=== PATIENT | male | born 1955 | race Caucasian/White ===

== ENCOUNTER → 2016-08-02 | Outpatient (CLI) | payer MEDICARE, SELFPAY ==
--- NOTE | 2016-08-02 14:52 | CT ---
EXAMINATION TYPE: CT ChestAbdPelvis w con DATE OF EXAM: 08/02/2016 1:53 PM INDICATION: Lt hip CA, unknown primary COMPARISON: NONE CT DLP: 598.1 mGycm CONTRAST: Performed with Oral Contrast and with IV Contrast, patient injected with 100 ml mL of Omnipaque 300. TECHNIQUE: Axial images at 5 mm thick sections. Reconstructed images in the coronal plane. Delayed images through the kidneys. FINDINGS: CT CHEST: Portion of the thyroid visualized is normal. No suspicious lung nodules or focal infiltrates are present. Some mild streak atelectasis may be present in the dependent lung bases bilaterally. No enlarged mediastinal or hilar adenopathy is evident. The ascending aorta diameter at the level of the main pulmonary artery is 3.8 cm. The main pulmonary artery diameter at the bifurcation is 2.5 cm. There is likely some coronary artery calcification pre sent. CT ABDOMEN: Liver: Normal Spleen: Normal Pancreas: Normal Adrenal glands: The adrenal glands are normal. Gallbladder: Normal Kidneys: No masses are evident. No hydronephrosis is present. There is a 2.1 cm cyst measuring 6 Ho unsfield units on the posterior left mid kidney. Delayed images were obtained through the kidneys, w hich remain unremarkable. Aorta: Vascular calcification is within the aorta. Inferior vena cava: Normal. CT PELVIS: Loops of bowel within the abdomen and pelvis are normal. There are loops of bowel which are incom pletely distended or lack oral contrast limiting their evaluation. Scattered diverticuli within the s igmoid colon. Appendix: Normal as visualized. Urinary bladder: Normal. Genitourinary structures: Prostate is prominent. Osseous structures: There is a lytic area within the right hip. Facet degenerative changes are within the lumbar spine. Tiny sclerotic area within the L2 vertebral body. Thoracic facet degenerative regan ges are present. Degenerative disc changes are within the thoracic spine. IMPRESSIONS: 1. Lytic area right hip. 2. No suspicious focus for a primary within the chest abdomen pelvis radiographically apparent.
== END | disposition home or self-care (01) ==
LOC: RADCTMAIN 11:47
PROVIDERS: ATTEND Internal Medicine Hematology & Oncology
DX: C80.1 Malignant (primary) neoplasm, unspecified (principal)
CPT/HCPCS: 71260; 74177; Q9967

== ENCOUNTER → 2016-08-03 | Outpatient (CLI) | payer MEDICARE, SELFPAY ==
--- NOTE | 2016-08-03 14:14 | NM ---
EXAMINATION TYPE: NM bone scan whole body DATE OF EXAM: 08/03/2016 1:56 PM COMPARISON: Correlation CT 08/02/2016 HISTORY: 60-year-old male with metastatic cancer, unknown primary. History of ankylosing spondylitis. Patient with right hip pain. TECHNIQUE: Delayed whole-body scanning was performed following the injection of 27.4 mCi Tc 99m MDP. Images acquired 5 hours post injection. FINDINGS: Photopenic area surrounded by a focal area of intense tracer activity along the medial and inferior m argin of the trochanteric and subtrochanteric right proximal femur. There is also small area of inten se tracer activity involving the left ischial tuberosity on the posterior images. No additional suspi cious radiotracer activity is seen. Some degenerative activity is noted at both shoulders and sternoc lavicular joints. IMPRESSION: Suspicious lesions within the trochanteric and subtrochanteric proximal right femur and a tiny focus within the left ischial tuberosity both suspicious for metastatic disease. Patient should be made non weightbearing for risk of pathologic fracture at the right hip. A Forrest message has been communicated to Vasquez Smith MD via the [email or web address] Critical Result system on 08/03/2016 2:11 PM, Message ID [id number].
== END | disposition home or self-care (01) ==
LOC: RADNMMAIN 07:42
PROVIDERS: ATTEND Internal Medicine Hematology & Oncology
DX: C79.9 Secondary malignant neoplasm of unspecified site (principal); C80.1 Malignant (primary) neoplasm, unspecified
CPT/HCPCS: 78306; A9503

== ENCOUNTER → 2016-09-08 | Outpatient (CLI) | payer MEDICARE, SELFPAY ==
--- NOTE | 2016-09-09 13:15 | PE ---
EXAMINATION TYPE: PET CT fusion skull to thigh DATE OF EXAM: 09/08/2016 2:20 PM COMPARISON: CT chest 08/02/2016 Prior PET/CT: None HISTORY: Multiple myeloma TECHNIQUE: Following the intravenous administration of 12.8 mCi of F-18 FDG, whole body images are p erformed from the skull base to the midthigh. Images are reviewed on the computer in the coronal, ax ial, and sagittal planes. Reconstructed rotating images are created on independent workstation and r eviewed on the computer. A localization and attenuation correction CT is performed in conjunction w ith the PET scan. DLP: 404.51 mGycm SCAN: Initial Scan Blood glucose: 94 mg/dL Average Mediastinum SUV: 1.7 Average Liver SUV: 2.1 FINDINGS: NECK: Images include the brain. Radiotracer distribution within the brain appears unremarkable. Ther e is a focal area of increased radiotracer accumulation within the left skull base adjacent to the le ft sphenoid sinus. This has an SUV value of 4.5. Image 44. There is a focal area of increased radiotr acer within the upper cervical spine and SUV value 4.2. Image 59. There is a focal radiotracer accumu lation within the mid cervical vertebral body with an SUV value of 4.2. Image 67. At the same level t here is a slight increased uptake within the left facets which could be related to inflammatory bright e or myelomatous change. Image 68 similar uptake is within the right facets at the next level down. T here is diffuse uptake within the left scapula. Small focal area of uptake is within the right scapul a. THORAX: There is intense uptake within the posterior medial left femoral head with an SUV value 20. S mall focal area of increased radiotracer is within the right glenoid. A second adjacent area is prese nt more anterior within the coracoid. These have SUV values of 6.3 and 7.0 respectively is measured o n image 86. There is a focus of radiotracer within the left upper thoracic transverse process measuri ng SUV 7.1. Image 86. There is increased radiotracer accumulation within the medial left clavicle wit h an SUV value of 6.5. Image 88. Radiotracer accumulation within the transverse processes and proxim al ribs posteriorly. Uptake is within the sternal clavicular junction region bilaterally. These have SUV values range up to 5.8, 4.5. Two foci of abnormal uptake are within the proximal diaphysis right humerus. Images 97 and 101. These measure 5.6, 4.6 SUV respectively. Additional rib uptake is identi fied at these levels. There is uptake within the mid thoracic vertebral level with an SUV of 4.2. Stephie ge 106. Inferior right scapular uptake is noted at this level with an SUV of 3.6.. There is a focus o f radiotracer within the mid sternum with an SUV of 7.5. Image 117. Left lateral rib uptake is presen t at this level with an SUV of 3.9. Additionally, there is a focus of radiotracer within the mid diap hysis right humerus with an SUV of 3.1. There is an area of intense uptake within the anterior latera l right rib image 128 with SUV of 11.7. Additional milder areas of uptake are within the ribs through this region region. There is a focus of radiotracer accumulation within a lower thoracic vertebral l evel right of midline with an SUV value of 8.9. Right costovertebral junction uptake is present with an SUV value of 2.6. Similar positioned uptake is within the anterior lateral left costochondral junc tion with SUV of 5.6. Image 144 uptake is near the xiphoid process level with SUV of 2.1 ABDOMEN: There is a focus of radiotracer within the lower thoracic level within the upper abdomen in the left pedicle and posterior left vertebral body. This is an SUV value of 10. Image 151. Right late ral rib uptake is present adjacent to the liver image 159, SUV 5.0 scattered punctate areas of uptake are within upper lumbar spine vertebral bodies on the right with an SUV value in the range of 3.0. Right pedicle uptake appears to be within region of L4. PELVIS: Intense uptake with an SUV value of 8.0 is present within the posterior L5 midline table body . Uptake is within the right aspect of S1. There is some uptake within the right posterior medial dl ac wing with an SUV value 5.1. Image 198. Uptake is within the left sacral image 206 SUV is 7.7 inten se uptake in the right lateral mid sacrum with an SUV of 10.6, image 2013. Iliac wing uptake is prese nt posterior medial aspect image 216 SUV of 8.7. There is a focus of radiotracer accumulation within the soft tissues of the pelvis anterior to the right hip. This has an SUV value of 11.5. Photopenic d efect patient's right hip prosthesis is evident. There is a focus of radiotracer accumulation within the medial right symphysis pubis with an SUV value of 6.5. There is a focus of radiotracer within th e left ischio ramus with an SUV value of 18.7. Image 245. Milder uptake with an SUV value of 5.8 also within the metastatic region is within the posterior inferior right ischial ramus. There is a focus of radiotracer accumulation within the left femoral neck with an SUV value of 7.3. Image 247 abnormal uptake is anterior to the left hip within the musculature soft tissue tissues measuring SUV value 14 and 29. Image 268. Some medullary uptake is within the diaphysis of the proximal left femur, image 2 71 SUV value of 12. OSSEOUS STRUCTURES: Fast majority of the abnormal areas of uptake are through osseous structures disc ussed in their sections above. Additionally, there is uptake within the medullary cavity of the right proximal diaphyseal femur. Image 325 SUV value 1.5. LOCALIZATION CT: Degenerative facet changes are noted throughout the spine. Few scattered diverticula r changes are within the sigmoid colon. Periumbilical fat containing mesenteric hernia is present. Va scular calcifications within the aorta. Ascending thoracic aorta at the level of the main pulmonary a rtery measures 3.6 cm. The main pulmonary artery bifurcation measures 2.8 cm. Scattered small lymph n odes are the pretracheal space. COMPARISON: Extensive is process is more apparent on the PET scan. IMPRESSION: 1. Extensive osseous metastasis throughout the body discussed above. 2. Some soft tissue uptake appears to be anterior to the femur within the upper thigh.
== END ==
LOC: RADPETMAIN 11:49
PROVIDERS: ATTEND Internal Medicine Hematology & Oncology
DX: C79.51 Secondary malignant neoplasm of bone (principal); C90.00 Multiple myeloma not having achieved remission
CPT/HCPCS: 78815; A9552

== ENCOUNTER 2017-03-21 06:31 | Day surgery (SDC) | payer MEDICARE ==
[2017-03-15 11:40] VITALS: BMI 24.3
[~2017-03-21 06:31] MED LIST: LACTATED RINGERS 1,000 ML IV SCH; LIDOCAINE 1% 20 ML VIAL (10MG/ML) FOR IV START INTRADERMA PRN
[2017-03-21 07:18] VITALS: RESP 16; TEMP 98.1
[2017-03-21] MEDS ORDERED: fentaNYL (PF) 50 MCG/ML 2 ML AMP ONE (07:42)
[2017-03-21] MEDS ORDERED: PROPOFOL 10 MG/ML 20 ML VIAL IV ONE (07:42)
[2017-03-21] MEDS ORDERED: LIDOCAINE 1% INJ 10MG/ML (20 ML MDV) ONE (07:42)
[2017-03-21 07:54] LABS: INR 2.3 (<1.2); Prothrombin Time 22.1 sec (9.0-12.0)
--- NOTE | 2017-03-21 08:31 | PCN ---
PROCEDURE NOTE DATE OF SERVICE: 03/21/2017 PROCEDURE: Bone marrow aspirate and biopsy. PREOP DIAGNOSIS: Multiple myeloma. POSTOP DIAGNOSIS: Multiple myeloma. ANESTHESIA: Local with IV semi-sedation. DETAILS: After using sterile technique, the skin overlying the right iliac crest was prepared with alcohol after adequate sterile draping and local anesthesia, a size 11, 4 inch Gigamonshidi needle was utilized to access the periosteum. We did a total of 15 mL of aspirate as well as 6 mm bone core biopsies were obtained. The patient tolerated the procedure very well. There was no immediate postprocedure complications. BLOOD LOSS: Less than 1 mL. Results pending. MMODL / IJN: [id number] /
[2017-03-21 08:36] VITALS: BP 100/68; PULSE 67
[2017-03-21 09:18] LABS: Basophils % (A) 1 %; CH 32.2; CHCM 33.2; Eosinophils # (A) 0.2 k/uL (0-0.7); Eosinophils % (A) 2 %; HCT 38.1 % (39.0-53.0); HDW 2.66; HGB 12.9 gm/dL (13.0-17.5); Luc # (Auto) 0.13; Luc % (Auto) 2; Lymphocytes # (A) 1.3 k/uL (1.0-4.8); Lymphocytes % (A) 19 %; MCH 32.8 pg (25.0-35.0); MCHC 33.8 g/dL (31.0-37.0); MCV 97.1 fL (80.0-100.0); Mean Platelet Volume 7.9; Monocytes # (A) 0.9 k/uL (0-1.0); Monocytes % (A) 14 %; Neutrophils # (A) 4.3 k/uL (1.3-7.7); Neutrophils % (A) 62 %; RBC 3.92 m/uL (4.30-5.90); RDW 15.1 % (11.5-15.5); WBC 6.9 k/uL (3.8-10.6); WBC (Perox) 7.11
== END 2017-03-21 09:01 | disposition home or self-care (01) ==
LOC: OR 06:31
PROVIDERS: ATTEND Internal Medicine Hematology & Oncology
DX: C90.00 Multiple myeloma not having achieved remission (principal); M45.9 Ankylosing spondylitis of unspecified sites in spine; I48.91 Unspecified atrial fibrillation; I10 Essential (primary) hypertension; Z85.51 Personal history of malignant neoplasm of bladder; Z79.2 Long term (current) use of antibiotics; Z79.01 Long term (current) use of anticoagulants; Z79.899 Other long term (current) drug therapy
CPT/HCPCS: 85025; 85610; 38221; J2001; J3010; J2704; G0364

== ENCOUNTER 2017-05-17 09:10 | Inpatient (IN) | payer MEDICARE ==
[2017-05-17] MEDS ORDERED: ONDANSETRON 4 MG/2 ML VIAL IVP STA (09:24)
[2017-05-17] MEDS ORDERED: SODIUM CHLORIDE 0.9% 1,000 ML IV STA ×2 (09:24)
--- NOTE | 2017-05-17 09:26 | ED ---
General Adult HPI - General Chief complaint: Nausea/Vomiting/Diarrhea Stated complaint: SICK Time Seen by Provider: 05/17/17 09:18 Source: patient, family, RN notes reviewed Mode of arrival: wheelchair Limitations: no limitations - History of Present Illness Initial comments: Patient is 61-year-old male who presents emergency room today with a chief complaint of increased nausea vomiting over the last week. Patient does admit that he's had decreased appetite due to the nausea and vomiting. States he does feel quite a week. Patient presents with chest pain off-and-on at times. no pain in his chest today. Patient denies any other complaints. Patient does admit to be getting chemo regimen last Saturday has been able to take this medication keep it down. Patient denies any recent fever, chills, shortness of breath, back pain, abdominal pain, numbness or tingling, dysuria or hematuria, constipation or diarrhea, headaches or visual changes, or any other complaints. - Related Data Home Medications Medication Instructions Recorded Confirmed Lisinopril [Zestril] 2.5 mg PO DAILY 04/25/16 05/17/17 Carvedilol 12.5 mg PO BID 03/18/17 05/17/17 Lenalidomide [Revlimid] 25 mg PO DAILY 03/18/17 05/17/17 Warfarin [Coumadin] 2.5 mg PO W/SUPPER 03/18/17 05/17/17 Cyanocobalamin (Vitamin B-12) 1,000 mcg PO DAILY 05/17/17 05/17/17 [Vitamin B-12] Dexamethasone [Hexadrol] 20 mg PO MO 05/17/17 05/17/17 oxyCODONE ER [OxyCONTIN 10MG E.R] 10 mg PO Q12HR PRN 05/17/17 05/17/17 Allergies Allergy/AdvReac Type Severity Reaction Status Date / Time No Known Allergies Allergy Verified 05/17/17 09:24 Review of Systems ROS Statement: Those systems with pertinent positive or pertinent negative responses have been documented in the HPI. ROS Other: All systems not noted in ROS Statement are negative. Past Medical History Past Medical History: Cancer, Hypertension Additional Past Medical History / Comment(s): Bladder cancer with sx, umbilical hernia, back pain-ankylosing spondylitis, pt just recently started HTN medication. hx ventricular fibrillation or tachy - pt unsure - on amiodarone apr 2016 History of Any Multi-Drug Resistant Organisms: None Reported Past Surgical History: Bladder Surgery, Orthopedic Surgery, Tonsillectomy Additional Past Surgical History / Comment(s): Cystoscopy for bladder cancer removal./ replaced right femur bone jul 2016 Past Anesthesia/Blood Transfusion Reactions: No Reported Reaction Past Psychological History: No Psychological Hx Reported Smoking Status: Never smoker Past Alcohol Use History: None Reported Past Drug Use History: Marijuana - Past Family History Father History Unknown: Yes Mother Family Medical History: Renal Disease Additional Family Medical History / Comment(s): Mother of a blood infection thought related to dialysis at the age of 83 yrs. General Exam - General Exam Comments Initial Comments: General: The patient is awake and alert, in no distress, and does not appear acutely ill. Eye: Pupils are equal, round and reactive to light, extra-ocular movements are intact. No nystagmus. There is normal conjunctiva bilaterally. No signs of icterus. Ears, nose, mouth and throat: There are moist mucous membranes and no oral lesions. Neck: The neck is supple, there is no tenderness or JVD. Cardiovascular: There is a regular rate and rhythm. No murmur, rub or gallop is appreciated. Respiratory: Lungs are clear to auscultation, respirations are non-labored, breath sounds are equal. No wheezes, stridor, rales, or rhonchi. Gastrointestinal: Soft, non-distended, non-tender abdomen without masses or organomegaly noted. There is no rebound or guarding present. No CVA tenderness. Bowel sounds are unremarkable. Musculoskeletal: Normal ROM, no tenderness. Strength 5/5. Sensation intact. Pulses equal bilaterally 2+. Neurological: A&O x 3. CN II-XII intact, There are no obvious motor or sensory deficits. Coordination appears grossly intact. Speech is normal. Skin: Skin is warm and dry and no rashes or lesions are noted. Psychiatric: Cooperative, appropriate mood & affect, normal judgment. Limitations: no limitations Course Vital Signs 05/17/17 05/17/17 05/17/17 09:12 09:50 09:56 Temperature 97.0 F L Pulse Rate 87 154 H Pulse Rate [ 135 H [employer] Sales Representative ] Respiratory 18 16 Rate Blood Pressure 142/59 105/64 O2 Sat by Pulse 100 99 Oximetry 05/17/17 05/17/17 10:49 11:00 Temperature Pulse Rate 130 H 148 H Pulse Rate [ [employer] Sales Representative ] Respiratory 18 Rate Blood Pressure 112/76 O2 Sat by Pulse 98 99 Oximetry EKG Findings - EKG Comments: EKG Findings:: EKG performed at 0943: Shows atrial flutter 147 beats breath. QRS is 88. QT/QTC 320/500. EKG compared to previous EKG on 04/26/2016. Medical Decision Making - Medical Decision Making Patient reexamined at this time shows no signs of distress. Resting comfortably. Patient's heart rate elevated here in the emergency room was started on Cardizem. Continue to bolus. Patient's labs been reviewed shows a 13,000 white count. Does show mildly elevated BUN/creatinine. Patient will be admitted for further hydration with consult to cardiology. - Lab Data Result diagrams: 05/17/17 09:20 05/17/17 09:20 Lab Results 05/17/17 05/17/17 05/17/17 Range/Units 09:20 09:20 09:20 WBC 13.2 H (3.8-10.6) k/uL RBC 3.82 L (4.30-5.90) m/uL Hgb 11.8 L (13.0-17.5) gm/dL Hct 36.5 L (39.0-53.0) % MCV 95.6 (80.0-100.0) fL MCH 30.9 (25.0-35.0) pg MCHC 32.3 (31.0-37.0) g/dL RDW 15.6 H (11.5-15.5) % Plt Count 113 L (150-450) k/uL Neutrophils % (Manual) 34 % Band Neutrophils % 7 % Lymphocytes % (Manual) 42 % Monocytes % (Manual) 6 % Eosinophils % (Manual) 1 % Metamyelocytes % 4 % Myelocytes % 9 % Neutrophils # (Manual) 5.40 (1.3-7.7) k/uL Lymphocytes # (Manual) 5.54 H (1.0-4.8) k/uL Monocytes # (Manual) 0.79 (0-1.0) k/uL Eosinophils # (Manual) 0.13 (0-0.7) k/uL Metamyelocytes # (Man) 0.53 H (0) k/uL Myelocytes # (Manual) 1.19 H (0) k/uL Nucleated RBCs 0 (0-0) /100 WBC Manual Slide Review Performed PT (9.0-12.0) sec INR (<1.2) APTT (22.0-30.0) sec Sodium 137 (137-145) mmol/L Potassium 3.8 (3.5-5.1) mmol/L Chloride 97 L (98-107) mmol/L Carbon Dioxide 22 (22-30) mmol/L Anion Gap 18 mmol/L BUN 31 H (9-20) mg/dL Creatinine 1.70 H (0.66-1.25) mg/dL Est GFR (MDRD) Af Amer 50 (>60 ml/min/1.73 sqM) Est GFR (MDRD) Non-Af 41 (>60 ml/min/1.73 sqM) Glucose 139 H (74-99) mg/dL Calcium 9.3 (8.4-10.2) mg/dL Total Bilirubin 0.9 (0.2-1.3) mg/dL AST 25 (17-59) U/L ALT 30 (21-72) U/L Alkaline Phosphatase 72 (38-126) U/L Total Creatine Kinase <20 L (55-170) U/L CK-MB (CK-2) 0.3 (0.0-2.4) ng/mL CK-MB (CK-2) Rel Index Troponin I <0.012 (0.000-0.034) ng/mL Total Protein 6.6 (6.3-8.2) g/dL Albumin 4.0 (3.5-5.0) g/dL 05/17/17 Range/Units 09:20 WBC (3.8-10.6) k/uL RBC (4.30-5.90) m/uL Hgb (13.0-17.5) gm/dL Hct (39.0-53.0) % MCV (80.0-100.0) fL MCH (25.0-35.0) pg MCHC (31.0-37.0) g/dL RDW (11.5-15.5) % Plt Count (150-450) k/uL Neutrophils % (Manual) % Band Neutrophils % % Lymphocytes % (Manual) % Monocytes % (Manual) % Eosinophils % (Manual) % Metamyelocytes % % Myelocytes % % Neutrophils # (Manual) (1.3-7.7) k/uL Lymphocytes # (Manual) (1.0-4.8) k/uL Monocytes # (Manual) (0-1.0) k/uL Eosinophils # (Manual) (0-0.7) k/uL Metamyelocytes # (Man) (0) k/uL Myelocytes # (Manual) (0) k/uL Nucleated RBCs (0-0) /100 WBC Manual Slide Review PT 23.6 H (9.0-12.0) sec INR 2.5 H (<1.2) APTT 32.5 H (22.0-30.0) sec Sodium (137-145) mmol/L Potassium (3.5-5.1) mmol/L Chloride (98-107) mmol/L Carbon Dioxide (22-30) mmol/L Anion Gap mmol/L BUN (9-20) mg/dL Creatinine (0.66-1.25) mg/dL Est GFR (MDRD) Af Amer (>60 ml/min/1.73 sqM) Est GFR (MDRD) Non-Af (>60 ml/min/1.73 sqM) Glucose (74-99) mg/dL Calcium (8.4-10.2) mg/dL Total Bilirubin (0.2-1.3) mg/dL AST (17-59) U/L ALT (21-72) U/L Alkaline Phosphatase (38-126) U/L Total Creatine Kinase (55-170) U/L CK-MB (CK-2) (0.0-2.4) ng/mL CK-MB (CK-2) Rel Index Troponin I (0.000-0.034) ng/mL Total Protein (6.3-8.2) g/dL Albumin (3.5-5.0) g/dL Disposition Clinical Impression: Atrial flutter, Nausea & vomiting Disposition: ADMITTED IP TO THIS [facility] Condition: Stable Referrals: Shashank Ramirez MD [Primary Care Provider] - 1-2 days Time of Disposition: 11:45
[2017-05-17 09:58] LABS: Calcium 9.3 mg/dL (8.4-10.2); INR 2.5 (<1.2); Potassium 3.8 mmol/L (3.5-5.1); Prothrombin Time 23.6 sec (9.0-12.0); Total Bilirubin 0.9 mg/dL (0.2-1.3); Total Protein 6.6 g/dL (6.3-8.2)
[2017-05-17 10:05] LABS: Creatine Kinase <20 U/L (55-170)
[2017-05-17 10:10] LABS: Aty Lym Flag Marked; CH 31.9; CHCM 33.5; HCT 36.5 % (39.0-53.0); HDW 2.73; HGB 11.8 gm/dL (13.0-17.5); Immature Gran Flag Marked; MCH 30.9 pg (25.0-35.0); MCHC 32.3 g/dL (31.0-37.0); MCV 95.6 fL (80.0-100.0); Mean Platelet Volume 8.2; RBC 3.82 m/uL (4.30-5.90); RDW 15.6 % (11.5-15.5); WBC 13.2 k/uL (3.8-10.6)
[2017-05-17 10:16] LABS: Partial Thromboplastin Time 32.5 sec (22.0-30.0)
[2017-05-17 10:18] LABS: Creatine Kinase MB 0.3 ng/mL (0.0-2.4); Troponin I <0.012 ng/mL (0.000-0.034)
[2017-05-17 10:41] LABS: Add Differential Manual Differential
--- NOTE | 2017-05-17 10:46 | XR ---
EXAMINATION TYPE: XR chest 2V DATE OF EXAM: 05/17/2017 COMPARISON: 04/25/2016 INDICATION: Weakness x1 week TECHNIQUE: Frontal and lateral views of the chest are obtained. FINDINGS: The heart size is normal. The pulmonary vasculature is normal. The lungs are clear. IMPRESSION: 1. No acute pulmonary process.
[2017-05-17] MEDS ORDERED: DILTIAZEM 125 MG in SODIUM CHLORIDE 0.9% 100 ML IV ONE (10:47)
--- NOTE | 2017-05-17 10:47 | XR ---
EXAMINATION TYPE: XR KUB DATE OF EXAM: 05/17/2017 COMPARISON: NONE INDICATION: Pain weakness TECHNIQUE: Single view abdomen upright view FINDINGS: Bowel gas pattern is nonspecific. Suspicious air-fluid levels are not evident. No free air is evident . Psoas margins are normal. No organomegaly is present. There is a right hip prosthesis present. IMPRESSION: 1. Nonspecific abdomen.
[2017-05-17 11:13] LABS: Band Neutrophils % 7 %; Metamyelocytes % 4 %; Myelocytes % 9 %; Nucleated Red Blood Cells 0 /100 WBC (0-0); Total Cells Counted 200
[2017-05-17 11:14] LABS: Manual Review Performed
[2017-05-17] MEDS ORDERED: ONDANSETRON 4 MG/2 ML VIAL IVP PRN (12:45)
[2017-05-17] MEDS ORDERED: NALOXONE 0.4 MG/ML 1 ML VIAL IV PRN (12:45)
[2017-05-17] MEDS: HYDROmorphone 1 MG/ML 1 ML SYRINGE IVP PRN ×2 (14:05→16:28)
[2017-05-17] MEDS: METOCLOPRAMIDE 5 MG/ML 2 ML VIAL IVP SCH ×2 (16:11→23:32)
[2017-05-17 16:22] LABS: Amorphous Sediment,Urine Rare /hpf; Appearance,Urine Clear (Clear); Bacteria,Urine Rare /hpf; Bilirubin,Urine Negative (Negative); Glucose,Urine (UA) Negative (Negative); Ketones,Urine Negative (Negative); Leukocyte Esterase,Urine Negative (Negative); Mucus,Urine Occasional /hpf; Nitrite,Urine Negative (Negative); PH, Urine 5.5 (5.0-8.0); Particle Count 4010; Protein,Urine 1+ (Negative); RBC,Urine 1 /hpf (0-5); Specific Gravity,Urine 1.007 (1.001-1.035); UA Billing (MACRO vs. MICRO) MICRO; Urobilinogen,Urine <2.0 mg/dL (<2.0); WBC,Urine 1 /hpf (0-5)
[2017-05-17] MEDS: CARVEDILOL 12.5 MG TAB PO SCH (17:03)
[2017-05-17] MEDS ORDERED: OXYCODONE HCL 10 MG PO SCH (18:00)
[2017-05-17] MEDS ORDERED: WARFARIN 2.5 MG TAB PO SCH (18:00)
--- NOTE | 2017-05-17 19:06 | HP ---
HISTORY AND PHYSICAL CHIEF COMPLAINTS: Nausea, vomiting and as well as atrial fibrillation. HISTORY OF PRESENT ILLNESS: This 61-year-old gentleman with a past medical history of hypertension, history of multiple myeloma, history of bladder cancer, history of ventricular tachycardia, history of cardiomyopathy, being followed by Dr. Shashank Ramirez in the outpatient setting is obtaining chemotherapy from Dr. Smith. The patient had nausea, vomiting for the last several weeks which is getting worse according to him. The patient unable to keep anything down for the last several days. Patient came to [facility] and found to be in atrial fibrillation with fast ventricular rate. Patient started on Cardizem, INR was therapeutic, and the patient is admitted for evaluation and treatment. There is no history of fever, rigors. No history of headache, loss of consciousness or seizure at this time. PAST MEDICAL HISTORY: Hypertension, history of multiple myeloma on chemotherapy, history of bladder cancer, ventricular tachycardia, cardiomyopathy and spondylolysis. MEDICATIONS: Medications prior to admission: 1. Oxycodone 10 mg p.o. b.i.d. 2. Coumadin 2.5 mg at supper. 3. Zestril 2.5 mg daily. 4. Revlimid 25 mg p.o. daily. 6. Vitamin D 2000 mcg p.o. 7. Coreg 12.5 mg p.o. b.i.d. ALLERGIES: None. FAMILY HISTORY: History of renal disease. SOCIAL HISTORY: History of alcohol, THC. No history of smoking. REVIEW OF SYSTEMS: ENT: No diminished hearing or vision. CARDIOVASCULAR: No angina, palpitations, otherwise as mentioned. RESPIRATION: No cough. GI: As mentioned earlier. : No dysuria. NERVOUS SYSTEM: No numbness or weakness. ALLERGY/IMMUNOLOGY: No asthma or hayfever. MUSCULOSKELETAL: As mentioned. ENDOCRINE: As mentioned earlier. CONSTITUTIONAL: As mentioned earlier. HEMATOLOGY/ONCOLOGY: As mentioned earlier. CONSTITUTIONAL: As mentioned earlier. DERMATOLOGY: Negative. RHEUMATOLOGY: Negative. PSYCHIATRY: As mentioned earlier. PHYSICAL EXAM: Patient is alert, oriented x3. Pulse 106, blood pressure 130/71, respiration 16, temperature 97 degrees, pulse ox 100% on 2 L. HEENT: Conjunctivae normal. Oral mucosa is dry. NECK: No jugular venous distention. No carotid bruit. No lymph node enlargement. CARDIOVASCULAR: S1, S2. No S3, no S4. Irregular. Ejection systolic murmur present. RESPIRATORY: Breath sounds diminished at the bases. No rhonchi. No crackles. ABDOMEN: Soft, nontender. No mass palpable. No hepatosplenomegaly. LEGS: No edema. No swelling. NERVOUS SYSTEM: Higher function as mentioned, moves all 4 limbs. No focal motor or sensory deficits. LYMPHATICS: No lymphadenopathy in the neck, axillae, groin. SKIN: No ulcer, rash or bleeding. LABS: WBC 13.2, hemoglobin 11.8, INR is 2.5, and creatinine 1.70. ASSESSMENT: 1. Atrial flutter fibrillation with fast ventricular rate. 2. Nausea, vomiting with possible acute on chronic gastritis. 3. Multiple myeloma. 4. Increased WBC. 5. Anemia. 6. Thrombocytopenia. 7. Coumadin monitoring. 8. Increased creatinine with acute on chronic kidney disease and kidney failure with stage III chronic kidney disease, baseline probably. 9. History of bladder cancer. 10.History of ventricular tachycardia and cardiomyopathy. 11.History of ankylosing spondylosis. 12.History hypertension. RECOMMENDATION AND DISCUSSION: This 61-year-old gentleman who presented with multiple complex medical issues, we will monitor the patient closely, continue the current medications and symptomatic treatment. I recommend to continue the Cardizem at 5 mg/hour and cardiology consultation. Otherwise continue the rest of the home medications. Monitor blood pressure closely. IV fluids. Monitor PT/INR closely. Repeat labs. I would also recommend Cardiology evaluation. Troponin negative. UA requested. See orders for details. Prognosis guarded. Discussed with the patient and family who understands. Further recommendations to follow. MMODL / IJN: [id number] / MITA
[2017-05-17] MEDS: PANTOPRAZOLE 40 MG/10 ML VIAL IVP SCH (19:54)
[2017-05-18] MEDS: CARVEDILOL 12.5 MG TAB PO SCH (06:02)
[2017-05-18 06:30] LABS: INR 3.3 (<1.2); Prothrombin Time 31.8 sec (9.0-12.0)
[2017-05-18 06:36] LABS: Calcium 7.8 mg/dL (8.4-10.2); Total Bilirubin 0.4 mg/dL (0.2-1.3); Total Protein 5.7 g/dL (6.3-8.2)
[2017-05-18 06:44] LABS: CH 31.8; HCT 30.3 % (39.0-53.0); Immature Gran Flag Slight; MCH 31.3 pg (25.0-35.0); MCHC 32.4 g/dL (31.0-37.0); MCV 96.7 fL (80.0-100.0); Mean Platelet Volume 7.5; RBC 3.13 m/uL (4.30-5.90); RDW 14.5 % (11.5-15.5); WBC 6.7 k/uL (3.8-10.6)
[2017-05-18 06:45] LABS: HGB 9.8 gm/dL (13.0-17.5)
[2017-05-18 07:02] LABS: Add Differential Manual Differential
[2017-05-18 07:10] LABS: Band Neutrophils % 11 %; Metamyelocytes % 7 %; Myelocytes % 3 %; Nucleated Red Blood Cells 0 /100 WBC (0-0); Total Cells Counted 100
[2017-05-18 07:12] LABS: Manual Review Performed; Reactive Lymphocytes Present
[2017-05-18] MEDS: METOCLOPRAMIDE 5 MG/ML 2 ML VIAL IVP SCH ×3 (08:12→23:25)
[2017-05-18] MEDS: PANTOPRAZOLE 40 MG/10 ML VIAL IVP SCH ×2 (08:12→20:20)
[2017-05-18] MEDS: CYANOCOBALAMIN 500 MCG TAB PO SCH (08:12)
--- NOTE | 2017-05-18 08:26 | P.CRDCN ---
History of Present Illness Consult date: 05/18/17 Requesting physician: Khurram Mondragon Consult reason: atrial flutter Chief complaint: Nausea, vomiting, and weakness. History of present illness: This is a pleasant 61-year-old gentleman who follows regularly with Dr. Salmon in the office. He has a known history of paroxysmal atrial fibrillation/flutter, nonischemic cardiomyopathy with prior documented ejection fraction of 30%, history of bladder cancer, hypertension, nonsmoker, multiple myeloma for which patient had received chemo, he is sick currently receiving Revlimid. He presented to the hospital with symptoms of persistent nausea and vomiting with associated progression of weakness. EKG on presentation here showed atrial fibrillation with a rapid ventricular response. Asked x-ray did not reveal any acute cardiopulmonary process. KUB was performed which did not reveal any significant findings. Pressure on arrival here 142/50, heart rate at that time was in the 150s, 100% on room air, temperature 90.7. This morning patient continues to be in atrial flutter, heart rate in the 70s to 80s. Blood pressure 110/60. He is currently on a Cardizem drip at 5 mg per hour. White blood cell count on admission 13.2, hemoglobin 11.8, platelets 113. INR on admission 2.5, sodium 137, potassium 3.8, BUN 31, creatinine 1.7. Troponin 0.012. Labs from this morning BUN 29, creatinine 2.2. hemoglobin 9.8 and platelet count 60. INR this morning 3.3. At the time of my examination this morning, patient feels better than he did on admission he states he was so weak he could barely lift his head when he initially presented. This morning he was actually able to be some breakfast. Past Medical History Past Medical History: Cancer, Hypertension Additional Past Medical History / Comment(s): Multiple myeloma, R subtrochanteric large lesion with R feumr removal and chemo, many years ago he had bladder cancer with surgery, Vtach, cardiomyopathy, ankylosing spondylosis- cervical, back and hips. History of Any Multi-Drug Resistant Organisms: None Reported Past Surgical History: Bladder Surgery, Orthopedic Surgery, Tonsillectomy Additional Past Surgical History / Comment(s): Cystoscopy for bladder cancer removal, replaced right femur bone jul 2016 at [facility], 03/21/17 BMA with bx, 04/2016 cardiac cath-normal. Past Anesthesia/Blood Transfusion Reactions: No Reported Reaction Smoking Status: Never smoker - Past Family History Father History Unknown: Yes Additional Family Medical History / Comment(s): Pt states he has had little contact with his father. Mother Family Medical History: Renal Disease Additional Family Medical History / Comment(s): Mother of a blood infection thought related to dialysis at the age of 83 yrs. Medications and Allergies Home Medications Medication Instructions Recorded Confirmed Type Lisinopril [Zestril] 2.5 mg PO DAILY 04/25/16 05/17/17 History Carvedilol 12.5 mg PO BID 03/18/17 05/17/17 History Lenalidomide [Revlimid] 25 mg PO DAILY 03/18/17 05/17/17 History Warfarin [Coumadin] 2.5 mg PO W/SUPPER 03/18/17 05/17/17 History Cyanocobalamin (Vitamin B-12) 1,000 mcg PO DAILY 05/17/17 05/17/17 History [Vitamin B-12] Dexamethasone [Hexadrol] 20 mg PO MO 05/17/17 05/17/17 History oxyCODONE HCL 10 mg PO Q6HR 05/17/17 05/17/17 History Allergies Allergy/AdvReac Type Severity Reaction Status Date / Time No Known Allergies Allergy Verified 05/17/17 09:24 Physical Exam Vitals: Vital Signs Temp Pulse Pulse Pulse Resp BP BP 05/18/17 04:00 96.1 F L 86 16 109/64 05/17/17 23:49 98.7 F 87 16 102/65 05/17/17 20:00 97.7 F 92 16 105/66 05/17/17 15:53 98.2 F 115 H 115 H 18 112/70 05/17/17 14:15 97 F L 106 H 16 113/71 05/17/17 13:18 98.2 F 125 H 18 109/60 05/17/17 11:00 148 H 18 112/76 05/17/17 10:49 130 H 05/17/17 09:56 135 H 05/17/17 09:50 154 H 16 105/64 05/17/17 09:12 97.0 F L 87 18 142/59 Pulse Ox 05/18/17 04:00 100 05/17/17 23:49 99 05/17/17 20:00 99 05/17/17 15:53 99 05/17/17 14:15 100 05/17/17 13:18 99 05/17/17 11:00 99 05/17/17 10:49 98 05/17/17 09:56 05/17/17 09:50 99 05/17/17 09:12 100 Intake and Output 05/17/17 05/18/17 05/18/17 22:59 06:59 14:59 Intake Total 840 200 240 Output Total 775 525 Balance 65 -325 240 Intake: IV 840 200 0.9% NS @ 20 mL/hr 160 Diltiazem 125 mg In 40 40 Sodium Chloride 0.9% 100 ml @ 5 MG/HR 5 mls/hr IV .Q24H ONE Rx#:[id number] Sodium Chloride 0.9% 1, 800 000 ml @ 100 mls/hr IV . Q10H STA Rx#:[id number] Oral 240 Output: Urine 775 525 Other: Voiding Method Urinal Urinal # Voids 1 1 Weight 67.1 kg PHYSICAL EXAMINATION: HEENT: Head is atraumatic, normocephalic. Pupils equal, round. Neck is supple. There is no elevated jugular venous pressure. HEART EXAMINATION: Heart S1, S2 normal. No murmur or gallop heard. CHEST EXAMINATION: Lungs are clear to auscultation and precussion. No chest wall tenderness is noted on palpation or with deep breathing. ABDOMEN: Soft, nontender. Bowel sounds are heard. No organomegaly noted. EXTREMITIES: 2+ peripheral pulses with no evidence of peripheral edema and no calf tenderness noted. NEUROLOGIC patient is awake, alert and oriented -3. . Results 05/18/17 05:58 05/18/17 05:58 Cardiac Enzymes 05/17/17 05/17/17 05/18/17 Range/Units 09:20 09:20 05:58 AST 25 21 (17-59) U/L CK-MB (CK-2) 0.3 (0.0-2.4) ng/mL Troponin I <0.012 (0.000-0.034) ng/mL Coagulation 05/17/17 05/18/17 Range/Units 09:20 05:58 PT 23.6 H 31.8 H (9.0-12.0) sec APTT 32.5 H (22.0-30.0) sec CBC 05/17/17 05/18/17 Range/Units 09:20 05:58 WBC 13.2 H 6.7 (3.8-10.6) k/uL RBC 3.82 L 3.13 L (4.30-5.90) m/uL Hgb 11.8 L 9.8 L D (13.0-17.5) gm/dL Hct 36.5 L 30.3 L (39.0-53.0) % Plt Count 113 L 60 L (150-450) k/uL Comprehensive Metabolic Panel 05/17/17 05/18/17 Range/Units 09:20 05:58 Sodium 137 138 (137-145) mmol/L Potassium 3.8 4.0 (3.5-5.1) mmol/L Chloride 97 L 106 (98-107) mmol/L Carbon Dioxide 22 23 (22-30) mmol/L BUN 31 H 29 H (9-20) mg/dL Creatinine 1.70 H 2.29 H (0.66-1.25) mg/dL Glucose 139 H 93 (74-99) mg/dL Calcium 9.3 7.8 L (8.4-10.2) mg/dL AST 25 21 (17-59) U/L ALT 30 25 (21-72) U/L Alkaline Phosphatase 72 57 (38-126) U/L Total Protein 6.6 5.7 L (6.3-8.2) g/dL Albumin 4.0 3.2 L (3.5-5.0) g/dL Current Medications Generic Name Dose Route Start Last Admin Trade Name Freq PRN Reason Stop Dose Admin Carvedilol 12.5 mg 05/17/17 17:30 05/18/17 06:02 Coreg PO 12.5 mg BID-W/MEALS PAULIE Administration Cyanocobalamin 1,000 mcg 05/18/17 09:00 Vitamin B-12 PO DAILY PAULIE Dexamethasone 20 mg 05/20/17 09:00 Hexadrol PO MO [facility] Hydromorphone HCl 1 mg 05/17/17 12:45 05/17/17 16:28 Dilaudid IVP 1 mg Q3HR PRN Administration Severe Pain Diltiazem HCl 125 mg/ Sodium 125 mls @ 5 mls/hr 05/17/17 10:47 05/17/17 11:02 Chloride IV 05/18/17 10:46 5 mg/hr .Q24H ONE 5 mls/hr 5 MG/HR Administration Metoclopramide HCl 5 mg 05/17/17 16:00 05/17/17 23:32 Reglan IVP 5 mg Q8H PAULIE Administration Naloxone HCl 0.2 mg 05/17/17 12:45 Narcan IV Q2M PRN Opioid Reversal Non-Formulary Medication 25 mg 05/18/17 09:00 Lenalidomide [Revlimid] PO DAILY PAULIE Ondansetron HCl 4 mg 05/17/17 12:45 Zofran IVP Q8HR PRN Nausea And Vomiting Oxycodone HCl 10 mg 05/17/17 18:00 05/18/17 06:02 Oxyir PO 10 mg Q6HR PAULIE Administration Pantoprazole Sodium 40 mg 05/17/17 21:00 05/17/17 19:54 Protonix IVP 40 mg BID PAULIE Administration Warfarin Sodium 2.5 mg 05/17/17 18:00 05/17/17 17:03 Coumadin PO 2.5 mg DAILY@1800 PAULIE Administration Intake and Output 05/17/17 05/18/17 05/18/17 22:59 06:59 14:59 Intake Total 840 200 240 Output Total 775 525 Balance 65 -325 240 Intake: IV 840 200 0.9% NS @ 20 mL/hr 160 Diltiazem 125 mg In 40 40 Sodium Chloride 0.9% 100 ml @ 5 MG/HR 5 mls/hr IV .Q24H ONE Rx#:[id number] Sodium Chloride 0.9% 1, 800 000 ml @ 100 mls/hr IV . Q10H STA Rx#:[id number] Oral 240 Output: Urine 775 525 Other: Voiding Method Urinal Urinal # Voids 1 1 Weight 67.1 kg 05/18/17 05:58 05/18/17 05:58 EKG Interpretations (text) Initial EKG showed atrial fibrillation with rapid ventricular response, subsequent EKG performed this morning showed atrial flutter controlled ventricular response. Assessment and Plan Plan: Assessment and plan #1 atrial fibrillation/flutter with rapid ventricular response, in a patient with known history of atrial fibrillation/flutter. Patient is on Coumadin for anticoagulation, INR this morning 3.3 #2 nonischemic cardiomyopathy with prior documented ejection fraction of 30%, patient did undergo cardiac catheterization in April of last year which revealed mild spasm in the nondominant right coronary artery otherwise coronary arteries were free of any significant occlusive disease. #3 multiple myeloma and history of prior bladder cancer, currently on Revlimid #4 history of hypertension #5 anemia and thrombocytopenia, hemoglobin 9.8 this morning, platelet count 60 #6 history of prior ventricular tachycardia #7 acute we'll insufficiency, could be secondary to frequent vomiting recently. baseline creatinine appears to be 0.9. Plan We will discontinue the patient's IV Cardizem drip. Hold Coumadin today. Obtain echocardiogram with Doppler study as well as free T4 and TSH level. Increase IV fluids to 100 mL per hour. Patient's blood pressure this morning 84 /60. Further recommendations to follow. DNP note has been reviewed, I agree with a documented findings and plan of care. Patient was seen and examined.
[2017-05-18] MEDS: SODIUM CHLORIDE 0.9% 1,000 ML IV SCH ×2 (08:30→20:21)
[2017-05-18] MEDS ORDERED: NON-FORMULARY DRUG (Lenalidomide [Revlimid] 25 MG) PO SCH (09:00)
--- NOTE | 2017-05-18 09:15 | P.CONS ---
History of Present Illness - Reason for Consult Consult date: 05/18/17 Intractable n/v, weakness, Myeloma - History of Present Illness The patient is a 61-year-old gentleman, well-known to our service. He is followed by Dr. Smith in the outpatient setting. The patient had presented with increasing pain in the right hip area, and was found to have a destructive lesion, and 07/24. At that time workup also revealed evidence of metastatic bony lesions in other locations. The patient underwent open reduction and internal fixation at [facility] with Dr. Khoury, revealing IgA multiple myeloma. After recovery from surgery he was treated with induction consisting of the RVD regimen. He had an excellent response to the same, and was referred for autologous stem cell transplantation. However after his consult, he refused transplant. He was therefore placed on maintenance treatment with Revlimid 10 mg daily for 2 weeks, with 2 weeks off, with continuing Decadron. The patient states that he has had some issues with nausea with Revlimid, that have been ongoing. He feels that maybe over the last 1-2 months this has been more prominent overall. Over the last week, this had become much more significant to where he could not keep anything down. He became progressively weaker to where he could not get out of bed. His had called the answering service yesterday, and they were advised to go into the emergency room. In the ER, he was noted to have a rapid ventricular rate, from his underlying atrial fibrillation. He appeared to be clinically dehydrated. He was therefore admitted for further management. The patient denies any history of fever or diarrhea. He states that in the last week he did have a couple episodes where he did feel quite hot and had significant sweats. Review of Systems Constitutional: Reports fatigue, Reports poor appetite, Reports sweats, Reports weakness Eyes: denies blurred vision, denies pain Ears: deny: decreased hearing, ear discharge, earache, tinnitus Ears, nose, mouth and throat: Denies headache, Denies sore throat Cardiovascular: Reports dyspnea on exertion, Reports palpitations Respiratory: Denies cough Gastrointestinal: Reports loss of appetite, Reports nausea, Reports vomiting Genitourinary: Reports as per HPI Musculoskeletal: Reports muscle weakness Integumentary: Denies pruritus, Denies rash Neurological: Reports weakness Psychiatric: Denies anxiety, Denies depression Endocrine: Denies fatigue, Denies weight change Hematologic/Lymphatic: Reports as per HPI Past Medical History Past Medical History: Cancer, Hypertension Additional Past Medical History / Comment(s): Multiple myeloma, R subtrochanteric large lesion with R feumr removal and chemo, many years ago he had bladder cancer with surgery, Vtach, cardiomyopathy, ankylosing spondylosis- cervical, back and hips. History of Any Multi-Drug Resistant Organisms: None Reported Past Surgical History: Bladder Surgery, Orthopedic Surgery, Tonsillectomy Additional Past Surgical History / Comment(s): Cystoscopy for bladder cancer removal, replaced right femur bone jul 2016 at [facility], 03/21/17 BMA with bx, 04/2016 cardiac cath-normal. Past Anesthesia/Blood Transfusion Reactions: No Reported Reaction Smoking Status: Never smoker - Past Family History Father History Unknown: Yes Additional Family Medical History / Comment(s): Pt states he has had little contact with his father. Mother Family Medical History: Renal Disease Additional Family Medical History / Comment(s): Mother of a blood infection thought related to dialysis at the age of 83 yrs. Medications and Allergies Home Medications Medication Instructions Recorded Confirmed Type Lisinopril [Zestril] 2.5 mg PO DAILY 04/25/16 05/17/17 History Carvedilol 12.5 mg PO BID 03/18/17 05/17/17 History Lenalidomide [Revlimid] 25 mg PO DAILY 03/18/17 05/17/17 History Warfarin [Coumadin] 2.5 mg PO W/SUPPER 03/18/17 05/17/17 History Cyanocobalamin (Vitamin B-12) 1,000 mcg PO DAILY 05/17/17 05/17/17 History [Vitamin B-12] Dexamethasone [Hexadrol] 20 mg PO MO 05/17/17 05/17/17 History oxyCODONE HCL 10 mg PO Q6HR 05/17/17 05/17/17 History Allergies Allergy/AdvReac Type Severity Reaction Status Date / Time No Known Allergies Allergy Verified 05/17/17 09:24 Physical Exam Vitals: Vital Signs Temp Pulse Pulse Pulse Resp BP BP 05/18/17 04:00 96.1 F L 86 16 109/64 05/17/17 23:49 98.7 F 87 16 102/65 05/17/17 20:00 97.7 F 92 16 105/66 05/17/17 15:53 98.2 F 115 H 115 H 18 112/70 05/17/17 14:15 97 F L 106 H 16 113/71 05/17/17 13:18 98.2 F 125 H 18 109/60 05/17/17 11:00 148 H 18 112/76 05/17/17 10:49 130 H 05/17/17 09:56 135 H 05/17/17 09:50 154 H 16 105/64 05/17/17 09:12 97.0 F L 87 18 142/59 Pulse Ox 05/18/17 04:00 100 05/17/17 23:49 99 05/17/17 20:00 99 05/17/17 15:53 99 05/17/17 14:15 100 05/17/17 13:18 99 05/17/17 11:00 99 05/17/17 10:49 98 05/17/17 09:56 05/17/17 09:50 99 05/17/17 09:12 100 Intake and Output 05/17/17 05/18/17 05/18/17 22:59 06:59 14:59 Intake Total 840 200 240 Output Total 775 525 Balance 65 -325 240 Intake: IV 840 200 0.9% NS @ 20 mL/hr 160 Diltiazem 125 mg In 40 40 Sodium Chloride 0.9% 100 ml @ 5 MG/HR 5 mls/hr IV .Q24H ONE Rx#:[id number] Sodium Chloride 0.9% 1, 800 000 ml @ 100 mls/hr IV . Q10H STA Rx#:[id number] Oral 240 Output: Urine 775 525 Other: Voiding Method Urinal Urinal # Voids 1 1 Weight 67.1 kg - Constitutional General appearance: no acute distress - EENT Eyes: EOMI, PERRLA ENT: hearing grossly normal, normal oropharynx - Neck Neck: no lymphadenopathy - Respiratory Respiratory: bilateral: CTA - Cardiovascular Rhythm: irregularly irregular Heart sounds: normal: S1, S2 - Gastrointestinal General gastrointestinal: normal bowel sounds, soft - Integumentary Integumentary: normal - Neurologic Neurologic: CNII-XII intact - Musculoskeletal Musculoskeletal: generalized weakness, strength equal bilaterally - Psychiatric Psychiatric: A&O x's 3, appropriate affect Results CBC & Chem 7: 05/18/17 05:58 05/18/17 05:58 Labs: Abnormal Lab Results - Last 24 Hours (Table) 05/17/17 05/17/17 05/17/17 Range/Units 09:20 09:20 09:20 WBC 13.2 H (3.8-10.6) k/uL RBC 3.82 L (4.30-5.90) m/uL Hgb 11.8 L (13.0-17.5) gm/dL Hct 36.5 L (39.0-53.0) % RDW 15.6 H (11.5-15.5) % Plt Count 113 L (150-450) k/uL Lymphocytes # (Manual) 5.54 H (1.0-4.8) k/uL Metamyelocytes # (Man) 0.53 H (0) k/uL Myelocytes # (Manual) 1.19 H (0) k/uL Pathologist Review See comment A PT (9.0-12.0) sec INR (<1.2) APTT (22.0-30.0) sec Chloride 97 L (98-107) mmol/L BUN 31 H (9-20) mg/dL Creatinine 1.70 H (0.66-1.25) mg/dL Glucose 139 H (74-99) mg/dL Calcium (8.4-10.2) mg/dL Total Creatine Kinase <20 L (55-170) U/L Total Protein (6.3-8.2) g/dL Albumin (3.5-5.0) g/dL Urine Protein (Negative) Amorphous Sediment (None) /hpf Urine Bacteria (None) /hpf Urine Mucus (None) /hpf 05/17/17 05/17/17 05/18/17 Range/Units 09:20 16:10 05:58 WBC (3.8-10.6) k/uL RBC (4.30-5.90) m/uL Hgb (13.0-17.5) gm/dL Hct (39.0-53.0) % RDW (11.5-15.5) % Plt Count (150-450) k/uL Lymphocytes # (Manual) (1.0-4.8) k/uL Metamyelocytes # (Man) (0) k/uL Myelocytes # (Manual) (0) k/uL Pathologist Review PT 23.6 H (9.0-12.0) sec INR 2.5 H (<1.2) APTT 32.5 H (22.0-30.0) sec Chloride (98-107) mmol/L BUN 29 H (9-20) mg/dL Creatinine 2.29 H (0.66-1.25) mg/dL Glucose (74-99) mg/dL Calcium 7.8 L (8.4-10.2) mg/dL Total Creatine Kinase (55-170) U/L Total Protein 5.7 L (6.3-8.2) g/dL Albumin 3.2 L (3.5-5.0) g/dL Urine Protein 1+ H (Negative) Amorphous Sediment Rare H (None) /hpf Urine Bacteria Rare H (None) /hpf Urine Mucus Occasional H (None) /hpf 05/18/17 05/18/17 Range/Units 05:58 05:58 WBC (3.8-10.6) k/uL RBC 3.13 L (4.30-5.90) m/uL Hgb 9.8 L D (13.0-17.5) gm/dL Hct 30.3 L (39.0-53.0) % RDW (11.5-15.5) % Plt Count 60 L (150-450) k/uL Lymphocytes # (Manual) (1.0-4.8) k/uL Metamyelocytes # (Man) 0.47 H (0) k/uL Myelocytes # (Manual) 0.20 H (0) k/uL Pathologist Review PT 31.8 H (9.0-12.0) sec INR 3.3 H (<1.2) APTT (22.0-30.0) sec Chloride (98-107) mmol/L BUN (9-20) mg/dL Creatinine (0.66-1.25) mg/dL Glucose (74-99) mg/dL Calcium (8.4-10.2) mg/dL Total Creatine Kinase (55-170) U/L Total Protein (6.3-8.2) g/dL Albumin (3.5-5.0) g/dL Urine Protein (Negative) Amorphous Sediment (None) /hpf Urine Bacteria (None) /hpf Urine Mucus (None) /hpf Chest x-ray: report reviewed Abdominal x-ray: report reviewed Assessment and Plan (1) Nausea & vomiting Narrative/Plan: This is the main complaint, that led to the patient coming to the hospital. On evaluation, it does appear that he has had issues with nausea potentially related to the Revlimid, since initiation of his treatment. However this has been more prominent over the last couple months, especially over the last week. At this time the primary differential is medication effect. I will hold the Revlimid. Continue supportive care for nausea. We will also need to rule out an infection as a potential cause. UA and chest x-ray are negative. I will order influenza testing. Current Visit: Yes Status: Acute Code(s): R11.2 - NAUSEA WITH VOMITING, UNSPECIFIED SNOMED Code(s): 14898533 (2) Dehydration Narrative/Plan: Due to above. This was likely contributing to the rapid ventricular rate also. The patient is improved with hydration. Current Visit: Yes Status: Acute Code(s): E86.0 - DEHYDRATION SNOMED Code( s): 06411786 (3) Myeloma Narrative/Plan: History is as noted above. Most recent labs from the office, done on appear to show some progression. His follow-up appointment has been moved up. Therefore it would be important to define if Revlimid is causing intolerance, in terms of planning future therapy. Current Visit: Yes Status: Acute Code(s): C90.00 - MULTIPLE MYELOMA NOT HAVING ACHIEVED REMISSION SNOMED Code(s): 923991915 Plan: Case was discussed with the admitting service
[2017-05-18] MEDS ORDERED: DILTIAZEM ORAL 30 MG TAB PO SCH (10:15)
[2017-05-18] MEDS: METOPROLOL TARTRATE 12.5 MG TAB PO SCH ×2 (11:43→20:20)
--- NOTE | 2017-05-18 12:25 | CONS ---
CONSULTATION REQUESTING PHYSICIANS: Dr. Mondragon and Dr. Shashank Ramirez. REASON FOR CONSULTATION: Nausea, vomiting, possible EGD. HISTORY OF PRESENT ILLNESS: The patient is a 61-year-old pleasant white male who was admitted to the hospital with persistent nausea, vomiting for the last 1 week's duration. The patient states that he was diagnosed with multiple myeloma in August of this year and has since been on chemotherapy from Dr. Smith. For the last several weeks, he has been having intense nausea with emesis, but for the last 1 week, his symptoms have progressively got worse. He has at least 2 or 3 episodes of emesis. He denies any associated abdominal pain. He reports no recent NSAID use. No prior history of peptic ulcer disease. He thinks his side effects have been going on since he was started on Revlimid as a part of oral chemotherapy therapy regimen for multiple myeloma. He states that about 3 weeks ago, the dose of the medication was decreased to 10 mg daily, despite which he remained symptomatic. He does have occasional heartburn. He takes Tums on a regular basis. No recent NSAID use. PAST MEDICAL HISTORY: Significant for multiple myeloma diagnosed in July of this year, presently on chemotherapy; hypertension, history of cardiac arrhythmia/cardiomyopathy on A. fib., history of bladder cancer. MEDICATIONS AT HOME: Include: 1. Zestril. 2. Coumadin. 3. Oxycodone. 4. Revlimid. 5. . 6. Vitamin B12 and. 7. Carvedilol. ALLERGIES: None. SOCIAL HISTORY: No smoking. No alcohol use. FAMILY HISTORY: Unremarkable. Mother had chronic renal failure. PAST SURGICAL HISTORY: Bladder surgery, tonsillectomy. REVIEW OF SYSTEMS: CARDIOPULMONARY: No chest pain, shortness of breath. GENITOURINARY: No dysuria, hematuria. MUSCULOSKELETAL: Unremarkable. SKIN: Unremarkable. ENDOCRINE: Unremarkable. PSYCHIATRIC: Unremarkable. NEUROLOGY: Unremarkable. ENT: Vision unremarkable. CONSTITUTIONAL: Weight loss of 10 pounds. No fevers, chills or night sweats. PHYSICAL EXAMINATION: He appears comfortable, in no apparent distress. VITAL SIGNS: Stable. Blood pressure is 105/66, pulse of 92, temperature 97.9. HEENT: Unremarkable. Conjunctivae are pink. Sclerae anicteric. Oral cavity: No lesions. NECK: No JVD or lymph node enlargement. CHEST: Clear to auscultation. HEART: Regular rate and rhythm. ABDOMEN: Soft. Bowel sounds are positive. No organomegaly. EXTREMITIES: No pedal edema. SKIN: No rashes. NEURO: Alert and oriented x3. No focal deficits. LABS: From this morning: WBC 13.2, hemoglobin 11.8, platelets 113. AST, ALT normal. T- bili, alk phos are normal. BUN is 31, creatinine 1.17. PTT is 23.6, INR is 2.5. This morning, PTT is 31.8, INR is 3.3. Platelets are down to 60,000. IMPRESSION: 1. This is a patient who was diagnosed with multiple myeloma in July of this year who is presently on chemotherapy and follows Dr. Smith closely, has been having nausea, vomiting for the last several weeks' duration, which has been progressively getting worse in the last 1 week. The patient believes that his symptoms are related to oral chemotherapy with Revlimid, the dose of which was decreased to 10 mg daily about 2 weeks ago, despite which he remained symptomatic. However, since being in the hospital with oral antiemetics as well as IV proton pump inhibitors, his symptoms are significantly improved. He in fact just ate his breakfast, feeling well. He reports no abdominal pain. No further episodes of nausea, vomiting. 2. History of a cardiac arrhythmias on oral anticoagulation with Coumadin. 3. Thrombocytopenia/anemia probably related to oral chemotherapy. RECOMMENDATION: Continue with symptomatic and supportive care with antiemetic as well as proton pump inhibitor. Since the patient is feeling much better and has no further episodes of nausea, vomiting, will hold off on upper endoscopy procedure and continue with symptomatic treatment. He is presently receiving Reglan as well as Zofran as needed as well as Protonix 40 mg q.12 hours. At this time, I will follow him closely during his hospital stay. Thank you for this consultation. MMODL / IJN: [id number] /
--- NOTE | 2017-05-18 21:10 | PN ---
PROGRESS NOTE DATE OF SERVICE: 05/18/2017 This 61-year-old gentleman admitted with nausea, vomiting as well as atrial fibrillation is being closely monitored at this time. The patient also had multiple myeloma on chemotherapy and Dr. Thomas is following the patient closely. Cardiology following the patient as well as Gastroenterology. Dr. Boston seen the patient and recommended outpatient followup. No chest pain. No palpitations. PAST MEDICAL HISTORY: Reviewed. REVIEW OF SYSTEMS: Cardiovascular: No angina. GI as mentioned earlier. no dysuria. HEMATOLOGY/ONCOLOGY: As mentioned earlier. CURRENT MEDICATIONS: Reviewed and include vitamin B12 1000 mg, Hexadrol 20 mg daily, Dilaudid 1 mg p.r.n. Reglan, Lopressor, Narcan, Zofran, Oxy IR, Protonix and Coumadin. PHYSICAL EXAMINATION: Patient is alert, oriented times three, pulse is 67, blood pressure 84/61, respiratory rate 16, temperature 98.4, pulse ox 98% room air. HEENT conjunctivae normal. Neck: No jugular venous distention. Cardiovascular: S1, S2. Respiratory: Breath sounds diminished in the bases. Scattered rhonchi. No crackles. Abdomen is soft, nontender. No mass palpable. Legs are no edema, no swelling. Central nervous system: No focal deficits. LABS: WBC 6.7, hemoglobin 9.8, INR 3.3. Creatinine is 2.29. ASSESSMENT: 1. Atrial fibrillation with fast ventricular rate, present on admission. 2. Nausea and vomiting possible acute on chronic gastritis. 3. Acute on chronic kidney failure with acute tubular necrosis with prerenal factors with baseline stage 3 chronic kidney disease, possibly. 4. Multiple myeloma on chemotherapy. 5. Increased WBC. 6. Anemia. 7. Thrombocytopenia. 8. Coumadin monitoring. 9. Mild Coumadin coagulopathy. 10.History of bladder cancer. 11.History of ventricular tachycardia and cardiomyopathy. 13.History of hypertension. RECOMMENDATIONS AND DISCUSSION: Recommend to continue current medications, symptomatic treatment. Continue with Protonix and Reglan. Closely follow with Dr. Boston. Dr. Boston notes appreciated. Otherwise continue to monitor. The patient is continuing making significant improvement. The patient might be able to go home later, but subsequently otherwise the patient having other difficulties. I would recommend EGD by Gastroenterology. Otherwise continue to monitor. Continue rest of medications and avoid nephrotoxic toxic agents and further recommendations to follow. MMODL / IJN: [id number] / MTDD
[2017-05-19] MEDS: SODIUM CHLORIDE 0.9% 1,000 ML IV SCH ×3 (05:46→15:56)
[2017-05-19] MEDS: METOPROLOL TARTRATE 12.5 MG TAB PO SCH (05:48)
[2017-05-19 06:17] LABS: Aty Lym Flag Marked; CH 30.2; CHCM 28.1; HCT 32.4 % (39.0-53.0); HDW 3.16; HGB 9.7 gm/dL (13.0-17.5); Hypochromasia Marked; MCH 32.5 pg (25.0-35.0); Macrocytosis Marked; Mean Platelet Volume 8.9; RBC 2.99 m/uL (4.30-5.90); RDW 14.5 % (11.5-15.5); WBC 6.5 k/uL (3.8-10.6); WBC (Perox) 6.67
[2017-05-19 06:18] LABS: MCV 108.2 fL (80.0-100.0)
[2017-05-19 06:28] LABS: INR 2.4 (<1.2); Prothrombin Time 22.7 sec (9.0-12.0)
[2017-05-19 06:29] LABS: Calcium 7.8 mg/dL (8.4-10.2)
[2017-05-19 06:42] LABS: Add Differential Manual Differential
[2017-05-19 06:48] LABS: Manual Review Performed; Nucleated Red Blood Cells 0 /100 WBC (0-0); Total Cells Counted 200
--- NOTE | 2017-05-19 08:35 | ECHOF ---
Referral Reason:chf MEASUREMENTS -------- HEIGHT: 172.7 cm WEIGHT: 66.7 kg BP: 109/64 RVIDd: 3.4 cm (< 3.3) IVSd: 1.2 cm (0.6 - 1.1) LVIDd: 4.7 cm (3.9 - 5.3) LVPWd: 1.2 cm (0.6 - 1.1) IVSs: 1.2 cm LVIDs: 3.8 cm LVPWs: 1.2 cm LAESV Index (A-L): 47.50 ml/m Ao Diam: 3.1 cm (2.0 - 3.7) AV Cusp: 2.2 cm (1.5 - 2.6) LA Diam: 4.6 cm (2.7 - 3.8) RAP: 5.00 mmHg RVSP: 18.03 mmHg FINDINGS -------- Atrial fibrillation. This was a technically adequate study. The left ventricular size is normal. There is mild concentric left ventricular hypertrophy. Overa ll left ventricular systolic function is moderately impaired with, an EF between 35 - 40 %. The right ventricle is normal in size and function. LA is severely dilated >40 ml/m2 RA appears enlarged. Aortic valve is trileaflet and is mildly thickened. There is no evidence of aortic regurgitation. There is no evidence of aortic stenosis. The mitral valve leaflets are mildly thickened. There is trace mitral regurgitation. Trace tricuspid regurgitation present. Right ventricular systolic pressure is normal at < 35 mmHg. There is no evidence of pulmonary hypertension. The pulmonic valve was not well visualized. The aortic root size is normal. Normal inferior vena cava with normal inspiratory collapse consistent with estimated right atrial pre ssure of 5 mmHg. The pericardium is normal. There is no pericardial effusion. CONCLUSIONS -------- 1. Atrial fibrillation. 2. This was a technically adequate study. 3. The left ventricular size is normal. 4. There is mild concentric left ventricular hypertrophy. 5. LA is severely dilated >40 ml/m2 6. RA appears enlarged. 7. Aortic valve is trileaflet and is mildly thickened. 8. The mitral valve leaflets are mildly thickened. 9. There is trace mitral regurgitation. 10. Trace tricuspid regurgitation present. 11. Right ventricular systolic pressure is normal at < 35 mmHg. 12. There is no evidence of pulmonary hypertension. 13. The pulmonic valve was not well visualized. 14. The aortic root size is normal. 15. There is no pericardial effusion. POWER PROJECT MANAGER: Altaf Iyer RDCS
[2017-05-19 08:41] LABS: Band Neutrophils % 5 %; Metamyelocytes % 1 %; Myelocytes % 3 %; Promyelocytes % 1 %
[2017-05-19 08:42] LABS: Rouleaux Present
[2017-05-19] MEDS: METOCLOPRAMIDE 5 MG/ML 2 ML VIAL IVP SCH ×3 (08:48→22:50)
[2017-05-19] MEDS: CYANOCOBALAMIN 500 MCG TAB PO SCH (08:48)
[2017-05-19] MEDS: PANTOPRAZOLE 40 MG/10 ML VIAL IVP SCH ×2 (08:48→20:36)
[2017-05-19] MEDS ORDERED: METOPROLOL TARTRATE 12.5 MG TAB PO ONE (10:00)
[2017-05-19] MEDS: DILTIAZEM 125 MG in SODIUM CHLORIDE 0.9% 100 ML IV SCH ×2 (10:09→22:50)
--- NOTE | 2017-05-19 11:17 | PN ---
PROGRESS NOTE DATE OF DICTATION: May 19, 2017. REQUESTING PHYSICIAN: Dr. Shashank Ramirez. HISTORY: The patient is a 61-year-old white male admitted to hospital with nausea, vomiting for the last 1-2 weeks duration. He was diagnosed with a multiple myeloma in early part of this year and follows with Dr. Smith. His symptoms have been progressively getting worse with nausea, vomiting, and his oral chemo medication dose was decreased about 3 weeks ago. Since being in hospital, he is feeling better. He took some Ensure this morning and then had an episode of emesis. He denies any abdominal pain. Presently, he is doing well. He got 5 mg of Reglan and symptoms have significantly improved. No recent NSAID use or prior history of peptic ulcer disease. He remains on Coumadin as an oral anticoagulation for atrial fibrillation. PHYSICAL EXAMINATION: He appears comfortable. No apparent distress. VITAL SIGNS: Stable. Blood pressure 102/64, pulse 84, temperature 98.5. HEENT examination unremarkable. Conjunctivae pink. Sclerae anicteric. Oral cavity no lesions. Neck no jugular venous distention or lymph node enlargement. Chest was clear to auscultation. HEART: Regular rate and rhythm. ABDOMEN: Soft. It was nontender, not distended. Bowel sounds are positive. No organomegaly. Extremities: No pedal edema. Skin no rashes. NEUROLOGIC: Alert and oriented x3. No focal deficits. LABORATORY DATA: Labs from today showed a WBC of 6.5, hemoglobin 9.7, platelets 76,000. INR 2.4. BUN 24, creatinine 2.7. IMPRESSION: Chronic intermittent nausea, vomiting for the last few months duration which has been progressively getting worse in the last 1 week, most likely related to Revlimid that he is taking for multiple myeloma. He was evaluated by Dr. Thomas yesterday and the medication has been on hold since yesterday morning, presently receiving proton pump inhibitors as well as antiemetics as a part of symptomatic therapy. He had one episode of emesis this morning, but overall he is feeling much better. RECOMMENDATION: 1. Continue with Reglan as well as Protonix. 2. Small frequent meals. 3. Since oral chemo medication has been on hold, hopefully symptoms will get better, but if not, we will consider an upper endoscopy in the near future. 4. At this time, we will follow him closely during his hospital stay. Thank you for this consultation. ANA / YUEN: [id number] /
--- NOTE | 2017-05-19 12:44 | PN ---
PROGRESS NOTE This gentleman has atrial fibrillation appears to be a persistent atrial fib. The rhythm today is atrial fibrillation but the rate is faster than yesterday. I have increased the beta chavo and see how he does. His echo revealed ejection fraction of 35-40%. He is clinically feeling better, but spirits are down. S1-S2 heard normally. Regular rate and rhythm noted. Short systolic murmur noted. Lungs revealed decent air entry. Abdominal and lower extremity exam unchanged. Plan is to optimize rate control by increasing Lopressor and we will also put him on a Cardizem drip for now since the rate has been in the 150s lately. MMODL / IJN: [id number] /
[2017-05-19] MEDS: SODIUM BICARBONATE TAB 650 MG TAB PO SCH ×2 (12:59→17:50)
--- NOTE | 2017-05-19 16:59 | PN ---
PROGRESS NOTE I am covering Dr. Ramirez. DATE OF SERVICE: 05/19/2017 This 61-year-old gentleman with a past medical history of multiple medical was admitted with acute nausea and vomiting and atrial fibrillation. The patient was improving yesterday, but today the patient had recurrence of atrial fibrillation. The patient is back on Cardizem. Patient is also complaining of nausea and abdominal discomfort and patient apparently vomited after Ensure. The creatinine is also went up to 2.7 today. Multiple consultants are following the patient including Cardiology. PAST MEDICAL HISTORY: Reviewed. REVIEW OF SYSTEMS: CARDIOVASCULAR: As mentioned earlier. RESPIRATORY: As mentioned. GI: No nausea. : No dysuria. NERVOUS SYSTEM: No numbness weakness. CURRENT MEDICATIONS: Reviewed and include the current medications: 1. Vitamin B12 1000 mcg p.o. daily. 2. Hexadrol 20 mg p.o. daily. 3. Diltiazem 120 mg b.i.d. 4. Dilaudid. 5. Lopressor 50 mg p.o. b.i.d. 6. Narcan. 7. Zofran. 8. Oxy IR 10 mg q.2h p.r.n. 9. Protonix 40 mg IV b.i.d. 10.Sodium bicarb. 11.Coumadin. EXAMINATION: Alert and oriented x2. Pulse 93, blood pressure 116/76, respirations 16, temperature 97 degrees, pulse ox 99% on room air. HEENT: Conjunctivae normal. Oral mucosa moist. Neck is no jugular venous distention. No carotid bruit. No lymph node enlargement. CARDIOVASCULAR: S1, S2. No S3, no S4. RESPIRATORY: Breath sounds diminished in the bases. Scattered rhonchi. No crackles. ABDOMEN: Soft, nontender. No mass palpable. Mild diffuse distention present. LEGS: No edema, no swelling. NERVOUS SYSTEM: Higher functions as mentioned earlier. Moves all four limbs. No focal motor deficits. LYMPHATIC: No lymphadenopathy in the neck, axillae or groin. SKIN: No ulcer, rash or bleeding. LABS: WBC 6.2, hemoglobin 9.7, INR is 2.4, and creatinine is 2.70. ASSESSMENT: 1. Atrial fibrillation with fast ventricular rate, present on admission. 2. Nausea and vomiting, possible acute gastritis. 3. Acute on chronic kidney failure with acute tubular necrosis and prerenal factors with possibly baseline stage 3 chronic kidney disease possibly. 4. Multiple myeloma on chemotherapy. 5. Increased WBC. 6. Anemia. 7. Thrombocytopenia. 8. Coumadin monitoring. 9. Mild Coumadin coagulopathy. 10.History of bladder cancer. 11.History of ventricular tachycardia and cardiomyopathy. 12.History hypertension. RECOMMENDATIONS AND DISCUSSION: I recommend to continue current medications, continue with monitoring and symptomatic treatment. Otherwise at this time I recommend monitor creatinine closely. The patient is started on IV fluids 100 mL/h. I will add sodium bicarb to the current regimen. Otherwise, nephrology consultation. Cardizem per Cardiology. Gastroenterology consultation has been sought. The patient is not symptomatic improving and has persistent nausea and other symptoms, EGD may be worthwhile. Once again, the prognosis guarded. Discussed with the patient who understands. Further recommendations to follow. MMODL / IJN: [id number] /
[2017-05-19] MEDS: HYDROmorphone 1 MG/ML 1 ML SYRINGE IVP PRN (17:03)
[2017-05-19] MEDS ORDERED: LACTULOSE 20 GM/30 ML CUP PO PRN (17:11)
[2017-05-19] MEDS: METOPROLOL TARTRATE 50 MG TAB PO SCH (20:36)
[2017-05-20] MEDS: SODIUM CHLORIDE 0.9% 1,000 ML IV SCH ×3 (04:55→20:59)
[2017-05-20 06:14] LABS: INR 2.1 (<1.2); Prothrombin Time 20.1 sec (9.0-12.0)
[2017-05-20 06:16] LABS: Aty Lym Flag Marked; CH 31.3; HCT 26.3 % (39.0-53.0); HDW 3.15; Hypochromasia Slight; MCH 31.2 pg (25.0-35.0); MCHC 31.6 g/dL (31.0-37.0); MCV 98.6 fL (80.0-100.0); Mean Platelet Volume 7.5; RBC 2.66 m/uL (4.30-5.90); RDW 14.6 % (11.5-15.5); WBC 6.6 k/uL (3.8-10.6); WBC (Perox) 6.96
[2017-05-20 06:17] LABS: HGB 8.3 gm/dL (13.0-17.5)
[2017-05-20 06:38] LABS: Add Differential Manual Differential
[2017-05-20 06:43] LABS: Band Neutrophils % 2 %; Manual Review Performed; Metamyelocytes % 1 %; Myelocytes % 2 %; Nucleated Red Blood Cells 0 /100 WBC (0-0); Promyelocytes % 1 %; Total Cells Counted 200
[2017-05-20 06:47] LABS: Calcium 7.4 mg/dL (8.4-10.2); Potassium 4.1 mmol/L (3.5-5.1)
--- NOTE | 2017-05-20 08:32 | P.PN ---
Subjective Progress Note Date: 05/20/17 Principal diagnosis: nausea Nausea improved. tolerating small amounts of advanced diet. Objective - Vital Signs Vital signs: Vital Signs Temp 97.1 F L 05/20/17 03:09 Pulse 98 05/20/17 03:09 Resp 16 05/20/17 03:09 BP 107/71 05/20/17 03:09 Pulse Ox 98 05/20/17 03:09 Intake & Output 05/19/17 05/20/17 05/20/17 18:59 06:59 18:59 Intake Total 1315 1815.125 Output Total 400 650 Balance 915 1165.125 Weight 70 kg Intake: IV 800 1720 Diltiazem 125 mg In 120 Sodium Chloride 0.9% 100 ml @ 7.5 MG/HR 7.5 mls/hr IV .[id number] PAULIE Rx#: [id number] Sodium Chloride 0.9% 1, 800 1600 000 ml @ 100 mls/hr IV . Q10H PAULIE Rx#:[id number] Intake, IV Titration 35 95.125 Amount Diltiazem 125 mg In 35 95.125 Sodium Chloride 0.9% 100 ml @ 7.5 MG/HR 7.5 mls/hr IV .[id number] PAULIE Rx#: [id number] Oral 480 Output: Urine 650 Emesis 400 Other: Voiding Method Urinal # Voids 1 - Exam General appearance: The patient is alert, oriented, in no acute distress. HET: Head is normocephalic and atraumatic. Pupils are equal and reactive. Oropharynx is clear without lesions. Neck: Supple without lymphadenopathy. Trachea midline. Heart: S1 S2. Lungs: No crackles or wheezes are heard. Abdomen: Soft, nontender, nondistended with bowel sounds. No peritoneal signs. No palpable organomegaly or masses. Extremities: Normal skin color and turgor. No cyanosis, rash, ulceration, clubbing, or edema. Radial and pedal pulses are 2/4 bilaterally. Neurological: No focal deficits. Strength and sensation are grossly intact. - Labs CBC & Chem 7: 05/20/17 05:56 05/20/17 05:56 Labs: Abnormal Lab Results - Last 24 Hours (Table) 05/19/17 05/20/17 05/20/17 Range/Units 05:58 05:56 05:56 RBC 2.66 L (4.30-5.90) m/uL Hgb 8.3 L (13.0-17.5) gm/dL Hct 26.3 L (39.0-53.0) % Plt Count 56 L (150-450) k/uL Metamyelocytes # (Man) 0.07 H 0.07 H (0) k/uL Myelocytes # (Manual) 0.20 H 0.13 H (0) k/uL Promyelocytes # (Man) 0.07 H 0.07 H (0) k/uL PT 20.1 H (9.0-12.0) sec INR 2.1 H (<1.2) Chloride (98-107) mmol/L Carbon Dioxide (22-30) mmol/L BUN (9-20) mg/dL Creatinine (0.66-1.25) mg/dL Calcium (8.4-10.2) mg/dL 05/20/17 Range/Units 05:56 RBC (4.30-5.90) m/uL Hgb (13.0-17.5) gm/dL Hct (39.0-53.0) % Plt Count (150-450) k/uL Metamyelocytes # (Man) (0) k/uL Myelocytes # (Manual) (0) k/uL Promyelocytes # (Man) (0) k/uL PT (9.0-12.0) sec INR (<1.2) Chloride 108 H (98-107) mmol/L Carbon Dioxide 20 L (22-30) mmol/L BUN 23 H (9-20) mg/dL Creatinine 2.70 H (0.66-1.25) mg/dL Calcium 7.4 L (8.4-10.2) mg/dL Microbiology - Last 24 Hours (Table) 05/17/17 09:20 Blood Culture - Preliminary Blood No Growth after 48 hours Assessment and Plan Assessment: Impression: 1. Nausea most likely drug-related improved. 2. A. fib with RVR improved. 3. Multiple myeloma. Plan: 1. Supportive measures. Small frequent meals. Continue with Protonix and Reglan. Upper endoscopy not planned at this time unless clinical condition changes and warrants. We'll follow as needed. Assessment and care discussed with Dr. Boston
[2017-05-20] MEDS: METOCLOPRAMIDE 5 MG/ML 2 ML VIAL IVP SCH ×2 (08:47→15:24)
[2017-05-20] MEDS: SODIUM BICARBONATE TAB 650 MG TAB PO SCH ×2 (08:48→17:38)
[2017-05-20] MEDS ORDERED: DEXAMETHASONE 4 MG TAB PO SCH (09:00)
[2017-05-20] MEDS ORDERED: DILTIAZEM 125 MG in SODIUM CHLORIDE 0.9% 100 ML IV SCH (09:15)
[2017-05-20] MEDS: METOPROLOL TARTRATE 50 MG TAB PO SCH ×4 (10:05→21:49)
[2017-05-20] MEDS: DILTIAZEM ORAL 30 MG TAB PO SCH ×2 (10:05→21:00)
[2017-05-20] MEDS: PANTOPRAZOLE 40 MG/10 ML VIAL IVP SCH (10:06)
[2017-05-20] MEDS: CYANOCOBALAMIN 500 MCG TAB PO SCH (10:07)
--- NOTE | 2017-05-20 11:36 | P.PN ---
Subjective Progress Note Date: 05/20/17 Principal diagnosis: Atrial flutter This is a pleasant 61-year-old gentleman who follows regularly with Dr. Salmon in the office. He has a known history of paroxysmal atrial fibrillation/flutter, nonischemic cardiomyopathy with prior documented ejection fraction of 30%, history of bladder cancer, hypertension, nonsmoker, multiple myeloma for which patient had received chemo, he is sick currently receiving Revlimid. He presented to the hospital with symptoms of persistent nausea and vomiting with associated progression of weakness. EKG on presentation here showed atrial fibrillation/flutter with a rapid ventricular response. 05/20/2017 Patient seen and examined this morning, continues to be in atrial fibrillation, heart rate last night up into the 120s this morning primarily in the 90s. He continues to be on a Cardizem drip at 15 mg per hour. Blood pressure 109/66, heart rate in the 90s. 99% on room air. Hemoglobin today 8.3, platelet count 56. INR 2.1. Creatinine 2.7. Objective - Vital Signs Vital signs: Vital Signs Temp 97.1 F L 05/20/17 03:09 Pulse 98 05/20/17 03:09 Resp 16 05/20/17 03:09 BP 107/71 05/20/17 03:09 Pulse Ox 98 05/20/17 03:09 Intake & Output 05/19/17 05/20/17 05/20/17 18:59 06:59 18:59 Intake Total 1315 1815.125 Output Total 400 650 Balance 915 1165.125 Weight 70 kg Intake: IV 800 1720 Diltiazem 125 mg In 120 Sodium Chloride 0.9% 100 ml @ 7.5 MG/HR 7.5 mls/hr IV .[id number] PAULIE Rx#: [id number] Sodium Chloride 0.9% 1, 800 1600 000 ml @ 100 mls/hr IV . Q10H PAULIE Rx#:[id number] Intake, IV Titration 35 95.125 Amount Diltiazem 125 mg In 35 95.125 Sodium Chloride 0.9% 100 ml @ 7.5 MG/HR 7.5 mls/hr IV .[id number] PAULIE Rx#: [id number] Oral 480 Output: Urine 650 Emesis 400 Other: Voiding Method Urinal # Voids 1 0 - Exam PHYSICAL EXAMINATION: HEENT: Head is atraumatic, normocephalic. Pupils equal, round. Neck is supple. There is no elevated jugular venous pressure. HEART EXAMINATION: Heart S1, S2 irregularly irregular . No murmur or gallop heard. CHEST EXAMINATION: Lungs are clear to auscultation and precussion. No chest wall tenderness is noted on palpation or with deep breathing. ABDOMEN: Soft, nontender. Bowel sounds are heard. No organomegaly noted. EXTREMITIES: 2+ peripheral pulses with no evidence of peripheral edema and no calf tenderness noted. NEUROLOGIC patient is awake, alert and oriented -3. . - Labs CBC & Chem 7: 05/20/17 05:56 05/20/17 05:56 Labs: Abnormal Lab Results - Last 24 Hours (Table) 05/20/17 05/20/17 05/20/17 Range/Units 05:56 05:56 05:56 RBC 2.66 L (4.30-5.90) m/uL Hgb 8.3 L (13.0-17.5) gm/dL Hct 26.3 L (39.0-53.0) % Plt Count 56 L (150-450) k/uL Metamyelocytes # (Man) 0.07 H (0) k/uL Myelocytes # (Manual) 0.13 H (0) k/uL Promyelocytes # (Man) 0.07 H (0) k/uL PT 20.1 H (9.0-12.0) sec INR 2.1 H (<1.2) Chloride 108 H (98-107) mmol/L Carbon Dioxide 20 L (22-30) mmol/L BUN 23 H (9-20) mg/dL Creatinine 2.70 H (0.66-1.25) mg/dL Calcium 7.4 L (8.4-10.2) mg/dL Microbiology - Last 24 Hours (Table) 05/17/17 09:20 Blood Culture - Preliminary Blood No Growth after 48 hours Assessment and Plan Plan: Assessment and plan #1 atrial fibrillation/flutter with rapid ventricular response, in a patient with known history of atrial fibrillation/flutter. Patient is on Coumadin for anticoagulation, INR this morning 2.1 #2 nonischemic cardiomyopathy with prior documented ejection fraction of 30%, patient did undergo cardiac catheterization in April of last year which revealed mild spasm in the nondominant right coronary artery otherwise coronary arteries were free of any significant occlusive disease. Repeat echocardiogram with Doppler study performed this admission revealed an ejection fraction of 35- 40%. #3 multiple myeloma and history of prior bladder cancer, currently on Revlimid #4 history of hypertension #5 anemia and thrombocytopenia, hemoglobin 8.3 this morning, platelet count 56 #6 history of prior ventricular tachycardia #7 acute renal insufficiency, could be secondary to frequent vomiting recently. baseline creatinine appears to be 0.9. Plan From cardiology's perspective, we will increase her metoprolol tartrate 50 mg one tablet by mouth 3 times a day. Add Cardizem 30 mg one tablet by mouth daily to his medication regime and discontinue the Cardizem drip a half hour after the initial dose was given. DNP note has been reviewed, I agree with a documented findings and plan of care. Patient was seen and examined.
[2017-05-20 14:44] VITALS: BMI 23.4
[2017-05-20] MEDS: PANTOPRAZOLE 40 MG TABLET PO SCH (17:37)
--- NOTE | 2017-05-20 18:19 | PN ---
PROGRESS NOTE DATE OF SERVICE: 05/20/2017 I am covering for Dr. Ramirez. This 61-year-old gentleman was admitted with nausea, vomiting was improving today. The creatinine still elevated at 2.7. The patient is on IV fluids. No chest pain. No palpitations. No fever. PHYSICAL EXAM: Alert and oriented times three. Pulse 82. Blood pressure 109/77. Respirations 18/. Temperature 97.2, pulse ox 98% on room air. HEENT: Conjunctivae normal. Oral mucosa moist. Neck is no jugular venous distention. No carotid bruit. No lymph node enlargement. CARDIOVASCULAR: S1, S2 muffled. RESPIRATORY: Breath sounds diminished in the bases. No rhonchi. No crackles. ABDOMEN: Soft, nontender. Legs are no edema. No swelling. Central nervous system: No focal deficits. LABS: Hemoglobin 8.3. Creatinine is 2.70. ASSESSMENT: 1. Right atrial ablation with fast ventricular rate present on admission. 2. Nausea, vomiting, possible acute gastritis. 3. Acute renal failure secondary to acute tubular necrosis, prerenal factors with possibly dehydration with baseline stage 3 chronic kidney disease, possibly. 4. Multiple myeloma on chemotherapy. 5. Increased WBC. 6. Anemia. 7. Thrombocytopenia. 8. Coumadin monitoring. 9. Mild Coumadin coagulopathy. 10.History of bladder cancer. 11.History of ventricular tachycardia and cardiomyopathy. 12.History of hypertension. RECOMMENDATION AND DISCUSSION: Recommend to continue current medications, management and symptomatic treatment, repeat labs and IV fluids. Guarded prognosis. Otherwise the GI symptoms appears to be improving at this time. Dr. Ramirez will follow. Further recommendations to follow. International Project Engineer already consulted and they are deferring any active procedures at this time. MMODL / IJN: [id number] /
[2017-05-21] MEDS: METOCLOPRAMIDE 5 MG/ML 2 ML VIAL IVP SCH ×3 (00:07→16:31)
[2017-05-21 06:30] LABS: INR 2.3 (<1.2); Prothrombin Time 21.9 sec (9.0-12.0)
[2017-05-21 06:34] LABS: CH 30.9; CHCM 32.1; HCT 25.1 % (39.0-53.0); HDW 2.84; HGB 8.2 gm/dL (13.0-17.5); MCH 31.8 pg (25.0-35.0); MCHC 32.8 g/dL (31.0-37.0); MCV 96.9 fL (80.0-100.0); Mean Platelet Volume 7.9; RBC 2.59 m/uL (4.30-5.90); RDW 15.6 % (11.5-15.5); WBC 8.7 k/uL (3.8-10.6); WBC (Perox) 9.32
[2017-05-21 06:41] LABS: Potassium 4.7 mmol/L (3.5-5.1)
[2017-05-21 06:43] LABS: Calcium 7.2 mg/dL (8.4-10.2)
[2017-05-21 07:02] LABS: Add Differential Manual Differential
[2017-05-21] MEDS: PANTOPRAZOLE 40 MG TABLET PO SCH ×2 (07:08→16:31)
--- NOTE | 2017-05-21 07:08 | CONS ---
CONSULTATION REASON FOR CONSULT: Renal failure. HISTORY OF PRESENT ILLNESS: The patient is a 61-year-old male who was admitted to the hospital on 05/17/2017 with complaints of nausea, vomiting, and not feeling well. The patient denies any prior history of kidney diseases. He is currently receiving chemotherapy for multiple myeloma. Serum creatinine was noted to be 1.7 mg/dL on initial admission. It has gone up to 2.7 mg/dL. Review of previous labs show serum creatinine 0.9 on 02/04/2017. The patient denies use of any nonsteroidal anti-inflammatory agents. His blood pressure has been on the lower side. It had been as low as 84 mmHg on 05/18/2017. Currently, patient states that he is voiding well. He is currently going in a urinal. The patient has not received any IV contrast. He did have an echocardiogram which showed ejection fraction of 35% to 40% with severely dilated left atrium. The patient is also noted to be in A. fib and is currently maintained on Cardizem drip, which is being switched over to oral Cardizem. PAST MEDICAL HISTORY: Significant for multiple myeloma, hypertension, history of bladder cancer, cardiac dysrhythmia previously. PAST SURGICAL HISTORY: Cystoscopy, bladder surgery, tonsillectomy, right femoral surgery. SOCIAL HISTORY: Negative for smoking. Patient has a history of marijuana use. No history of alcohol abuse. MEDICATIONS: Medications at home prior to admission included Zestril, Coreg, Revlimid, Coumadin, dexamethasone, oxycodone. ALLERGIES: None. REVIEW OF SYSTEMS: As per HPI, other systems negative. PHYSICAL EXAMINATION: On examination, patient is currently comfortable, awake. He is not in any acute distress. Blood pressure this morning was 104/71, heart rate of 98 per minute. Patient is afebrile. EXAMINATION OF THE HEART: S1, S2. EXAMINATION OF THE LUNGS: Bilateral breath sounds are heard. Decreased breath sounds at the bases. No crackles or wheezing is heard. Abdomen is soft, nontender. Examination lower extremity shows no significant edema. CEMENT TRUCK DRIVER exam is grossly intact. LAB: Labs show sodium 138, potassium 4.1, chloride 108, CO2 is 20, BUN 23, serum creatinine 2.7. Hemoglobin 8.3 g/dL. UA shows 1+ protein; otherwise fairly benign. ASSESSMENT: 1. Acute kidney injury associated with hypotension and hypoperfusion. Previous serum creatinine was 0.9 on 02/04/2017. There are no nephrotoxic agents on board at this time. The patient is maintained on IV fluids at 100 mL an hour, which we will continue. His heart rate is under control, which should help with the acute kidney injury as well. 2. Atrial fibrillation with rapid ventricular response, maintained on Cardizem drip, currently with controlled ventricular response. 3. Rule out chronic kidney disease. Patient is noted to have 1+ protein on his UA. 4. Cardiomyopathy with ejection fraction 35% to 40%, being followed by Cardiology. 5. Anemia, multifactorial. PLAN: Continue IV fluids. Repeat labs in a.m. Continue to avoid nephrotoxic agents. We will workup the proteinuria down the road. The patient will need outpatient followup. MMMATHEUSL / YUEN: [id number] /
[2017-05-21 07:14] LABS: Band Neutrophils % 2 %; Manual Review Performed; Myelocytes % 2 %; Nucleated Red Blood Cells 0 /100 WBC (0-0); Total Cells Counted 200
[2017-05-21] MEDS: SODIUM BICARBONATE TAB 650 MG TAB PO SCH ×2 (08:08→18:22)
[2017-05-21] MEDS: METOPROLOL TARTRATE 50 MG TAB PO SCH ×3 (08:08→20:52)
[2017-05-21] MEDS: DILTIAZEM ORAL 30 MG TAB PO SCH (08:08)
[2017-05-21] MEDS: CYANOCOBALAMIN 500 MCG TAB PO SCH (08:08)
[2017-05-21] MEDS ORDERED: SODIUM CHLORIDE 0.9% 1,000 ML IV ONE ×3 (11:51)
--- NOTE | 2017-05-21 11:51 | P.PN ---
Subjective Patient resting in bed states much improvement from admission. Patient noted to be in atrial flutter with RVR up to 140. Patient wanting discharge. Cardiology is encouraged cardioversion risk assessment with patient. Patient agreed to cardioversion scheduled for noon today Objective - Vital Signs Vital signs: Vital Signs Temp 97.2 F L 05/21/17 08:00 Pulse 142 H 05/21/17 08:00 Resp 16 05/21/17 08:00 BP 113/83 05/21/17 08:00 Pulse Ox 98 05/21/17 08:00 Intake & Output 05/20/17 05/21/17 05/21/17 18:59 06:59 18:59 Intake Total 240 Output Total 300 Balance -60 Weight 70 kg 70.9 kg Intake: Oral 240 Output: Urine 300 Other: Voiding Method Toilet Toilet # Voids 0 2 - Constitutional General appearance: Present: average body habitus - EENT Eyes: Present: PERRLA Ears: bilateral: normal - Neck Neck: Present: normal ROM - Respiratory Respiratory: bilateral: CTA - Cardiovascular Rhythm: irregularly irregular - Gastrointestinal General gastrointestinal: Present: soft - Integumentary Integumentary: Present: normal - Neurologic Neurologic: Present: CNII-XII intact - Musculoskeletal Musculoskeletal: Present: gait normal - Psychiatric Psychiatric: Present: A&O x's 3, appropriate affect, intact judgment & insight - Labs CBC & Chem 7: 05/21/17 05:56 05/21/17 05:56 Labs: Abnormal Lab Results - Last 24 Hours (Table) 05/21/17 05/21/17 05/21/17 Range/Units 05:56 05:56 05:56 RBC 2.59 L (4.30-5.90) m/uL Hgb 8.2 L (13.0-17.5) gm/dL Hct 25.1 L (39.0-53.0) % RDW 15.6 H (11.5-15.5) % Plt Count 63 L (150-450) k/uL Monocytes # (Manual) 1.22 H (0-1.0) k/uL Myelocytes # (Manual) 0.17 H (0) k/uL PT 21.9 H (9.0-12.0) sec INR 2.3 H (<1.2) Chloride 109 H (98-107) mmol/L Carbon Dioxide 21 L (22-30) mmol/L BUN 26 H (9-20) mg/dL Creatinine 2.72 H (0.66-1.25) mg/dL Glucose 115 H (74-99) mg/dL Calcium 7.2 L (8.4-10.2) mg/dL Microbiology - Last 24 Hours (Table) 05/17/17 09:20 Blood Culture - Preliminary Blood No Growth after 72 hours - Imaging and Cardiology Chest x-ray: report reviewed Abdominal x-ray: report reviewed Assessment and Plan Assessment: Assessment Atrial fibrillation with RVR noted a flutter Nausea vomiting Acute renal failure secondary to tubular necrosis prerenal factors with hypotension and hypoperfusion stage III kidney disease Multiple myeloma on Revlimid Elevated WBC Anemia was secondary to chemotherapy and thrombocytopenia History of bladder cancer History of ventricular tachycardia and cardiomyopathy ejection fraction 35-40% systolic dysfunction Hypertension Plan Cardioversion today and in per cardiology Continue consultation with nephrology and oncology Hopeful discharge soon
[2017-05-21] MEDS ORDERED: PROPOFOL 10 MG/ML 20 ML VIAL IV ONE (12:14)
[2017-05-21] MEDS ORDERED: LIDOCAINE 1% INJ 10MG/ML (20 ML MDV) ONE (12:14)
[2017-05-21] MEDS ORDERED: fentaNYL (PF) 50 MCG/ML 2 ML AMP ONE (12:14)
[2017-05-21] MEDS ORDERED: DEXTROSE 5% IN WATER 100 ML with AMIODARONE 150 MG IV ONE (12:26)
--- NOTE | 2017-05-21 12:29 | PN ---
PROGRESS NOTE Timothy Madden is a 61-year-old gentleman with multiple myeloma seen here with atrial flutter, rapid rate, also has a ejection fraction in the range of 35% to 40%. At rest, his heart rate is in the 90s, but with activity it goes up to 130 and 140. I am recommending electrical cardioversion. He has been anticoagulated. His INR is 2.3. I will perform electrical cardioversion today. Risks, benefits, options, rationale were explained to the patient. He understands all details and wishes to proceed. His platelet count is about 63,000 today. Hemoglobin is low, but stable. Patient understands the rationale for electrical cardioversion and wishes to proceed. Physical exam revealed a blood pressure of 130/70, pulse rate is about 90 to 100, irregular. Short systolic murmur noted. Lungs revealed diminished air entry. Abdomen and lower extremity exam is unchanged otherwise. Plan is to continue anticoagulation, rate control medications and proceed with electrical cardioversion today. MMODL / IJN: [id number] /
--- NOTE | 2017-05-21 13:14 | CE ---
CARDIAC ELECTROPHYSIOLOGY REPORT DATE OF SERVICE: 05/21/2017 PROCEDURE: Electrical cardioversion. PERFORMED BY: Dr. Gabi Foster. CLINICAL INFORMATION: Mr. Timothy Madden is a 61-year-old gentleman with a history of nonischemic cardiomyopathy type picture, ejection fraction in the range of 35-40% with persistent atrial fibrillation, unresponsive to pharmacological efforts. After he was n.p.o. for more than 4 hours. He was brought in for the procedure this morning. Under the influence of ultra short-acting intravenous anesthetic with the attendance of anesthesiologist, initial shock of 200 joules was delivered with anterior and posterior patches. Patient converted from atrial flutter to atrial fibrillation. An additional shock of 200 joules was then delivered and patient converted to sinus rhythm. He remained neurologically intact and hemodynamically stable. This was a successful electrical cardioversion. Results were discussed with the patient. No family is available. He may be discharged later this evening if he remains stable. MMODL / IJN: [id number] /
[2017-05-21] MEDS: AMIODARONE 450 MG in DEXTROSE 5% IN WATER 250 ML IV SCH ×6 (13:56→22:55)
[2017-05-21] MEDS: SODIUM CHLORIDE 0.9% 1,000 ML IV SCH ×4 (13:57→18:23)
--- NOTE | 2017-05-21 19:59 | PN ---
PROGRESS NOTE The patient is seen for followup for acute kidney injury. He had cardioversion today and he states he feels good. He is currently in sinus rhythm. Patient has had good urine output. Blood pressure is 112/75, heart rate 75 per minute. He is afebrile. Examination of the heart: S1, S2. Examination lungs: Bilateral breath sounds are heard. Abdomen is soft, nontender. Examination lower extremities shows no evidence of edema. [employer] SERV[employer]END[employer] exam is grossly intact. Labs shows sodium 139, potassium 4.7, chloride 109, BUN 26, serum creatinine 2.72, hemoglobin 8.2 g/dL. ASSESSMENT: 1. Acute kidney injury, possibly prerenal associated with hemodynamic instability as well. Renal function fairly stable with serum creatinine staying at 2.7 mg/dL. Previous creatinine in January was 0.9 mg/dL. Ultrasound of the kidneys has been ordered. Currently patient is not on any nephrotoxic medications and he remains on IV fluids. The patient can be discharged from nephrology standpoint and follow up in the office in about 1 week's time. 2. Atrial fibrillation with rapid ventricular response, status post cardioversion, now in sinus rhythm. 3. Rule out chronic kidney disease. UA has 1+ proteinuria. Previous creatinine 0.9 mg/dL from January of 2017. 4. Multiple myeloma, maintained on Revlimid. 5. Anemia, multifactorial with a history of multiple myeloma and maintained on chemotherapy. No active bleeding noted at this time. 6. History of bladder cancer. 7. Cardiomyopathy, ejection fraction 35-40%. PLAN: That is the patient is stable for discharge. Follow up as outpatient. Maintain adequate fluid intake. Avoid NSAIDs and check ultrasound of the kidneys today prior to discharge. MMODL / IJN: [id number] /
[2017-05-21] MEDS: AMIODARONE 200 MG TAB PO SCH (20:52)
--- NOTE | 2017-05-21 21:23 | US ---
EXAMINATION TYPE: US kidneys/renal and bladder DATE OF EXAM: 05/21/2017 COMPARISON: CT chest abdomen and pelvis August 02, 2016 CLINICAL HISTORY: renal failure. EXAM MEASUREMENTS: Right Kidney: 12.6 x 4.9 x 5.7 cm Left Kidney: 12.0 x 7.1 x 6.1 cm Right Kidney: cyst measuring 0.8 x 0.7cm, measures large Left Kidney: cyst measuring 2.4 x 2.5 x 2.1cm Bladder: not fully distended appears wnl Incidental finding of hyperechoic splenic lesion with some shadowing measuring1.2 x 0.9 x 0.8cm There is no evidence for hydronephrosis at this point in time. No nephrolithiasis is seen. No suspi cious solid or cystic masses are identified. The urinary bladder is anechoic and slightly lobulated due to incomplete distention. Bilateral ureteral jets are not seen. An 8 mm simple-appearing cyst right kidney marked by technologist is not clearly seen on recent CT. A larger 2.5 cm simple appearing cyst upper to midpole level posteriorly left kidney is redemonstrated on today's ultrasound. A 1.2 cm shadowing calcification in the spleen is incidentally noted on ultra sound not clearly seen on CT. IMPRESSION: No hydronephrosis is evident bilaterally.
[2017-05-21 21:31] VITALS: RESP 18
[2017-05-22] MEDS ORDERED: METOCLOPRAMIDE 5 MG/ML 2 ML VIAL ONE (01:30)
[2017-05-22] MEDS: METOCLOPRAMIDE 5 MG/ML 2 ML VIAL IVP SCH ×3 (03:42→17:20)
[2017-05-22 06:06] LABS: CH 31.5; CHCM 31.9; HCT 25.7 % (39.0-53.0); HDW 3.03; HGB 8.2 gm/dL (13.0-17.5); Hypochromasia Slight; MCH 31.6 pg (25.0-35.0); MCHC 31.8 g/dL (31.0-37.0); MCV 99.2 fL (80.0-100.0); Macrocytosis Slight; Mean Platelet Volume 7.2; RBC 2.59 m/uL (4.30-5.90); WBC 14.1 k/uL (3.8-10.6); WBC (Perox) 14.59
[2017-05-22 06:24] LABS: Calcium 7.1 mg/dL (8.4-10.2)
[2017-05-22 06:50] LABS: INR 1.9 (<1.2); Prothrombin Time 17.9 sec (9.0-12.0)
[2017-05-22] MEDS: PANTOPRAZOLE 40 MG TABLET PO SCH ×2 (06:51→17:21)
[2017-05-22] MEDS: SODIUM BICARBONATE TAB 650 MG TAB PO SCH ×2 (08:46→17:21)
[2017-05-22] MEDS: METOPROLOL TARTRATE 50 MG TAB PO SCH ×2 (08:47→17:21)
[2017-05-22] MEDS: CYANOCOBALAMIN 500 MCG TAB PO SCH (08:47)
[2017-05-22] MEDS: HYDROmorphone 1 MG/ML 1 ML SYRINGE IVP PRN (08:47)
[2017-05-22 08:53] VITALS: TEMP 96.8
[2017-05-22 09:46] LABS: Add Differential Manual Differential
[2017-05-22 09:59] LABS: Band Neutrophils % 5 %; Metamyelocytes % 2 %; Myelocytes % 2 %; Nucleated Red Blood Cells 0 /100 WBC (0-0); Total Cells Counted 200
--- NOTE | 2017-05-22 11:20 | P.PN ---
Subjective Patient sitting in chair by bedside complaining of nausea and not feeling well. Arrhythmia blockers have been discontinued. Monitoring post cardioversion remains in sinus rhythm at this time. Patient has been cleared by nephrology for discharge will follow-up in 1 week Objective - Vital Signs Vital signs: Vital Signs Temp 96.8 F L 05/22/17 08:00 Pulse 65 05/22/17 08:00 Resp 18 05/22/17 04:00 BP 129/73 05/22/17 08:00 Pulse Ox 98 05/22/17 08:00 Intake & Output 05/21/17 05/22/17 05/22/17 18:59 06:59 18:59 Intake Total 797 237 Output Total 600 100 Balance 197 -100 237 Weight 73 kg Intake: IV 60 Invasive Line 2 10 Oral 737 237 Output: Urine 600 Emesis 100 Other: Voiding Method Toilet Toilet # Voids 2 - Constitutional General appearance: Present: average body habitus - EENT Eyes: Present: PERRLA Ears: bilateral: normal - Neck Neck: Present: normal ROM - Respiratory Respiratory: bilateral: CTA - Cardiovascular Rhythm: regular - Gastrointestinal General gastrointestinal: Present: soft - Integumentary Integumentary: Present: normal - Neurologic Neurologic: Present: CNII-XII intact - Musculoskeletal Musculoskeletal: Present: generalized weakness - Psychiatric Psychiatric: Present: A&O x's 3, appropriate affect, intact judgment & insight - Labs CBC & Chem 7: 05/22/17 05:35 05/22/17 05:35 Labs: Abnormal Lab Results - Last 24 Hours (Table) 05/22/17 05/22/17 05/22/17 Range/Units 05:35 05:35 05:35 WBC 14.1 H (3.8-10.6) k/uL RBC 2.59 L (4.30-5.90) m/uL Hgb 8.2 L (13.0-17.5) gm/dL Hct 25.7 L (39.0-53.0) % Plt Count 78 L (150-450) k/uL Lymphocytes # (Manual) 7.90 H (1.0-4.8) k/uL Monocytes # (Manual) 2.12 H (0-1.0) k/uL Metamyelocytes # (Man) 0.28 H (0) k/uL Myelocytes # (Manual) 0.28 H (0) k/uL PT 17.9 H (9.0-12.0) sec INR 1.9 H (<1.2) Chloride 111 H (98-107) mmol/L Carbon Dioxide 20 L (22-30) mmol/L BUN 31 H (9-20) mg/dL Creatinine 2.80 H (0.66-1.25) mg/dL Calcium 7.1 L (8.4-10.2) mg/dL Microbiology - Last 24 Hours (Table) 05/17/17 09:20 Blood Culture - Preliminary Blood No Growth after 96 hours - Imaging and Cardiology US - abdomen: report reviewed Assessment and Plan Plan: Assessment Atrial fibrillation with RVR/atrial flutter Nausea vomiting Acute renal failure secondary to acute tubular necrosis with factors of hypotension and hypoperfusion possible dehydration and stage III chronic kidney disease multiple myeloma on chemotherapy Revlimid Increased WBC Anemia secondary to chemotherapy with thrombocytopenia History of bladder cancer History of ventricular tachycardia and cardiomyopathy ejection fraction 30-40% systolic dysfunction History of hypertension Plan Continue to monitor post cardio conversion Cardiology will discharge with home med recommendation To follow-up with nephrology 1 week after discharge Follow-up with Dr. Thomas Follow-up with family physician Dr. Shashank Ramirez
--- NOTE | 2017-05-22 11:23 | P.DS ---
Providers Date of admission: 05/17/17 12:05 Expected date of discharge: 05/22/17 Attending physician: Shashank Ramirez Consults: 05/17/17 12:45 Consult Physician Stat Consulting Provider: [facility] Consult Reason/Comments: Atrial flutter Do you want consulting provider notified?: Yes 05/17/17 16:52 Consult Physician Routine Consulting Provider: Rob Thomas Consult Reason/Comments: malignancy Do you want consulting provider notified?: Yes 05/19/17 12:57 Consult Physician Routine Consulting Provider: Kahlil Orozco Consult Reason/Comments: kidney failure Do you want consulting provider notified?: Yes Primary care physician: Shashank Ramirez Pertinent Studies: 61-year-old male presented to the emergency room with complaints of nausea and vomiting was found to be dehydrated post chemotherapy Revlimid. Patient had consultation with oncologist manager internship and cardiology. Patient is stabilized patient had cardioversion and remains in sinus rhythm at this time. Patient complaining of nausea from antiarrhythmics. Assessment Atrial fibrillation with RVR/flutter nausea vomiting secondary to chemotherapy medication Revlimid Acute renal failure secondary to tubular necrosis prerenal factors of hypo- tension hypo-profusion Multiple myeloma and chemotherapy Revlimid Increased ABC Anemia secondary to chemotherapy as well as thrombocyte anemia history of bladder cancer History of ventricular tachycardia with cardiomyopathy systolic dysfunction ejection fraction 35-40% Hypertension Plan Follow-up with family physician oncology and cardiology as well as nephrology in 1 week Patient Condition at Discharge: Stable Plan - Discharge Summary Discharge Rx Participant: No New Discharge Prescriptions: New Amiodarone [Cordarone] 400 mg PO BID #60 tab Metoprolol Tartrate [Lopressor] 50 mg PO TID #90 tab Continue Warfarin [Coumadin] 2.5 mg PO W/SUPPER Carvedilol 12.5 mg PO BID #60 tablet Lisinopril [Zestril] 2.5 mg PO DAILY #30 tab No Action Lenalidomide [Revlimid] 25 mg PO DAILY Dexamethasone [Hexadrol] 20 mg PO MO Cyanocobalamin (Vitamin B-12) [Vitamin B-12] 1,000 mcg PO DAILY oxyCODONE HCL 10 mg PO Q6HR Discharge Medication List Lenalidomide [Revlimid] 25 mg PO DAILY 03/18/17 [History] Warfarin [Coumadin] 2.5 mg PO W/SUPPER 03/18/17 [History] Cyanocobalamin (Vitamin B-12) [Vitamin B-12] 1,000 mcg PO DAILY 05/17/17 [ History] Dexamethasone [Hexadrol] 20 mg PO MO 05/17/17 [History] oxyCODONE HCL 10 mg PO Q6HR 05/17/17 [History] Amiodarone [Cordarone] 400 mg PO BID #60 tab 05/21/17 [Rx] Carvedilol 12.5 mg PO BID #60 tablet 05/21/17 [Rx] Lisinopril [Zestril] 2.5 mg PO DAILY #30 tab 05/21/17 [Rx] Metoprolol Tartrate [Lopressor] 50 mg PO TID #90 tab 05/21/17 [Rx] Follow up Appointment(s)/Referral(s): Shashank Ramirez MD [Primary Care Provider] - 1-2 days (Unable to get an answer at office, please try when home to obtain an office visit within 2-3 days.) Nell Guzman MD [STAFF PHYSICIAN] - 1 Week (Office will call with an appointment date and time.) Alexsandra Foster MD [STAFF PHYSICIAN] - 05/27/17 4:15 pm () Vasquez Smith MD [STAFF PHYSICIAN] - 05/27/17 10:00 am (this is for lab draw- pt will be seen for f/u with the Doctor 5-7 days later)
[2017-05-22] MEDS: AMIODARONE 200 MG TAB PO SCH (11:26)
[2017-05-22] MEDS: AMIODARONE 450 MG in DEXTROSE 5% IN WATER 250 ML IV SCH ×2 (11:27)
[2017-05-22] MEDS: SODIUM CHLORIDE 0.9% 1,000 ML IV SCH ×2 (11:28→12:07)
--- NOTE | 2017-05-22 15:27 | CONS ---
CONSULTATION Mr. Madden underwent electrical cardioversion yesterday. This morning he is in sinus rhythm, but I gave him amiodarone IV and oral, but he is not able to tolerate it. Complains of nausea and vomiting. Does not wish to take any antiarrhythmic agents. I will therefore discharge him if he feels better towards the end of the day on Coumadin without any amiodarone and he will see Dr. Boston in 2 weeks. Vital signs are stable S1, S2 heard normally. Lungs are clear. Abdomen and lower exam unchanged. The patient's nausea is somewhat better today. We will see how he does towards the end of the day and if he feels better, he can be discharged. Discussed my thoughts in detail with the patient. MMODL / IJN: [id number] /
[2017-05-22 17:25] VITALS: BP 118/68; PULSE 64
--- NOTE | 2017-05-22 19:15 | PN ---
PROGRESS NOTE Patient is seen for followup for acute kidney injury. He stated that he had reaction to amiodarone and therefore he was not discharged yesterday. The patient states he is feeling much better. No significant nausea, vomiting or chest pains. He is in sinus rhythm. Heart rate 60 per minute. He is afebrile. Blood pressure 119/73. Examination of the heart S1, S2. Examination lungs bilateral breath sounds are heard. Abdomen is soft, nontender. Examination lower extremities shows no evidence of edema. MANAGER [employer]GRAMMING exam is grossly intact. LAB: Show sodium 142, potassium 5.0, chloride 111, CO2 is 20, BUN 31, serum creatinine 2.8, hemoglobin 8.2 g/dL. Ultrasound of the kidney shows no evidence of hydronephrosis. Simple appearing cyst on the right kidney is seen. The cyst is about 8 mm in size and then there is another 2.5 cm cyst in the left kidney. No hydronephrosis. ASSESSMENT: 1. Acute kidney injury, possibly related to hypoperfusion, hemodynamic instability, serum creatinine staying at about 2.7-2.8. No evidence of obstructive uropathy. Urinalysis was fairly benign except for a small amount of proteinuria. The patient is advised that he will need followup as outpatient. He can be discharged from nephrology standpoint. He is also advised to maintain good fluid intake. He is maintained on IV fluids. 2. Metabolic acidosis, currently on oral sodium bicarb. 3. Atrial fibrillation with RVR with controlled ventricular response now. Off of amiodarone because of nausea and vomiting. PLAN: Follow up as outpatient for acute kidney injury and possible chronic kidney disease. MMODL / IJN: [id number] /
== END 2017-05-22 17:34 | disposition home or self-care (01) | DRG 308 ==
LOC: EC 09:10 → 6SEL 12:05
PROVIDERS: ADMIT Family Medicine; ATTEND Family Medicine
PROC: 5A2204Z Restoration of Cardiac Rhythm, Single (ICD-10-PCS; principal; 2017-05-21 10:10)
DX: I48.0 Paroxysmal atrial fibrillation (principal); N17.0 Acute kidney failure with tubular necrosis; C90.00 Multiple myeloma not having achieved remission; E87.2 Acidosis; I42.9 Cardiomyopathy, unspecified; D69.59 Other secondary thrombocytopenia; I95.9 Hypotension, unspecified; N18.3 Chronic kidney disease, stage 3 (moderate); D64.81 Anemia due to antineoplastic chemotherapy; M45.9 Ankylosing spondylitis of unspecified sites in spine; E86.0 Dehydration; M45.2 Ankylosing spondylitis of cervical region; I12.9 Hypertensive chronic kidney disease with stage 1 through stage 4 chronic kidney disease, or unspecified chronic kidney disease; T45.515A Adverse effect of anticoagulants, initial encounter; T45.1X5A Adverse effect of antineoplastic and immunosuppressive drugs, initial encounter; R79.1 Abnormal coagulation profile; K42.9 Umbilical hernia without obstruction or gangrene; I48.92 Unspecified atrial flutter; Z79.891 Long term (current) use of opiate analgesic; Z79.01 Long term (current) use of anticoagulants; Z79.899 Other long term (current) drug therapy; Z85.51 Personal history of malignant neoplasm of bladder; Z86.79 Personal history of other diseases of the circulatory system
CPT/HCPCS: 36415; 71020; 74000; 76770; 80048; 80053; 81001; 82550; 82553; 83735; 84443; 84484; 85025; 85610; 85730; 87040; 87502; 92960; 93005; 93306; 96361; 96365; 96366; 96375; 99285

== ENCOUNTER 2017-06-03 15:22 | Inpatient (IN) | payer MEDICARE ==
--- NOTE | 2017-06-03 17:39 | ED ---
General Adult HPI - General Chief complaint: Shortness of Breath Stated complaint: ARNOLDO Time Seen by Provider: 06/03/17 17:25 Source: patient, RN notes reviewed Mode of arrival: wheelchair Limitations: no limitations - History of Present Illness Initial comments: 61-year-old male presents to the emergency department with a chief complaint of generalized weakness. Patient has been in and out of hospital twice so far this month. When time he was admitted due to his heart the second time he was admitted due to diverticulitis. Patient states that his abdominal pain has since resolved there is been no nausea or vomiting. Yesterday he just started having increased weakness and they've noticed some swelling to both his ankles. He does have a history of atrial fibrillation but they state they've never had a history of heart failure that they're aware of. He states that he does feel short of breath he has no energy to get up and move around and if he does try to move too much to be comes very short of breath and very weak. They stated they were concerned due to the fact that he seems to be getting more and more weak throughout the last 2 days so without that they should be reevaluated. Patient denies any pain at this time. He denies any chest pain. Patient denies any recent fever, chills, chest pain, ess of back pain, abdominal pain, nausea vomiting, numbness or tingling, dysuria or hematuria, constipation or diarrhea, headaches or visual changes, or any other current symptoms. - Related Data Home Medications Medication Instructions Recorded Confirmed Warfarin [Coumadin] 2.5 mg PO W/SUPPER 03/18/17 06/03/17 Cyanocobalamin (Vitamin B-12) 1,000 mcg PO DAILY 05/17/17 06/03/17 [Vitamin B-12] Metoprolol Tartrate [Lopressor] 50 mg PO HS 05/26/17 06/03/17 Previous Rx's Medication Instructions Recorded Lisinopril [Zestril] 2.5 mg PO DAILY #30 tab 05/21/17 Metoclopramide [Reglan] 5 mg PO ACHS #90 tab 05/30/17 Pantoprazole [Protonix] 40 mg PO DAILY #30 tablet. 05/30/17 Allergies Allergy/AdvReac Type Severity Reaction Status Date / Time No Known Allergies Allergy Verified 06/03/17 18:02 Review of Systems ROS Statement: Those systems with pertinent positive or pertinent negative responses have been documented in the HPI. ROS Other: All systems not noted in ROS Statement are negative. Past Medical History Past Medical History: Cancer, Hypertension Additional Past Medical History / Comment(s): Multiple myeloma, R subtrochanteric large lesion with R feumr removal and chemo, many years ago he had bladder cancer with surgery, Vtach, cardiomyopathy, ankylosing spondylosis- cervical, back and hips. History of Any Multi-Drug Resistant Organisms: None Reported Past Surgical History: Bladder Surgery, Orthopedic Surgery, Tonsillectomy Additional Past Surgical History / Comment(s): Cystoscopy for bladder cancer removal, replaced right femur bone jul 2016 at [facility], 03/21/17 BMA with bx, 04/2016 cardiac cath-normal. Past Anesthesia/Blood Transfusion Reactions: No Reported Reaction Past Psychological History: No Psychological Hx Reported Smoking Status: Current some day smoker Past Alcohol Use History: None Reported Past Drug Use History: Marijuana - Past Family History Father History Unknown: Yes Additional Family Medical History / Comment(s): Pt states he has had little contact with his father. Mother Family Medical History: Renal Disease Additional Family Medical History / Comment(s): Mother of a blood infection thought related to dialysis at the age of 83 yrs. General Exam Limitations: no limitations General appearance: alert, in no apparent distress Head exam: Present: atraumatic, normocephalic, normal inspection Eye exam: Present: normal appearance, PERRL, EOMI. Absent: scleral icterus, conjunctival injection, periorbital swelling ENT exam: Present: normal exam, mucous membranes moist Neck exam: Present: normal inspection. Absent: tenderness, meningismus, lymphadenopathy Respiratory exam: Present: normal lung sounds bilaterally. Absent: respiratory distress, wheezes, rales, rhonchi, stridor Cardiovascular Exam: Present: tachycardia, irregular rhythm. Absent: systolic murmur, diastolic murmur, rubs, gallop, clicks Extremities exam: Present: normal inspection, full ROM, normal capillary refill , pedal edema (bilateral). Absent: tenderness, joint swelling, calf tenderness Neurological exam: Present: alert, oriented X3 Psychiatric exam: Present: normal affect, normal mood Course Vital Signs 06/03/17 06/03/17 06/03/17 15:24 18:26 19:29 Temperature 98.1 F Pulse Rate 66 140 H 146 H Respiratory 20 18 18 Rate Blood Pressure 116/85 134/78 128/95 O2 Sat by Pulse 100 100 100 Oximetry - Reevaluation(s) Reevaluation #1: 06/03/17 19:16 At this time patient meets sepsis criteria. Zosyn was ordered. - Consultations Consultation #1: Elevated lactic acid could most likely due to dehydration we will hydrate the patient at this time. Patient does have an elevated white blood cell count however due to multiple myeloma this is most likely elevated as well. EKG Findings - EKG Comments: EKG Findings:: Atrial flutter with variable AV block, ventricular rate 149, respirations 84 QT 288 Medical Decision Making - Medical Decision Making 61-year-old male presents to the emergency Department chief complaint of weakness. Patient appears to have leukocytosis is likely due to his multiple myeloma. Patient also does appear to have dehydration with acute renal failure as well. At this time we will admit the patient. Zosyn was ordered due to the elevated white blood cell count. This time most likely patient's lactic is elevated due to dehydration. This time the heart rate is also A. fib RVR mostly likely not due to sepsis. We will appropriately hydrated patient. We will admit the patient to the hospital. We did discuss this with family and the on agreement with this plan. - Lab Data Result diagrams: 06/03/17 18:10 06/03/17 18:10 Lab Results 06/03/17 06/03/17 06/03/17 Range/Units 17:40 18:10 18:10 WBC 76.3 H* (3.8-10.6) k/uL RBC 2.55 L (4.30-5.90) m/uL Hgb 7.9 L (13.0-17.5) gm/dL Hct 23.9 L (39.0-53.0) % MCV 93.7 (80.0-100.0) fL MCH 30.9 (25.0-35.0) pg MCHC 33.0 (31.0-37.0) g/dL RDW 16.1 H (11.5-15.5) % Plt Count 46 L* (150-450) k/uL Neutrophils % (Manual) 1 % Band Neutrophils % 4 % Lymphocytes % (Manual) 94 % Monocytes % (Manual) 1 % Metamyelocytes % 1 % Neutrophils # (Manual) 3.80 (1.3-7.7) k/uL Lymphocytes # (Manual) 71.72 H (1.0-4.8) k/uL Monocytes # (Manual) 0.76 (0-1.0) k/uL Metamyelocytes # (Man) 0.76 H (0) k/uL Nucleated RBCs 1 H (0-0) /100 WBC Manual Slide Review Performed Anisocytosis Slight PT (9.0-12.0) sec INR (<1.2) APTT (22.0-30.0) sec Sodium (137-145) mmol/L Potassium (3.5-5.1) mmol/L Chloride (98-107) mmol/L Carbon Dioxide (22-30) mmol/L Anion Gap mmol/L BUN (9-20) mg/dL Creatinine (0.66-1.25) mg/dL Est GFR (MDRD) Af Amer (>60 ml/min/1.73 sqM) Est GFR (MDRD) Non-Af (>60 ml/min/1.73 sqM) Glucose (74-99) mg/dL Plasma Lactic Acid Real (0.7-2.0) mmol/L Calcium (8.4-10.2) mg/dL Magnesium (1.6-2.3) mg/dL Total Bilirubin (0.2-1.3) mg/dL AST (17-59) U/L ALT (21-72) U/L Alkaline Phosphatase (38-126) U/L Total Creatine Kinase 29 L (55-170) U/L CK-MB (CK-2) 0.6 (0.0-2.4) ng/mL CK-MB (CK-2) Rel Index 2.1 Troponin I <0.012 (0.000-0.034) ng/mL NT-Pro-B Natriuret Pep pg/mL Total Protein (6.3-8.2) g/dL Albumin (3.5-5.0) g/dL Urine Color Yellow Urine Appearance Turbid (Clear) Urine pH 6.0 (5.0-8.0) Ur Specific [place] 1.011 (1.001-1.035) Urine Protein 2+ H (Negative) Urine Glucose (UA) Negative (Negative) Urine Ketones Trace H (Negative) Urine Blood Small H (Negative) Urine Nitrite Negative (Negative) Urine Bilirubin Negative (Negative) Urine Urobilinogen <2.0 (<2.0) mg/dL Ur Leukocyte Esterase Negative (Negative) Urine WBC 1 (0-5) /hpf Amorphous Sediment Rare H (None) /hpf Urine Bacteria Rare H (None) /hpf Urine Mucus Rare H (None) /hpf Blood Type Blood Type Recheck Antibody Screen Spec Expiration Date 06/03/17 06/03/17 06/03/17 Range/Units 18:10 18:10 18:10 WBC (3.8-10.6) k/uL RBC (4.30-5.90) m/uL Hgb (13.0-17.5) gm/dL Hct (39.0-53.0) % MCV (80.0-100.0) fL MCH (25.0-35.0) pg MCHC (31.0-37.0) g/dL RDW (11.5-15.5) % Plt Count (150-450) k/uL Neutrophils % (Manual) % Band Neutrophils % % Lymphocytes % (Manual) % Monocytes % (Manual) % Metamyelocytes % % Neutrophils # (Manual) (1.3-7.7) k/uL Lymphocytes # (Manual) (1.0-4.8) k/uL Monocytes # (Manual) (0-1.0) k/uL Metamyelocytes # (Man) (0) k/uL Nucleated RBCs (0-0) /100 WBC Manual Slide Review Anisocytosis PT 12.8 H (9.0-12.0) sec INR 1.3 H (<1.2) APTT 23.2 (22.0-30.0) sec Sodium 139 (137-145) mmol/L Potassium 5.0 (3.5-5.1) mmol/L Chloride 105 (98-107) mmol/L Carbon Dioxide 19 L (22-30) mmol/L Anion Gap 15 mmol/L BUN 38 H (9-20) mg/dL Creatinine 3.40 H (0.66-1.25) mg/dL Est GFR (MDRD) Af Amer 23 (>60 ml/min/1.73 sqM) Est GFR (MDRD) Non-Af 19 (>60 ml/min/1.73 sqM) Glucose 82 (74-99) mg/dL Plasma Lactic Acid Real (0.7-2.0) mmol/L Calcium 8.9 (8.4-10.2) mg/dL Magnesium 2.1 (1.6-2.3) mg/dL Total Bilirubin 0.5 (0.2-1.3) mg/dL AST 78 H (17-59) U/L ALT 51 (21-72) U/L Alkaline Phosphatase 100 (38-126) U/L Total Creatine Kinase (55-170) U/L CK-MB (CK-2) (0.0-2.4) ng/mL CK-MB (CK-2) Rel Index Troponin I (0.000-0.034) ng/mL NT-Pro-B Natriuret Pep 20402 pg/mL Total Protein 5.7 L (6.3-8.2) g/dL Albumin 3.3 L (3.5-5.0) g/dL Urine Color Urine Appearance (Clear) Urine pH (5.0-8.0) Ur Specific [place] (1.001-1.035) Urine Protein (Negative) Urine Glucose (UA) (Negative) Urine Ketones (Negative) Urine Blood (Negative) Urine Nitrite (Negative) Urine Bilirubin (Negative) Urine Urobilinogen (<2.0) mg/dL Ur Leukocyte Esterase (Negative) Urine WBC (0-5) /hpf Amorphous Sediment (None) /hpf Urine Bacteria (None) /hpf Urine Mucus (None) /hpf Blood Type Blood Type Recheck Antibody Screen Spec Expiration Date 06/03/17 06/03/17 Range/Units 18:10 18:10 WBC (3.8-10.6) k/uL RBC (4.30-5.90) m/uL Hgb (13.0-17.5) gm/dL Hct (39.0-53.0) % MCV (80.0-100.0) fL MCH (25.0-35.0) pg MCHC (31.0-37.0) g/dL RDW (11.5-15.5) % Plt Count (150-450) k/uL Neutrophils % (Manual) % Band Neutrophils % % Lymphocytes % (Manual) % Monocytes % (Manual) % Metamyelocytes % % Neutrophils # (Manual) (1.3-7.7) k/uL Lymphocytes # (Manual) (1.0-4.8) k/uL Monocytes # (Manual) (0-1.0) k/uL Metamyelocytes # (Man) (0) k/uL Nucleated RBCs (0-0) /100 WBC Manual Slide Review Anisocytosis PT (9.0-12.0) sec INR (<1.2) APTT (22.0-30.0) sec Sodium (137-145) mmol/L Potassium (3.5-5.1) mmol/L Chloride (98-107) mmol/L Carbon Dioxide (22-30) mmol/L Anion Gap mmol/L BUN (9-20) mg/dL Creatinine (0.66-1.25) mg/dL Est GFR (MDRD) Af Amer (>60 ml/min/1.73 sqM) Est GFR (MDRD) Non-Af (>60 ml/min/1.73 sqM) Glucose (74-99) mg/dL Plasma Lactic Acid Real 4.7 H* (0.7-2.0) mmol/L Calcium (8.4-10.2) mg/dL Magnesium (1.6-2.3) mg/dL Total Bilirubin (0.2-1.3) mg/dL AST (17-59) U/L ALT (21-72) U/L Alkaline Phosphatase (38-126) U/L Total Creatine Kinase (55-170) U/L CK-MB (CK-2) (0.0-2.4) ng/mL CK-MB (CK-2) Rel Index Troponin I (0.000-0.034) ng/mL NT-Pro-B Natriuret Pep pg/mL Total Protein (6.3-8.2) g/dL Albumin (3.5-5.0) g/dL Urine Color Urine Appearance (Clear) Urine pH (5.0-8.0) Ur Specific [place] (1.001-1.035) Urine Protein (Negative) Urine Glucose (UA) (Negative) Urine Ketones (Negative) Urine Blood (Negative) Urine Nitrite (Negative) Urine Bilirubin (Negative) Urine Urobilinogen (<2.0) mg/dL Ur Leukocyte Esterase (Negative) Urine WBC (0-5) /hpf Amorphous Sediment (None) /hpf Urine Bacteria (None) /hpf Urine Mucus (None) /hpf Blood Type O Negative Blood Type Recheck No Antibody Screen NEGATIVE Spec Expiration Date 06/06/2017 - 2310 - Radiology Data Radiology results: report reviewed, image reviewed Disposition Clinical Impression: Lactic acidosis, Dehydration, Myeloma, Weakness, Renal failure, Atrial fibrillation with RVR Disposition: ADMITTED IP TO THIS [facility] Condition: Stable Referrals: Shashank Ramirez MD [Primary Care Provider] - 1-2 days Decision Date: 06/03/17 Decision Time: 19:46
[2017-06-03 18:24] LABS: Anisocytosis Slight; Aty Lym Flag Marked; CH 30.9; CHCM 33.2; HCT 23.9 % (39.0-53.0); HDW 3.21; HGB 7.9 gm/dL (13.0-17.5); MCH 30.9 pg (25.0-35.0); Mean Platelet Volume 9.1; RBC 2.55 m/uL (4.30-5.90); RDW 16.1 % (11.5-15.5); WBC (Perox) 73.73
[2017-06-03 18:31] LABS: INR 1.3 (<1.2); Partial Thromboplastin Time 23.2 sec (22.0-30.0); Prothrombin Time 12.8 sec (9.0-12.0)
[2017-06-03 18:33] LABS: Calcium 8.9 mg/dL (8.4-10.2); Magnesium 2.1 mg/dL (1.6-2.3); Total Bilirubin 0.5 mg/dL (0.2-1.3); Total Protein 5.7 g/dL (6.3-8.2)
[2017-06-03] MEDS ORDERED: DILTIAZEM 125 MG in SODIUM CHLORIDE 0.9% 100 ML IV ONE (18:39)
[2017-06-03] MEDS ORDERED: DILTIAZEM 5 MG/ML 5 ML VIAL IVP STA (18:39)
[2017-06-03 18:41] LABS: Add Differential Manual Differential
[2017-06-03 18:42] LABS: Creatine Kinase 29 U/L (55-170)
[2017-06-03 18:47] LABS: Band Neutrophils % 4 %; Metamyelocytes % 1 %; Nucleated Red Blood Cells 1 /100 WBC (0-0); Total Cells Counted 200; WBC 76.3 k/uL (3.8-10.6)
[2017-06-03 18:48] LABS: Manual Review Performed
[2017-06-03 18:55] LABS: Creatine Kinase MB 0.6 ng/mL (0.0-2.4); Troponin I <0.012 ng/mL (0.000-0.034)
[2017-06-03] MEDS ORDERED: PIPERACILLIN-TAZOBACTAM 3.375 GM in DEXTROSE/WATER 1 50ML.BAG IVPB STA (19:16)
[2017-06-03 19:17] LABS: Amorphous Sediment,Urine Rare /hpf; Appearance,Urine Turbid (Clear); Bacteria,Urine Rare /hpf; Bilirubin,Urine Negative (Negative); Glucose,Urine (UA) Negative (Negative); Ketones,Urine Trace (Negative); Leukocyte Esterase,Urine Negative (Negative); Mucus,Urine Rare /hpf; Nitrite,Urine Negative (Negative); Particle Count 70816; Protein,Urine 2+ (Negative); Specific Gravity,Urine 1.011 (1.001-1.035); UA Billing (MACRO vs. MICRO) MICRO; Urobilinogen,Urine <2.0 mg/dL (<2.0); WBC,Urine 1 /hpf (0-5)
--- NOTE | 2017-06-03 19:26 | XR ---
EXAMINATION TYPE: XR chest 2V DATE OF EXAM: 06/03/2017 COMPARISON: 05/17/2017 HISTORY: Chest pain TECHNIQUE: Frontal and lateral views of the chest are obtained. FINDINGS: There is some blunting costophrenic angles. There is fluid in the major fissures. There is no gross heart failure. There are chest leads. Mediastinum appears normal. Bony thorax is intact. IMPRESSION: There are new pleural effusions compared to last exam. No gross heart failure. Inspirati on is worse than old exam.
[2017-06-03] MEDS ORDERED: FUROSEMIDE 10 MG/ML 4 ML VIAL IV STA (19:35)
[2017-06-03] MEDS ORDERED: SODIUM CHLORIDE 0.9% 2,000 ML IV STA (19:36)
[2017-06-03] MEDS ORDERED: HYDROmorphone 1 MG/ML 1 ML SYRINGE IVP STA (19:43)
[2017-06-03] MEDS ORDERED: NALOXONE 0.4 MG/ML 1 ML VIAL IV PRN (19:46)
[2017-06-03] MEDS ORDERED: HYDROmorphone 0.5 MG/0.5 ML SYRINGE IVP STA (19:51)
[2017-06-03] MEDS: SODIUM CHLORIDE 0.9% 1,000 ML IV SCH (19:54)
[2017-06-03] MEDS ORDERED: WARFARIN 2.5 MG TAB PO SCH (21:30)
[2017-06-03 22:17] LABS: MCV 93.7 fL (80.0-100.0)
[2017-06-03] MEDS: METOPROLOL TARTRATE 50 MG TAB PO SCH (22:52)
[2017-06-03] MEDS: METOCLOPRAMIDE 5 MG TAB PO SCH (22:54)
[2017-06-04 00:40] LABS: Creatine Kinase MB 0.3 ng/mL (0.0-2.4); Troponin I 0.013 ng/mL (0.000-0.034)
[2017-06-04] MEDS: HYDROmorphone 2 MG/ML 1 ML SYRINGE IVP PRN ×6 (03:02→23:20)
[2017-06-04] MEDS: ONDANSETRON 4 MG/2 ML VIAL IVP PRN (03:03)
[2017-06-04 03:26] LABS: Calcium 7.9 mg/dL (8.4-10.2); Phosphorus 4.3 mg/dL (2.5-4.5); Potassium 4.6 mmol/L (3.5-5.1); Total Bilirubin 0.5 mg/dL (0.2-1.3); Total Protein 4.7 g/dL (6.3-8.2)
[2017-06-04 03:28] LABS: Anisocytosis Slight; CH 29.9; CHCM 31.6; HCT 20.6 % (39.0-53.0); HDW 2.89; INR 1.3 (<1.2); MCH 31.6 pg (25.0-35.0); MCHC 33.2 g/dL (31.0-37.0); MCV 95.3 fL (80.0-100.0); Mean Platelet Volume 8.7; Prothrombin Time 12.8 sec (9.0-12.0); RBC 2.16 m/uL (4.30-5.90); RDW 17.7 % (11.5-15.5); WBC (Perox) 51.27
[2017-06-04 03:31] LABS: HGB 6.8 gm/dL (13.0-17.5)
[2017-06-04 04:22] LABS: Add Differential Manual Differential
[2017-06-04 04:25] LABS: Myelocytes % 1 %; Nucleated Red Blood Cells 1 /100 WBC (0-0); Total Cells Counted 200
[2017-06-04 04:27] LABS: Manual Review Performed; WBC 52.8 k/uL (3.8-10.6)
[2017-06-04] MEDS: SODIUM CHLORIDE 0.9% 1,000 ML IV SCH ×2 (06:25→10:49)
[2017-06-04] MEDS: METOCLOPRAMIDE 5 MG TAB PO SCH ×4 (06:26→20:11)
[2017-06-04 07:31] LABS: Creatine Kinase MB 0.4 ng/mL (0.0-2.4); Troponin I 0.012 ng/mL (0.000-0.034)
[2017-06-04] MEDS: PANTOPRAZOLE 40 MG TABLET PO SCH (08:30)
[2017-06-04] MEDS: LISINOPRIL 2.5 MG TAB PO SCH (08:30)
--- NOTE | 2017-06-04 09:09 | P.CRDCN ---
History of Present Illness Consult date: 06/04/17 Requesting physician: Shashank Ramirez Consult reason: atrial fibrillation Chief complaint: Weakness History of present illness: This is a 61-year-old gentleman who follows regularly with Dr. Salmon in the office. He has known history of paroxysmal atrial fibrillation/flutter, nonischemic cardiomyopathy, history of bladder cancer, hypertension, multiple myeloma, nonsmoker, who has had several admissions to the hospital recently symptoms of weakness, as well as generally not feeling well. Admission patient presented with extreme weakness and fatigue. He denies any nausea or vomiting, no diarrhea, he just states he has no strength. Patient also denies any overt shortness of breath, no palpitations. EKG on presentation here showed atrial fibrillation with a rapid ventricular response. Chest x-ray revealed new pleural effusions as compared with prior exam. White blood cell count on admission 76.3, 52.8 this morning. Hemoglobin 7.9 on admission, 6.8 this morning, platelet count is 32 this morning. Sodium 138, potassium 4.6, BUN 34, creatinine 3.1, creatinine yesterday was 3.4. DNP level 36,400. Troponins 0.012, 0.013, 0.012. Patient was initiated on IV Cardizem in the emergency room , continues to be on IV Cardizem at this time. He was also given a one-time dose of IV Lasix in the emergency room. He does take Coumadin at home for anticoagulation, INR subtherapeutic at 1.3. At the time of my examination this morning, patient feels extremely weak and discouraged. As morning patient is in atrial fibrillation with a controlled ventricular response. Past Medical History Past Medical History: Cancer, Heart Failure, Hypertension, Renal Disease Additional Past Medical History / Comment(s): Multiple myeloma, R subtrochanteric large lesion with R feumr removal and chemo, many years ago he had bladder cancer with surgery, Vtach, cardiomyopathy, ankylosing spondylosis- cervical, back and hips. History of Any Multi-Drug Resistant Organisms: None Reported Past Surgical History: Bladder Surgery, Orthopedic Surgery, Tonsillectomy Additional Past Surgical History / Comment(s): Cystoscopy for bladder cancer removal, replaced right femur bone jul 2016 at , 03/21/17 BMA with bx, 04/2016 cardiac cath-normal. Past Anesthesia/Blood Transfusion Reactions: No Reported Reaction Past Psychological History: No Psychological Hx Reported Additional Psychological History / Comment(s): Pt resides with his spouse. He is independent. He drives. He has a cane but hasn't needed to use it. Smoking Status: Current some day smoker Past Drug Use History: Marijuana Additional Drug Use History / Comment(s): Pt states he smokes marijuana on a daily basis. - Past Family History Father History Unknown: Yes Additional Family Medical History / Comment(s): Pt states he has had little contact with his father. Mother Family Medical History: Renal Disease Additional Family Medical History / Comment(s): Mother of a blood infection thought related to dialysis at the age of 83 yrs. Medications and Allergies Home Medications Medication Instructions Recorded Confirmed Type Warfarin [Coumadin] 2.5 mg PO W/SUPPER 03/18/17 06/03/17 History Cyanocobalamin (Vitamin B-12) 1,000 mcg PO DAILY 05/17/17 06/03/17 History [Vitamin B-12] Lisinopril [Zestril] 2.5 mg PO DAILY #30 tab 05/21/17 06/03/17 Rx Metoprolol Tartrate [Lopressor] 50 mg PO HS 05/26/17 06/03/17 History Metoclopramide [Reglan] 5 mg PO ACHS #90 tab 05/30/17 06/03/17 Rx Pantoprazole [Protonix] 40 mg PO DAILY #30 tablet. 05/30/17 06/03/17 Rx Allergies Allergy/AdvReac Type Severity Reaction Status Date / Time No Known Allergies Allergy Verified 06/03/17 18:02 Physical Exam Vitals: Vital Signs Temp Pulse Pulse Resp BP BP Pulse Ox 06/04/17 04:00 97.4 F L 109 H 16 119/69 99 06/03/17 23:42 97.9 F 100 18 123/86 99 06/03/17 22:00 98.3 F 98 18 121/79 100 06/03/17 20:39 98.5 F 105 H 16 117/93 100 06/03/17 19:29 146 H 18 128/95 100 06/03/17 18:26 140 H 18 134/78 100 06/03/17 15:24 98.1 F 66 20 116/85 100 Intake and Output 06/03/17 06/04/17 06/04/17 22:59 06:59 14:59 Intake Total 2200 125 Output Total 400 Balance 1800 125 Intake: Amount of Fluid Infused ( 2200 ml) Oral 125 Output: Urine 400 Other: Voiding Method Urinal # Voids 1 Weight 68.039 kg 70.1 kg PHYSICAL EXAMINATION: HEENT: Head is atraumatic, normocephalic. Pupils equal, round. Neck is supple. There is no elevated jugular venous pressure. HEART EXAMINATION: Heart S1 and S2 irregularly irregular CHEST EXAMINATION: Lungs reveal diminished air entry to bilateral bases. ABDOMEN: Soft, nontender. Bowel sounds are heard. No organomegaly noted. EXTREMITIES: 2+ peripheral pulses with trace evidence of peripheral edema and no calf tenderness noted. NEUROLOGIC patient is awake, alert and oriented -3. . Results 06/04/17 02:41 06/04/17 02:41 Cardiac Enzymes 06/03/17 06/03/17 06/03/17 Range/Units 18:10 18:10 23:49 AST 78 H (17-59) U/L CK-MB (CK-2) 0.6 0.3 (0.0-2.4) ng/mL Troponin I <0.012 0.013 (0.000-0.034) ng/mL 06/04/17 06/04/17 Range/Units 02:41 06:06 AST 55 (17-59) U/L CK-MB (CK-2) 0.4 (0.0-2.4) ng/mL Troponin I 0.012 (0.000-0.034) ng/mL Coagulation 06/03/17 06/04/17 Range/Units 18:10 02:41 PT 12.8 H 12.8 H (9.0-12.0) sec APTT 23.2 (22.0-30.0) sec CBC 06/03/17 06/04/17 Range/Units 18:10 02:41 WBC 76.3 H* 52.8 H* (3.8-10.6) k/uL RBC 2.55 L 2.16 L (4.30-5.90) m/uL Hgb 7.9 L 6.8 L* (13.0-17.5) gm/dL Hct 23.9 L 20.6 L (39.0-53.0) % Plt Count 46 L* 32 L* (150-450) k/uL Comprehensive Metabolic Panel 06/03/17 06/04/17 Range/Units 18:10 02:41 Sodium 139 138 (137-145) mmol/L Potassium 5.0 4.6 (3.5-5.1) mmol/L Chloride 105 108 H (98-107) mmol/L Carbon Dioxide 19 L 22 (22-30) mmol/L BUN 38 H 34 H (9-20) mg/dL Creatinine 3.40 H 3.10 H (0.66-1.25) mg/dL Glucose 82 78 (74-99) mg/dL Calcium 8.9 7.9 L (8.4-10.2) mg/dL AST 78 H 55 (17-59) U/L ALT 51 47 (21-72) U/L Alkaline Phosphatase 100 82 (38-126) U/L Total Protein 5.7 L 4.7 L (6.3-8.2) g/dL Albumin 3.3 L 2.6 L (3.5-5.0) g/dL Current Medications Generic Name Dose Route Start Last Admin Trade Name Freq PRN Reason Stop Dose Admin Amiodarone HCl 400 mg 06/04/17 09:00 Cordarone PO BID PAULIE Cyanocobalamin 1,000 mcg 06/04/17 12:00 Vitamin B-12 PO DAILY@1200 PAULIE Hydromorphone HCl 0.5 mg 06/04/17 02:21 06/04/17 08:27 Dilaudid IVP 0.5 mg Q4HR PRN Administration Pain Sodium Chloride 1,000 mls @ 100 mls/hr 06/03/17 20:00 06/04/17 06:25 Saline 0.9% IV 100 mls/hr .Q10H PAULIE Administration Lisinopril 2.5 mg 06/04/17 09:00 06/04/17 08:30 Zestril PO 2.5 mg DAILY PAULIE Administration Metoclopramide HCl 5 mg 06/03/17 21:00 06/04/17 06:26 Reglan PO 5 mg ACHS PAULIE Administration Metoprolol Tartrate 50 mg 06/03/17 21:00 06/03/17 22:52 Lopressor PO 50 mg HS PAULIE Administration Naloxone HCl 0.2 mg 06/03/17 19:46 Narcan IV Q2M PRN Opioid Reversal Ondansetron HCl 4 mg 06/03/17 19:46 06/04/17 03:03 Zofran IVP 4 mg Q8HR PRN Administration Nausea And Vomiting Pantoprazole Sodium 40 mg 06/04/17 09:00 06/04/17 08:30 Protonix PO 40 mg DAILY PAULIE Administration Warfarin Sodium 2.5 mg 06/03/17 21:30 06/03/17 22:52 Coumadin PO 2.5 mg W/SUPPER PAULIE Administration Intake and Output 06/03/17 06/04/17 06/04/17 22:59 06:59 14:59 Intake Total 2200 125 Output Total 400 Balance 1800 125 Intake: Amount of Fluid Infused ( 2200 ml) Oral 125 Output: Urine 400 Other: Voiding Method Urinal # Voids 1 Weight 68.039 kg 70.1 kg 06/04/17 02:41 06/04/17 02:41 EKG Interpretations (text) EKG shows atrial fibrillation with a rapid ventricular response. Assessment and Plan Plan: Assessment and plan #1 symptoms of progressive weakness and fatigue #2 Atrial fibrillation with rapid ventricular response, persistent. Patient has known history of atrial fibrillation and atrial flutter, on Coumadin for anticoagulation, subtherapeutic at 1.3. #3 nonischemic cardiomyopathy, most recent echo was performed on the of this month which revealed an ejection fraction of 35-40%. Left atrium severely dilated. Patient did undergo cardiac catheterization in April of last year which revealed mild spasm in the nondominant RCA otherwise coronary arteries were free of any significant occlusive disease. #4 multiple myeloma, history of prior bladder cancer Number 5 history of hypertension #6 anemia and thrombocytopenia, hemoglobin 6.8, platelet count 32. #7 leukocytosis, white blood cell count 76 on admission, 52 this morning. #8 history of prior ventricular tachycardia #9 acute on chronic renal failure, creatinine 3.1. #10 systolic congestive heart failure acute on chronic Plan We will not repeat an echo on this admission, he recently had one earlier this month which revealed an ejection fraction of 35-40%. We will discontinue the Cardizem and start the patient on amiodarone 400 mg one tablet by mouth twice a day for 2 weeks then discontinue it. Patient is not currently on heparin or any form of anticoagulation, because of the anemia and platelet count of 32. We 'll give the patient IV Lasix. Monitor intake and output closely. Recommendations to follow. DNP note has been reviewed, I agree with a documented findings and plan of care. Patient was seen and examined.
--- NOTE | 2017-06-04 09:36 | P.CRDCN ---
History of Present Illness Consult reason: atrial fibrillation History of present illness: Patient interviewed and examined. Please see full dictation by Dr. canseco. In summary a 61-year-old male patient who presented with palpitations chest discomfort with multiple other medical problems who was recently seen for atrial flutter but the plan for ablation was canceled because of rising white count, rising INRs He presents with atrial fibrillation with RVR with chest discomfort and some shortness of breath. White count is further increased, hemoglobin is low He also complains of abdominal discomfort Breath sounds are clear no rhonchi no crackles heart sounds are soft but irregular this time no murmurs Suggest Medical management only. No plans for ablation Oral amiodarone has been begun 400 mg twice daily for 2 weeks only Continue Lopressor Workup for elevated white count and anemia and other medical problems per admitting physician Past Medical History Past Medical History: Cancer, Heart Failure, Hypertension, Renal Disease Additional Past Medical History / Comment(s): Multiple myeloma, R subtrochanteric large lesion with R feumr removal and chemo, many years ago he had bladder cancer with surgery, Vtach, cardiomyopathy, ankylosing spondylosis- cervical, back and hips. History of Any Multi-Drug Resistant Organisms: None Reported Past Surgical History: Bladder Surgery, Orthopedic Surgery, Tonsillectomy Additional Past Surgical History / Comment(s): Cystoscopy for bladder cancer removal, replaced right femur bone jul 2016 at [facility], 03/21/17 BMA with bx, 04/2016 cardiac cath-normal. Past Anesthesia/Blood Transfusion Reactions: No Reported Reaction Past Psychological History: No Psychological Hx Reported Additional Psychological History / Comment(s): Pt resides with his spouse. He is independent. He drives. He has a cane but hasn't needed to use it. Smoking Status: Current some day smoker Past Drug Use History: Marijuana Additional Drug Use History / Comment(s): Pt states he smokes marijuana on a daily basis. - Past Family History Father History Unknown: Yes Additional Family Medical History / Comment(s): Pt states he has had little contact with his father. Mother Family Medical History: Renal Disease Additional Family Medical History / Comment(s): Mother of a blood infection thought related to dialysis at the age of 83 yrs. Medications and Allergies Home Medications Medication Instructions Recorded Confirmed Type Warfarin [Coumadin] 2.5 mg PO W/SUPPER 03/18/17 06/03/17 History Cyanocobalamin (Vitamin B-12) 1,000 mcg PO DAILY 05/17/17 06/03/17 History [Vitamin B-12] Lisinopril [Zestril] 2.5 mg PO DAILY #30 tab 05/21/17 06/03/17 Rx Metoprolol Tartrate [Lopressor] 50 mg PO HS 05/26/17 06/03/17 History Metoclopramide [Reglan] 5 mg PO ACHS #90 tab 05/30/17 06/03/17 Rx Pantoprazole [Protonix] 40 mg PO DAILY #30 tablet. 05/30/17 06/03/17 Rx Allergies Allergy/AdvReac Type Severity Reaction Status Date / Time No Known Allergies Allergy Verified 06/03/17 18:02 Physical Exam Vitals: Vital Signs Temp Pulse Pulse Resp BP BP Pulse Ox 06/04/17 04:00 97.4 F L 109 H 16 119/69 99 06/03/17 23:42 97.9 F 100 18 123/86 99 06/03/17 22:00 98.3 F 98 18 121/79 100 06/03/17 20:39 98.5 F 105 H 16 117/93 100 06/03/17 19:29 146 H 18 128/95 100 06/03/17 18:26 140 H 18 134/78 100 06/03/17 15:24 98.1 F 66 20 116/85 100 Intake and Output 06/03/17 06/04/17 06/04/17 22:59 06:59 14:59 Intake Total 2200 125 Output Total 400 Balance 1800 125 Intake: Amount of Fluid Infused ( 2200 ml) Oral 125 Output: Urine 400 Other: Voiding Method Urinal # Voids 1 Weight 68.039 kg 70.1 kg Results 06/04/17 02:41 06/04/17 02:41 Cardiac Enzymes 06/03/17 06/03/17 06/03/17 Range/Units 18:10 18:10 23:49 AST 78 H (17-59) U/L CK-MB (CK-2) 0.6 0.3 (0.0-2.4) ng/mL Troponin I <0.012 0.013 (0.000-0.034) ng/mL 06/04/17 06/04/17 Range/Units 02:41 06:06 AST 55 (17-59) U/L CK-MB (CK-2) 0.4 (0.0-2.4) ng/mL Troponin I 0.012 (0.000-0.034) ng/mL Coagulation 06/03/17 06/04/17 Range/Units 18:10 02:41 PT 12.8 H 12.8 H (9.0-12.0) sec APTT 23.2 (22.0-30.0) sec CBC 06/03/17 06/04/17 Range/Units 18:10 02:41 WBC 76.3 H* 52.8 H* (3.8-10.6) k/uL RBC 2.55 L 2.16 L (4.30-5.90) m/uL Hgb 7.9 L 6.8 L* (13.0-17.5) gm/dL Hct 23.9 L 20.6 L (39.0-53.0) % Plt Count 46 L* 32 L* (150-450) k/uL Comprehensive Metabolic Panel 06/03/17 06/04/17 Range/Units 18:10 02:41 Sodium 139 138 (137-145) mmol/L Potassium 5.0 4.6 (3.5-5.1) mmol/L Chloride 105 108 H (98-107) mmol/L Carbon Dioxide 19 L 22 (22-30) mmol/L BUN 38 H 34 H (9-20) mg/dL Creatinine 3.40 H 3.10 H (0.66-1.25) mg/dL Glucose 82 78 (74-99) mg/dL Calcium 8.9 7.9 L (8.4-10.2) mg/dL AST 78 H 55 (17-59) U/L ALT 51 47 (21-72) U/L Alkaline Phosphatase 100 82 (38-126) U/L Total Protein 5.7 L 4.7 L (6.3-8.2) g/dL Albumin 3.3 L 2.6 L (3.5-5.0) g/dL Current Medications Generic Name Dose Route Start Last Admin Trade Name Freq PRN Reason Stop Dose Admin Amiodarone HCl 400 mg 06/04/17 09:00 Cordarone PO BID PAULIE Cyanocobalamin 1,000 mcg 06/04/17 12:00 Vitamin B-12 PO DAILY@1200 PAULIE Hydromorphone HCl 0.5 mg 06/04/17 02:21 06/04/17 08:27 Dilaudid IVP 0.5 mg Q4HR PRN Administration Pain Sodium Chloride 1,000 mls @ 100 mls/hr 06/03/17 20:00 06/04/17 06:25 Saline 0.9% IV 100 mls/hr .Q10H PAULIE Administration Lisinopril 2.5 mg 06/04/17 09:00 06/04/17 08:30 Zestril PO 2.5 mg DAILY PAULIE Administration Metoclopramide HCl 5 mg 06/03/17 21:00 06/04/17 06:26 Reglan PO 5 mg ACHS PAULIE Administration Metoprolol Tartrate 50 mg 06/03/17 21:00 06/03/17 22:52 Lopressor PO 50 mg HS PAULIE Administration Naloxone HCl 0.2 mg 06/03/17 19:46 Narcan IV Q2M PRN Opioid Reversal Ondansetron HCl 4 mg 06/03/17 19:46 06/04/17 03:03 Zofran IVP 4 mg Q8HR PRN Administration Nausea And Vomiting Pantoprazole Sodium 40 mg 06/04/17 09:00 06/04/17 08:30 Protonix PO 40 mg DAILY PAULIE Administration Warfarin Sodium 2.5 mg 06/03/17 21:30 06/03/17 22:52 Coumadin PO 2.5 mg W/SUPPER PAULIE Administration Intake and Output 06/03/17 06/04/17 06/04/17 22:59 06:59 14:59 Intake Total 2200 125 Output Total 400 Balance 1800 125 Intake: Amount of Fluid Infused ( 2200 ml) Oral 125 Output: Urine 400 Other: Voiding Method Urinal # Voids 1 Weight 68.039 kg 70.1 kg 06/04/17 02:41 06/04/17 02:41
[2017-06-04] MEDS: AMIODARONE 200 MG TAB PO SCH ×2 (10:46→20:11)
--- NOTE | 2017-06-04 10:48 | P.NPCON ---
History of Present Illness - Reason for Consult acute renal failure - History of Present Illness Reason for consultation: Acute kidney injury History of present illness: Patient is a 61-year-old male seen in renal consultation for acute kidney injury. Patient's creatinine in December 2016 was 1 but recently has been near 2.5. He was elevated at 3.5 on admission yesterday and is down to 3.1 today. Patient presented to the hospital with generalized weakness and dyspnea. He was noted to be need to fibrillation with RVR and was started on a Cardizem drip. Patient's currently resting in bed and is quite tired. who is present at bedside provides most of the history. Patient was diagnosed with multiple myeloma earlier this year and was started on chemotherapy in September 2016 with steroids as well as Revlimid. Chemotherapy was subsequently discontinued and again subsequently resumed due to progression of disease. Patient was just discharged last week and at that time was noted to have diverticulitis. Hemoglobin was 7.9 on admission and is down to 6.8 today. No signs of active bleeding. Lactic acid was 4.7 and is down to 2.4. He is currently maintained on normal saline at 100 mL an hour. states his legs have been more swollen than usual. His The light chains were noted to be significantly elevated as of May 28. He has been waiting. No hematuria or dysuria. Denies use of NSAIDs. Blood pressure controlled. Vital signs are stable. General: The patient appeared well nourished and normally developed. HEENT: Head exam is unremarkable. Neck is without jugular venous distension. LUNGS: Lungs are clear to auscultation and percussion. Breath sounds decreased. HEART: Rate and Rhythm are regular. First and second heart sounds normal. No murmurs, rubs or gallops. ABDOMEN: Abdominal exam reveals normal bowel sounds. Non-tender and non- distended. No evidence of peritonitis. EXTREMITITES: 1+ edema. Past Medical History Past Medical History: Cancer, Heart Failure, Hypertension, Renal Disease Additional Past Medical History / Comment(s): Multiple myeloma, R subtrochanteric large lesion with R feumr removal and chemo, many years ago he had bladder cancer with surgery, Vtach, cardiomyopathy, ankylosing spondylosis- cervical, back and hips. History of Any Multi-Drug Resistant Organisms: None Reported Past Surgical History: Bladder Surgery, Orthopedic Surgery, Tonsillectomy Additional Past Surgical History / Comment(s): Cystoscopy for bladder cancer removal, replaced right femur bone jul 2016 at [facility], 03/21/17 BMA with bx, 04/2016 cardiac cath-normal. Past Anesthesia/Blood Transfusion Reactions: No Reported Reaction Past Psychological History: No Psychological Hx Reported Additional Psychological History / Comment(s): Pt resides with his spouse. He is independent. He drives. He has a cane but hasn't needed to use it. Smoking Status: Current some day smoker Past Drug Use History: Marijuana Additional Drug Use History / Comment(s): Pt states he smokes marijuana on a daily basis. - Past Family History Father History Unknown: Yes Additional Family Medical History / Comment(s): Pt states he has had little contact with his father. Mother Family Medical History: Renal Disease Additional Family Medical History / Comment(s): Mother of a blood infection thought related to dialysis at the age of 83 yrs. Medications and Allergies Home Medications Medication Instructions Recorded Confirmed Type Warfarin [Coumadin] 2.5 mg PO W/SUPPER 03/18/17 06/03/17 History Cyanocobalamin (Vitamin B-12) 1,000 mcg PO DAILY 05/17/17 06/03/17 History [Vitamin B-12] Lisinopril [Zestril] 2.5 mg PO DAILY #30 tab 05/21/17 06/03/17 Rx Metoprolol Tartrate [Lopressor] 50 mg PO HS 05/26/17 06/03/17 History Metoclopramide [Reglan] 5 mg PO ACHS #90 tab 05/30/17 06/03/17 Rx Pantoprazole [Protonix] 40 mg PO DAILY #30 tablet. 05/30/17 06/03/17 Rx Allergies Allergy/AdvReac Type Severity Reaction Status Date / Time No Known Allergies Allergy Verified 06/03/17 18:02 Physical Exam Vitals: Vital Signs Temp Pulse Pulse Resp BP BP Pulse Ox 06/04/17 04:00 97.4 F L 109 H 16 119/69 99 06/03/17 23:42 97.9 F 100 18 123/86 99 06/03/17 22:00 98.3 F 98 18 121/79 100 06/03/17 20:39 98.5 F 105 H 16 117/93 100 06/03/17 19:29 146 H 18 128/95 100 06/03/17 18:26 140 H 18 134/78 100 06/03/17 15:24 98.1 F 66 20 116/85 100 Intake and Output 06/03/17 06/04/17 06/04/17 22:59 06:59 14:59 Intake Total 2200 125 Output Total 400 Balance 1800 125 Intake: Amount of Fluid Infused ( 2200 ml) Oral 125 Output: Urine 400 Other: Voiding Method Urinal # Voids 1 Weight 68.039 kg 70.1 kg Results - Lab Results Most recent lab results Calcium 7.9 mg/dL (8.4-10.2) L 06/04/17 02:41 Phosphorus 4.3 mg/dL (2.5-4.5) 06/04/17 02:41 Magnesium 2.0 mg/dL (1.6-2.3) 06/04/17 02:41 06/04/17 02:41 06/04/17 02:41 Assessment and Plan Plan: Assessment: #1. Nonoliguric acute kidney injury mostly prerenal secondary to hemodynamic instability. Improving with IV hydration. Creatinine down to 3.1 today. Creatinine in December 2016 was 1 but has been near 2.5 from his recent admissions. He does have proteinuria on UA, which is most likely due to multiple myeloma. No evidence of hydronephrosis noted on recent kidney ultrasound. #2. Multiple myeloma with recent progression being followed by oncology. #3. Systolic CHF ejection fraction of 35-40%. #4. Bicytopenia related to underlying myeloma and chemotherapy. #5. Abdominal pain which is now resolved. He had endoscopy done 05/29/2017 which revealed small sliding hiatal hernia, mild antral gastritis and sigmoid diverticulosis. #6. Atrial fibrillation with RVR currently maintained on Cardizem drip. Cardiology following. Plan: I will decrease the rate of IV fluids to 50 mL an hour. Encourage oral intake. Oncology recommendations pending. Consider blood transfusion if okay with oncology. With proteinuria present, I will order serologies including hepatitis and complement levels. Repeat chest x-ray tomorrow morning. Avoid nephrotoxic agents and hypotensive episodes. Repeat electrolytes in the morning. Thank you for the consultation. I will continue to follow the patient with you during his hospital stay.
--- NOTE | 2017-06-04 11:47 | P.HPIM ---
History of Present Illness 61-year-old male readmission to the hospital for complaints of weakness atrial flutter with RVR. Patient is myeloma patient with leukocytosis chemotherapy has been discontinued at this time. It named patient is somnolent but arousable at bedside Review of Systems Constitutional: Reports fatigue, Reports lethargy, Reports malaise, Reports weakness Musculoskeletal: Reports myalgias Past Medical History Past Medical History: Cancer, Heart Failure, Hypertension, Renal Disease Additional Past Medical History / Comment(s): Multiple myeloma, R subtrochanteric large lesion with R feumr removal and chemo, many years ago he had bladder cancer with surgery, Vtach, cardiomyopathy, ankylosing spondylosis- cervical, back and hips. History of Any Multi-Drug Resistant Organisms: None Reported Past Surgical History: Bladder Surgery, Orthopedic Surgery, Tonsillectomy Additional Past Surgical History / Comment(s): Cystoscopy for bladder cancer removal, replaced right femur bone jul 2016 at [facility], 03/21/17 BMA with bx, 04/2016 cardiac cath-normal. Past Anesthesia/Blood Transfusion Reactions: No Reported Reaction Past Psychological History: No Psychological Hx Reported Additional Psychological History / Comment(s): Pt resides with his spouse. He is independent. He drives. He has a cane but hasn't needed to use it. Smoking Status: Current some day smoker Past Drug Use History: Marijuana Additional Drug Use History / Comment(s): Pt states he smokes marijuana on a daily basis. - Past Family History Father History Unknown: Yes Additional Family Medical History / Comment(s): Pt states he has had little contact with his father. Mother Family Medical History: Renal Disease Additional Family Medical History / Comment(s): Mother of a blood infection thought related to dialysis at the age of 83 yrs. Medications and Allergies Home Medications Medication Instructions Recorded Confirmed Type Warfarin [Coumadin] 2.5 mg PO W/SUPPER 03/18/17 06/03/17 History Cyanocobalamin (Vitamin B-12) 1,000 mcg PO DAILY 05/17/17 06/03/17 History [Vitamin B-12] Lisinopril [Zestril] 2.5 mg PO DAILY #30 tab 05/21/17 06/03/17 Rx Metoprolol Tartrate [Lopressor] 50 mg PO HS 05/26/17 06/03/17 History Metoclopramide [Reglan] 5 mg PO ACHS #90 tab 05/30/17 06/03/17 Rx Pantoprazole [Protonix] 40 mg PO DAILY #30 tablet. 05/30/17 06/03/17 Rx Allergies Allergy/AdvReac Type Severity Reaction Status Date / Time No Known Allergies Allergy Verified 06/03/17 18:02 Physical Exam Vitals: Vital Signs Temp Pulse Pulse Resp BP BP Pulse Ox 06/04/17 08:00 96.7 F L 109 H 18 111/65 94 L 06/04/17 04:00 97.4 F L 109 H 16 119/69 99 06/03/17 23:42 97.9 F 100 18 123/86 99 06/03/17 22:00 98.3 F 98 18 121/79 100 06/03/17 20:39 98.5 F 105 H 16 117/93 100 06/03/17 19:29 146 H 18 128/95 100 06/03/17 18:26 140 H 18 134/78 100 06/03/17 15:24 98.1 F 66 20 116/85 100 Intake and Output 06/03/17 06/04/17 06/04/17 22:59 06:59 14:59 Intake Total 2200 125 Output Total 400 Balance 1800 125 Intake: Amount of Fluid Infused ( 2200 ml) Oral 125 Output: Urine 400 Other: Voiding Method Urinal # Voids 1 Weight 68.039 kg 70.1 kg - Constitutional General appearance: mild distress - EENT Eyes: PERRLA Ears: bilateral: normal - Neck Neck: normal ROM - Respiratory Respiratory: bilateral: CTA - Cardiovascular Rhythm: irregularly irregular leg Peripheral Edema: bilateral: 2+ - Gastrointestinal General gastrointestinal: soft - Integumentary Integumentary: normal - Neurologic Neurologic: CNII-XII intact - Musculoskeletal Musculoskeletal: generalized weakness - Psychiatric Somnolent easily arousable Psychiatric: A&O x's 3 Results CBC & Chem 7: 06/04/17 02:41 06/04/17 02:41 Labs: Abnormal Lab Results - Last 24 Hours (Table) 06/03/17 06/03/17 06/03/17 Range/Units 17:40 18:10 18:10 WBC 76.3 H* (3.8-10.6) k/uL RBC 2.55 L (4.30-5.90) m/uL Hgb 7.9 L (13.0-17.5) gm/dL Hct 23.9 L (39.0-53.0) % RDW 16.1 H (11.5-15.5) % Plt Count 46 L* (150-450) k/uL Lymphocytes # (Manual) 71.72 H (1.0-4.8) k/uL Monocytes # (Manual) (0-1.0) k/uL Metamyelocytes # (Man) 0.76 H (0) k/uL Myelocytes # (Manual) (0) k/uL Nucleated RBCs 1 H (0-0) /100 WBC PT (9.0-12.0) sec INR (<1.2) Chloride (98-107) mmol/L Carbon Dioxide (22-30) mmol/L BUN (9-20) mg/dL Creatinine (0.66-1.25) mg/dL Plasma Lactic Acid Real (0.7-2.0) mmol/L Calcium (8.4-10.2) mg/dL AST (17-59) U/L Total Creatine Kinase 29 L (55-170) U/L Total Protein (6.3-8.2) g/dL Albumin (3.5-5.0) g/dL Urine Protein 2+ H (Negative) Urine Ketones Trace H (Negative) Urine Blood Small H (Negative) Amorphous Sediment Rare H (None) /hpf Urine Bacteria Rare H (None) /hpf Urine Mucus Rare H (None) /hpf Crossmatch 06/03/17 06/03/17 06/03/17 Range/Units 18:10 18:10 18:10 WBC (3.8-10.6) k/uL RBC (4.30-5.90) m/uL Hgb (13.0-17.5) gm/dL Hct (39.0-53.0) % RDW (11.5-15.5) % Plt Count (150-450) k/uL Lymphocytes # (Manual) (1.0-4.8) k/uL Monocytes # (Manual) (0-1.0) k/uL Metamyelocytes # (Man) (0) k/uL Myelocytes # (Manual) (0) k/uL Nucleated RBCs (0-0) /100 WBC PT 12.8 H (9.0-12.0) sec INR 1.3 H (<1.2) Chloride (98-107) mmol/L Carbon Dioxide 19 L (22-30) mmol/L BUN 38 H (9-20) mg/dL Creatinine 3.40 H (0.66-1.25) mg/dL Plasma Lactic Acid Real (0.7-2.0) mmol/L Calcium (8.4-10.2) mg/dL AST 78 H (17-59) U/L Total Creatine Kinase (55-170) U/L Total Protein 5.7 L (6.3-8.2) g/dL Albumin 3.3 L (3.5-5.0) g/dL Urine Protein (Negative) Urine Ketones (Negative) Urine Blood (Negative) Amorphous Sediment (None) /hpf Urine Bacteria (None) /hpf Urine Mucus (None) /hpf Crossmatch See Detail 06/03/17 06/03/17 06/03/17 Range/Units 18:10 23:05 23:49 WBC (3.8-10.6) k/uL RBC (4.30-5.90) m/uL Hgb (13.0-17.5) gm/dL Hct (39.0-53.0) % RDW (11.5-15.5) % Plt Count (150-450) k/uL Lymphocytes # (Manual) (1.0-4.8) k/uL Monocytes # (Manual) (0-1.0) k/uL Metamyelocytes # (Man) (0) k/uL Myelocytes # (Manual) (0) k/uL Nucleated RBCs (0-0) /100 WBC PT (9.0-12.0) sec INR (<1.2) Chloride (98-107) mmol/L Carbon Dioxide (22-30) mmol/L BUN (9-20) mg/dL Creatinine (0.66-1.25) mg/dL Plasma Lactic Acid Real 4.7 H* 2.8 H* (0.7-2.0) mmol/L Calcium (8.4-10.2) mg/dL AST (17-59) U/L Total Creatine Kinase 28 L (55-170) U/L Total Protein (6.3-8.2) g/dL Albumin (3.5-5.0) g/dL Urine Protein (Negative) Urine Ketones (Negative) Urine Blood (Negative) Amorphous Sediment (None) /hpf Urine Bacteria (None) /hpf Urine Mucus (None) /hpf Crossmatch 06/04/17 06/04/17 06/04/17 Range/Units 02:41 02:41 02:41 WBC 52.8 H* (3.8-10.6) k/uL RBC 2.16 L (4.30-5.90) m/uL Hgb 6.8 L* (13.0-17.5) gm/dL Hct 20.6 L (39.0-53.0) % RDW 17.7 H (11.5-15.5) % Plt Count 32 L* (150-450) k/uL Lymphocytes # (Manual) 47.52 H (1.0-4.8) k/uL Monocytes # (Manual) 1.58 H (0-1.0) k/uL Metamyelocytes # (Man) (0) k/uL Myelocytes # (Manual) 0.53 H (0) k/uL Nucleated RBCs 1 H (0-0) /100 WBC PT 12.8 H (9.0-12.0) sec INR 1.3 H (<1.2) Chloride 108 H (98-107) mmol/L Carbon Dioxide (22-30) mmol/L BUN 34 H (9-20) mg/dL Creatinine 3.10 H (0.66-1.25) mg/dL Plasma Lactic Acid Real (0.7-2.0) mmol/L Calcium 7.9 L (8.4-10.2) mg/dL AST (17-59) U/L Total Creatine Kinase (55-170) U/L Total Protein 4.7 L (6.3-8.2) g/dL Albumin 2.6 L (3.5-5.0) g/dL Urine Protein (Negative) Urine Ketones (Negative) Urine Blood (Negative) Amorphous Sediment (None) /hpf Urine Bacteria (None) /hpf Urine Mucus (None) /hpf Crossmatch 06/04/17 06/04/17 Range/Units 02:41 06:06 WBC (3.8-10.6) k/uL RBC (4.30-5.90) m/uL Hgb (13.0-17.5) gm/dL Hct (39.0-53.0) % RDW (11.5-15.5) % Plt Count (150-450) k/uL Lymphocytes # (Manual) (1.0-4.8) k/uL Monocytes # (Manual) (0-1.0) k/uL Metamyelocytes # (Man) (0) k/uL Myelocytes # (Manual) (0) k/uL Nucleated RBCs (0-0) /100 WBC PT (9.0-12.0) sec INR (<1.2) Chloride (98-107) mmol/L Carbon Dioxide (22-30) mmol/L BUN (9-20) mg/dL Creatinine (0.66-1.25) mg/dL Plasma Lactic Acid Real 2.4 H* (0.7-2.0) mmol/L Calcium (8.4-10.2) mg/dL AST (17-59) U/L Total Creatine Kinase 22 L (55-170) U/L Total Protein (6.3-8.2) g/dL Albumin (3.5-5.0) g/dL Urine Protein (Negative) Urine Ketones (Negative) Urine Blood (Negative) Amorphous Sediment (None) /hpf Urine Bacteria (None) /hpf Urine Mucus (None) /hpf Crossmatch Chest x-ray: report reviewed Thrombosis Risk Factor Assmnt - Choose All That Apply Each Factor Represents 1 point: Age 41-60 years, Heart failure (<1month), Medical pt on bed rest, Sepsis (< 1month) Each Risk Factor Represents 2 Points: Patient confined to bed, Malignancy Other congenital or acquired thrombophilia - If yes, enter type in comment: No Thrombosis Risk Factor Assessment Total Risk Factor Score: 8 Thrombosis Risk Factor Assessment Level: High Risk Assessment and Plan Plan: Assessment Lactic acidosis Dehydration Leukocytosis secondary to myeloma Weakness History of hypertension Acute on chronic renal failure secondary to hemodynamic instability Cardiomyopathy Congestive heart failure acute on chronic systolic dysfunction Atrial fibrillation with RVR 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
[2017-06-04] MEDS: ALLOPURINOL 300 MG TAB PO SCH (12:29)
[2017-06-04] MEDS: CYANOCOBALAMIN 500 MCG TAB PO SCH (12:30)
--- NOTE | 2017-06-04 15:17 | CDI ---
In responding to this query, please exercise your independent professional judgment. The [facility] Coding Staff and Clinical Documentation Specialists appreciate your assistance in clarifying documentation, maintaining compliance with coding guidelines, accurately documenting patients condition and capturing severity of illness. The fact that a question is asked does not imply that any particular answer is desired or expected. Communication forms are a method of clarifying documentation and are not made part of the Legal Health Record. Thank you in advance for your clarification. Last Revision, May [address] [facility] [facility] [place] [address] Documentation Clarification Form Date: 06/04/2017 3:10:00 PM From: Dhara Bentley, HARI, CCDS Admit Date: 06/03/2017 8:56:00 PM Patient Name: Timothy Madden Visit Number: [id number] Discharge Date: Dr. Kahlil Orozco: Patient is a 61-year-old male seen in renal consultation for acute kidney injury. Patient's creatinine in December was 1 but recently has been near 2.5. He was elevated at 3.5 on admission yesterday and is down to 3.1 today. Patient presented to the hospital with generalized weakness and dyspnea History/Risk Factors: Bladder CA, Multiple myeloma, status post chemo, V tach, Cardiomyopathy. Smoker. Current BUN/CR/GFR: 38 / 3.40 / 19 Patients Baseline: Creatinine 1-2 Treatment: Blood transfusion ordered (2 units PRBCs), IV Cardizem (for Atrial Fib), IV Zosyn, IV Lasix, IV fluid bolus, IV Dilaudid, IV Narcan, IV Zofran Home Rx: Warfarin, Protonix, Lopressor, Reglan, Zestril, Vit B12 In order to capture the severity of condition, please clarify if the condition signifies: CKD Stage 1 (GFR > 90) CKD Stage 2 (GFR 60-89) CKD Stage 3 (GFR 30-59) CKD Stage 4 (GFR 15-29) CKD Stage 5 (GFR <15) ESRD Unable to determine Other condition, please specify Please document in your progress notes and discharge summary in order to capture severity of illness and risk of mortality. Include clinical findings that support your diagnosis. FYI: Press F11 to launch patient chart. MITA
[2017-06-04] MEDS: RASBURICASE IV SCH (15:26)
[2017-06-04] MEDS: SODIUM CHLORIDE 0.9% IV SCH (15:26)
[2017-06-04] MEDS: PIPERACILLIN-TAZOBACTAM 3.375 GM in DEXTROSE/WATER 1 50ML.BAG IVPB SCH ×2 (17:33→23:20)
[2017-06-04 17:55] LABS: ANA w/Reflex to Titer NEGATIVE (NEGATIVE)
[2017-06-04] MEDS: ACYCLOVIR 200 MG CAP PO SCH (18:57)
[2017-06-04] MEDS ORDERED: DEXAMETHASONE 4 MG TAB PO ONE (19:00)
[2017-06-04] MEDS ORDERED: FAMOTIDINE 20 MG/2 ML VIAL IV ONE (19:00)
[2017-06-04] MEDS ORDERED: ONDANSETRON 16 MG in SODIUM CHLORIDE 0.9% 50 ML IVPB ONE (19:00)
[2017-06-04] MEDS: METOPROLOL TARTRATE 50 MG TAB PO SCH (20:11)
[2017-06-04] MEDS: SALT AND SODA MOUTHWASH 1,000 ML PO SCH ×2 (20:32→23:12)
[2017-06-04] MEDS ORDERED: CYCLOPHOSPHAMIDE IV ONE (21:00)
[2017-06-04] MEDS ORDERED: BORTEZOMIB 3.5 MG VIAL SQ ONE (21:00)
[2017-06-04] MEDS ORDERED: SODIUM CHLORIDE 0.9% IV ONE (21:00)
--- NOTE | 2017-06-04 21:06 | P.CONS ---
History of Present Illness - Reason for Consult Consult date: 06/04/17 multiple myeloma Requesting physician: Mishel Quintero - Chief Complaint weakness, SOB - History of Present Illness Mr. Madden is a very pleasant male pt of Dr. Smith who was diagnosed with plasma cell myeloma in Aug. He was having hip pain x 3 months with 20lb wt loss, MRI in Jul identified a large destructive lesion in right femur measuring 5.8X5.8X7.2 cm located in subtrochantric region, other lesions in left femur & pelvis were found as well. 09/04/16 pt had right hip arthroplasty by Dr. Khoury, path consistent with plasma cell myeloma-pt did NOT want BMT. Pt was started on Revlimid, Velcade and dexamethasone and tolerated treatment well up until early May. He was admitted 05/18 and 05/26 with weakness, nausea, vomiting and dehydration, his WBC was progressively increasing. Pt was in office yesterday for labs, for his appt with Dr. Smith the following day and to discuss changing his treatment regimen, when he was noted to be SOB, weak and in general looked ill, he felt that he was having palpitations. He went to ER and has been admitted with ARF, WBC in the 50's, anemia and thrombocytopenia, his INR was subtherapeutic. When seen today pt feels unwell, no fevers, no appetite, he has not eaten or drank much, no vomiting, he is not feeling palpitations at this time, no SOB as long as he is not active, he denies any diarrhea, constipation or bleeding, his legs have been progressively swelling over the last few days, his pain is currently managed. He is very anxious about what is happening. H Review of Systems 10 point ROS as stated in HPI Past Medical History Past Medical History: Cancer, Heart Failure, Hypertension, Renal Disease Additional Past Medical History / Comment(s): Multiple myeloma, R subtrochanteric large lesion with R feumr removal and chemo, 15 years ago transitional cell carcinoma treated with TURBT, Vtach, cardiomyopathy, ankylosing spondylosis-cervical, back and hips. History of Any Multi-Drug Resistant Organisms: None Reported Past Surgical History: Bladder Surgery, Orthopedic Surgery, Tonsillectomy Additional Past Surgical History / Comment(s): Cystoscopy for bladder cancer removal, replaced right femur bone jul 2016 at [facility], 03/21/17 BMA with bx, 04/2016 cardiac cath-normal. Past Anesthesia/Blood Transfusion Reactions: No Reported Reaction Past Psychological History: No Psychological Hx Reported Additional Psychological History / Comment(s): Pt resides with his spouse. He is independent. He drives. He has a cane but hasn't needed to use it. Smoking Status: Current some day smoker Past Drug Use History: Marijuana Additional Drug Use History / Comment(s): Pt states he smokes marijuana on a daily basis. - Past Family History Father History Unknown: Yes Additional Family Medical History / Comment(s): Pt states he has had little contact with his father. Mother Family Medical History: Renal Disease Additional Family Medical History / Comment(s): Mother of a blood infection thought related to dialysis at the age of 83 yrs. Medications and Allergies Home Medications Medication Instructions Recorded Confirmed Type Warfarin [Coumadin] 2.5 mg PO W/SUPPER 03/18/17 06/03/17 History Cyanocobalamin (Vitamin B-12) 1,000 mcg PO DAILY 05/17/17 06/03/17 History [Vitamin B-12] Lisinopril [Zestril] 2.5 mg PO DAILY #30 tab 05/21/17 06/03/17 Rx Metoprolol Tartrate [Lopressor] 50 mg PO HS 05/26/17 06/03/17 History Metoclopramide [Reglan] 5 mg PO ACHS #90 tab 05/30/17 06/03/17 Rx Pantoprazole [Protonix] 40 mg PO DAILY #30 tablet. 05/30/17 06/03/17 Rx Allergies Allergy/AdvReac Type Severity Reaction Status Date / Time No Known Allergies Allergy Verified 06/03/17 18:02 Physical Exam Vitals: Vital Signs Temp Pulse Pulse Resp BP BP Pulse Ox 06/04/17 12:00 97.8 F 108 H 18 109/82 99 06/04/17 08:00 96.7 F L 109 H 18 111/65 94 L 06/04/17 04:00 97.4 F L 109 H 16 119/69 99 06/03/17 23:42 97.9 F 100 18 123/86 99 06/03/17 22:00 98.3 F 98 18 121/79 100 06/03/17 20:39 98.5 F 105 H 16 117/93 100 06/03/17 19:29 146 H 18 128/95 100 06/03/17 18:26 140 H 18 134/78 100 Intake and Output 06/04/17 06/04/17 06/04/17 06:59 14:59 22:59 Intake Total 2200 125 1043 Output Total 400 250 550 Balance 1800 -125 493 Intake: Amount of Fluid Infused ( 2200 ml) Intake, IV Titration 625 Amount Diltiazem 125 mg In 25 Sodium Chloride 0.9% 100 ml @ 5 MG/HR 5 mls/hr IV .Q24H ONE Rx#:[id number] Piperacillin-Tazobactam 3 50 .375 gm In Dextrose/Water 1 50ml.bag @ 12.5 mls/hr IVPB ONCE STA Rx#: [id number] Piperacillin-Tazobactam 3 50 .375 gm In Dextrose/Water 1 50ml.bag @ 12.5 mls/hr IVPB Q8HR PAULIE Rx#: [id number] Sodium Chloride 0.9% 2, 500 000 ml @ 999 mls/hr IV . Q2H1M STA Rx#:[id number] Oral 125 418 Output: Urine 400 250 550 Other: Voiding Method Urinal # Voids 1 2 Weight 70.1 kg - Constitutional General appearance: average body habitus, cooperative, mild distress - EENT Eyes: anicteric sclerae, EOMI ENT: hearing grossly normal, normal oropharynx - Neck Neck: no lymphadenopathy - Respiratory Respiratory: bilateral: CTA - Cardiovascular Rhythm: irregularly irregular Heart sounds: normal: S1, S2 leg Peripheral Edema: bilateral: 1+ - Gastrointestinal General gastrointestinal: no absent bowel sounds, no decreased bowel sounds, no distended, no hepatomegaly, no hyperactive bowel sounds, normal bowel sounds, no organomegaly, no rigid, no scaphoid, soft, no splenomegaly, no tenderness, no umbilical hernia, no ventral hernia - Integumentary Integumentary: decreased turgor, pale - Neurologic Neurologic: CNII-XII intact - Musculoskeletal Musculoskeletal: generalized weakness - Psychiatric pt was tearful during our discussion due to uncertainty of disease Psychiatric: A&O x's 3, appropriate affect, intact judgment & insight Results CBC & Chem 7: 06/04/17 02:41 06/04/17 02:41 Labs: Abnormal Lab Results - Last 24 Hours (Table) 06/03/17 06/03/17 06/03/17 Range/Units 17:40 18:10 18:10 WBC 76.3 H* (3.8-10.6) k/uL RBC 2.55 L (4.30-5.90) m/uL Hgb 7.9 L (13.0-17.5) gm/dL Hct 23.9 L (39.0-53.0) % RDW 16.1 H (11.5-15.5) % Plt Count 46 L* (150-450) k/uL Lymphocytes # (Manual) 71.72 H (1.0-4.8) k/uL Monocytes # (Manual) (0-1.0) k/uL Metamyelocytes # (Man) 0.76 H (0) k/uL Myelocytes # (Manual) (0) k/uL Nucleated RBCs 1 H (0-0) /100 WBC PT (9.0-12.0) sec INR (<1.2) Chloride (98-107) mmol/L Carbon Dioxide (22-30) mmol/L BUN (9-20) mg/dL Creatinine (0.66-1.25) mg/dL Plasma Lactic Acid Real (0.7-2.0) mmol/L Uric Acid (3.5-8.5) mg/dL Calcium (8.4-10.2) mg/dL AST (17-59) U/L Total Creatine Kinase 29 L (55-170) U/L Total Protein (6.3-8.2) g/dL Albumin (3.5-5.0) g/dL Urine Protein 2+ H (Negative) Urine Ketones Trace H (Negative) Urine Blood Small H (Negative) Amorphous Sediment Rare H (None) /hpf Urine Bacteria Rare H (None) /hpf Urine Mucus Rare H (None) /hpf Crossmatch 06/03/17 06/03/17 06/03/17 Range/Units 18:10 18:10 18:10 WBC (3.8-10.6) k/uL RBC (4.30-5.90) m/uL Hgb (13.0-17.5) gm/dL Hct (39.0-53.0) % RDW (11.5-15.5) % Plt Count (150-450) k/uL Lymphocytes # (Manual) (1.0-4.8) k/uL Monocytes # (Manual) (0-1.0) k/uL Metamyelocytes # (Man) (0) k/uL Myelocytes # (Manual) (0) k/uL Nucleated RBCs (0-0) /100 WBC PT 12.8 H (9.0-12.0) sec INR 1.3 H (<1.2) Chloride (98-107) mmol/L Carbon Dioxide 19 L (22-30) mmol/L BUN 38 H (9-20) mg/dL Creatinine 3.40 H (0.66-1.25) mg/dL Plasma Lactic Acid Real (0.7-2.0) mmol/L Uric Acid (3.5-8.5) mg/dL Calcium (8.4-10.2) mg/dL AST 78 H (17-59) U/L Total Creatine Kinase (55-170) U/L Total Protein 5.7 L (6.3-8.2) g/dL Albumin 3.3 L (3.5-5.0) g/dL Urine Protein (Negative) Urine Ketones (Negative) Urine Blood (Negative) Amorphous Sediment (None) /hpf Urine Bacteria (None) /hpf Urine Mucus (None) /hpf Crossmatch See Detail 06/03/17 06/03/17 06/03/17 Range/Units 18:10 23:05 23:49 WBC (3.8-10.6) k/uL RBC (4.30-5.90) m/uL Hgb (13.0-17.5) gm/dL Hct (39.0-53.0) % RDW (11.5-15.5) % Plt Count (150-450) k/uL Lymphocytes # (Manual) (1.0-4.8) k/uL Monocytes # (Manual) (0-1.0) k/uL Metamyelocytes # (Man) (0) k/uL Myelocytes # (Manual) (0) k/uL Nucleated RBCs (0-0) /100 WBC PT (9.0-12.0) sec INR (<1.2) Chloride (98-107) mmol/L Carbon Dioxide (22-30) mmol/L BUN (9-20) mg/dL Creatinine (0.66-1.25) mg/dL Plasma Lactic Acid Real 4.7 H* 2.8 H* (0.7-2.0) mmol/L Uric Acid (3.5-8.5) mg/dL Calcium (8.4-10.2) mg/dL AST (17-59) U/L Total Creatine Kinase 28 L (55-170) U/L Total Protein (6.3-8.2) g/dL Albumin (3.5-5.0) g/dL Urine Protein (Negative) Urine Ketones (Negative) Urine Blood (Negative) Amorphous Sediment (None) /hpf Urine Bacteria (None) /hpf Urine Mucus (None) /hpf Crossmatch 06/04/17 06/04/17 06/04/17 Range/Units 02:41 02:41 02:41 WBC 52.8 H* (3.8-10.6) k/uL RBC 2.16 L (4.30-5.90) m/uL Hgb 6.8 L* (13.0-17.5) gm/dL Hct 20.6 L (39.0-53.0) % RDW 17.7 H (11.5-15.5) % Plt Count 32 L* (150-450) k/uL Lymphocytes # (Manual) 47.52 H (1.0-4.8) k/uL Monocytes # (Manual) 1.58 H (0-1.0) k/uL Metamyelocytes # (Man) (0) k/uL Myelocytes # (Manual) 0.53 H (0) k/uL Nucleated RBCs 1 H (0-0) /100 WBC PT 12.8 H (9.0-12.0) sec INR 1.3 H (<1.2) Chloride 108 H (98-107) mmol/L Carbon Dioxide (22-30) mmol/L BUN 34 H (9-20) mg/dL Creatinine 3.10 H (0.66-1.25) mg/dL Plasma Lactic Acid Real (0.7-2.0) mmol/L Uric Acid (3.5-8.5) mg/dL Calcium 7.9 L (8.4-10.2) mg/dL AST (17-59) U/L Total Creatine Kinase (55-170) U/L Total Protein 4.7 L (6.3-8.2) g/dL Albumin 2.6 L (3.5-5.0) g/dL Urine Protein (Negative) Urine Ketones (Negative) Urine Blood (Negative) Amorphous Sediment (None) /hpf Urine Bacteria (None) /hpf Urine Mucus (None) /hpf Crossmatch 06/04/17 06/04/17 06/04/17 Range/Units 02:41 06:06 06:06 WBC (3.8-10.6) k/uL RBC (4.30-5.90) m/uL Hgb (13.0-17.5) gm/dL Hct (39.0-53.0) % RDW (11.5-15.5) % Plt Count (150-450) k/uL Lymphocytes # (Manual) (1.0-4.8) k/uL Monocytes # (Manual) (0-1.0) k/uL Metamyelocytes # (Man) (0) k/uL Myelocytes # (Manual) (0) k/uL Nucleated RBCs (0-0) /100 WBC PT (9.0-12.0) sec INR (<1.2) Chloride (98-107) mmol/L Carbon Dioxide (22-30) mmol/L BUN (9-20) mg/dL Creatinine (0.66-1.25) mg/dL Plasma Lactic Acid Real 2.4 H* (0.7-2.0) mmol/L Uric Acid 14.0 H* (3.5-8.5) mg/dL Calcium (8.4-10.2) mg/dL AST (17-59) U/L Total Creatine Kinase 22 L (55-170) U/L Total Protein (6.3-8.2) g/dL Albumin (3.5-5.0) g/dL Urine Protein (Negative) Urine Ketones (Negative) Urine Blood (Negative) Amorphous Sediment (None) /hpf Urine Bacteria (None) /hpf Urine Mucus (None) /hpf Crossmatch Chest x-ray: report reviewed Assessment and Plan (1) Spontaneous tumor lysis syndrome Narrative/Plan: Due to myeloma/plasma cells. Uric acid 14, daily allopurinol, elitek x 3 doses daily, gentle hydration Current Visit: Yes Status: Acute Priority: High Code(s): E88.3 - TUMOR LYSIS SYNDROME SNOMED Code(s): 839711721 (2) Myeloma Narrative/Plan: Plasma cell subtype, presentation and labs evidence of disease progression. It was discussed with pt that his current state of illness is related to progression of the disease and that to improve his condition the myeloma needs to be treated. He verbalized understanding and was willing to start treatment. Pt has had only 2 lines of therapy with multiple lines of treatment still available. Dr. Smith has recommended CyBorD regimen to be started inpatient as pt is experiencing spontaneous tumor lysis. Meds reviewed with Dr. Smith, Pharmacy and Oncology Nurse. Written orders sent and reviewed in the EMR. Supportive meds ordered Current Visit: Yes Status: Acute Priority: High Code(s): C90.00 - MULTIPLE MYELOMA NOT HAVING ACHIEVED REMISSION SNOMED Code(s): 540725186 (3) Renal failure Narrative/Plan: Due to myeloma and possibly a degree of dehydration. Labs daily, myeloma being treated, gentle hydration. Current Visit: Yes Status: Acute Priority: High Code(s): N19 - UNSPECIFIED KIDNEY FAILURE SNOMED Code(s): 45588980 (4) Weakness Narrative/Plan: Due to high WBC. Treatment initiated, will consider PT/OT in a few days Current Visit: Yes Status: Acute Priority: High Code(s): R53.1 - WEAKNESS SNOMED Code(s): 49883989 (5) Bicytopenia Narrative/Plan: T&C and transfuse 1 unit PRBCs No platelets today No asa, NSAIDs, anticoagulation at this time CBC daily Current Visit: Yes Status: Acute Priority: High Code(s): D75.89 - OTHER SPECIFIED DISEASES OF BLOOD AND BLOOD-FORMING ORGANS SNOMED Code(s): 883827405 (6) Leukocytosis Narrative/Plan: On flow cytometry plasma cells are the predominant cell. WBC will be monitored daily. Treatment has been initiated Current Visit: Yes Status: Acute Priority: High Code(s): D72.829 - ELEVATED WHITE BLOOD CELL COUNT, UNSPECIFIED SNOMED Code(s): 357350912 Time with Patient: Greater than 30
[2017-06-05] MEDS: HYDROmorphone 2 MG/ML 1 ML SYRINGE IVP PRN ×6 (05:30→23:30)
[2017-06-05] MEDS: SODIUM CHLORIDE 0.9% 1,000 ML IV SCH ×3 (05:44→23:33)
[2017-06-05] MEDS: SALT AND SODA MOUTHWASH 1,000 ML PO SCH ×6 (05:45→23:36)
[2017-06-05 06:26] LABS: Anion Gap 13 mmol/L; Blood Urea Nitrogen 34 mg/dL (9-20); Carbon Dioxide 20 mmol/L (22-30); Chloride 109 mmol/L (98-107); Glucose 139 mg/dL (74-99); Non-African American GFR(MDRD) 19 (>60 ml/min/1.73 sqM); Phosphorus 6.1 mg/dL (2.5-4.5); Potassium 5.2 mmol/L (3.5-5.1); Sodium 142 mmol/L (137-145); Uric Acid <0.5 mg/dL (3.5-8.5)
[2017-06-05 06:38] LABS: Aty Lym Flag Marked; CH 30.6; CHCM 31.3; HCT 25.8 % (39.0-53.0); HDW 3.37; Hypochromasia Moderate; MCH 31.7 pg (25.0-35.0); MCHC 32.1 g/dL (31.0-37.0); MCV 98.5 fL (80.0-100.0); Macrocytosis Slight; Mean Platelet Volume 8.4; RBC 2.62 m/uL (4.30-5.90); RDW 15.8 % (11.5-15.5); WBC (Perox) 75.98
--- NOTE | 2017-06-05 06:42 | XR ---
EXAMINATION TYPE: XR chest 2V DATE OF EXAM: 06/05/2017 COMPARISON: Chest x-ray from [address] chest abdomen and pelvis August 02, 2016. PET CT September HISTORY: Shortness of breath, history of multiple myeloma. TECHNIQUE: Frontal and lateral views of the chest are obtained. FINDINGS: There is mild cardiomegaly with small bilateral pleural effusions on current study redemon strated. There is no suspicious new focal airspace opacity or pneumothorax. The osseous structures are intact. Hypermetabolic bony lesions do not show significant focal lytic or sclerotic defect. IMPRESSION: Consider CHF exacerbation or fluid overload state as there is persistent mild cardiomega ly and small bilateral pleural effusions not significantly changed from most recent x-ray and new fro m older studies.
[2017-06-05 06:46] LABS: HGB 8.3 gm/dL (13.0-17.5)
[2017-06-05] MEDS: METOCLOPRAMIDE 5 MG TAB PO SCH ×4 (07:45→20:48)
[2017-06-05] MEDS: ONDANSETRON 4 MG/2 ML VIAL IVP PRN (07:45)
[2017-06-05 08:32] LABS: Add Differential Manual Differential
[2017-06-05] MEDS: PIPERACILLIN-TAZOBACTAM 3.375 GM in DEXTROSE/WATER 1 50ML.BAG IVPB SCH ×3 (08:53→23:35)
[2017-06-05 08:59] LABS: Band Neutrophils % 2 %; Manual Review Performed; Metamyelocytes % 1 %; Nucleated Red Blood Cells 0 /100 WBC (0-0); Total Cells Counted 200
[2017-06-05 09:00] LABS: Toxic Granulation Present
[2017-06-05] MEDS ORDERED: SODIUM BICARB IV ONE (09:28)
[2017-06-05] MEDS ORDERED: WATER IV ONE (09:28)
[2017-06-05] MEDS ORDERED: DEXTROSE 5% IV ONE (09:28)
[2017-06-05] MEDS: PANTOPRAZOLE 40 MG TABLET PO SCH (09:39)
[2017-06-05] MEDS: AMIODARONE 200 MG TAB PO SCH ×2 (09:39→20:47)
[2017-06-05] MEDS: LISINOPRIL 2.5 MG TAB PO SCH (09:39)
[2017-06-05] MEDS: ALLOPURINOL 300 MG TAB PO SCH (09:39)
[2017-06-05] MEDS: SULFAMETHOX-TMP 800-160MG 1 EACH TAB PO SCH ×2 (09:39→20:47)
[2017-06-05] MEDS: ACYCLOVIR 200 MG CAP PO SCH ×2 (09:39→20:47)
[2017-06-05] MEDS ORDERED: FUROSEMIDE 10 MG/ML 10 ML VIAL IV STA (10:49)
--- NOTE | 2017-06-05 10:55 | P.PN ---
Subjective Patient is seen in follow-up for acute kidney injury on chronic kidney disease. Patient's creatinine in December 2016 was 1 but recently has been near 2.5. His creatinine yesterday was 3.1 and is up to 3.4 today. Patient presented with generalized weakness and atrial fibrillation. He is currently maintained on oral amiodarone. He was noted to have a uric acid level of 14 and did receive rasburicase. He's currently resting in bed. He's quite difficult to arouse. He has been voiding. Oral intake remains poor. Vital signs are stable. General: The patient appeared well nourished and normally developed. HEENT: Head exam is unremarkable. Neck is without jugular venous distension. LUNGS: Lungs are clear to auscultation and percussion. Breath sounds decreased. HEART: Rate and Rhythm are regular. First and second heart sounds normal. No murmurs, rubs or gallops. ABDOMEN: Abdominal exam reveals normal bowel sounds. Non-tender and non- distended. No evidence of peritonitis. EXTREMITITES: Trace edema. Objective - Vital Signs Vital signs: Vital Signs Temp 97.2 F L 06/05/17 08:00 Pulse 61 06/05/17 08:00 Resp 18 06/05/17 08:00 BP 128/82 06/05/17 08:00 Pulse Ox 96 06/05/17 08:00 Intake & Output 06/04/17 06/05/17 06/05/17 18:59 06:59 18:59 Intake Total 1168 310 40 Output Total 800 200 Balance 368 110 40 Weight 71.2 kg Intake: Intake, IV Titration 625 Amount Diltiazem 125 mg In 25 Sodium Chloride 0.9% 100 ml @ 5 MG/HR 5 mls/hr IV .Q24H ONE Rx#:[id number] Piperacillin-Tazobactam 3 50 .375 gm In Dextrose/Water 1 50ml.bag @ 12.5 mls/hr IVPB ONCE STA Rx#: [id number] Piperacillin-Tazobactam 3 50 .375 gm In Dextrose/Water 1 50ml.bag @ 12.5 mls/hr IVPB Q8HR PAULIE Rx#: [id number] Sodium Chloride 0.9% 2, 500 000 ml @ 999 mls/hr IV . Q2H1M STA Rx#:[id number] Oral 543 40 Blood Product 310 Rc As-1 Unit 310 [id number] Output: Urine 800 200 Other: Voiding Method Urinal # Voids 2 0 - Labs CBC & Chem 7: 06/05/17 05:52 06/05/17 05:52 Labs: Abnormal Lab Results - Last 24 Hours (Table) 06/03/17 06/04/17 06/05/17 Range/Units 18:10 06:06 05:52 WBC (3.8-10.6) k/uL RBC (4.30-5.90) m/uL Hgb (13.0-17.5) gm/dL Hct (39.0-53.0) % RDW (11.5-15.5) % Plt Count (150-450) k/uL Lymphocytes # (Manual) (1.0-4.8) k/uL Monocytes # (Manual) (0-1.0) k/uL Metamyelocytes # (Man) (0) k/uL Potassium 5.2 H (3.5-5.1) mmol/L Chloride 109 H (98-107) mmol/L Carbon Dioxide 20 L (22-30) mmol/L BUN 34 H (9-20) mg/dL Creatinine 3.40 H (0.66-1.25) mg/dL Glucose 139 H (74-99) mg/dL Uric Acid 14.0 H* <0.5 L (3.5-8.5) mg/dL Calcium 8.0 L (8.4-10.2) mg/dL Phosphorus 6.1 H (2.5-4.5) mg/dL Crossmatch See Detail 06/05/17 Range/Units 05:52 WBC 80.0 H* (3.8-10.6) k/uL RBC 2.62 L (4.30-5.90) m/uL Hgb 8.3 L D (13.0-17.5) gm/dL Hct 25.8 L (39.0-53.0) % RDW 15.8 H (11.5-15.5) % Plt Count 36 L* (150-450) k/uL Lymphocytes # (Manual) 75.20 H (1.0-4.8) k/uL Monocytes # (Manual) 1.60 H (0-1.0) k/uL Metamyelocytes # (Man) 0.80 H (0) k/uL Potassium (3.5-5.1) mmol/L Chloride (98-107) mmol/L Carbon Dioxide (22-30) mmol/L BUN (9-20) mg/dL Creatinine (0.66-1.25) mg/dL Glucose (74-99) mg/dL Uric Acid (3.5-8.5) mg/dL Calcium (8.4-10.2) mg/dL Phosphorus (2.5-4.5) mg/dL Crossmatch Microbiology - Last 24 Hours (Table) 06/03/17 18:10 Blood Culture - Preliminary Blood No Growth after 24 hours Assessment and Plan Plan: Assessment: #1. Nonoliguric acute kidney injury secondary to ischemic ATN secondary to hemodynamic instability, anemia as well as tumor lysis syndrome. Creatinine up to 3.4 again today. Creatinine in December 2016 was 1 but has been near 2.5 from his recent admissions. He does have proteinuria on UA, which is most likely due to multiple myeloma. No evidence of hydronephrosis noted on recent kidney ultrasound. #2. Multiple myeloma with recent progression being followed by oncology. #3. Systolic CHF ejection fraction of 35-40%. #4. Bicytopenia related to underlying myeloma and chemotherapy. Patient did receive a unit of blood on June 04. Hemoglobin improved. #5. Abdominal pain which is now resolved. He had endoscopy done 05/29/2017 which revealed small sliding hiatal hernia, mild antral gastritis and sigmoid diverticulosis. #6. Atrial fibrillation with RVR currently maintained on oral amiodarone. Cardiology following. #7. Rule out chronic disease. Patient likely has underlying chronic kidney disease due to multiple myeloma. #8. Metabolic acidosis secondary to acute kidney injury. #9. Tumor lysis syndrome status post rasburicase. Plan: Due to worsening fluid overload as noted on chest x-ray, I will decrease the rate of IV fluids to 0.9 at 75 mL an hour. I will give a dose of Lasix 60 mg IV once today. Encourage oral intake. Follow-up serologies including hepatitis and complement levels. Avoid nephrotoxic agents and hypotensive episodes. Add oral sodium bicarbonate 1300 mg twice daily. Repeat electrolytes in the morning.
[2017-06-05] MEDS: SODIUM BICARBONATE TAB 650 MG TAB PO SCH ×2 (11:25→20:48)
[2017-06-05] MEDS: CYANOCOBALAMIN 500 MCG TAB PO SCH (11:26)
--- NOTE | 2017-06-05 11:28 | P.PN ---
Subjective Patient improved from yesterday. Hemoglobin improved to 8 with transfusion. The patient had consultation with nephrology adjusting medication and fluids for fluid overload. Had discussion with oncology they will be starting Cybor D regime for all myeloma Objective - Vital Signs Vital signs: Vital Signs Temp 97.2 F L 06/05/17 08:00 Pulse 64 06/05/17 11:20 Resp 16 06/05/17 11:20 BP 140/79 06/05/17 11:20 Pulse Ox 95 06/05/17 11:20 Intake & Output 06/04/17 06/05/17 06/05/17 18:59 06:59 18:59 Intake Total 1168 310 125 Output Total 800 200 375 Balance 368 110 -250 Weight 71.2 kg Intake: Intake, IV Titration 625 Amount Diltiazem 125 mg In 25 Sodium Chloride 0.9% 100 ml @ 5 MG/HR 5 mls/hr IV .Q24H ONE Rx#:[id number] Piperacillin-Tazobactam 3 50 .375 gm In Dextrose/Water 1 50ml.bag @ 12.5 mls/hr IVPB ONCE STA Rx#: [id number] Piperacillin-Tazobactam 3 50 .375 gm In Dextrose/Water 1 50ml.bag @ 12.5 mls/hr IVPB Q8HR PAULIE Rx#: [id number] Sodium Chloride 0.9% 2, 500 000 ml @ 999 mls/hr IV . Q2H1M STA Rx#:[id number] Oral 543 125 Blood Product 310 Rc As-1 Unit 310 [id number] Output: Urine 800 200 375 Other: Voiding Method Urinal # Voids 2 0 - Constitutional General appearance: Present: mild distress - EENT Eyes: Present: PERRLA Ears: bilateral: normal - Neck Neck: Present: normal ROM - Respiratory Respiratory: bilateral: CTA - Cardiovascular Rhythm: regular - Gastrointestinal Gastrointestinal Comment(s): Complains of intermittent nausea with vomiting General gastrointestinal: Present: soft - Integumentary Integumentary: Present: normal - Neurologic Neurologic: Present: CNII-XII intact - Musculoskeletal Musculoskeletal: Present: generalized weakness - Psychiatric Psychiatric: Present: A&O x's 3, appropriate affect, intact judgment & insight - Labs CBC & Chem 7: 06/05/17 05:52 06/05/17 05:52 Labs: Abnormal Lab Results - Last 24 Hours (Table) 06/03/17 06/04/17 06/05/17 Range/Units 18:10 06:06 05:52 WBC (3.8-10.6) k/uL RBC (4.30-5.90) m/uL Hgb (13.0-17.5) gm/dL Hct (39.0-53.0) % RDW (11.5-15.5) % Plt Count (150-450) k/uL Lymphocytes # (Manual) (1.0-4.8) k/uL Monocytes # (Manual) (0-1.0) k/uL Metamyelocytes # (Man) (0) k/uL Potassium 5.2 H (3.5-5.1) mmol/L Chloride 109 H (98-107) mmol/L Carbon Dioxide 20 L (22-30) mmol/L BUN 34 H (9-20) mg/dL Creatinine 3.40 H (0.66-1.25) mg/dL Glucose 139 H (74-99) mg/dL Uric Acid 14.0 H* <0.5 L (3.5-8.5) mg/dL Calcium 8.0 L (8.4-10.2) mg/dL Phosphorus 6.1 H (2.5-4.5) mg/dL Crossmatch See Detail 06/05/17 Range/Units 05:52 WBC 80.0 H* (3.8-10.6) k/uL RBC 2.62 L (4.30-5.90) m/uL Hgb 8.3 L D (13.0-17.5) gm/dL Hct 25.8 L (39.0-53.0) % RDW 15.8 H (11.5-15.5) % Plt Count 36 L* (150-450) k/uL Lymphocytes # (Manual) 75.20 H (1.0-4.8) k/uL Monocytes # (Manual) 1.60 H (0-1.0) k/uL Metamyelocytes # (Man) 0.80 H (0) k/uL Potassium (3.5-5.1) mmol/L Chloride (98-107) mmol/L Carbon Dioxide (22-30) mmol/L BUN (9-20) mg/dL Creatinine (0.66-1.25) mg/dL Glucose (74-99) mg/dL Uric Acid (3.5-8.5) mg/dL Calcium (8.4-10.2) mg/dL Phosphorus (2.5-4.5) mg/dL Crossmatch Microbiology - Last 24 Hours (Table) 06/03/17 18:10 Blood Culture - Preliminary Blood No Growth after 24 hours - Imaging and Cardiology Chest x-ray: report reviewed Assessment and Plan Plan: Assessment Dehydration secondary to vomiting Leukocytosis secondary to myeloma 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
--- NOTE | 2017-06-05 14:07 | P.PN ---
Subjective Progress Note Date: 06/05/17 Principal diagnosis: Atrial fibrillation This is a 61-year-old gentleman who follows regularly with Dr. Boston in the office. He has known history of paroxysmal atrial fibrillation/flutter, nonischemic cardiomyopathy, history of bladder cancer, hypertension, multiple myeloma, nonsmoker, who has had several admissions to the hospital recently symptoms of weakness, as well as generally not feeling well. Admission patient presented with extreme weakness and fatigue. He denies any nausea or vomiting, no diarrhea, he just states he has no strength. Patient also denies any overt shortness of breath, no palpitations. EKG on presentation here showed atrial fibrillation with a rapid ventricular response. Chest x-ray revealed new pleural effusions as compared with prior exam. White blood cell count on admission 76.3, 52.8 this morning. Hemoglobin 7.9 on admission, 6.8 this morning, platelet count is 32 this morning. Sodium 138, potassium 4.6, BUN 34, creatinine 3.1, creatinine yesterday was 3.4. DNP level 36,400. Troponins 0.012, 0.013, 0.012. Patient was initiated on IV Cardizem in the emergency room , continues to be on IV Cardizem at this time. He was also given a one-time dose of IV Lasix in the emergency room. He does take Coumadin at home for anticoagulation, INR subtherapeutic at 1.3. At the time of my examination this morning, patient feels extremely weak and discouraged. As morning patient is in atrial fibrillation with a controlled ventricular response. 2016 Patient seen and examined this morning, continues to feel weak. In normal sinus rhythm this morning. We will continue amiodarone 400 mg one tablet by mouth twice a day for one week and we will decrease to 200 mg daily. Objective - Vital Signs Vital signs: Vital Signs Temp 97.2 F L 06/05/17 08:00 Pulse 64 06/05/17 11:33 Resp 16 06/05/17 11:33 BP 140/79 06/05/17 11:20 Pulse Ox 95 06/05/17 11:20 Intake & Output 06/04/17 06/05/17 06/05/17 18:59 06:59 18:59 Intake Total 1168 310 325 Output Total 800 200 775 Balance 368 110 -450 Weight 71.2 kg Intake: Intake, IV Titration 625 200 Amount Diltiazem 125 mg In 25 Sodium Chloride 0.9% 100 ml @ 5 MG/HR 5 mls/hr IV .Q24H [facility] Rx#:[id number] Piperacillin-Tazobactam 3 50 .375 gm In Dextrose/Water 1 50ml.bag @ 12.5 mls/hr IVPB ONCE [facility] Rx#: [id number] Piperacillin-Tazobactam 3 50 50 .375 gm In Dextrose/Water 1 50ml.bag @ 12.5 mls/hr IVPB Q8HR [facility] Rx#: [id number] Sodium Chloride 0.9% 1, 150 000 ml @ 75 mls/hr IV . [id number] [facility] Rx#:[id number] Sodium Chloride 0.9% 2, 500 000 ml @ 999 mls/hr IV . Q2H1M [facility] Rx#:[id number] Oral 543 125 Blood Product 310 Rc As-1 Unit 310 [id number] Output: Urine 800 200 775 Other: Voiding Method Urinal # Voids 2 0 - Exam PHYSICAL EXAMINATION: HEENT: Head is atraumatic, normocephalic. Pupils equal, round. Neck is supple. There is no elevated jugular venous pressure. HEART EXAMINATION: Heart S1, S2 normal. No murmur or gallop heard. CHEST EXAMINATION: Lungs are clear to auscultation and precussion. No chest wall tenderness is noted on palpation or with deep breathing. ABDOMEN: Soft, nontender. Bowel sounds are heard. No organomegaly noted. EXTREMITIES: 2+ peripheral pulses with trace evidence of peripheral edema and no calf tenderness noted. NEUROLOGIC patient is awake, alert and oriented -3. . - Labs CBC & Chem 7: 06/05/17 05:52 06/05/17 05:52 Labs: Abnormal Lab Results - Last 24 Hours (Table) 06/03/17 06/05/17 06/05/17 Range/Units 18:10 05:52 05:52 WBC 80.0 H* (3.8-10.6) k/uL RBC 2.62 L (4.30-5.90) m/uL Hgb 8.3 L D (13.0-17.5) gm/dL Hct 25.8 L (39.0-53.0) % RDW 15.8 H (11.5-15.5) % Plt Count 36 L* (150-450) k/uL Lymphocytes # (Manual) 75.20 H (1.0-4.8) k/uL Monocytes # (Manual) 1.60 H (0-1.0) k/uL Metamyelocytes # (Man) 0.80 H (0) k/uL Potassium 5.2 H (3.5-5.1) mmol/L Chloride 109 H (98-107) mmol/L Carbon Dioxide 20 L (22-30) mmol/L BUN 34 H (9-20) mg/dL Creatinine 3.40 H (0.66-1.25) mg/dL Glucose 139 H (74-99) mg/dL Uric Acid <0.5 L (3.5-8.5) mg/dL Calcium 8.0 L (8.4-10.2) mg/dL Phosphorus 6.1 H (2.5-4.5) mg/dL Crossmatch See Detail Microbiology - Last 24 Hours (Table) 06/03/17 18:10 Blood Culture - Preliminary Blood No Growth after 24 hours Assessment and Plan Plan: Assessment and plan #1 symptoms of progressive weakness and fatigue #2 Atrial fibrillation with rapid ventricular response, persistent. Patient has known history of atrial fibrillation and atrial flutter, on Coumadin for anticoagulation, subtherapeutic at 1.3. #3 nonischemic cardiomyopathy, most recent echo was performed on the of this month which revealed an ejection fraction of 35-40%. Left atrium severely dilated. Patient did undergo cardiac catheterization in April of last year which revealed mild spasm in the nondominant RCA otherwise coronary arteries were free of any significant occlusive disease. #4 multiple myeloma, history of prior bladder cancer Number 5 history of hypertension #6 anemia and thrombocytopenia, hemoglobin 6.8, platelet count 32. #7 leukocytosis, white blood cell count 76 on admission, 52 this morning. #8 history of prior ventricular tachycardia #9 acute on chronic renal failure, creatinine 3.1. #10 systolic congestive heart failure acute on chronic Plan We will continue amiodarone 400 mg one tablet by mouth twice a day for one week , then decrease to 200 mg daily. Patient is not a candidate for anticoagulation. He may be able to be transferred to the oncology unit from our perspective. DNP note has been reviewed, I agree with a documented findings and plan of care. Patient was seen and examined.
[2017-06-05] MEDS: SODIUM CHLORIDE 0.9% IV SCH (17:01)
[2017-06-05] MEDS: RASBURICASE IV SCH (17:01)
[2017-06-05] MEDS ORDERED: DEXAMETHASONE 4 MG TAB PO ONE (20:00)
[2017-06-05] MEDS: METOPROLOL TARTRATE 50 MG TAB PO SCH (20:47)
--- NOTE | 2017-06-05 22:07 | P.PN ---
Subjective Progress Note Date: 06/05/17 Principal diagnosis: plasma cell leukemia the patient started salvage chemotherapy with the CyBOR-D regimen yesterday. He denied any specific side effects and appeared to be related to the chemotherapy itself. He continues to have intermittent nausea and vomiting. No history of any fever, chills or diarrhea. Oral intake remains diminished. Objective - Vital Signs Vital signs: Vital Signs Temp 96.9 F L 06/05/17 15:27 Pulse 73 06/05/17 20:45 Resp 16 06/05/17 15:42 BP 129/84 06/05/17 20:45 Pulse Ox 96 06/05/17 20:45 Intake & Output 06/05/17 06/05/17 06/06/17 06:59 18:59 06:59 Intake Total 310 550 Output Total 200 1375 Balance 110 -825 Weight 71.2 kg Intake: Intake, IV Titration 425 Amount Piperacillin-Tazobactam 3 50 .375 gm In Dextrose/Water 1 50ml.bag @ 12.5 mls/hr IVPB Q8HR [facility] Rx#: [id number] Sodium Chloride 0.9% 1, 375 000 ml @ 75 mls/hr IV . [id number] [facility] Rx#:[id number] Oral 125 Blood Product 310 Rc As-1 Unit 310 [id number] Output: Urine 200 1375 Other: Voiding Method Urinal # Voids 0 - Constitutional General appearance: Present: no acute distress - EENT Eyes: Present: EOMI, PERRLA ENT: Present: hearing grossly normal, normal oropharynx - Respiratory Respiratory: bilateral: CTA - Cardiovascular Rhythm: regular Heart sounds: normal: S1, S2 - Gastrointestinal General gastrointestinal: Present: normal bowel sounds, soft - Integumentary Integumentary: Present: normal - Neurologic Neurologic: Present: CNII-XII intact - Musculoskeletal Musculoskeletal: Present: generalized weakness, strength equal bilaterally - Psychiatric Psychiatric: Present: A&O x's 3, appropriate affect - Labs CBC & Chem 7: 06/05/17 05:52 06/05/17 05:52 Labs: Abnormal Lab Results - Last 24 Hours (Table) 06/03/17 06/05/17 06/05/17 Range/Units 18:10 05:52 05:52 WBC 80.0 H* (3.8-10.6) k/uL RBC 2.62 L (4.30-5.90) m/uL Hgb 8.3 L D (13.0-17.5) gm/dL Hct 25.8 L (39.0-53.0) % RDW 15.8 H (11.5-15.5) % Plt Count 36 L* (150-450) k/uL Lymphocytes # (Manual) 75.20 H (1.0-4.8) k/uL Monocytes # (Manual) 1.60 H (0-1.0) k/uL Metamyelocytes # (Man) 0.80 H (0) k/uL Potassium 5.2 H (3.5-5.1) mmol/L Chloride 109 H (98-107) mmol/L Carbon Dioxide 20 L (22-30) mmol/L BUN 34 H (9-20) mg/dL Creatinine 3.40 H (0.66-1.25) mg/dL Glucose 139 H (74-99) mg/dL Uric Acid <0.5 L (3.5-8.5) mg/dL Calcium 8.0 L (8.4-10.2) mg/dL Phosphorus 6.1 H (2.5-4.5) mg/dL Crossmatch See Detail Microbiology - Last 24 Hours (Table) 06/03/17 18:10 Blood Culture - Preliminary Blood No Growth after 48 hours Assessment and Plan (1) Plasma cell leukemia Narrative/Plan: the patient's multiple myeloma has progressed to overt plasma cell leukemia. This is likely the cause for the majority of his symptoms. He was started on salvage chemotherapy yesterday. Continue treatment per protocol, with close monitoring, with labs and clinical exams. He has cytopenias related to the same. Continue to monitor with transfusion as needed Current Visit: Yes Status: Acute Code(s): C90.10 - PLASMA CELL LEUKEMIA NOT HAVING ACHIEVED REMISSION SNOMED Code(s): 07353266 (2) Spontaneous tumor lysis syndrome Narrative/Plan: the patient was showing evidence of spontaneous tumor lysis, even before starting treatment. Since starting treatment, creatinine has worsened. In addition increase in potassium and phosphorus levels as well as drop in calcium levels, though overall slight, was noted today. We'll continue Elitek for 2 more doses. IV fluids will be changed to a bicarbonate drip. Nephrology is on consult. Continue to monitor tumor lysis labs. Current Visit: Yes Status: Acute Priority: High Code(s): E88.3 - TUMOR LYSIS SYNDROME SNOMED Code(s): 095351184
[2017-06-06] MEDS: SALT AND SODA MOUTHWASH 1,000 ML PO SCH ×6 (04:46→23:07)
[2017-06-06] MEDS: ONDANSETRON 4 MG/2 ML VIAL IVP PRN ×2 (06:40→21:31)
[2017-06-06] MEDS: HYDROmorphone 2 MG/ML 1 ML SYRINGE IVP PRN ×4 (06:40→21:19)
[2017-06-06] MEDS: PIPERACILLIN-TAZOBACTAM 3.375 GM in DEXTROSE/WATER 1 50ML.BAG IVPB SCH ×3 (08:47→23:07)
[2017-06-06] MEDS: METOCLOPRAMIDE 5 MG TAB PO SCH ×4 (08:48→21:27)
[2017-06-06] MEDS: SODIUM BICARBONATE TAB 650 MG TAB PO SCH ×2 (08:48→21:27)
[2017-06-06] MEDS: ACYCLOVIR 200 MG CAP PO SCH ×2 (08:48→21:27)
[2017-06-06] MEDS: ALLOPURINOL 300 MG TAB PO SCH (08:48)
[2017-06-06] MEDS: PANTOPRAZOLE 40 MG TABLET PO SCH (08:49)
[2017-06-06] MEDS: AMIODARONE 200 MG TAB PO SCH ×2 (08:49→21:27)
[2017-06-06 09:25] LABS: HCT 24.3 % (39.0-53.0); HDW 3.23; Hypochromasia Slight; MCH 31.9 pg (25.0-35.0); MCHC 32.7 g/dL (31.0-37.0); MCV 97.5 fL (80.0-100.0); Mean Platelet Volume 9.3; RBC 2.49 m/uL (4.30-5.90); RDW 15.9 % (11.5-15.5); WBC (Perox) 66.87
[2017-06-06 09:40] LABS: WBC 66.2 k/uL (3.8-10.6)
[2017-06-06 09:46] LABS: Anion Gap 14 mmol/L; Blood Urea Nitrogen 42 mg/dL (9-20); Calcium 7.4 mg/dL (8.4-10.2); Carbon Dioxide 22 mmol/L (22-30); Chloride 106 mmol/L (98-107); Glucose 131 mg/dL (74-99); Non-African American GFR(MDRD) 17 (>60 ml/min/1.73 sqM); Phosphorus 7.4 mg/dL (2.5-4.5); Potassium 5.2 mmol/L (3.5-5.1); Sodium 142 mmol/L (137-145); Uric Acid <0.5 mg/dL (3.5-8.5)
--- NOTE | 2017-06-06 10:29 | P.PN ---
Subjective Patient is seen in follow-up for acute kidney injury on chronic kidney disease. Patient's creatinine in December 2016 was 1 but recently has been near 2.5. Renal function continues to worsen with creatinine up to 3.68 today. Patient presented with generalized weakness and atrial fibrillation. He is currently maintained on oral amiodarone. He is noted to have tumor lysis syndrome with mild hyperkalemia, hyperphosphatemia and a uric acid level of 14 for which he did receive rasburicase. He does have history of multiple myeloma which seems to have progressed to overt plasma cell leukemia and is maintained on chemotherapy. He's awake and alert. He has been voiding. Oral intake is fair. No vomiting or diarrhea. Vital signs are stable. General: The patient appeared well nourished and normally developed. HEENT: Head exam is unremarkable. Neck is without jugular venous distension. LUNGS: Lungs are clear to auscultation and percussion. Breath sounds decreased. HEART: Rate and Rhythm are regular. First and second heart sounds normal. No murmurs, rubs or gallops. ABDOMEN: Abdominal exam reveals normal bowel sounds. Non-tender and non- distended. No evidence of peritonitis. EXTREMITITES: No edema. Objective - Vital Signs Vital signs: Vital Signs Temp 98.1 F 06/06/17 07:00 Pulse 58 L 06/06/17 07:00 Resp 20 06/06/17 07:00 BP 124/77 06/06/17 07:00 Pulse Ox 95 06/06/17 07:00 Intake & Output 06/05/17 06/06/17 06/06/17 18:59 06:59 18:59 Intake Total 550 1200 Output Total 1375 500 Balance -825 700 Intake: Intake, IV Titration 425 1000 Amount Piperacillin-Tazobactam 3 50 .375 gm In Dextrose/Water 1 50ml.bag @ 12.5 mls/hr IVPB Q8HR [facility] Rx#: [id number] Sodium Chloride 0.9% 1, 375 1000 000 ml @ 75 mls/hr IV . [id number] [facility] Rx#:[id number] Oral 125 200 Output: Urine 1375 500 Other: Voiding Method Urinal Urinal # Voids 1 - Labs CBC & Chem 7: 06/06/17 08:48 06/06/17 08:48 Labs: Abnormal Lab Results - Last 24 Hours (Table) 06/06/17 06/06/17 Range/Units 08:48 08:48 WBC 66.2 H* (3.8-10.6) k/uL RBC 2.49 L (4.30-5.90) m/uL Hgb 8.0 L (13.0-17.5) gm/dL Hct 24.3 L (39.0-53.0) % RDW 15.9 H (11.5-15.5) % Plt Count 29 L* (150-450) k/uL Potassium 5.2 H (3.5-5.1) mmol/L BUN 42 H (9-20) mg/dL Creatinine 3.68 H (0.66-1.25) mg/dL Glucose 131 H (74-99) mg/dL Uric Acid <0.5 L (3.5-8.5) mg/dL Calcium 7.4 L (8.4-10.2) mg/dL Phosphorus 7.4 H (2.5-4.5) mg/dL Microbiology - Last 24 Hours (Table) 06/03/17 18:10 Blood Culture - Preliminary Blood No Growth after 48 hours Assessment and Plan Plan: Assessment: #1. Nonoliguric acute kidney injury secondary to ischemic ATN secondary to hemodynamic instability, anemia as well as tumor lysis syndrome. Creatinine up to 3.68 today. Creatinine in December 2016 was 1 but has been near 2.5 from his recent admissions. He does have proteinuria on UA, which is due to multiple myeloma. No evidence of hydronephrosis noted on recent kidney ultrasound. Rest of the serologies including LE, hepatitis panel and complement levels have been normal. #2. Multiple myeloma with recent progression to overt plasma cell leukemia being followed by oncology. #3. Systolic CHF ejection fraction of 35-40%. #4. Bicytopenia related to underlying myeloma and chemotherapy. Patient did receive a unit of blood on June 04. Hemoglobin improved. #5. Abdominal pain which is now resolved. He had endoscopy done 05/29/2017 which revealed small sliding hiatal hernia, mild antral gastritis and sigmoid diverticulosis. #6. Atrial fibrillation with RVR currently maintained on oral amiodarone. Cardiology following. #7. Rule out chronic disease. Patient likely has underlying chronic kidney disease due to multiple myeloma. #8. Metabolic acidosis secondary to acute kidney injury. Improved. #9. Tumor lysis syndrome status post rasburicase. He is maintained on IV fluids and also received a dose of Lasix yesterday. #10. Hyperphosphatemia secondary to acute kidney injury and tumor lysis syndrome. Plan: I will increase the rate of normal saline to 125 mL an hour. Encouraged oral intake. Avoid nephrotoxic agents and hypotensive episodes. Maintain oral sodium bicarbonate 1300 mg twice daily. Strict I's and os. Goal urine output of at least 2-3 L a day. Will give Lasix if remains below goal. Maintain low potassium diet. Add PhosLo with meals. Repeat electrolytes in the morning.
[2017-06-06] MEDS: SODIUM CHLORIDE 0.9% 1,000 ML IV SCH ×3 (11:49→23:07)
[2017-06-06 11:55] LABS: Add Differential Manual Differential
[2017-06-06 12:00] LABS: Metamyelocytes % 2 %; Myelocytes % 2 %; Nucleated Red Blood Cells 0 /100 WBC (0-0); Total Cells Counted 200
[2017-06-06 12:02] LABS: Manual Review Performed
[2017-06-06 12:03] LABS: Toxic Granulation Present; Toxic Vacuolation Present
[2017-06-06 12:04] LABS: Polychromasia Present
--- NOTE | 2017-06-06 12:07 | P.PN ---
Subjective Patient resting in bed states he is on severe nausea with vomiting today. Noted increasing creatinine with increase of phosphorus being monitored by nephrology. Patient will be starting Cybor D regiment for multiple myeloma Objective - Vital Signs Vital signs: Vital Signs Temp 98.1 F 06/06/17 07:00 Pulse 58 L 06/06/17 07:00 Resp 20 06/06/17 07:00 BP 124/77 06/06/17 07:00 Pulse Ox 95 06/06/17 07:00 Intake & Output 06/05/17 06/06/17 06/06/17 18:59 06:59 18:59 Intake Total 550 1200 Output Total 1375 500 Balance -825 700 Intake: Intake, IV Titration 425 1000 Amount Piperacillin-Tazobactam 3 50 .375 gm In Dextrose/Water 1 50ml.bag @ 12.5 mls/hr IVPB Q8HR [facility] Rx#: [id number] Sodium Chloride 0.9% 1, 375 1000 000 ml @ 75 mls/hr IV . [id number] [facility] Rx#:[id number] Oral 125 200 Output: Urine 1375 500 Other: Voiding Method Urinal Urinal # Voids 1 - Constitutional General appearance: Present: mild distress - EENT Eyes: Present: PERRLA Ears: bilateral: normal - Neck Neck: Present: normal ROM - Respiratory Respiratory: bilateral: CTA - Cardiovascular Rhythm: regular - Gastrointestinal General gastrointestinal: Present: soft - Integumentary Integumentary: Present: normal - Neurologic Neurologic: Present: CNII-XII intact - Musculoskeletal Musculoskeletal: Present: generalized weakness - Psychiatric Psychiatric: Present: A&O x's 3, appropriate affect, intact judgment & insight - Labs CBC & Chem 7: 06/06/17 08:48 06/06/17 08:48 Labs: Abnormal Lab Results - Last 24 Hours (Table) 06/06/17 06/06/17 Range/Units 08:48 08:48 WBC 66.2 H* (3.8-10.6) k/uL RBC 2.49 L (4.30-5.90) m/uL Hgb 8.0 L (13.0-17.5) gm/dL Hct 24.3 L (39.0-53.0) % RDW 15.9 H (11.5-15.5) % Plt Count 29 L* (150-450) k/uL Potassium 5.2 H (3.5-5.1) mmol/L BUN 42 H (9-20) mg/dL Creatinine 3.68 H (0.66-1.25) mg/dL Glucose 131 H (74-99) mg/dL Uric Acid <0.5 L (3.5-8.5) mg/dL Calcium 7.4 L (8.4-10.2) mg/dL Phosphorus 7.4 H (2.5-4.5) mg/dL Microbiology - Last 24 Hours (Table) 06/03/17 18:10 Blood Culture - Preliminary Blood No Growth after 48 hours - Imaging and Cardiology Chest x-ray: report reviewed Assessment and Plan Plan: Assessment Dehydration Leukocytosis Multiple myeloma Tumor lysis syndrome Metabolic acidosis secondary to acute kidney injury Weakness Acute on chronic renal failure from hemodynamic instability stage III History of intermittent atrial fibrillation with RVR Cardiomyopathy with congestive heart failure acute on chronic systolic disease with 35-40% ejection fraction Hyper phosphatemia 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
[2017-06-06] MEDS: CYANOCOBALAMIN 500 MCG TAB PO SCH (13:07)
[2017-06-06] MEDS: CALCIUM ACETATE 667 MG CAP PO SCH ×2 (13:11→17:25)
[2017-06-06] MEDS: METOPROLOL TARTRATE 50 MG TAB PO SCH (21:27)
--- NOTE | 2017-06-07 00:15 | P.PN ---
Subjective Progress Note Date: 06/06/17 the patient seems to have tolerated treatment itself well. He continues to have significant nausea with intermittent vomiting, overall generalized weakness and poor appetite. He denies significant pain at this time. She did have a fairly normal bowel movement today. No obvious bleeding noted. Objective - Vital Signs Vital signs: Vital Signs Temp 97.6 F 06/06/17 22:18 Pulse 67 06/06/17 22:18 Resp 18 06/06/17 22:18 BP 112/73 06/06/17 22:18 Pulse Ox 96 06/06/17 22:18 Intake & Output 06/06/17 06/06/17 06/07/17 06:59 18:59 06:59 Intake Total 1200 1070 488 Output Total 500 Balance 700 1070 488 Intake: Intake, IV Titration 1000 488 Amount Piperacillin-Tazobactam 3 50 .375 gm In Dextrose/Water 1 50ml.bag @ 12.5 mls/hr IVPB Q8HR [facility] Rx#: [id number] Sodium Chloride 0.9% 1, 1000 438 000 ml @ 125 mls/hr IV . Q8H [facility] Rx#:[id number] Oral 200 1070 Output: Urine 500 Other: Voiding Method Urinal Urinal # Voids 1 550 - Constitutional General appearance: Present: no acute distress - EENT Eyes: Present: EOMI, PERRLA ENT: Present: hearing grossly normal, normal oropharynx - Respiratory Respiratory: bilateral: CTA - Cardiovascular Rhythm: regular Heart sounds: normal: S1, S2 - Gastrointestinal General gastrointestinal: Present: normal bowel sounds, soft - Integumentary Integumentary: Present: normal - Neurologic Neurologic: Present: CNII-XII intact - Musculoskeletal Musculoskeletal: Present: generalized weakness, strength equal bilaterally - Psychiatric Psychiatric: Present: A&O x's 3 - Labs CBC & Chem 7: 06/06/17 08:48 06/06/17 08:48 Labs: Abnormal Lab Results - Last 24 Hours (Table) 06/06/17 06/06/17 Range/Units 08:48 08:48 WBC 66.2 H* (3.8-10.6) k/uL RBC 2.49 L (4.30-5.90) m/uL Hgb 8.0 L (13.0-17.5) gm/dL Hct 24.3 L (39.0-53.0) % RDW 15.9 H (11.5-15.5) % Plt Count 29 L* (150-450) k/uL Lymphocytes # (Manual) 58.26 H (1.0-4.8) k/uL Monocytes # (Manual) 1.32 H (0-1.0) k/uL Metamyelocytes # (Man) 1.32 H (0) k/uL Myelocytes # (Manual) 1.32 H (0) k/uL Potassium 5.2 H (3.5-5.1) mmol/L BUN 42 H (9-20) mg/dL Creatinine 3.68 H (0.66-1.25) mg/dL Glucose 131 H (74-99) mg/dL Uric Acid <0.5 L (3.5-8.5) mg/dL Calcium 7.4 L (8.4-10.2) mg/dL Phosphorus 7.4 H (2.5-4.5) mg/dL Microbiology - Last 24 Hours (Table) 06/03/17 18:10 Blood Culture - Preliminary Blood No Growth after 72 hours Assessment and Plan (1) Plasma cell leukemia Narrative/Plan: the patient is at day #3 of salvage chemotherapy with the CyBOR-D regimen. As noted, he appears to have tolerated treatment itself well so far. CBC today shows decline in total white count and mononuclear cells. Continue treatment per protocol. Continue to monitor counts to assess response. I'm Hopeful that his symptoms will improve as his counts show a response. Current Visit: Yes Status: Acute Code(s): C90.10 - PLASMA CELL LEUKEMIA NOT HAVING ACHIEVED REMISSION SNOMED Code(s): 22691052 (2) Spontaneous tumor lysis syndrome Narrative/Plan: The patient's creatinine has increased slightly, but other indices such as potassium, calcium and phosphorus are stable. Continue Elitek to complete 3 doses. Continue IV hydration with bicarbonate. If the patient shows any signs of fluid overload, Lasix will be administered. It would be preferred as much as possible, to continue aggressive IV hydration Current Visit: Yes Status: Acute Priority: High Code(s): E88.3 - TUMOR LYSIS SYNDROME SNOMED Code(s): 546193603
[2017-06-07] MEDS: SALT AND SODA MOUTHWASH 1,000 ML PO SCH ×5 (02:52→20:51)
[2017-06-07] MEDS: HYDROmorphone 2 MG/ML 1 ML SYRINGE IVP PRN ×4 (02:52→22:17)
[2017-06-07] MEDS: SODIUM BICARBONATE TAB 650 MG TAB PO SCH (07:43)
[2017-06-07] MEDS: ACYCLOVIR 200 MG CAP PO SCH (07:43)
[2017-06-07] MEDS: METOCLOPRAMIDE 5 MG TAB PO SCH ×3 (07:44→18:00)
[2017-06-07] MEDS: PIPERACILLIN-TAZOBACTAM 3.375 GM in DEXTROSE/WATER 1 50ML.BAG IVPB SCH ×3 (07:44→23:56)
[2017-06-07] MEDS: PANTOPRAZOLE 40 MG TABLET PO SCH (07:44)
[2017-06-07] MEDS: SULFAMETHOX-TMP 800-160MG 1 EACH TAB PO SCH (07:44)
[2017-06-07] MEDS: ALLOPURINOL 300 MG TAB PO SCH (07:44)
[2017-06-07 07:45] LABS: Aty Lym Flag Marked; CH 30.7; CHCM 31.3; HDW 3.05; HGB 7.2 gm/dL (13.0-17.5); Hypochromasia Slight; MCH 30.9 pg (25.0-35.0); MCHC 31.2 g/dL (31.0-37.0); Macrocytosis Slight; Mean Platelet Volume 8.6; RBC 2.33 m/uL (4.30-5.90); RDW 15.9 % (11.5-15.5); WBC (Perox) 49.86
[2017-06-07] MEDS: CALCIUM ACETATE 667 MG CAP PO SCH ×3 (07:45→18:00)
[2017-06-07] MEDS: SODIUM CHLORIDE 0.9% 1,000 ML IV SCH ×3 (07:49→17:57)
[2017-06-07] MEDS: AMIODARONE 200 MG TAB PO SCH (07:50)
[2017-06-07 07:52] LABS: WBC 51.6 k/uL (3.8-10.6)
[2017-06-07 08:06] LABS: Anion Gap 13 mmol/L; Blood Urea Nitrogen 47 mg/dL (9-20); Carbon Dioxide 18 mmol/L (22-30); Chloride 111 mmol/L (98-107); Glucose 91 mg/dL (74-99); Non-African American GFR(MDRD) 16 (>60 ml/min/1.73 sqM); Phosphorus 7.6 mg/dL (2.5-4.5); Potassium 4.8 mmol/L (3.5-5.1); Sodium 142 mmol/L (137-145); Uric Acid <0.5 mg/dL (3.5-8.5)
[2017-06-07 08:18] LABS: Add Differential Manual Differential
[2017-06-07 08:20] LABS: Band Neutrophils % 1 %; Nucleated Red Blood Cells 0 /100 WBC (0-0); Total Cells Counted 200
[2017-06-07] MEDS: CYANOCOBALAMIN 500 MCG TAB PO SCH (13:13)
--- NOTE | 2017-06-07 16:21 | PN ---
PROGRESS NOTE DATE OF SERVICE: 06/07/2017 I am covering for Dr. Shashank Ramirez. This 61-year-old gentleman who was admitted with tumor lysis syndrome also had some nausea. The patient receiving chemotherapy for pl cell elukemia. Patient closely monitored at this time. PAST MEDICAL HISTORY: Reviewed. REVIEW OF SYSTEMS: CARDIOVASCULAR: No angina or palpitations. RESPIRATORY: As mentioned. GI: As mentioned earlier. : No dysuria. NERVOUS SYSTEM: No numbness, weakness. CURRENT MEDICATIONS: Reviewed and include: 1. Zovirax 400 mg b.i.d. 2. Cordarone. 3. Velcade. 4. PhosLo. 5. Vitamin B12. 6. Hexadrol. 7. Dilaudid. 8. Lopressor. 9. Zofran. 10.Protonix. 11.Zosyn IV. 12.Bactrim DS. 13.Coumadin. PHYSICAL EXAM: Patient is alert, oriented x3. Pulse 61, blood pressure 140/88, respirations 16 , temperature 98.1, pulse ox 94% room air. HEENT: Conjunctivae normal. Oral mucosa moist. NECK: No jugular venous distention. No carotid bruit. No lymph node enlargement. CARDIOVASCULAR: S1, S2. RESPIRATORY: Breath sounds diminished in the bases. A few scattered rhonchi and crackles. ABDOMEN: Soft, nontender. No mass palpable. LEGS: No edema. NERVOUS SYSTEM: No focal deficits. LAB STUDIES: WBC 15, hemoglobin 7.2, creatinine 3.90. 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 2. Tumor lysis syndrome. 3. Acute on chronic kidney failure with baseline stage III renal failure. 4. Metabolic acidosis and weakness. 5. Cardiomyopathy with congestive heart failure with chronic systolic dysfunction, ejection fraction 35-40%. 6. History intermittent atrial fibrillation, rapid ventricular rate. 7. Hyperphosphatemia. 8. 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 9. History of multiple myeloma. 10.History of bladder cancer. 11.History of ventricular tachycardia. 12.Hypertension. RECOMMENDATIONS AND DISCUSSION: I recommend to continue current medication, continue symptomatic treatment. otherwise at this time monitor closely. Continue the chemotherapy. White count is still elevated. Symptomatic treatment. Pain medications. Repeat labs. Otherwise continue to monitor. Patient had recent biopsy of the stomach, which showed mild chronic gastritis only. Once again, the prognosis guarded because of multiple complex medical issues. further recommendations to follow. MMODL / IJN: [id number] / MITA
--- NOTE | 2017-06-07 17:54 | P.PN ---
Subjective Progress Note Date: 06/07/17 the patient states that he feels somewhat better today. He feels like he is slightly more energy and less nausea. However he still getting nauseous especially when he has to swallow his pills. He is moving his bowels. He denies any shortness of breath over baseline Objective - Vital Signs Vital signs: Vital Signs Temp 97.9 F 06/07/17 15:00 Pulse 73 06/07/17 16:00 Resp 16 06/07/17 16:00 BP 121/76 06/07/17 15:00 Pulse Ox 91 L 06/07/17 15:00 Intake & Output 06/06/17 06/07/17 06/07/17 18:59 06:59 18:59 Intake Total 1070 2188 Output Total 200 Balance 1070 2188 -200 Intake: Intake, IV Titration 1488 Amount Piperacillin-Tazobactam 3 50 .375 gm In Dextrose/Water 1 50ml.bag @ 12.5 mls/hr IVPB Q8HR PAULIE Rx#: [id number] Sodium Chloride 0.9% 1, 1438 000 ml @ 125 mls/hr IV . Q8H PAULIE Rx#:[id number] Oral 1070 700 Output: Urine 200 Other: Voiding Method Urinal Urinal Urinal # Voids 550 - Constitutional General appearance: Present: no acute distress - EENT Eyes: Present: EOMI, PERRLA ENT: Present: hearing grossly normal, normal oropharynx - Respiratory Respiratory: bilateral: CTA - Cardiovascular Rhythm: irregularly irregular Heart sounds: normal: S1, S2 - Gastrointestinal General gastrointestinal: Present: normal bowel sounds, soft - Integumentary Integumentary: Present: normal - Neurologic Neurologic: Present: CNII-XII intact - Musculoskeletal Musculoskeletal: Present: generalized weakness, strength equal bilaterally - Psychiatric Psychiatric: Present: A&O x's 3, appropriate affect - Labs CBC & Chem 7: 06/07/17 07:28 06/07/17 07:28 Labs: Abnormal Lab Results - Last 24 Hours (Table) 06/07/17 06/07/17 Range/Units 07:28 07:28 WBC 51.6 H* (3.8-10.6) k/uL RBC 2.33 L (4.30-5.90) m/uL Hgb 7.2 L (13.0-17.5) gm/dL Hct 23.0 L (39.0-53.0) % RDW 15.9 H (11.5-15.5) % Plt Count 24 L* (150-450) k/uL Lymphocytes # (Manual) 45.92 H (1.0-4.8) k/uL Monocytes # (Manual) 2.06 H (0-1.0) k/uL Chloride 111 H (98-107) mmol/L Carbon Dioxide 18 L (22-30) mmol/L BUN 47 H (9-20) mg/dL Creatinine 3.90 H (0.66-1.25) mg/dL Uric Acid <0.5 L (3.5-8.5) mg/dL Calcium 7.0 L (8.4-10.2) mg/dL Phosphorus 7.6 H (2.5-4.5) mg/dL Microbiology - Last 24 Hours (Table) 06/03/17 18:10 Blood Culture - Preliminary Blood No Growth after 72 hours Assessment and Plan (1) Plasma cell leukemia Narrative/Plan: the patient is on day 4 of his first cycle of salvage chemotherapy today. He will receive dose #2 of Velcade. So far he appears to have tolerated treatment well. W BC count is starting to decline. The patient has noted some mild symptomatic improvement. Continue to monitor, with ongoing treatment. Current Visit: Yes Status: Acute Code(s): C90.10 - PLASMA CELL LEUKEMIA NOT HAVING ACHIEVED REMISSION SNOMED Code(s): 25030501 (2) Spontaneous tumor lysis syndrome Narrative/Plan: he patient's creatinine, bicarbonate for somewhat worse today. Calcium and phosphorus are also shown mild worsening. He has completed 3 days of elitek. I will increasethe bicarbonate is IV fluid given the above. Continue to monitor tumor lysis labs closely. the patient was advised that if renal function continues to worsen, then dialysis may become a consideration. In that situation, given his age, and the treatability of his disease, this would be a reasonable option. He was advised that there is a good chance that patients who go on dialysis in these circumstances may be able to come off it as a remission occurs Current Visit: Yes Status: Acute Priority: High Code(s): E88.3 - TUMOR LYSIS SYNDROME SNOMED Code(s): 725437457 (3) Bicytopenia Narrative/Plan: this is due to his underlying malignancy, as well as effect of treatment. Hemoglobin and platelets are still in a safe range. Continue to monitor with transfusion as needed Current Visit: Yes Status: Acute Priority: High Code(s): D75.89 - OTHER SPECIFIED DISEASES OF BLOOD AND BLOOD-FORMING ORGANS SNOMED Code(s): 028940064 (4) Atrial fibrillation with RVR Narrative/Plan: heart rate is controlled. The patient is not a candidate for anticoagulation because of low platelets at this time. anticoagulation can be considered once platelets are above 50,000. Current Visit: Yes Status: Acute Code(s): I48.91 - UNSPECIFIED ATRIAL FIBRILLATION SNOMED Code(s): 598585058040953
[2017-06-07] MEDS ORDERED: LOPERAMIDE 2 MG CAP PO PRN (18:23)
[2017-06-07] MEDS ORDERED: DEXAMETHASONE 4 MG TAB PO ONE (20:00)
[2017-06-07] MEDS: ONDANSETRON 4 MG/2 ML VIAL IVP PRN (20:47)
--- NOTE | 2017-06-07 20:57 | PN ---
PROGRESS NOTE The patient is seen for followup for acute kidney injury secondary to tumor lysis syndrome. His creatinine has been staying at 3.4-3.6 mg/dL, and this morning it is up to 3.9. The patient is maintained on IV fluids which were increased yesterday to 25. He has had good urine output with 24 hour urine output of about 1.8 L. The patient is status post for the tumor lysis syndrome and hyperuricemia. He is maintained on dexamethasone. Patient states he has been feeling nauseated and has not been eating much. There are no other nephrotoxic agents on board at this time. Bactrim is 1 double-strength tablet Saturday, Saturday, Saturday. EXAMINATION: Blood pressure is 118/81, heart rate 73 per minute. Patient is afebrile. Examination of the heart S1, S2. Examination lungs bilateral breath sounds are heard. Decreased breath sounds at bases. Abdomen is soft, nontender. Examination lower extremity shows no evidence of edema. [employer] exam is grossly intact. Patient moving all 4 extremities. LAB: Show sodium 142, potassium 4.8, BUN 47, serum creatinine 3.9, white cell count is 51,000, platelet count 24,000, hemoglobin 7.2 g/dL. ASSESSMENT: 1. Acute kidney injury secondary to tumor lysis syndrome with the serum creatinine staying at about 3.4-3.6 mg/dL. Today it is up to 3.9. The patient is nonoliguric. Continue with aggressive IV hydration. 2. Plasma cell leukemia, currently on chemotherapy. 3. Atrial fibrillation with RVR with controlled ventricular response. 4. Hyperphosphatemia secondary to renal failure and tumor lysis syndrome. 5. Cardiomyopathy with systolic congestive heart failure, ejection fraction 35-40%. PLAN: Continue with IV fluids for now. Repeat labs in a.m. no nephrotoxic agents on board. May continue with the Bactrim for prophylaxis. UA is not suggestive of interstitial nephritis. MMODL / IJN: [id number] /
[2017-06-07] MEDS ORDERED: BORTEZOMIB 3.5 MG VIAL SQ ONE (21:00)
[2017-06-08] MEDS: AMIODARONE 200 MG TAB PO SCH ×4 (00:18→20:44)
[2017-06-08] MEDS: ACYCLOVIR 200 MG CAP PO SCH ×4 (00:18→23:49)
[2017-06-08] MEDS: METOCLOPRAMIDE 5 MG TAB PO SCH ×5 (00:18→23:50)
[2017-06-08] MEDS: SULFAMETHOX-TMP 800-160MG 1 EACH TAB PO SCH (00:19)
[2017-06-08] MEDS: METOPROLOL TARTRATE 50 MG TAB PO SCH ×3 (00:19→20:44)
[2017-06-08] MEDS: SODIUM BICARBONATE TAB 650 MG TAB PO SCH ×3 (00:19→23:50)
[2017-06-08] MEDS: SALT AND SODA MOUTHWASH 1,000 ML PO SCH ×7 (00:20→23:50)
[2017-06-08] MEDS: SODIUM CHLORIDE 0.9% 1,000 ML IV SCH ×2 (02:24→10:05)
[2017-06-08] MEDS: ONDANSETRON 4 MG/2 ML VIAL IVP PRN (06:08)
[2017-06-08] MEDS: PIPERACILLIN-TAZOBACTAM 3.375 GM in DEXTROSE/WATER 1 50ML.BAG IVPB SCH ×2 (07:50→16:21)
[2017-06-08] MEDS: PANTOPRAZOLE 40 MG TABLET PO SCH ×2 (07:50→07:58)
[2017-06-08] MEDS: CALCIUM ACETATE 667 MG CAP PO SCH ×3 (07:51→17:23)
[2017-06-08] MEDS: ALLOPURINOL 300 MG TAB PO SCH ×2 (07:51→07:58)
[2017-06-08 08:44] LABS: Aty Lym Flag Marked; CHCM 32.6; HCT 21.8 % (39.0-53.0); HDW 3.03; MCH 30.7 pg (25.0-35.0); MCHC 32.1 g/dL (31.0-37.0); MCV 95.7 fL (80.0-100.0); RBC 2.28 m/uL (4.30-5.90); RDW 15.7 % (11.5-15.5); WBC 47.6 k/uL (3.8-10.6); WBC (Perox) 47.51
[2017-06-08 09:57] LABS: Anion Gap 13 mmol/L; Blood Urea Nitrogen 45 mg/dL (9-20); Calcium 7.4 mg/dL (8.4-10.2); Carbon Dioxide 19 mmol/L (22-30); Chloride 114 mmol/L (98-107); Glucose 81 mg/dL (74-99); Non-African American GFR(MDRD) 16 (>60 ml/min/1.73 sqM); Phosphorus 6.6 mg/dL (2.5-4.5); Potassium 4.7 mmol/L (3.5-5.1); Sodium 146 mmol/L (137-145); Uric Acid <0.5 mg/dL (3.5-8.5)
[2017-06-08] MEDS: CYANOCOBALAMIN 500 MCG TAB PO SCH (11:06)
[2017-06-08 11:11] LABS: Add Differential Manual Differential
[2017-06-08 11:13] LABS: Band Neutrophils % 1 %; Nucleated Red Blood Cells 0 /100 WBC (0-0); Total Cells Counted 200
[2017-06-08 11:14] LABS: Manual Review Performed
[2017-06-08] MEDS ORDERED: IPRATROPIUM-ALBUTEROL 3 ML NEB INHALATION PRN (11:39)
--- NOTE | 2017-06-08 12:30 | XR ---
EXAMINATION TYPE: XR chest 1V portable DATE OF EXAM: 06/08/2017 HISTORY: SOB. REFERENCE: Previous study dated 06/05/2017. FINDINGS: There are worsening, bilateral, perihilar opacities. The heart is enlarged. Pulmonary vascu lature appears normal. I suspect a small left effusion. IMPRESSION: PERIHILAR OPACITIES PRESENT BILATERALLY MAY REPRESENT BATWING EDEMA. BILATERAL PNEUMONIAS WOULD HAVE TO BE CONSIDERED. PLEASE CORRELATE CLINICALLY.
[2017-06-08 12:33] LABS: Anisocytosis Slight; CH 30.2; CHCM 30.8; HCT 21.6 % (39.0-53.0); HDW 2.86; Hypochromasia Slight; MCH 31.2 pg (25.0-35.0); MCHC 31.6 g/dL (31.0-37.0); MCV 98.7 fL (80.0-100.0); Macrocytosis Slight; Mean Platelet Volume 9.2; RBC 2.19 m/uL (4.30-5.90); RDW 17.1 % (11.5-15.5)
[2017-06-08 12:35] LABS: HGB 6.8 gm/dL (13.0-17.5)
[2017-06-08 12:49] LABS: Add Differential Manual Differential
[2017-06-08 12:51] LABS: Nucleated Red Blood Cells 1 /100 WBC (0-0); Total Cells Counted 200
[2017-06-08] MEDS: IPRATROPIUM-ALBUTEROL 3 ML NEB INHALATION SCH ×2 (12:51→19:36)
[2017-06-08 12:52] LABS: Manual Review Performed; WBC 38.9 k/uL (3.8-10.6)
[2017-06-08 12:57] LABS: Calcium 7.1 mg/dL (8.4-10.2); Potassium 4.4 mmol/L (3.5-5.1)
[2017-06-08] MEDS ORDERED: SODIUM CHLORIDE 0.45% 1,000 ML IV SCH (13:00)
[2017-06-08] MEDS ORDERED: FUROSEMIDE 10 MG/ML 4 ML VIAL IV STA (13:08)
--- NOTE | 2017-06-08 14:09 | P.CNPUL ---
History of Present Illness Consult date: 06/08/17 Requesting physician: Khurram Mondragon Reason for consult: dyspnea Chief complaint: Shortness of breath History of present illness: This is a 61-year-old white male who was diagnosed with plasma cell myeloma in August. Patient has been experiencing hip pain for the last 3 months, and he had a 20 pound weight loss. MRI in July showed a large destructive lesion in the right femur, hip arthroplasty was performed, patient was found to have plasma cell myeloma. Patient was started on Revlimid, Velcade, and dexamethasone. Patient tolerated the treatment well until early May. On 05/18 and 05/26, patient has been admitted with weakness, nausea, vomiting, dehydration, and has been noted to have steady increase in his WBC count. On , patient was seen by Dr. Smith in the office, and he was noted to be extremely weak and short of breath, he was also noted to have palpitations, admitted through the emergency room, and initial workup showed that the patient had acute renal failure, significant leukocytosis, anemia, thrombocytopenia, and he was eventually diagnosed as having tumor lysis syndrome. Patient was noted to have worsening leukocytosis, worsening anemia, worsening thrombocytopenia, worsening renal failure, hypocalcemia, and hyperphosphatemia. And hyperuricemia. The patient was treated for tumor lysis syndrome, received significant amount of IV fluids, seen by many consultants including oncology, nephrology, cardiology, and the patient has been noted to develop worsening shortness of breath, chest x-ray this morning showed evidence of perihilar opacities bilaterally, consistent with classic pulmonary edema with bat wing appearance however the possibility of underlying pneumonia is not entirely ruled out. But felt to be less likely. Since admission the patient has been on antibiotics in the form of Zosyn, and blood cultures have been negative since admission. Chest x-ray on admission was clear, however overnight and after aggressive hydration, patient developed of this appearance on the chest x-ray which I have reviewed today. Upon my evaluation of the patient, I recommended immediate transfer to the intensive care unit, patient will be receiving more diuretics today, we will cut down the IV fluid, he will be receiving blood transfusion for low hemoglobin. Patient is clearly critically ill, and I felt it would be best to transfer the patient immediately to the intensive care unit. Review of Systems Patient is extremely lethargic, arousable, but drifts back to sleep. Family member at bedside could not give me much information regarding this patient. ROS unobtainable: due to mental status Past Medical History Past Medical History: Cancer, Heart Failure, Hypertension, Renal Disease Additional Past Medical History / Comment(s): Multiple myeloma, R subtrochanteric large lesion with R feumr removal and chemo, 15 years ago transitional cell carcinoma treated with TURBT, Vtach, cardiomyopathy, ankylosing spondylosis-cervical, back and hips. History of Any Multi-Drug Resistant Organisms: None Reported Past Surgical History: Bladder Surgery, Orthopedic Surgery, Tonsillectomy Additional Past Surgical History / Comment(s): Cystoscopy for bladder cancer removal, replaced right femur bone jul 2016 at [facility], 03/21/17 BMA with bx, 04/2016 cardiac cath-normal. Past Anesthesia/Blood Transfusion Reactions: No Reported Reaction Past Psychological History: No Psychological Hx Reported Additional Psychological History / Comment(s): Pt resides with his spouse. He is independent. He drives. He has a cane but hasn't needed to use it. Smoking Status: Current some day smoker Past Drug Use History: Marijuana Additional Drug Use History / Comment(s): Pt states he smokes marijuana on a daily basis. - Past Family History Father History Unknown: Yes Additional Family Medical History / Comment(s): Pt states he has had little contact with his father. Mother Family Medical History: Renal Disease Additional Family Medical History / Comment(s): Mother of a blood infection thought related to dialysis at the age of 83 yrs. Medications and Allergies Home Medications Medication Instructions Recorded Confirmed Type Warfarin [Coumadin] 2.5 mg PO W/SUPPER 03/18/17 06/03/17 History Cyanocobalamin (Vitamin B-12) 1,000 mcg PO DAILY 05/17/17 06/03/17 History [Vitamin B-12] Lisinopril [Zestril] 2.5 mg PO DAILY #30 tab 05/21/17 06/03/17 Rx Metoprolol Tartrate [Lopressor] 50 mg PO HS 05/26/17 06/03/17 History Metoclopramide [Reglan] 5 mg PO ACHS #90 tab 05/30/17 06/03/17 Rx Pantoprazole [Protonix] 40 mg PO DAILY #30 tablet. 05/30/17 06/03/17 Rx Allergies Allergy/AdvReac Type Severity Reaction Status Date / Time No Known Allergies Allergy Verified 06/03/17 18:02 Physical Exam Vitals: Vital Signs Temp Pulse Pulse Resp BP Pulse Ox 06/08/17 13:00 84 06/08/17 12:51 84 16 06/08/17 07:00 97.5 F L 66 12 103/64 94 L 06/07/17 21:29 99.1 F 95 18 135/86 95 06/07/17 16:00 73 16 06/07/17 15:00 97.9 F 73 16 121/76 91 L Intake and Output 06/07/17 06/08/17 06/08/17 22:59 06:59 14:59 Intake Total 1050 800 Output Total 400 300 Balance 650 500 Intake: Intake, IV Titration 1050 800 Amount Piperacillin-Tazobactam 3 50 50 .375 gm In Dextrose/Water 1 50ml.bag @ 12.5 mls/hr IVPB Q8HR PAULIE Rx#: [id number] Sodium Chloride 0.45% 1, 750 000 ml @ 125 mls/hr IV . Q8H PAULIE Rx#:[id number] Sodium Chloride 0.9% 1, 1000 000 ml @ 125 mls/hr IV . Q8H PAULIE Rx#:[id number] Output: Urine 400 300 Other: Voiding Method Urinal Urinal # Voids 200 Gen. exam: Revealed a 61-year-old white male, frail looking, lethargic, in no distress, arousable but cannot follow any instructions. HEENT: PERRLA, EOMI, anicteric. No neck masses, no cervical lymphadenopathy, no JVD, no stridor him a moist mucous membranes noted. Chest: Crackles and rhonchi bilaterally. Symmetrical chest expansion. Cardiac: Irregular irregular rhythm, no S3 gallop. No murmur. Abdomen: Flat, soft, nontender, no megaly, no rebound, no guarding. Extremities: No clubbing edema or cyanosis Neurologic: Lethargic, arousable, seems to be generally weak, unable to follow simple instructions. Answers yes to most questions.. Musculoskeletal: Generalized weakness. Psychiatric cannot be assessed, patient is extremely lethargic. Skin: Decreased skin turgor, extremely pale. Lymphatics: No lymphadenopathy was appreciated. Results - Laboratory Findings CBC and BMP: 06/08/17 12:03 06/08/17 12:03 PT/INR, D-dimer PT 12.8 sec (9.0-12.0) H 06/04/17 02:41 INR 1.3 (<1.2) H 06/04/17 02:41 Abnormal lab findings: Abnormal Labs 06/03/17 06/03/17 06/03/17 17:40 18:10 18:10 WBC 76.3 H* RBC 2.55 L Hgb 7.9 L Hct 23.9 L RDW 16.1 H Plt Count 46 L* Lymphocytes # (Manual) 71.72 H Monocytes # (Manual) Metamyelocytes # (Man) 0.76 H Myelocytes # (Manual) Nucleated RBCs 1 H PT INR Sodium Potassium Chloride Carbon Dioxide BUN Creatinine Glucose Plasma Lactic Acid Real Uric Acid Calcium Phosphorus AST Total Creatine Kinase 29 L Total Protein Albumin Urine Protein 2+ H Urine Ketones Trace H Urine Blood Small H Amorphous Sediment Rare H Urine Bacteria Rare H Urine Mucus Rare H Crossmatch 06/03/17 06/03/17 06/03/17 18:10 18:10 18:10 WBC RBC Hgb Hct RDW Plt Count Lymphocytes # (Manual) Monocytes # (Manual) Metamyelocytes # (Man) Myelocytes # (Manual) Nucleated RBCs PT 12.8 H INR 1.3 H Sodium Potassium Chloride Carbon Dioxide 19 L BUN 38 H Creatinine 3.40 H Glucose Plasma Lactic Acid Real Uric Acid Calcium Phosphorus AST 78 H Total Creatine Kinase Total Protein 5.7 L Albumin 3.3 L Urine Protein Urine Ketones Urine Blood Amorphous Sediment Urine Bacteria Urine Mucus Crossmatch See Detail 06/03/17 06/03/17 06/03/17 18:10 23:05 23:49 WBC RBC Hgb Hct RDW Plt Count Lymphocytes # (Manual) Monocytes # (Manual) Metamyelocytes # (Man) Myelocytes # (Manual) Nucleated RBCs PT INR Sodium Potassium Chloride Carbon Dioxide BUN Creatinine Glucose Plasma Lactic Acid Real 4.7 H* 2.8 H* Uric Acid Calcium Phosphorus AST Total Creatine Kinase 28 L Total Protein Albumin Urine Protein Urine Ketones Urine Blood Amorphous Sediment Urine Bacteria Urine Mucus Crossmatch 06/04/17 06/04/17 06/04/17 02:41 02:41 02:41 WBC 52.8 H* RBC 2.16 L Hgb 6.8 L* Hct 20.6 L RDW 17.7 H Plt Count 32 L* Lymphocytes # (Manual) 47.52 H Monocytes # (Manual) 1.58 H Metamyelocytes # (Man) Myelocytes # (Manual) 0.53 H Nucleated RBCs 1 H PT 12.8 H INR 1.3 H Sodium Potassium Chloride 108 H Carbon Dioxide BUN 34 H Creatinine 3.10 H Glucose Plasma Lactic Acid Real Uric Acid Calcium 7.9 L Phosphorus AST Total Creatine Kinase Total Protein 4.7 L Albumin 2.6 L Urine Protein Urine Ketones Urine Blood Amorphous Sediment Urine Bacteria Urine Mucus Crossmatch 06/04/17 06/04/17 06/04/17 02:41 06:06 06:06 WBC RBC Hgb Hct RDW Plt Count Lymphocytes # (Manual) Monocytes # (Manual) Metamyelocytes # (Man) Myelocytes # (Manual) Nucleated RBCs PT INR Sodium Potassium Chloride Carbon Dioxide BUN Creatinine Glucose Plasma Lactic Acid Real 2.4 H* Uric Acid 14.0 H* Calcium Phosphorus AST Total Creatine Kinase 22 L Total Protein Albumin Urine Protein Urine Ketones Urine Blood Amorphous Sediment Urine Bacteria Urine Mucus Crossmatch 06/05/17 06/05/17 06/06/17 05:52 05:52 08:48 WBC 80.0 H* RBC 2.62 L Hgb 8.3 L D Hct 25.8 L RDW 15.8 H Plt Count 36 L* Lymphocytes # (Manual) 75.20 H Monocytes # (Manual) 1.60 H Metamyelocytes # (Man) 0.80 H Myelocytes # (Manual) Nucleated RBCs PT INR Sodium Potassium 5.2 H 5.2 H Chloride 109 H Carbon Dioxide 20 L BUN 34 H 42 H Creatinine 3.40 H 3.68 H Glucose 139 H 131 H Plasma Lactic Acid Real Uric Acid <0.5 L <0.5 L Calcium 8.0 L 7.4 L Phosphorus 6.1 H 7.4 H AST Total Creatine Kinase Total Protein Albumin Urine Protein Urine Ketones Urine Blood Amorphous Sediment Urine Bacteria Urine Mucus Crossmatch 06/06/17 06/07/17 06/07/17 08:48 07:28 07:28 WBC 66.2 H* 51.6 H* RBC 2.49 L 2.33 L Hgb 8.0 L 7.2 L Hct 24.3 L 23.0 L RDW 15.9 H 15.9 H Plt Count 29 L* 24 L* Lymphocytes # (Manual) 58.26 H 45.92 H Monocytes # (Manual) 1.32 H 2.06 H Metamyelocytes # (Man) 1.32 H Myelocytes # (Manual) 1.32 H Nucleated RBCs PT INR Sodium Potassium Chloride 111 H Carbon Dioxide 18 L BUN 47 H Creatinine 3.90 H Glucose Plasma Lactic Acid Real Uric Acid <0.5 L Calcium 7.0 L Phosphorus 7.6 H AST Total Creatine Kinase Total Protein Albumin Urine Protein Urine Ketones Urine Blood Amorphous Sediment Urine Bacteria Urine Mucus Crossmatch 06/08/17 06/08/17 06/08/17 07:27 07:27 12:03 WBC 47.6 H* 38.9 H* RBC 2.28 L 2.19 L Hgb 7.0 L* 6.8 L* Hct 21.8 L 21.6 L RDW 15.7 H 17.1 H Plt Count 24 L* 16 L* Lymphocytes # (Manual) 42.84 H 35.01 H Monocytes # (Manual) Metamyelocytes # (Man) Myelocytes # (Manual) Nucleated RBCs 1 H PT INR Sodium 146 H Potassium Chloride 114 H Carbon Dioxide 19 L BUN 45 H Creatinine 3.81 H Glucose Plasma Lactic Acid Real Uric Acid <0.5 L Calcium 7.4 L Phosphorus 6.6 H AST Total Creatine Kinase Total Protein Albumin Urine Protein Urine Ketones Urine Blood Amorphous Sediment Urine Bacteria Urine Mucus Crossmatch 06/08/17 12:03 WBC RBC Hgb Hct RDW Plt Count Lymphocytes # (Manual) Monocytes # (Manual) Metamyelocytes # (Man) Myelocytes # (Manual) Nucleated RBCs PT INR Sodium Potassium Chloride 111 H Carbon Dioxide BUN 42 H Creatinine 3.88 H Glucose 73 L Plasma Lactic Acid Real Uric Acid Calcium 7.1 L Phosphorus AST Total Creatine Kinase Total Protein Albumin Urine Protein Urine Ketones Urine Blood Amorphous Sediment Urine Bacteria Urine Mucus Crossmatch - Diagnostic Findings Chest x-ray: image reviewed (X-ray is strongly suggestive of acute pulmonary edema) Assessment and Plan Assessment: Impression: 1 acute pulmonary edema, secondary to chronic systolic dysfunction and atrial fibrillation as well as fluid overload given for acute tumor lysis syndrome. 2 possible sepsis on presentation, however microbiology has been nondiagnostic. Cultures have been negative. 3 acute spontaneous tumor lysis syndrome, presented with hyperuricemia, hypocalcemia, hyperkalemia, renal failure, and hyperphosphatemia. 4 acute kidney injury, secondary to myeloma, could also be secondary to tumor lysis syndrome. 5 by cytopenia to multiple myeloma and chemotherapy. 6 plasma cell malignancy with significant leukocytosis. 7 chronic atrial fibrillation and history of LV dysfunction based on previous cardiac workup. Recommendation: Patient will be transferred to the ICU, he needs to be closely monitored, will check ABG and determine his overall pulmonary status at this point, may even require BiPAP or even intubation if necessary. In the meantime the patient will be given diuretics, will cut down his IV fluid, will transfuse for low hemoglobin and monitor him closely in the intensive care unit. May even consider a CT of the brain, mostly because of his excessive lethargy noted during my evaluation. We'll continue to follow closely. Prognosis is definitely poor and guarded. Time with Patient: Greater than 30
[2017-06-08 14:22] LABS: Glucose,Whole Blood 71 mg/dL (75-99)
[2017-06-08 14:39] LABS: ABG Base Excess -5.7 mmol/L; ABG HCO3 18 mmol/L (21-25); ABG PCO2 30 mmHg (35-45); ABG PO2 68 mmHg (83-108); ABG TCO2 19 mmol/L (19-24); Allen Test Performed? Yes
[2017-06-08 15:09] LABS: Appearance,Urine Clear (Clear); Bacteria,Urine Rare /hpf; Bilirubin,Urine Negative (Negative); Glucose,Urine (UA) Negative (Negative); Ketones,Urine Negative (Negative); Leukocyte Esterase,Urine Negative (Negative); Mucus,Urine Occasional /hpf; Nitrite,Urine Negative (Negative); PH, Urine 6.5 (5.0-8.0); Particle Count 1604; Protein,Urine 1+ (Negative); RBC,Urine 32 /hpf (0-5); Specific Gravity,Urine 1.007 (1.001-1.035); UA Billing (MACRO vs. MICRO) MICRO; Urobilinogen,Urine <2.0 mg/dL (<2.0); WBC,Urine 50 /hpf (0-5)
[2017-06-08] MEDS: SODIUM CHLORIDE 0.9% 500 ML IV SCH (15:50)
[2017-06-08 16:09] LABS: Glucose,Whole Blood 70 mg/dL (75-99)
--- NOTE | 2017-06-08 16:16 | CT ---
EXAMINATION TYPE: CT brain wo con DATE OF EXAM: 06/08/2017 COMPARISON: NONE HISTORY: Unresponsive, history of multiple myeloma CT DLP: 978.2 mGycm Automated exposure control for dose reduction was used. EXAMINATION TYPE: CT brain wo con DATE OF EXAM: 06/08/2017 COMPARISON: NONE FINDINGS: There is no acute intracranial hemorrhage, mass effect, or midline shift identified. The v entricles and sulci are within normal limits in size. The globes are intact and the visualized sinuses are clear. There are no focal skeletal findings. IMPRESSION: NO ACUTE PROCESS.
--- NOTE | 2017-06-08 17:22 | PN ---
PROGRESS NOTE Patient is seen for followup for acute kidney injury and is currently maintained on IV fluids. The patient has tumor lysis syndrome. He is being treated for multiple myeloma. EXAMINATION: He remains nauseated, not been eating much. Blood pressure is 103/64, heart rate 84 per minute. He is afebrile. Patient is euvolemic with no evidence of edema in his lower extremities. ABDOMEN: Soft, nontender. HEART: Sounds are heard. LABS: Sodium 146, potassium 4.7, BUN 45, serum creatinine 3.8. Hemoglobin is down to 6.8, white cell count is 38.9, platelets are down to 16,000. ASSESSMENT: 1. Acute kidney injury secondary to tumor lysis syndrome from multiple myeloma, currently nonoliguric with some improvement in creatinine. The patient is maintained on IV fluids, which we will continue, since he continues to have poor oral intake. 2. Anemia and thrombocytopenia related to chemotherapy and underlying myeloma. 3. Metabolic acidosis secondary to renal failure. 4. Persistent nausea. 5. Hyperphosphatemia started on PhosLo, but patient has not been eating much; therefore, he has not received the PhosLo. PLAN: Continue with IV fluids. Will change to half-normal saline, given his slightly high sodium. MMODL / IJN: [id number] /
[2017-06-08 17:38] LABS: INR 1.8 (<1.2)
[2017-06-08] MEDS: HYDROmorphone 1 MG/ML 1 ML SYRINGE IVP PRN ×2 (18:11→21:23)
[2017-06-08] MEDS: FUROSEMIDE 10 MG/ML 4 ML VIAL IV SCH ×2 (19:11→23:50)
[2017-06-08 19:47] LABS: Glucose,Whole Blood 77 mg/dL (75-99)
[2017-06-08] MEDS ORDERED: DEXAMETHASONE 4 MG TAB PO ONE (20:00)
--- NOTE | 2017-06-08 20:43 | PN ---
PROGRESS NOTE DATE OF SERVICE: 06/08/2017 I am covering for Dr. Shashank Ramirez. 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 Patient was renal failure. Today the patient is complaining of nausea with diminished p.o. intake, some change in mental status. Creatinine is elevated. Complains of shortness of breath. Chest x-ray showed significant bilateral CHF and Dr. Jesus has recommended the patient. Dr. Jesus was consulted and the patient will be transferred to ICU at this time. The patient is also receiving empiric IV antibiotics also. The 2D echo with Doppler done last month showed ejection fraction about 35-40% indicating moderate systolic dysfunction. No chest pain. No palpitations. PAST MEDICAL HISTORY: Reviewed. REVIEW OF SYSTEMS: Could not be taken. The patient is slightly drowsy at this time. CURRENT MEDICATIONS: Reviewed and include: 1. Xopenex 1 mg b.i.d. 2. DuoNeb q.i.d. and p.r.n. 3. Zyloprim 300 mg daily. 4. Cordarone 400 mg b.i.d. 6. PhosLo p.o. b.i.d. 7. Vitamin B12 daily. 8. Hexadrol 40 mg. 9. Lasix 40 mg IV q.4. 10.Dilaudid 5 mg p.o. p.r.n. 12.Lopressor. 13.Protonix. 14.Zosyn. 15.Bactrim DS. 16.Coumadin. PHYSICAL EXAMINATION: Patient is alert oriented x1, arousable. Pulse 122, blood pressure 121/80, respiration 20, temperature 98.4, pulse ox 98% on 2 L. HEENT is conjunctivae normal. Oral mucosa moist. Neck is no jugular venous distention. No carotid bruit. No lymph node enlargement. Cardiovascular systems: S1, S2 muffled. Respirations: Breath sounds diminished in the bases. Scattered rhonchi and crackles. Expiratory wheezing also present. Abdomen is soft, nontender. No mass palpable. Legs no edema. No swelling. Central nervous system: Diffusely weak. LAB STUDIES: WBC 8.9, hemoglobin 6.8, and sodium 140, potassium 4.2, creatinine 3.88 and UA noted. ASSESSMENT: 1. Congestive heart failure exacerbation acute on chronic systolic dysfunction ejection fraction 35-40% with fluid overload. 2. Plasma cell leukemia on chemotherapy. 3. Acute tumor lysis syndrome. 4. Acute on chronic kidney failure with baseline renal failure. 5. Metabolic acidosis and weakness. 6. Cardiomyopathy with congestive heart failure with chronic systolic dysfunction ejection fraction 35-40%. 7. History of deep vein thrombosis with atrial fibrillation, rapid ventricular rate. 8. Hyperphosphatemia. 9. 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 10.History of multiple myeloma. 11.History of bladder. 12.History of ventricular tachycardia. 13.Hypertension. 14.Change in mental status, metabolic encephalopathy. FULL CODE. RECOMMENDATIONS AND DISCUSSION: This 61-year-old gentleman who presented with multiple complex medical issues, we will monitor the patient closely, continue the current management and symptomatic treatment. I would recommend 2 units transfusion with Lasix. Monitor creatinine closely. Cut down the IV fluids. Transfer to ICU as mentioned earlier. Continue steroids and other recommendations. Monitor PT/INR closely. The overall prognosis is extremely guarded because of multiple complex medical issues and further recommendations to follow. We will repeat a PT/INR stat also. MMODL / IJN: [id number] / MITA
--- NOTE | 2017-06-08 20:46 | PN ---
PROGRESS NOTE DATE OF SERVICE: June 08, 2017. CHIEF COMPLAINT: Lethargic. Scottie is seen today as a followup. He is currently in the intensive care unit. This morning he became lethargic and then he was tired and then he became lethargic and barely responsive, so was transferred to the intensive care unit. He had a CT scan of the brain without intravenous contrast which was literally negative. His rhythm showing tachycardia with some arrhythmias and possible in and out of atrial fibrillation. PHYSICAL EXAMINATION: He barely opens his eyes. His right eye seems medially deviated. His vital signs are temperature 99. His pulse is 123, irregular, blood pressure 109/84, and respiration 14. HEENT: Normocephalic, atraumatic. Right eye is medially deviated. NECK: Supple. CHEST: Coarse breath sounds bilaterally. Lungs are clear. Heart is tachy and regular. ABDOMEN: Soft. EXTREMITY: 1+ edema. He has a Babinski sign positive bilaterally. He has withdrawal of his feet bilaterally to stimuli. His reflexes are diminished. He does not follow command. There is obvious weakness in all extremities. LABORATORY DATA: WBC of 38.9, hemoglobin 6.8, hematocrit 21.6, platelets are 16. Sodium 143, potassium 4.4, chloride 111, and CO2 is 22, BUN is 42, creatinine 3.88. IMPRESSION: 1. Altered change in mental status and certainly this is concerning. Clinically there is no obvious sign to suggest infection, but this could be related to possible stroke/TIA, especially with his known paroxysmal atrial fibrillation. The other possibility would be leptomeningeal involvement or DIRECTOR [employer] involvement with his leukemic phase multiple myeloma. 2. Leukemic phase multiple myeloma. This has rapidly progressed over the last month or so. The patient already started on Velcade and Decadron combination. 3. Tumor lysis syndrome secondary to above. 4. Acute renal failure secondary to tumor lysis syndrome. 5. Severe anemia and thrombocytopenia secondary to his myeloma and renal failure. RECOMMENDATION: 1. Continue ICU care. 2. I would recommend to obtain a neurology consultation. 3. If his neurological symptoms do not improve may consider lumbar puncture. 4. Monitor blood count and supportive transfusion as needed. 5. Continue current management for his acute tumor lysis syndrome and acute renal failure per Nephrology. 6. Cardiology is following. Even the patient if he had atrial fibrillation and it was felt that it was caused an ischemic event, the patient is not a candidate for anticoagulation due to significant thrombocytopenia. 7. Overall prognosis is guarded. The above was discussed in detail with the family at bedside and also discussed his care extensively with ICU nursing staff. Thank you very much. ANA / RACHELE: [id number] /
[2017-06-08 23:49] LABS: Glucose,Whole Blood 107 mg/dL (75-99)
[2017-06-09] MEDS: HYDROmorphone 1 MG/ML 1 ML SYRINGE IVP PRN ×7 (01:15→22:25)
[2017-06-09] MEDS: SALT AND SODA MOUTHWASH 1,000 ML PO SCH ×6 (04:31→23:45)
[2017-06-09] MEDS: PIPERACILLIN-TAZOBACTAM 3.375 GM in DEXTROSE/WATER 1 50ML.BAG IVPB SCH ×5 (04:40→23:48)
[2017-06-09 04:59] LABS: Prothrombin Time 17.7 sec (9.0-12.0)
[2017-06-09 05:08] LABS: Magnesium 2.1 mg/dL (1.6-2.3); Potassium 5.3 mmol/L (3.5-5.1); Total Bilirubin 0.5 mg/dL (0.2-1.3); Total Protein 5.3 g/dL (6.3-8.2)
[2017-06-09 05:13] LABS: Phosphorus 7.9 mg/dL (2.5-4.5)
[2017-06-09 06:15] LABS: Anisocytosis Slight; Aty Lym Flag Marked; CH 30.1; CHCM 32.1; HCT 29.5 % (39.0-53.0); HDW 3.17; HGB 9.5 gm/dL (13.0-17.5); MCH 30.4 pg (25.0-35.0); MCHC 32.2 g/dL (31.0-37.0); MCV 94.6 fL (80.0-100.0); Mean Platelet Volume 10.2; RBC 3.12 m/uL (4.30-5.90); RDW 16.1 % (11.5-15.5); WBC (Perox) 38.07
[2017-06-09 06:21] LABS: WBC 38.7 k/uL (3.8-10.6)
--- NOTE | 2017-06-09 07:38 | XR ---
EXAMINATION TYPE: XR chest 1V DATE OF EXAM: 06/09/2017 HISTORY: CHF. REFERENCE: Previous study dated 06/08/2017. FINDINGS: There is improved aeration in both lungs. The heart is mildly enlarged. I suspect a small r ight effusion. IMPRESSION: IMPROVING CHANGES OF PULMONARY EDEMA.
[2017-06-09 08:38] LABS: Add Differential Manual Differential
[2017-06-09 08:40] LABS: Manual Review Performed; Metamyelocytes % 1 %; Nucleated Red Blood Cells 0 /100 WBC (0-0); Total Cells Counted 200
[2017-06-09] MEDS: METOCLOPRAMIDE 5 MG TAB PO SCH ×4 (08:43→20:54)
[2017-06-09] MEDS: CALCIUM ACETATE 667 MG CAP PO SCH ×3 (08:43→18:21)
[2017-06-09] MEDS: IPRATROPIUM-ALBUTEROL 3 ML NEB INHALATION SCH ×3 (09:00→21:16)
[2017-06-09] MEDS: FUROSEMIDE 10 MG/ML 4 ML VIAL IV SCH ×2 (09:27→20:53)
[2017-06-09] MEDS: ALLOPURINOL 300 MG TAB PO SCH (09:34)
[2017-06-09] MEDS: SODIUM BICARBONATE TAB 650 MG TAB PO SCH ×2 (09:34→20:53)
[2017-06-09] MEDS: AMIODARONE 200 MG TAB PO SCH ×2 (09:34→20:54)
[2017-06-09] MEDS: PANTOPRAZOLE 40 MG TABLET PO SCH (09:34)
[2017-06-09] MEDS: ACYCLOVIR 200 MG CAP PO SCH ×2 (09:34→20:54)
--- NOTE | 2017-06-09 11:58 | P.PN ---
Subjective Progress Note Date: 06/09/17 Principal diagnosis: Tumor lysis syndrome This is a 61-year-old white male who was diagnosed with plasma cell myeloma in August. Patient has been experiencing hip pain for the last 3 months, and he had a 20 pound weight loss. MRI in July showed a large destructive lesion in the right femur, hip arthroplasty was performed, patient was found to have plasma cell myeloma. Patient was started on Revlimid, Velcade, and dexamethasone. Patient tolerated the treatment well until early May. On 05/18 and 05/26, patient has been admitted with weakness, nausea, vomiting, dehydration, and has been noted to have steady increase in his WBC count. On , patient was seen by Dr. Smith in the office, and he was noted to be extremely weak and short of breath, he was also noted to have palpitations, admitted through the emergency room, and initial workup showed that the patient had acute renal failure, significant leukocytosis, anemia, thrombocytopenia, and he was eventually diagnosed as having tumor lysis syndrome. Patient was noted to have worsening leukocytosis, worsening anemia, worsening thrombocytopenia, worsening renal failure, hypocalcemia, and hyperphosphatemia. And hyperuricemia. The patient was treated for tumor lysis syndrome, received significant amount of IV fluids, seen by many consultants including oncology, nephrology, cardiology, and the patient has been noted to develop worsening shortness of breath, chest x-ray this morning showed evidence of perihilar opacities bilaterally, consistent with classic pulmonary edema with bat wing appearance however the possibility of underlying pneumonia is not entirely ruled out. But felt to be less likely. Since admission the patient has been on antibiotics in the form of Zosyn, and blood cultures have been negative since admission. Chest x-ray on admission was clear, however overnight and after aggressive hydration, patient developed of this appearance on the chest x-ray which I have reviewed today. Upon my evaluation of the patient, I recommended immediate transfer to the intensive care unit, patient will be receiving more diuretics today, we will cut down the IV fluid, he will be receiving blood transfusion for low hemoglobin. Patient is clearly critically ill, and I felt it would be best to transfer the patient immediately to the intensive care unit. Patient was reevaluated today on 06/09/2017, he is definitely significantly improved compared to how he was feeling and looking yesterday. According to the nurses, as soon as the blood was transfused, patient had a dramatic clinical improvement, his lethargy has resolved, he is more awake, alert oriented 3, and he feels great. As a matter of fact I plan to transfer the patient back to oncology today, since he has made a significant improvement in the last 24 hours. Labs were reviewed, continues to have low platelets of 15, 000, hemoglobin is 9.5, WBC count is 38.7. Patient is being followed by hematology/oncology for these problems. His renal profile remains about the same with a BUN of 48 creatinine of 3.90. Not much regional climate change analyst the last 3 days. Blood Cultures are negative so far, urine culture is pending. Chest x- ray is showing evidence of improved pulmonary edema, patient remains on diuretics. He received multiple doses of Lasix post transfusion yesterday. Objective - Vital Signs Vital signs: Vital Signs Temp 97.9 F 06/09/17 09:00 Pulse 107 H 06/09/17 11:00 Resp 15 06/09/17 11:00 BP 116/87 06/09/17 11:00 Pulse Ox 95 06/09/17 11:00 Intake & Output 06/08/17 06/09/17 06/09/17 18:59 06:59 18:59 Intake Total 825.0 1880.0 277.5 Output Total 1110 2425 810 Balance -285.0 -545.0 -532.5 Weight 68.9 kg Intake: IV 25.0 12.5 57.5 Piperacillin-Tazobactam 3 25.0 12.5 37.5 .375 gm In Dextrose/Water 1 50ml.bag @ 12.5 mls/hr IVPB Q8HR [facility] Rx#: [id number] Sodium Chloride 0.9% 500 0 0 20 ml @ 20 mls/hr IV .Q24H [facility] Rx#:[id number] Intake, IV Titration 800 157.5 20 Amount Piperacillin-Tazobactam 3 50 37.5 .375 gm In Dextrose/Water 1 50ml.bag @ 12.5 mls/hr IVPB Q8HR [facility] Rx#: [id number] Sodium Chloride 0.45% 1, 750 000 ml @ 125 mls/hr IV . Q8H [facility] Rx#:[id number] Sodium Chloride 0.9% 500 120 20 ml @ 20 mls/hr IV .Q24H [facility] Rx#:[id number] Oral 480 200 Blood Product 0 1230 Rc As-1 Unit 0 310 [id number] Rc As-1 Unit 310 [id number] Output: Urine 1110 2425 810 Other: Voiding Method Indwelling Catheter Indwelling Catheter Indwelling Catheter # Voids 200 - Exam Gen. exam: Revealed a 61-year-old white male, frail looking, awake, in no form of respiratory distress. HEENT: PERRLA, EOMI, anicteric. No neck masses, no cervical lymphadenopathy, no JVD, no stridor him a moist mucous membranes noted. Chest: Crackles and rhonchi bilaterally. Symmetrical chest expansion. Cardiac: Irregular irregular rhythm, no S3 gallop. No murmur. Abdomen: Flat, soft, nontender, no megaly, no rebound, no guarding. Extremities: No clubbing edema or cyanosis Neurologic: Alert oriented 3, generally weak, otherwise no gross focal neurologic deficit. Musculoskeletal: Generalized weakness. Psychiatric cannot be assessed, patient is extremely lethargic. Skin: Decreased skin turgor, extremely pale. Lymphatics: No lymphadenopathy was appreciated. - Labs CBC & Chem 7: 06/09/17 04:21 06/09/17 04:21 Labs: Abnormal Lab Results - Last 24 Hours (Table) 06/08/17 06/08/17 06/08/17 Range/Units 12:03 12:03 13:16 WBC 38.9 H* (3.8-10.6) k/uL RBC 2.19 L (4.30-5.90) m/uL Hgb 6.8 L* (13.0-17.5) gm/dL Hct 21.6 L (39.0-53.0) % RDW 17.1 H (11.5-15.5) % Plt Count 16 L* (150-450) k/uL Lymphocytes # (Manual) 35.01 H (1.0-4.8) k/uL Monocytes # (Manual) (0-1.0) k/uL Metamyelocytes # (Man) (0) k/uL Nucleated RBCs 1 H (0-0) /100 WBC PT (9.0-12.0) sec INR (<1.2) ABG pCO2 (35-45) mmHg ABG pO2 (83-108) mmHg ABG HCO3 (21-25) mmol/L Potassium (3.5-5.1) mmol/L Chloride 111 H (98-107) mmol/L Carbon Dioxide (22-30) mmol/L BUN 42 H (9-20) mg/dL Creatinine 3.88 H (0.66-1.25) mg/dL Glucose 73 L (74-99) mg/dL POC Glucose (mg/dL) (75-99) mg/dL Calcium 7.1 L (8.4-10.2) mg/dL Phosphorus (2.5-4.5) mg/dL AST (17-59) U/L Total Protein (6.3-8.2) g/dL Albumin (3.5-5.0) g/dL Urine Protein (Negative) Urine Blood (Negative) Urine RBC (0-5) /hpf Urine WBC (0-5) /hpf Urine Bacteria (None) /hpf Urine Mucus (None) /hpf Crossmatch See Detail 06/08/17 06/08/17 06/08/17 Range/Units 13:16 14:20 14:30 WBC (3.8-10.6) k/uL RBC (4.30-5.90) m/uL Hgb (13.0-17.5) gm/dL Hct (39.0-53.0) % RDW (11.5-15.5) % Plt Count (150-450) k/uL Lymphocytes # (Manual) (1.0-4.8) k/uL Monocytes # (Manual) (0-1.0) k/uL Metamyelocytes # (Man) (0) k/uL Nucleated RBCs (0-0) /100 WBC PT 16.0 H (9.0-12.0) sec INR 1.8 H (<1.2) ABG pCO2 30 L (35-45) mmHg ABG pO2 68 L (83-108) mmHg ABG HCO3 18 L (21-25) mmol/L Potassium (3.5-5.1) mmol/L Chloride (98-107) mmol/L Carbon Dioxide (22-30) mmol/L BUN (9-20) mg/dL Creatinine (0.66-1.25) mg/dL Glucose (74-99) mg/dL POC Glucose (mg/dL) 71 L (75-99) mg/dL Calcium (8.4-10.2) mg/dL Phosphorus (2.5-4.5) mg/dL AST (17-59) U/L Total Protein (6.3-8.2) g/dL Albumin (3.5-5.0) g/dL Urine Protein (Negative) Urine Blood (Negative) Urine RBC (0-5) /hpf Urine WBC (0-5) /hpf Urine Bacteria (None) /hpf Urine Mucus (None) /hpf Crossmatch 06/08/17 06/08/17 06/08/17 Range/Units 14:45 16:06 23:47 WBC (3.8-10.6) k/uL RBC (4.30-5.90) m/uL Hgb (13.0-17.5) gm/dL Hct (39.0-53.0) % RDW (11.5-15.5) % Plt Count (150-450) k/uL Lymphocytes # (Manual) (1.0-4.8) k/uL Monocytes # (Manual) (0-1.0) k/uL Metamyelocytes # (Man) (0) k/uL Nucleated RBCs (0-0) /100 WBC PT (9.0-12.0) sec INR (<1.2) ABG pCO2 (35-45) mmHg ABG pO2 (83-108) mmHg ABG HCO3 (21-25) mmol/L Potassium (3.5-5.1) mmol/L Chloride (98-107) mmol/L Carbon Dioxide (22-30) mmol/L BUN (9-20) mg/dL Creatinine (0.66-1.25) mg/dL Glucose (74-99) mg/dL POC Glucose (mg/dL) 70 L 107 H (75-99) mg/dL Calcium (8.4-10.2) mg/dL Phosphorus (2.5-4.5) mg/dL AST (17-59) U/L Total Protein (6.3-8.2) g/dL Albumin (3.5-5.0) g/dL Urine Protein 1+ H (Negative) Urine Blood Large H (Negative) Urine RBC 32 H (0-5) /hpf Urine WBC 50 H (0-5) /hpf Urine Bacteria Rare H (None) /hpf Urine Mucus Occasional H (None) /hpf Crossmatch 06/09/17 06/09/17 06/09/17 Range/Units 04:21 04:21 04:21 WBC 38.7 H* (3.8-10.6) k/uL RBC 3.12 L (4.30-5.90) m/uL Hgb 9.5 L D (13.0-17.5) gm/dL Hct 29.5 L (39.0-53.0) % RDW 16.1 H (11.5-15.5) % Plt Count 15 L* (150-450) k/uL Lymphocytes # (Manual) 32.90 H (1.0-4.8) k/uL Monocytes # (Manual) 1.16 H (0-1.0) k/uL Metamyelocytes # (Man) 0.39 H (0) k/uL Nucleated RBCs (0-0) /100 WBC PT 17.7 H (9.0-12.0) sec INR 2.0 H (<1.2) ABG pCO2 (35-45) mmHg ABG pO2 (83-108) mmHg ABG HCO3 (21-25) mmol/L Potassium 5.3 H (3.5-5.1) mmol/L Chloride 108 H (98-107) mmol/L Carbon Dioxide 18 L (22-30) mmol/L BUN 48 H (9-20) mg/dL Creatinine 3.90 H (0.66-1.25) mg/dL Glucose 137 H (74-99) mg/dL POC Glucose (mg/dL) (75-99) mg/dL Calcium 7.0 L (8.4-10.2) mg/dL Phosphorus 7.9 H (2.5-4.5) mg/dL AST 160 H (17-59) U/L Total Protein 5.3 L (6.3-8.2) g/dL Albumin 3.0 L (3.5-5.0) g/dL Urine Protein (Negative) Urine Blood (Negative) Urine RBC (0-5) /hpf Urine WBC (0-5) /hpf Urine Bacteria (None) /hpf Urine Mucus (None) /hpf Crossmatch Microbiology - Last 24 Hours (Table) 06/03/17 18:10 Blood Culture - Preliminary Blood No Growth after 120 hours Assessment and Plan Assessment: Impression: 1 acute pulmonary edema, secondary to chronic systolic dysfunction and atrial fibrillation as well as fluid overload given for acute tumor lysis syndrome. 2 possible sepsis on presentation, however microbiology has been nondiagnostic. Cultures have been negative. 3 acute spontaneous tumor lysis syndrome, presented with hyperuricemia, hypocalcemia, hyperkalemia, renal failure, and hyperphosphatemia. 4 acute kidney injury, secondary to myeloma, could also be secondary to tumor lysis syndrome. 5 bicytopenia to multiple myeloma and chemotherapy. 6 plasma cell malignancy with significant leukocytosis. 7 chronic atrial fibrillation and history of LV dysfunction based on previous cardiac workup. Recommendation: Continue present supportive care measures, continue diuretics, continue blood transfusions as needed, and as that acted by hematology on the case. Continue to monitor renal status, patient could be transferred out of the ICU to oncology floor today again. Time with Patient: Less than 30
--- NOTE | 2017-06-09 14:17 | P.CONS ---
History of Present Illness - Reason for Consult Consult date: 06/09/17 Altered mental status - Chief Complaint Mental status - History of Present Illness This is 61-year-old male being evaluated by the neurology service for altered mental status is significant significant history of plasma cell myeloma. An MRI in July showed large destructive lesion in the right femur. He is on multiple medications for this. He was admitted for weakness nausea vomiting dehydration and increased white blood cell count. He was diagnosed after admission with tumor lysis syndrome. He started to develop worsening altered mental status and we were consulted. He showed significant improvement after aggressive hydration and blood transfusion. He has had no lateralizing symptoms. CT of the brain showed no abnormalities. At the time of my exam he is resting comfortably in bed in no acute distress. Review of Systems All systems: negative Constitutional: Reports as per HPI Past Medical History Past Medical History: Cancer, Heart Failure, Hypertension, Renal Disease Additional Past Medical History / Comment(s): Multiple myeloma, R subtrochanteric large lesion with R feumr removal and chemo, 15 years ago transitional cell carcinoma treated with TURBT, Vtach, cardiomyopathy, ankylosing spondylosis-cervical, back and hips. History of Any Multi-Drug Resistant Organisms: None Reported Past Surgical History: Bladder Surgery, Orthopedic Surgery, Tonsillectomy Additional Past Surgical History / Comment(s): Cystoscopy for bladder cancer removal, replaced right femur bone jul 2016 at [facility], 03/21/17 BMA with bx, 04/2016 cardiac cath-normal. Past Anesthesia/Blood Transfusion Reactions: No Reported Reaction Past Psychological History: No Psychological Hx Reported Additional Psychological History / Comment(s): Pt resides with his spouse. He is independent. He drives. He has a cane but hasn't needed to use it. Smoking Status: Current some day smoker Past Drug Use History: Marijuana Additional Drug Use History / Comment(s): Pt states he smokes marijuana on a daily basis. - Past Family History Father History Unknown: Yes Additional Family Medical History / Comment(s): Pt states he has had little contact with his father. Mother Family Medical History: Renal Disease Additional Family Medical History / Comment(s): Mother of a blood infection thought related to dialysis at the age of 83 yrs. Medications and Allergies Home Medications Medication Instructions Recorded Confirmed Type Warfarin [Coumadin] 2.5 mg PO W/SUPPER 03/18/17 06/03/17 History Cyanocobalamin (Vitamin B-12) 1,000 mcg PO DAILY 05/17/17 06/03/17 History [Vitamin B-12] Lisinopril [Zestril] 2.5 mg PO DAILY #30 tab 05/21/17 06/03/17 Rx Metoprolol Tartrate [Lopressor] 50 mg PO HS 05/26/17 06/03/17 History Metoclopramide [Reglan] 5 mg PO ACHS #90 tab 05/30/17 06/03/17 Rx Pantoprazole [Protonix] 40 mg PO DAILY #30 tablet. 05/30/17 06/03/17 Rx Allergies Allergy/AdvReac Type Severity Reaction Status Date / Time No Known Allergies Allergy Verified 06/03/17 18:02 Physical Exam Vitals: Vital Signs Temp Pulse Resp BP Pulse Ox 06/09/17 14:06 114 H 06/09/17 14:00 114 H 16 95 06/09/17 13:00 110 H 17 111/82 96 06/09/17 12:00 97.9 F 114 H 15 118/85 94 L 06/09/17 11:00 107 H 15 116/87 95 06/09/17 10:00 96 19 117/78 96 06/09/17 09:14 100 06/09/17 09:06 102 H 96 06/09/17 09:00 97.9 F 102 H 20 133/80 96 06/09/17 08:00 97 16 116/87 89 L 06/09/17 07:00 86 8 L 99/74 97 06/09/17 06:00 93 11 L 107/78 96 06/09/17 05:00 81 17 111/83 97 06/09/17 04:00 81 9 L 107/75 98 06/09/17 03:06 76 11 L 106/55 96 06/09/17 02:00 79 17 113/80 97 06/09/17 01:00 88 16 118/79 96 06/09/17 00:03 86 18 119/80 95 06/09/17 00:00 98.0 F 85 11 L 119/80 96 06/08/17 23:30 78 13 104/63 97 06/08/17 23:00 79 10 L 121/85 97 06/08/17 22:30 80 12 112/82 97 06/08/17 22:11 97.8 F 86 16 118/82 06/08/17 22:00 97.5 F L 81 18 118/82 98 06/08/17 21:30 91 14 128/88 97 06/08/17 21:12 97.6 F 93 21 133/87 06/08/17 21:00 126 H 19 133/87 98 06/08/17 20:30 122 H 18 119/87 99 06/08/17 20:03 97.9 F 120 H 20 119/78 06/08/17 20:00 114 H 11 L 131/89 99 06/08/17 19:45 118 H 06/08/17 19:38 119 H 96 06/08/17 19:33 97.7 F 120 H 11 L 131/89 99 06/08/17 19:30 72 14 115/82 97 06/08/17 19:23 98.1 F 125 H 10 L 121/83 06/08/17 19:12 97.9 F 112 H 17 120/86 98 06/08/17 19:00 129 H 13 111/82 97 06/08/17 18:30 124 H 12 114/82 98 06/08/17 18:00 118 H 15 120/86 98 06/08/17 17:30 120 H 17 125/82 98 06/08/17 17:19 99 F 123 H 14 109/84 98 06/08/17 17:00 131 H 12 125/78 98 06/08/17 16:49 98.5 F 122 H 17 121/81 98 06/08/17 16:39 98.9 F 126 H 12 116/81 98 06/08/17 16:30 115 H 17 116/81 99 06/08/17 16:15 115 H 14 122/82 98 06/08/17 16:00 98.9 F 112 H 16 131/84 98 06/08/17 15:45 120 H 11 L 130/83 98 06/08/17 15:30 114 H 12 119/79 98 06/08/17 15:00 114 H 12 108/83 96 06/08/17 14:45 127 H 13 126/84 97 06/08/17 14:33 112 H 14 136/93 98 Intake and Output 06/08/17 06/09/17 06/09/17 22:59 06:59 14:59 Intake Total 1287.5 617.5 452.5 Output Total 1585 1650 1045 Balance -297.5 -1032.5 -592.5 Intake: IV 37.5 82.5 Piperacillin-Tazobactam 3 37.5 62.5 .375 gm In Dextrose/Water 1 50ml.bag @ 12.5 mls/hr IVPB Q8HR PAULIE Rx#: [id number] Sodium Chloride 0.9% 500 0 20 ml @ 20 mls/hr IV .Q24H PAULIE Rx#:[id number] Intake, IV Titration 20 137.5 20 Amount Piperacillin-Tazobactam 3 37.5 .375 gm In Dextrose/Water 1 50ml.bag @ 12.5 mls/hr IVPB Q8HR PAULIE Rx#: [id number] Sodium Chloride 0.9% 500 20 100 20 ml @ 20 mls/hr IV .Q24H PAULIE Rx#:[id number] Oral 480 350 Blood Product 1230 Rc As-1 Unit 310 [id number] Rc As-1 Unit 310 [id number] Output: Urine 1585 1650 1045 Other: Voiding Method Indwelling Catheter Indwelling Catheter Indwelling Catheter # Voids 200 Weight 68.9 kg - Constitutional General appearance: average body habitus, cooperative, no acute distress - EENT Eyes: no abnormal pupil, EOMI, PERRLA, no ptosis ENT: hearing grossly normal - Neck Neck: normal ROM, no rigidity - Respiratory Respiratory: negative: prolonged expiration, prolonged inspiration - Cardiovascular Rhythm: irregularly irregular - Gastrointestinal General gastrointestinal: no distended, no tenderness - Neurologic Patient is alert awake and oriented 3. Speech and language are normal. There is no facial asymmetry. There is no lateralizing weakness. Sensory exam is normal. Cranial nerves II through XII are intact globally. There is no tremors or seizure-like activity seen. Results CBC & Chem 7: 06/09/17 04:21 06/09/17 04:21 Labs: Abnormal Lab Results - Last 24 Hours (Table) 06/08/17 06/08/17 06/08/17 Range/Units 13:16 13:16 14:20 WBC (3.8-10.6) k/uL RBC (4.30-5.90) m/uL Hgb (13.0-17.5) gm/dL Hct (39.0-53.0) % RDW (11.5-15.5) % Plt Count (150-450) k/uL Lymphocytes # (Manual) (1.0-4.8) k/uL Monocytes # (Manual) (0-1.0) k/uL Metamyelocytes # (Man) (0) k/uL PT 16.0 H (9.0-12.0) sec INR 1.8 H (<1.2) ABG pCO2 (35-45) mmHg ABG pO2 (83-108) mmHg ABG HCO3 (21-25) mmol/L Potassium (3.5-5.1) mmol/L Chloride (98-107) mmol/L Carbon Dioxide (22-30) mmol/L BUN (9-20) mg/dL Creatinine (0.66-1.25) mg/dL Glucose (74-99) mg/dL POC Glucose (mg/dL) 71 L (75-99) mg/dL Calcium (8.4-10.2) mg/dL Phosphorus (2.5-4.5) mg/dL AST (17-59) U/L Total Protein (6.3-8.2) g/dL Albumin (3.5-5.0) g/dL Urine Protein (Negative) Urine Blood (Negative) Urine RBC (0-5) /hpf Urine WBC (0-5) /hpf Urine Bacteria (None) /hpf Urine Mucus (None) /hpf Crossmatch See Detail 06/08/17 06/08/17 06/08/17 Range/Units 14:30 14:45 16:06 WBC (3.8-10.6) k/uL RBC (4.30-5.90) m/uL Hgb (13.0-17.5) gm/dL Hct (39.0-53.0) % RDW (11.5-15.5) % Plt Count (150-450) k/uL Lymphocytes # (Manual) (1.0-4.8) k/uL Monocytes # (Manual) (0-1.0) k/uL Metamyelocytes # (Man) (0) k/uL PT (9.0-12.0) sec INR (<1.2) ABG pCO2 30 L (35-45) mmHg ABG pO2 68 L (83-108) mmHg ABG HCO3 18 L (21-25) mmol/L Potassium (3.5-5.1) mmol/L Chloride (98-107) mmol/L Carbon Dioxide (22-30) mmol/L BUN (9-20) mg/dL Creatinine (0.66-1.25) mg/dL Glucose (74-99) mg/dL POC Glucose (mg/dL) 70 L (75-99) mg/dL Calcium (8.4-10.2) mg/dL Phosphorus (2.5-4.5) mg/dL AST (17-59) U/L Total Protein (6.3-8.2) g/dL Albumin (3.5-5.0) g/dL Urine Protein 1+ H (Negative) Urine Blood Large H (Negative) Urine RBC 32 H (0-5) /hpf Urine WBC 50 H (0-5) /hpf Urine Bacteria Rare H (None) /hpf Urine Mucus Occasional H (None) /hpf Crossmatch 06/08/17 06/09/17 06/09/17 Range/Units 23:47 04:21 04:21 WBC 38.7 H* (3.8-10.6) k/uL RBC 3.12 L (4.30-5.90) m/uL Hgb 9.5 L D (13.0-17.5) gm/dL Hct 29.5 L (39.0-53.0) % RDW 16.1 H (11.5-15.5) % Plt Count 15 L* (150-450) k/uL Lymphocytes # (Manual) 32.90 H (1.0-4.8) k/uL Monocytes # (Manual) 1.16 H (0-1.0) k/uL Metamyelocytes # (Man) 0.39 H (0) k/uL PT (9.0-12.0) sec INR (<1.2) ABG pCO2 (35-45) mmHg ABG pO2 (83-108) mmHg ABG HCO3 (21-25) mmol/L Potassium 5.3 H (3.5-5.1) mmol/L Chloride 108 H (98-107) mmol/L Carbon Dioxide 18 L (22-30) mmol/L BUN 48 H (9-20) mg/dL Creatinine 3.90 H (0.66-1.25) mg/dL Glucose 137 H (74-99) mg/dL POC Glucose (mg/dL) 107 H (75-99) mg/dL Calcium 7.0 L (8.4-10.2) mg/dL Phosphorus 7.9 H (2.5-4.5) mg/dL AST 160 H (17-59) U/L Total Protein 5.3 L (6.3-8.2) g/dL Albumin 3.0 L (3.5-5.0) g/dL Urine Protein (Negative) Urine Blood (Negative) Urine RBC (0-5) /hpf Urine WBC (0-5) /hpf Urine Bacteria (None) /hpf Urine Mucus (None) /hpf Crossmatch 06/09/17 Range/Units 04:21 WBC (3.8-10.6) k/uL RBC (4.30-5.90) m/uL Hgb (13.0-17.5) gm/dL Hct (39.0-53.0) % RDW (11.5-15.5) % Plt Count (150-450) k/uL Lymphocytes # (Manual) (1.0-4.8) k/uL Monocytes # (Manual) (0-1.0) k/uL Metamyelocytes # (Man) (0) k/uL PT 17.7 H (9.0-12.0) sec INR 2.0 H (<1.2) ABG pCO2 (35-45) mmHg ABG pO2 (83-108) mmHg ABG HCO3 (21-25) mmol/L Potassium (3.5-5.1) mmol/L Chloride (98-107) mmol/L Carbon Dioxide (22-30) mmol/L BUN (9-20) mg/dL Creatinine (0.66-1.25) mg/dL Glucose (74-99) mg/dL POC Glucose (mg/dL) (75-99) mg/dL Calcium (8.4-10.2) mg/dL Phosphorus (2.5-4.5) mg/dL AST (17-59) U/L Total Protein (6.3-8.2) g/dL Albumin (3.5-5.0) g/dL Urine Protein (Negative) Urine Blood (Negative) Urine RBC (0-5) /hpf Urine WBC (0-5) /hpf Urine Bacteria (None) /hpf Urine Mucus (None) /hpf Crossmatch Microbiology - Last 24 Hours (Table) 06/03/17 18:10 Blood Culture - Preliminary Blood No Growth after 120 hours Assessment and Plan (1) Altered mental status Current Visit: Yes Status: Resolved Code(s): R41.82 - ALTERED MENTAL STATUS , UNSPECIFIED SNOMED Code(s): 347690999 (2) Acute metabolic encephalopathy Current Visit: Yes Status: Suspected Code(s): G93.41 - METABOLIC ENCEPHALOPATHY SNOMED Code(s): 89665840 (3) Atrial fibrillation with RVR Current Visit: Yes Status: Chronic Code(s): I48.91 - UNSPECIFIED ATRIAL FIBRILLATION SNOMED Code(s): 865198206616049 (4) Dehydration Current Visit: Yes Status: Resolved Priority: High Code(s): E86.0 - DEHYDRATION SNOMED Code(s): 75134672 (5) Leukocytosis Current Visit: Yes Status: Acute Priority: High Code(s): D72.829 - ELEVATED WHITE BLOOD CELL COUNT, UNSPECIFIED SNOMED Code(s): 992195063 (6) Plasma cell leukemia Current Visit: Yes Status: Chronic Code(s): C90.10 - PLASMA CELL LEUKEMIA NOT HAVING ACHIEVED REMISSION SNOMED Code(s): 92242016 (7) Renal failure Current Visit: Yes Status: Acute Priority: High Code(s): N19 - UNSPECIFIED KIDNEY FAILURE SNOMED Code(s): 73835665 Plan: Given the patient's significant medical history he has likely experienced some acute metabolic encephalopathic symptoms. These resolved with hydration and blood transfusion. Again his CT of the brain was normal. At this point no further neurological workup is warranted. If there is any deterioration or new neurological symptoms we may be consulted. I have performed a history and physical on the above patient. I have reviewed the above note, and agree.
--- NOTE | 2017-06-09 15:29 | PN ---
PROGRESS NOTE HISTORY: The patient is seen for followup for acute kidney injury secondary to tumor lysis. Yesterday, he became short of breath and was in CHF and was transferred to the ICU. He is feeling much better now. The patient is maintained on Lasix 40 mg every 12 hours. He has diuresed. Serum creatinine is staying about the same at 3.9 mg/dL. PHYSICAL EXAMINATION: On examination, the patient is sleepy but arousable. His is present at bedside. Blood pressure is 111/82, heart rate 110 per minute. He is afebrile. Examination of the heart, S1, S2. Examination of the lungs, decreased breath sounds at bases. Abdomen is soft, nontender. Exam of lower extremities shows no edema. LABS: Sodium 142, potassium 5.3, BUN 48, serum creatinine 3.9, hemoglobin 9.5, platelet count is 15,000, white cell count 38,000. ASSESSMENT: 1. Acute kidney injury secondary to tumor lysis syndrome, currently fairly stable and nonoliguric. The patient has an indwelling Hazel catheter with urine output at about 60 to 75 mL an hour, one reading of 400 mL an hour after the Lasix. We will continue with the Lasix for now. 2. Congestive herat failure, fluid overload, status post diuresis, currently doing much better. 3. Tumor lysis syndrome, status post . 4. Multiple myeloma status post chemotherapy. 5. Mild hyperkalemia. Expect improvement. Will continue diuresis. 6. Hematuria associated with severe thrombocytopenia. 7. Thrombocytopenia and elevated white count secondary to underlying multiple myeloma, which is in the leukemic phase. Maintained on Velcade and Decadron. PLAN: Continue with Lasix for now. Repeat labs in a.m. MMODL / IJN: [id number] /
[2017-06-09] MEDS: CYANOCOBALAMIN 500 MCG TAB PO SCH (15:30)
[2017-06-09] MEDS: SODIUM CHLORIDE 0.9% 500 ML IV SCH (17:13)
--- NOTE | 2017-06-09 18:05 | PN ---
PROGRESS NOTE DATE OF SERVICE: 06/09/2017 I am covering for Dr. Shashank Ramirez. INTERIM HISTORY: This 61-year-old gentleman who was admitted with CHF acute exacerbation, also plasma cell leukemia. The patient also has acute tumor lysis syndrome and patient had change in mental status. Neurology has been consulted at this time. Patient also had atrial fibrillation with fast ventricular rate. Multiple consultants including Dr. Mc, Dr. Jesus and Nephrology following the patient closely. The CT scan of the brain did not show any acute process. PAST MEDICAL HISTORY: Reviewed. REVIEW OF SYSTEMS: Could not be taken. The patient is mildly confused. The patient also has significant CHF also. CURRENT MEDICATIONS: Reviewed and include: 1. Zovirax 400 mg daily. 2. DuoNeb q.i.d. p.r.n. 3. Zyloprim 300 mg daily. 4. Cordarone 400 mg b.i.d. 5. Velcade 2.4 subcu x1. 6. PhosLo 667 t.i.d. 7. Vitamin B12 1000 mg daily. 8. Hexadrol 40 mg once. 9. Lasix 40 mg IV b.i.d. 10.Dilaudid 1 mg q.3h p.r.n. 11.Imodium 2 mg. 12.Lopressor. 13.Zofran. 14.Protonix. 15.Zosyn. 16.Bactrim DS. PHYSICAL EXAMINATION: The patient is alert and oriented x1. Pulse 104, blood pressure 110/70, respiration 20, temperature 98.2, pulse ox 94% on 2 L. HEENT: Conjunctivae normal. Oral mucosa moist. NECK: No jugular venous distention. CARDIOVASCULAR: S1, S2. RESPIRATORY: Breath sounds diminished in the bases. Scattered rhonchi and crackles. ABDOMEN: Soft, nontender. No mass palpable. LEGS: No edema. NERVOUS SYSTEM: Diffusely weak. LAB STUDIES: WBC 38.7, hemoglobin 9.4, platelets 15. Sodium 142, potassium 5.2, creatinine 3.90. ASSESSMENT: 1. Congestive heart failure acute exacerbation with acute on chronic systolic dysfunction, ejection fraction 35-40% with fluid overload, present on admission. 2. Plasma cell leukemia on chemotherapy. 3. Acute tumor lysis syndrome. 4. Acute on chronic renal failure with baseline stage III chronic kidney disease. 5. Metabolic acidosis and weakness. 6. Cardiomyopathy with congestive heart failure with chronic systolic dysfunction ejection fraction 35-40%. 7. History of deep vein thrombosis. 8. Atrial fibrillation with rapid ventricular rate. 9. Hyperphosphatemia. 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 11.History of multiple myeloma. 12.History of bladder cancer. 13.History of ventricular tachycardia. 14.Hypertension. 15.Change in mental status metabolic encephalopathy. 16.FULL CODE. RECOMMENDATIONS AND DISCUSSION: In this 61-year-old gentleman who presented with multiple complex medical issues, we will monitor the patient closely. Continue the current management and symptomatic treatment. Cultures are negative so far. I would recommend to continue current medications and CT scan of the brain noted. Most recent chest x-ray showed improving changes of pulmonary edema. Also recommend avoid Bactrim if possible because of the advancing kidney failure. Guarded prognosis because of multiple complex medical issues. Further recommendations to follow. MMMATHEUSL / IJN: [id number] /
[2017-06-09] MEDS: ONDANSETRON 4 MG/2 ML VIAL IVP PRN (19:55)
[2017-06-09] MEDS: METOPROLOL TARTRATE 50 MG TAB PO SCH (20:54)
[2017-06-10] MEDS: HYDROmorphone 1 MG/ML 1 ML SYRINGE IVP PRN ×4 (01:29→17:37)
[2017-06-10] MEDS: SALT AND SODA MOUTHWASH 1,000 ML PO SCH ×6 (03:09→23:21)
[2017-06-10 06:20] LABS: Anisocytosis Slight; Aty Lym Flag Marked; CH 29.7; CHCM 30.5; HDW 3.02; Hypochromasia Moderate; Large Platelets Flag Moderate; MCH 30.5 pg (25.0-35.0); MCHC 31.1 g/dL (31.0-37.0); Macrocytosis Slight; Mean Platelet Volume 11.1; RBC 2.95 m/uL (4.30-5.90); WBC (Perox) 42.64
[2017-06-10 06:21] LABS: INR 2.3 (<1.2); Prothrombin Time 20.6 sec (9.0-12.0)
[2017-06-10 06:28] LABS: Calcium 7.1 mg/dL (8.4-10.2); Magnesium 1.9 mg/dL (1.6-2.3); Potassium 5.1 mmol/L (3.5-5.1)
[2017-06-10 06:32] LABS: WBC 42.1 k/uL (3.8-10.6)
[2017-06-10 06:35] LABS: Add Differential Manual Differential
[2017-06-10 06:38] LABS: Band Neutrophils % 1 %; Manual Review Performed; Nucleated Red Blood Cells 0 /100 WBC (0-0); Total Cells Counted 100
[2017-06-10 06:43] LABS: Phosphorus 8.2 mg/dL (2.5-4.5)
--- NOTE | 2017-06-10 07:44 | XR ---
EXAMINATION TYPE: XR chest 1V DATE OF EXAM: 06/10/2017 CLINICAL HISTORY: Difficulty breathing CHF progress study. TECHNIQUE: Single AP portable upright view of the chest is obtained. COMPARISON: Chest x-ray from one day earlier and older studies. FINDINGS: Multifocal areas of bilateral opacity remaining present with relative sparing of left lung base. No large pleural effusion or pneumothorax is seen bilaterally. Cardiac silhouette size is stab le and mildly enlarged with atherosclerotic thoracic aorta. Osseous structures are intact. IMPRESSION: Overall stable findings, cardiomegaly with multifocal bilateral edema and/or infiltrate s. Early ARDS is not excluded.
[2017-06-10] MEDS: ACYCLOVIR 200 MG CAP PO SCH (08:14)
[2017-06-10] MEDS: METOCLOPRAMIDE 5 MG TAB PO SCH ×4 (08:15→19:45)
[2017-06-10] MEDS: CALCIUM ACETATE 667 MG CAP PO SCH ×3 (08:15→17:37)
[2017-06-10] MEDS: ALLOPURINOL 300 MG TAB PO SCH (08:16)
[2017-06-10] MEDS: PANTOPRAZOLE 40 MG TABLET PO SCH (08:16)
[2017-06-10] MEDS: FUROSEMIDE 10 MG/ML 4 ML VIAL IV SCH (08:16)
[2017-06-10] MEDS: AMIODARONE 200 MG TAB PO SCH ×2 (08:16→21:45)
[2017-06-10] MEDS: SODIUM BICARBONATE TAB 650 MG TAB PO SCH ×2 (08:17→21:45)
[2017-06-10] MEDS: SULFAMETHOX-TMP 800-160MG 1 EACH TAB PO SCH (08:17)
[2017-06-10] MEDS: PIPERACILLIN-TAZOBACTAM 3.375 GM in DEXTROSE/WATER 1 50ML.BAG IVPB SCH ×2 (08:30→16:01)
[2017-06-10] MEDS: IPRATROPIUM-ALBUTEROL 3 ML NEB INHALATION SCH ×3 (08:39→20:34)
[2017-06-10] MEDS ORDERED: PHYTONADIONE 5 MG in SODIUM CHLORIDE 0.9% 50 ML IVPB STA (09:15)
--- NOTE | 2017-06-10 12:05 | PN ---
PROGRESS NOTE This is a patient who was admitted on June 03 for atrial fibrillation, dehydration, renal failure, and multiple myeloma. The patient is currently on O2 at 2 L and has an IV of 0.9 at 20 mL an hour. Ready for bed on oncology. Has a previous history of transitional cell carcinoma of the bladder with a right femoral lesion as well as a history of multiple myeloma. The patient also had been on Coumadin for atrial fibrillation. The patient is doing reasonably well. Again, waiting for a bed on the 5th floor. The patient is otherwise is doing reasonably well. Currently vital signs include temperature 97.5, heart rate 72, respiratory rate 21, blood pressure 112/80 mean 90 and 2 L saturation 97%. Appears in no acute distress. HEENT examination is grossly unremarkable. Mucous membranes are moist. NECK: Supple. Cardiovascular examination reveals regular rhythm and rate. S1, S2 normal. No murmur. No S3, S4. Lungs are clear. Breath sounds equal. No wheezes, rhonchi, or crackles. Abdomen ABDOMEN: Soft. Bowel sounds are heard. Extremities are intact. No cyanosis, clubbing, or edema. Skin without rash. Neurologic examination is brief but nonfocal. LABS: Labs are reviewed. White count 42.1, hemoglobin 9, hematocrit 29.0, platelet count of 13,000. PT, INR 20.6 and 2.3. Sodium, potassium, chloride and CO2 normal. BUN and creatinine were 50 and 4.28. Chest x-ray shows stable findings with cardiomegaly and multifocal bilateral infiltrates. Microbiologically, clear is negative. Medications are reviewed. ASSESSMENT: 1. Acute pulmonary edema with chronic systolic dysfunction. 2. Atrial fibrillation. 3. Sepsis syndrome. 4. Spontaneous tumor lysis syndrome characterized by hyperuricemia, hypocalcemia, hyperkalemia, renal failure and hyperphosphatemia. 5. Acute kidney injury. 6. Bicytopenia. 7. Plasma cell malignancy, status post myeloma. 8. Chronic atrial fibrillation. 9. History of bladder cancer, transitional cell. PLAN: The patient's medications and labs were reviewed. Additional recommendations and suggestions are forthcoming. The patient is a FULL CODE. Prognosis is guarded. We are going to likely try to transfer this patient to the oncology floor. IV fluids have been adjusted by Nephrology. Medications are reviewed. Microbiology is negative. We will continue to follow closely. CRITICAL CARE TIME: 36 minutes. MMODL / IJN: [id number] /
[2017-06-10] MEDS: CYANOCOBALAMIN 500 MCG TAB PO SCH (12:48)
[2017-06-10] MEDS: SODIUM CHLORIDE 0.9% 500 ML IV SCH (16:02)
--- NOTE | 2017-06-10 18:11 | P.PN ---
Subjective Progress Note Date: 06/10/17 The patient had developed significant fluid overload leading to respiratory decompensation, as well as rapid ventricular response with underlying A. fib. He was therefore transferred to the ICU. He is improved after decrease in fluids and aggressive diuresis. He has not noted any obvious bleeding, though he states that he has about a small amounts of blood with aggressive coughing. Objective - Vital Signs Vital signs: Vital Signs Temp 97.6 F 06/10/17 16:00 Pulse 72 06/10/17 16:00 Resp 15 06/10/17 16:00 BP 111/67 06/10/17 16:00 Pulse Ox 94 L 06/10/17 16:00 Intake & Output 06/09/17 06/10/17 06/10/17 18:59 06:59 18:59 Intake Total 545.0 347.5 390 Output Total 0561 608 2913 Balance -1075.0 -542.5 -1070 Weight 68.9 kg Intake: IV 175.0 85.0 390 Phytonadione 5 mg In 50 Sodium Chloride 0.9% 50 ml @ 100 mls/hr IVPB ONCE [facility] Rx#:[id number] Piperacillin-Tazobactam 3 75.0 25.0 100 .375 gm In Dextrose/Water 1 50ml.bag @ 12.5 mls/hr IVPB Q8HR [facility] Rx#: [id number] Sodium Chloride 0.9% 500 100 60 240 ml @ 20 mls/hr IV .Q24H [facility] Rx#:[id number] Intake, IV Titration 20 12.5 Amount Piperacillin-Tazobactam 3 12.5 .375 gm In Dextrose/Water 1 50ml.bag @ 12.5 mls/hr IVPB Q8HR [facility] Rx#: [id number] Sodium Chloride 0.9% 500 20 ml @ 20 mls/hr IV .Q24H [facility] Rx#:[id number] Oral 350 250 Output: Urine 6791 509 4834 Other: Voiding Method Indwelling Catheter Indwelling Catheter Indwelling Catheter - Constitutional General appearance: Present: no acute distress - EENT Eyes: Present: PERRLA ENT: Present: hearing grossly normal, normal oropharynx - Respiratory Respiratory: bilateral: rales (mild) - Cardiovascular Rhythm: irregularly irregular Heart sounds: normal: S1, S2 - Gastrointestinal General gastrointestinal: Present: normal bowel sounds, soft - Integumentary Integumentary: Present: normal - Neurologic Neurologic: Present: CNII-XII intact - Musculoskeletal Musculoskeletal: Present: generalized weakness, strength equal bilaterally - Psychiatric Psychiatric: Present: A&O x's 3, appropriate affect - Labs CBC & Chem 7: 06/10/17 05:15 06/10/17 05:15 Labs: Abnormal Lab Results - Last 24 Hours (Table) 06/10/17 06/10/17 06/10/17 Range/Units 05:15 05:15 05:15 WBC 42.1 H* (3.8-10.6) k/uL RBC 2.95 L (4.30-5.90) m/uL Hgb 9.0 L (13.0-17.5) gm/dL Hct 29.0 L (39.0-53.0) % RDW 16.0 H (11.5-15.5) % Plt Count 13 L* (150-450) k/uL Lymphocytes # (Manual) 38.31 H (1.0-4.8) k/uL PT 20.6 H (9.0-12.0) sec INR 2.3 H (<1.2) BUN 50 H (9-20) mg/dL Creatinine 4.28 H (0.66-1.25) mg/dL Glucose 110 H (74-99) mg/dL Calcium 7.1 L (8.4-10.2) mg/dL Phosphorus 8.2 H* (2.5-4.5) mg/dL Microbiology - Last 24 Hours (Table) 06/09/17 09:05 Urine Culture - Final Urine,Catheterized 06/03/17 18:10 Blood Culture - Final Blood No Growth after 144 hours Assessment and Plan (1) Plasma cell leukemia Narrative/Plan: The patient is continuing on salvage chemotherapy with the Cy-B0R-D regimen. He is midway through his first cycle. He appears to be having a response with significant drop in his WBC. It is actually somewhat early to expect a significant response, and therefore the patient seems to be responding better than expected. Continue treatment with monitoring and aggressive supportive care. Current Visit: Yes Status: Chronic Code(s): C90.10 - PLASMA CELL LEUKEMIA NOT HAVING ACHIEVED REMISSION SNOMED Code(s): 04524085 (2) Spontaneous tumor lysis syndrome Narrative/Plan: there has been some worsening of the patient's parameters. Case was discussed with nephrology. He had to have IV fluids stopped, as well as aggressive diuresis for his fluid overload which are probably felt to have led to the worsening of his creatinine. I did discuss using more alkaline IV fluids. According to Dr. Guzman, based on the patient's symptoms, he actually appeared to be heading towards needing dialysis. It was discussed, that from our standpoint, the patient is felt to be an appropriate candidate for the same given that his underlying condition is quite treatable. The same has also been discussed with the patient Current Visit: Yes Status: Acute Priority: High Code(s): E88.3 - TUMOR LYSIS SYNDROME SNOMED Code(s): 850844664 (3) Bicytopenia Narrative/Plan: hemoglobin and platelets are still in in a safe range. Continue to monitor with transfusion support as needed. Current Visit: Yes Status: Acute Priority: High Code(s): D75.89 - OTHER SPECIFIED DISEASES OF BLOOD AND BLOOD-FORMING ORGANS SNOMED Code(s): 046662562 (4) Atrial fibrillation with RVR Current Visit: Yes Status: Chronic Code(s): I48.91 - UNSPECIFIED ATRIAL FIBRILLATION SNOMED Code(s): 368849475785820 Plan: the patient's INR was in the therapeutic range likely due to prior Coumadin dose. INR will be reversed, as the patient's platelets our low, putting him at increased risk of bleeding. He is not a candidate for anticoagulation currently , due to the low platelets.
[2017-06-10] MEDS: ONDANSETRON 4 MG/2 ML VIAL IVP PRN (18:36)
--- NOTE | 2017-06-10 18:51 | PN ---
PROGRESS NOTE DATE OF SERVICE: 06/10/2008 I am covering for Dr. Shashank Ramirez. INTERVAL HISTORY: This 61-year-old gentleman who was admitted with CHF acute exacerbation and also other multiple medical problems including acute tumor lysis syndrome, acute on chronic renal failure, plasma cell leukemia, on chemotherapy. Patient also had cardiomyopathy and CHF acute exacerbation also. The patient is on cautious fluid and electrolytes balance and also Lasix. Nephrology following the patient closely. The creatinine is worsened to 4.28 today. The platelets are 13. The patient white count is 42.8. The patient being closely monitored. The patient is mildly confused. CT scan of the brain done 2 days ago showed no acute process. PAST MEDICAL HISTORY: Reviewed. REVIEW OF SYSTEMS: Cardiovascular system: No angina. Respiratory: As mentioned earlier. GI no nausea. no dysuria. Central nervous system: No numbness or weakness. CURRENT MEDICATIONS ARE: Reviewed and include: 1. Zovirax 400 mg b.i.d. 2. DuoNeb q.i.d. and p.r.n. 3. Zyloprim 300 mg daily. 4. Cordarone 400 mg b.i.d. 5. Velcade. 6. PhosLo. 7. Vitamin B12. 9. Lasix 40 mg IV daily. 10.Dilaudid 1 mg p.r.n. 11.Reglan. 12.Lopressor. 13.Zofran. 14.Protonix. 15.Zosyn IV. 16.Bactrim DS. PHYSICAL EXAM: Alert, oriented x2 with a pulse is 72. Blood pressure 111/60. Respiration 15, temperature 97.2, pulse ox 94% on 2 L. HEENT conjunctivae normal. Neck: No jugular venous distention. CARDIOVASCULAR: S1, S2 muffled. Respiratory: Breath sounds diminished in the bases. A few scattered rhonchi and crackles. ABDOMEN: Soft, nontender. Legs are no edema. No swelling. Central nervous system: No focal deficits. LAB STUDIES: WBC 42.1, hemoglobin 9. ASSESSMENT: 1. Congestive heart failure acute exacerbation acute on chronic systolic dysfunction ejection fraction 30-40% with fluid overload present on admission. 2. Plasma leukemia on chemotherapy, acute tumor lysis syndrome. 3. Acute on chronic renal failure with baseline stage 3 chronic kidney disease. 4. Metabolic acidosis, weakness. 5. Cardiomyopathy, congestive heart failure with chronic systolic dysfunction ejection fraction 30-40%. 6. History of deep vein thrombosis. 7. Atrial fibrillation with rapid ventricular rate. 8. Hypophosphatemia secondary to multiple myeloma. 9. History of multiple myelomas. 10.Bladder cancer. 11.History of ventricular tachycardia. 12.Hypertension. 13.Change in mental status, metabolic encephalopathy. 14.FULL CODE. RECOMMENDATIONS AND DISCUSSION: Recommend to continue current medications, management and symptomatic treatment. Otherwise at this time we will monitor the patient closely. Avoid nephrotoxic medications. Otherwise continue with the steroids, bronchodilators. Monitor closely. Fluid and electrolytes balance and continue to monitor. Otherwise the cultures are negative so far. Further recommendations to follow. As mentioned earlier the creatinine has worsened today. I discussed with family. Closely follow with multiple consultants. ANA / RACHELE: [id number] / MITA
--- NOTE | 2017-06-10 21:33 | PN ---
PROGRESS NOTE Patient is seen for followup for acute kidney injury secondary to tumor lysis syndrome. He was transferred to the ICU as he was in significant respiratory distress secondary to congestive heart failure. IV fluids were discontinued and patient was started on IV Lasix 40 mg q.12 hours. His respiratory status improved and this morning Lasix was decreased. Serum creatinine has been staying stable at about 3.8-3.9 mg/dL, but today it has gone up to 4.28. I have discussed with the patient regarding possible need for dialysis in case his renal function continues to worsen, especially given the fact that he remains nauseated with poor oral intake and there might be an element of uremia involved as well. At this time, he is agreeable to this if needed. PHYSICAL EXAMINATION: On examination today, blood pressure is 111/67, heart rate is 72 per minute. He is afebrile. Examination of the heart S1, S2. Examination lungs bilateral breath sounds are heard. Abdomen is soft, nontender. Examination lower extremities shows no edema bilaterally. AUDIO [employer]ORDING [employer]INEER exam is grossly intact. LAB: Shows sodium 142, potassium 5.1, chloride 103, BUN 50, serum creatinine 4.28, phosphorus 8.2, calcium 7.1. ASSESSMENT: 1. Acute kidney injury secondary to tumor lysis syndrome. Currently off of IV fluids. The Lasix has been decreased. I did discuss with Hematology as well and at this time if his renal function continues to worsen, patient will be started on dialysis. He is not acidotic anymore and given his severe cardiomyopathy and recent severe CHF and respiratory distress I would hold off on significant IV hydration. 2. Metabolic acidosis secondary to tumor lysis syndrome as well as renal failure, currently improved. 3. Hyperphosphatemia secondary to renal failure as well as tumor lysis syndrome, recently worsening secondary to worsening renal failure. The patient is on phosphate binders. However, since he has not been eating, he has not been getting the phosphate binders as well. 4. Thrombocytopenia secondary to chemotherapy. 5. Plasma cell leukemia/multiple myeloma status post chemotherapy. 6. Mild hyperkalemia, currently improved. PLAN: Decrease diuretics. Reassess tomorrow for need for renal replacement therapy. At this time patient is agreeable if needed. MMODL / IJN: [id number] /
[2017-06-10] MEDS: METOPROLOL TARTRATE 50 MG TAB PO SCH (21:45)
[2017-06-10 23:01] LABS: Glucose,Whole Blood 135 mg/dL (75-99)
[2017-06-10 23:36] LABS: Calcium 6.8 mg/dL (8.4-10.2); Potassium 4.6 mmol/L (3.5-5.1)
[2017-06-11 00:20] LABS: Phosphorus 6.5 mg/dL (2.5-4.5)
[2017-06-11] MEDS: HYDROmorphone 1 MG/ML 1 ML SYRINGE IVP PRN ×5 (00:38→23:25)
[2017-06-11] MEDS: SALT AND SODA MOUTHWASH 1,000 ML PO SCH ×6 (03:16→22:09)
[2017-06-11 05:31] LABS: Anisocytosis Slight; CH 29.8; CHCM 31.9; HCT 23.1 % (39.0-53.0); HDW 2.74; HGB 7.6 gm/dL (13.0-17.5); Large Platelets Flag Moderate; MCH 30.9 pg (25.0-35.0); MCHC 32.8 g/dL (31.0-37.0); MCV 94.2 fL (80.0-100.0); Mean Platelet Volume 11.6; RBC 2.46 m/uL (4.30-5.90); RDW 17.3 % (11.5-15.5); WBC (Perox) 32.69
[2017-06-11 05:39] LABS: INR 1.1 (<1.2); Prothrombin Time 10.8 sec (9.0-12.0)
[2017-06-11 05:46] LABS: Calcium 6.7 mg/dL (8.4-10.2); Phosphorus 5.9 mg/dL (2.5-4.5); Potassium 4.5 mmol/L (3.5-5.1)
[2017-06-11 07:54] LABS: Add Differential Manual Differential
--- NOTE | 2017-06-11 08:00 | P.PN ---
Subjective Progress Note Date: 06/11/17 Principal diagnosis: Acute pulmonary edema, atrial fibrillation, sepsis syndrome Progress note dated 06/11/2017 This is a 61-year-old male who was admitted with a diagnosis of acute pulmonary edema secondary to chronic systolic dysfunction, atrial fibrillation, sepsis syndrome, tumor lysis syndrome characterized by hyperuricemia hypocalcemia hyperkalemia renal fire and hyperphosphatemia, acute kidney injury, bicytopenia , multiple myeloma, and bladder cancer. The patient is a full code. When he be transferred to the oncology floor. The patient's doing relatively well. His struggling with this pain medication which causes and be sleepy and having bad dreams versus having excessive pain if he does not take the pain medications. We'll see if we can Come to some sort of balance. Other than that he had an uneventful night. Resting comfortably. When he for bed on oncology as I mentioned above. Objective - Vital Signs Vital signs: Vital Signs Temp 97.0 F L 06/10/17 19:00 Pulse 74 06/11/17 07:00 Resp 18 06/11/17 07:00 BP 113/73 06/11/17 07:00 Pulse Ox 96 06/11/17 07:00 Intake & Output 06/10/17 06/11/17 06/11/17 18:59 06:59 18:59 Intake Total 390 60 Output Total 1960 715 Balance -1570 -655 Weight 68.9 kg Intake: IV 390 60 Phytonadione 5 mg In 50 Sodium Chloride 0.9% 50 ml @ 100 mls/hr IVPB ONCE [facility] Rx#:[id number] Piperacillin-Tazobactam 3 100 .375 gm In Dextrose/Water 1 50ml.bag @ 12.5 mls/hr IVPB Q8HR [facility] Rx#: [id number] Sodium Chloride 0.9% 500 240 60 ml @ 20 mls/hr IV .Q24H [facility] Rx#:[id number] Output: Urine 1810 715 Emesis 150 Other: Voiding Method Indwelling Catheter Indwelling Catheter - Exam No acute distress, oriented 3. HEENT examination is grossly unremarkable. Mucous membranes are moist. No oral lesions. Neck supple. Full range of motion. No adenopathy thyromegaly or neck vein distention. Cardiovascular examination reveals a regular rhythm rate. Heart rate about 120. S1-S2 normal. No S3-S4. No distinct murmur. Lungs reveal diminished breath sounds. Breath sounds are equal. There is diffuse rhonchi and crackles. The patient does not take deep breaths. No wheezes. Abdomen soft bowel sounds are heard. No masses or tenderness. Extremities are intact. No cyanosis clubbing or edema. Skin is without rash or lesion. Neurologic examination is brief but nonfocal. - Labs CBC & Chem 7: 06/11/17 04:51 06/11/17 04:51 Labs: Abnormal Lab Results - Last 24 Hours (Table) 06/10/17 06/10/17 06/10/17 Range/Units 22:52 23:12 23:12 WBC (3.8-10.6) k/uL RBC (4.30-5.90) m/uL Hgb (13.0-17.5) gm/dL Hct (39.0-53.0) % RDW (11.5-15.5) % Plt Count (150-450) k/uL BUN 51 H (9-20) mg/dL Creatinine 4.10 H (0.66-1.25) mg/dL POC Glucose (mg/dL) 135 H (75-99) mg/dL Calcium 6.8 L (8.4-10.2) mg/dL Phosphorus 6.5 H (2.5-4.5) mg/dL 06/11/17 06/11/17 Range/Units 04:51 04:51 WBC 30.3 H* (3.8-10.6) k/uL RBC 2.46 L (4.30-5.90) m/uL Hgb 7.6 L (13.0-17.5) gm/dL Hct 23.1 L (39.0-53.0) % RDW 17.3 H (11.5-15.5) % Plt Count 12 L* (150-450) k/uL BUN 51 H (9-20) mg/dL Creatinine 4.10 H (0.66-1.25) mg/dL POC Glucose (mg/dL) (75-99) mg/dL Calcium 6.7 L (8.4-10.2) mg/dL Phosphorus 5.9 H (2.5-4.5) mg/dL Microbiology - Last 24 Hours (Table) 06/09/17 09:05 Urine Culture - Final Urine,Catheterized Assessment and Plan (1) Bladder cancer Current Visit: Yes Status: Acute Code(s): C67.9 - MALIGNANT NEOPLASM OF BLADDER, UNSPECIFIED SNOMED Code(s): 993159285 (2) Acute kidney injury Current Visit: Yes Status: Acute Code(s): N17.9 - ACUTE KIDNEY FAILURE, UNSPECIFIED SNOMED Code(s): 03007987 (3) Bicytopenia Current Visit: Yes Status: Acute Priority: High Code(s): D75.89 - OTHER SPECIFIED DISEASES OF BLOOD AND BLOOD-FORMING ORGANS SNOMED Code(s): 462154868 (4) Lactic acidosis Current Visit: Yes Status: Acute Code(s): E87.2 - ACIDOSIS SNOMED Code(s) : 13306056 (5) Myeloma Current Visit: Yes Status: Acute Priority: High Code(s): C90.00 - MULTIPLE MYELOMA NOT HAVING ACHIEVED REMISSION SNOMED Code(s): 511452005 (6) Renal failure Current Visit: Yes Status: Acute Priority: High Code(s): N19 - UNSPECIFIED KIDNEY FAILURE SNOMED Code(s): 99170605 (7) Spontaneous tumor lysis syndrome Current Visit: Yes Status: Acute Priority: High Code(s): E88.3 - TUMOR LYSIS SYNDROME SNOMED Code(s): 674604252 (8) Atrial fibrillation with RVR Current Visit: Yes Status: Chronic Code(s): I48.91 - UNSPECIFIED ATRIAL FIBRILLATION SNOMED Code(s): 220303996724943 (9) Plasma cell leukemia Current Visit: Yes Status: Chronic Code(s): C90.10 - PLASMA CELL LEUKEMIA NOT HAVING ACHIEVED REMISSION SNOMED Code(s): 74402907 (10) Acute metabolic encephalopathy Current Visit: Yes Status: Suspected Code(s): G93.41 - METABOLIC ENCEPHALOPATHY SNOMED Code(s): 90425891 (11) Altered mental status Current Visit: Yes Status: Resolved Code(s): R41.82 - ALTERED MENTAL STATUS , UNSPECIFIED SNOMED Code(s): 404147380 (12) Dehydration Current Visit: Yes Status: Resolved Priority: High Code(s): E86.0 - DEHYDRATION SNOMED Code(s): 76779989 (13) Atrial fibrillation Current Visit: No Status: Acute Code(s): I48.91 - UNSPECIFIED ATRIAL FIBRILLATION SNOMED Code(s): 04935342 (14) Cardiomyopathy Current Visit: No Status: Acute Code(s): I42.9 - CARDIOMYOPATHY, UNSPECIFIED SNOMED Code(s): 25448215 (15) Hypertension Current Visit: No Status: Acute Code(s): I10 - ESSENTIAL (PRIMARY) HYPERTENSION SNOMED Code(s): 47896543 (16) Thrombocytopenia Current Visit: No Status: Acute Code(s): D69.6 - THROMBOCYTOPENIA, UNSPECIFIED SNOMED Code(s): 655363856 Plan: Plan dated 06/11/2017 The patient seemed be doing a bit better. Chest x-rays about the same. It shows diffuse bilateral infiltrates and cardiomegaly. Consistent with heart failure. The patient is a full code. The patient will likely be transferred over to oncology. Labs medications and x-rays are all reviewed. Nephrology is has adjusted his fluids. Additional recommendations suggestions are forthcoming. Microbiology will also be evaluated. Time with Patient: Greater than 30
[2017-06-11 08:19] LABS: Band Neutrophils % 1 %; Metamyelocytes % 1 %; Nucleated Red Blood Cells 2 /100 WBC (0-0); Total Cells Counted 200
[2017-06-11 08:20] LABS: WBC 29.7 k/uL (3.8-10.6)
[2017-06-11 08:21] LABS: Manual Review Performed
[2017-06-11] MEDS: ALLOPURINOL 300 MG TAB PO SCH (08:35)
[2017-06-11] MEDS: CALCIUM ACETATE 667 MG CAP PO SCH ×4 (08:35→17:39)
[2017-06-11] MEDS: METOCLOPRAMIDE 5 MG TAB PO SCH ×5 (08:35→21:28)
[2017-06-11] MEDS: PANTOPRAZOLE 40 MG TABLET PO SCH (08:36)
[2017-06-11] MEDS: FUROSEMIDE 10 MG/ML 4 ML VIAL IV SCH (08:36)
[2017-06-11] MEDS: SODIUM BICARBONATE TAB 650 MG TAB PO SCH ×2 (08:36→21:29)
[2017-06-11] MEDS: AMIODARONE 200 MG TAB PO SCH ×2 (08:36→21:28)
[2017-06-11] MEDS: PIPERACILLIN-TAZOBACTAM 3.375 GM in DEXTROSE/WATER 1 50ML.BAG IVPB SCH ×2 (08:38→21:58)
--- NOTE | 2017-06-11 08:40 | XR ---
EXAMINATION TYPE: XR chest 1V DATE OF EXAM: 06/11/2017 COMPARISON: 06/10/2017 HISTORY: Congestive heart failure TECHNIQUE: Single frontal view of the chest is obtained. FINDINGS: Exam is stable from the prior with multifocal patchy alveolar and interstitial opacities e xamination with cardiomegaly. Patient's chin obscures the left lung apex. No pneumothorax is grossly seen. No sizable pleural effusions. Mild degenerative changes of thoracic spine are redemonstrated. IMPRESSION: Stable multifocal alveolar and interstitial opacities in combination with cardiomegaly. Findings again may relate to pulmonary edema and/or infectious etiology.
[2017-06-11] MEDS: IPRATROPIUM-ALBUTEROL 3 ML NEB INHALATION SCH ×3 (08:54→20:52)
[2017-06-11] MEDS: CYANOCOBALAMIN 500 MCG TAB PO SCH ×2 (12:28→12:31)
[2017-06-11] MEDS: SODIUM CHLORIDE 0.9% 500 ML IV SCH (17:52)
--- NOTE | 2017-06-11 18:03 | P.PN ---
Subjective Progress Note Date: 06/11/17 Principal diagnosis: progressive plasma cell myeloma Patient seen today in follow-up in the ICU. Patient states he is just starting to feel a little better today. He c/o terrible nightmares, general moderate malaise, weak, appetite is poor, no fevers, nausea, vomiting, he had an episode where his son had to pound on his back to clear sputum, denies hemoptysis, chest pain, he is having some anxiety, denies constipation or diarrhea, no acute , uncontrolled pain to report. Objective - Vital Signs Vital signs: Vital Signs Temp 98.2 F 06/11/17 08:00 Pulse 121 H 06/11/17 14:00 Resp 13 06/11/17 14:00 BP 109/78 06/11/17 14:00 Pulse Ox 95 06/11/17 14:00 Intake & Output 06/10/17 06/11/17 06/11/17 18:59 06:59 18:59 Intake Total 390 60 90 Output Total 1960 715 660 Balance -1570 -655 -570 Weight 68.9 kg Intake: IV 390 60 90 Phytonadione 5 mg In 50 Sodium Chloride 0.9% 50 ml @ 100 mls/hr IVPB ONCE [facility] Rx#:[id number] Piperacillin-Tazobactam 3 100 50 .375 gm In Dextrose/Water 1 50ml.bag @ 12.5 mls/hr IVPB Q8HR [facility] Rx#: [id number] Sodium Chloride 0.9% 500 240 60 40 ml @ 20 mls/hr IV .Q24H [facility] Rx#:[id number] Output: Urine 1810 715 660 Emesis 150 Other: Voiding Method Indwelling Catheter Indwelling Catheter Indwelling Catheter - Constitutional General appearance: Present: cooperative, mild distress, obese - EENT ENT: Present: hard of hearing, normal oropharynx - Respiratory Respiratory: bilateral: CTA - Cardiovascular Details: tachy Heart sounds: normal: S1, S2 - Peripheral edema leg Peripheral Edema: bilateral: None - Gastrointestinal General gastrointestinal: Present: normal bowel sounds, soft. Absent: absent bowel sounds, decreased bowel sounds, distended, hepatomegaly, hyperactive bowel sounds, organomegaly, rigid, scaphoid, splenomegaly, tenderness, umbilical hernia, ventral hernia - Neurologic Neurologic: Present: CNII-XII intact - Musculoskeletal Musculoskeletal: Present: generalized weakness - Psychiatric Psychiatric: Present: A&O x's 3, appropriate affect, intact judgment & insight - Labs CBC & Chem 7: 06/11/17 04:51 06/11/17 04:51 Labs: Abnormal Lab Results - Last 24 Hours (Table) 06/10/17 06/10/17 06/10/17 Range/Units 22:52 23:12 23:12 WBC (3.8-10.6) k/uL RBC (4.30-5.90) m/uL Hgb (13.0-17.5) gm/dL Hct (39.0-53.0) % RDW (11.5-15.5) % Plt Count (150-450) k/uL Lymphocytes # (Manual) (1.0-4.8) k/uL Metamyelocytes # (Man) (0) k/uL Nucleated RBCs (0-0) /100 WBC BUN 51 H (9-20) mg/dL Creatinine 4.10 H (0.66-1.25) mg/dL POC Glucose (mg/dL) 135 H (75-99) mg/dL Calcium 6.8 L (8.4-10.2) mg/dL Phosphorus 6.5 H (2.5-4.5) mg/dL 06/11/17 06/11/17 Range/Units 04:51 04:51 WBC 29.7 H* (3.8-10.6) k/uL RBC 2.46 L (4.30-5.90) m/uL Hgb 7.6 L (13.0-17.5) gm/dL Hct 23.1 L (39.0-53.0) % RDW 17.3 H (11.5-15.5) % Plt Count 12 L* (150-450) k/uL Lymphocytes # (Manual) 27.62 H (1.0-4.8) k/uL Metamyelocytes # (Man) 0.30 H (0) k/uL Nucleated RBCs 2 H (0-0) /100 WBC BUN 51 H (9-20) mg/dL Creatinine 4.10 H (0.66-1.25) mg/dL POC Glucose (mg/dL) (75-99) mg/dL Calcium 6.7 L (8.4-10.2) mg/dL Phosphorus 5.9 H (2.5-4.5) mg/dL Microbiology - Last 24 Hours (Table) 06/09/17 09:05 Urine Culture - Final Urine,Catheterized - Imaging and Cardiology Chest x-ray: report reviewed Assessment and Plan (1) Spontaneous tumor lysis syndrome Narrative/Plan: Tumor lysis labs slowly improving, ARF labs stable today. Dr. Thomas did discuss case with Nephrology, possible temporary dialysis, Nephrology will follow up in a.m. and decide plan of care. Current Visit: Yes Status: Acute Priority: High Code(s): E88.3 - TUMOR LYSIS SYNDROME SNOMED Code(s): 382677891 (2) Myeloma Narrative/Plan: Pt myeloma labs are showing response, treatment is going to continue Current Visit: Yes Status: Acute Priority: High Code(s): C90.00 - MULTIPLE MYELOMA NOT HAVING ACHIEVED REMISSION SNOMED Code(s): 923382112 (3) Renal failure Narrative/Plan: Secondary to myeloma, Nephrology following, possible temporary dialysis Current Visit: Yes Status: Acute Priority: High Code(s): N19 - UNSPECIFIED KIDNEY FAILURE SNOMED Code(s): 70737618 (4) Weakness Narrative/Plan: Will start PT soon, plan is for pt to go to medical floor today Current Visit: Yes Status: Acute Priority: High Code(s): R53.1 - WEAKNESS SNOMED Code(s): 33742555 (5) Bicytopenia Narrative/Plan: no intervention for anemia. 1 unit simple donor platelets ordered for platelet count of 12,000 with visible hematuria, also with acute renal failure platelet function is compromised Current Visit: Yes Status: Acute Priority: High Code(s): D75.89 - OTHER SPECIFIED DISEASES OF BLOOD AND BLOOD-FORMING ORGANS SNOMED Code(s): 728376338 (6) Leukocytosis Narrative/Plan: Patient is having good response to treatment, leukocytosis/lymphocytosis significantly improved. Current Visit: Yes Status: Acute Priority: High Code(s): D72.829 - ELEVATED WHITE BLOOD CELL COUNT, UNSPECIFIED SNOMED Code(s): 182590139 Plan: continue labs daily Continue supportive care Incentive spirometry ordered
--- NOTE | 2017-06-11 18:28 | P.PN ---
Subjective Principal diagnosis: Patient transferred from ICU to oncology. On exam patient. Depressed with flat affect. Patient is post 1 unit of platelets for thrombocytopenia. Patient continues in an irregular heart rate with atrial fibrillation Objective - Vital Signs Vital signs: Vital Signs Temp 98.2 F 06/11/17 08:00 Pulse 121 H 06/11/17 14:00 Resp 13 06/11/17 14:00 BP 109/78 06/11/17 14:00 Pulse Ox 95 06/11/17 14:00 Intake & Output 06/10/17 06/11/17 06/11/17 18:59 06:59 18:59 Intake Total 390 60 90 Output Total 1960 715 660 Balance -1570 -655 -570 Weight 68.9 kg Intake: IV 390 60 90 Phytonadione 5 mg In 50 Sodium Chloride 0.9% 50 ml @ 100 mls/hr IVPB ONCE STA Rx#:[id number] Piperacillin-Tazobactam 3 100 50 .375 gm In Dextrose/Water 1 50ml.bag @ 12.5 mls/hr IVPB Q8HR PAULIE Rx#: [id number] Sodium Chloride 0.9% 500 240 60 40 ml @ 20 mls/hr IV .Q24H PAULIE Rx#:[id number] Output: Urine 1810 715 660 Emesis 150 Other: Voiding Method Indwelling Catheter Indwelling Catheter Indwelling Catheter - Constitutional General appearance: Present: mild distress - EENT Eyes: Present: PERRLA Ears: bilateral: normal - Neck Neck: Present: normal ROM - Respiratory Respiratory: bilateral: rales - Cardiovascular Rhythm: irregularly irregular - Gastrointestinal General gastrointestinal: Present: soft - Integumentary Integumentary: Present: normal - Neurologic Neurologic: Present: CNII-XII intact - Musculoskeletal Musculoskeletal: Present: generalized weakness - Psychiatric Psychiatric Comment(s): Depressed affect Psychiatric: Present: A&O x's 3, intact judgment & insight - Labs CBC & Chem 7: 06/11/17 04:51 06/11/17 04:51 Labs: Abnormal Lab Results - Last 24 Hours (Table) 06/10/17 06/10/17 06/10/17 Range/Units 22:52 23:12 23:12 WBC (3.8-10.6) k/uL RBC (4.30-5.90) m/uL Hgb (13.0-17.5) gm/dL Hct (39.0-53.0) % RDW (11.5-15.5) % Plt Count (150-450) k/uL Lymphocytes # (Manual) (1.0-4.8) k/uL Metamyelocytes # (Man) (0) k/uL Nucleated RBCs (0-0) /100 WBC BUN 51 H (9-20) mg/dL Creatinine 4.10 H (0.66-1.25) mg/dL POC Glucose (mg/dL) 135 H (75-99) mg/dL Calcium 6.8 L (8.4-10.2) mg/dL Phosphorus 6.5 H (2.5-4.5) mg/dL 06/11/17 06/11/17 Range/Units 04:51 04:51 WBC 29.7 H* (3.8-10.6) k/uL RBC 2.46 L (4.30-5.90) m/uL Hgb 7.6 L (13.0-17.5) gm/dL Hct 23.1 L (39.0-53.0) % RDW 17.3 H (11.5-15.5) % Plt Count 12 L* (150-450) k/uL Lymphocytes # (Manual) 27.62 H (1.0-4.8) k/uL Metamyelocytes # (Man) 0.30 H (0) k/uL Nucleated RBCs 2 H (0-0) /100 WBC BUN 51 H (9-20) mg/dL Creatinine 4.10 H (0.66-1.25) mg/dL POC Glucose (mg/dL) (75-99) mg/dL Calcium 6.7 L (8.4-10.2) mg/dL Phosphorus 5.9 H (2.5-4.5) mg/dL - Imaging and Cardiology Chest x-ray: report reviewed Assessment and Plan Assessment: Assessment Congestive heart failure acute exacerbation chronic systolic dysfunction ejection fraction 30-40% with fluid overload 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
--- NOTE | 2017-06-11 18:46 | PN ---
PROGRESS NOTE Patient is seen for followup for acute kidney injury secondary to tumor lysis syndrome. The patient was talked to regarding dialysis yesterday. This morning he remains nauseated. He states he is not feeling well. Serum creatinine is the same as yesterday and patient has had good urine output. He had about 2.5 L for 24 hours. The patient is advised that we will go ahead and proceed with dialysis catheter placement unless his labs are improved tomorrow. At this time, patient and his are agreeable. EXAMINATION: Blood pressure 98/71, heart rate 120 per minute. He is afebrile. Examination of the heart: S1, S2. Examination lungs: Decreased breath sounds bases. Abdomen is soft, nontender. Examination lower extremities shows no evidence of edema. LAB: Show sodium 141, potassium 4.5, BUN 51, serum creatinine 4.1, phosphorus 5.9, platelet count 12,000 and white cell count 29,000. ASSESSMENT: 1. Acute kidney injury secondary to tumor lysis syndrome with good urine output. Creatinine staying the same. Lasix has been decreased. The patient is not on any IV fluids. We will repeat labs in a.m. and will proceed with dialysis catheter placement unless his labs are improved tomorrow. 2. Hyperphosphatemia initially secondary to tumor lysis syndrome and then also exacerbated by the worsening renal failure. Phosphorus is down to 5.9. Patient is maintained on phosphate binders. However, he has not been eating much. 3. Thrombocytopenia secondary to chemotherapy. 4. Plasma cell leukemia/multiple myeloma, maintained on chemotherapy with improving white cell count. Platelets remain low. PLAN: Proceed with dialysis catheter placement unless labs are improved by tomorrow. The patient will need platelet transfusion during the procedure. MMODL / IJN: [id number] /
[2017-06-11] MEDS ORDERED: DEXAMETHASONE 4 MG TAB PO ONE (20:00)
[2017-06-11] MEDS ORDERED: BORTEZOMIB 3.5 MG VIAL SQ ONE (21:00)
[2017-06-11] MEDS: METOPROLOL TARTRATE 50 MG TAB PO SCH (21:28)
[2017-06-12] MEDS: HYDROmorphone 1 MG/ML 1 ML SYRINGE IVP PRN (04:30)
[2017-06-12] MEDS: SALT AND SODA MOUTHWASH 1,000 ML PO SCH ×6 (04:55→22:45)
[2017-06-12 07:46] LABS: Anisocytosis Slight; CH 29.9; CHCM 31.7; HCT 22.1 % (39.0-53.0); HDW 2.77; HGB 7.3 gm/dL (13.0-17.5); MCH 31.2 pg (25.0-35.0); MCHC 32.8 g/dL (31.0-37.0); MCV 94.9 fL (80.0-100.0); Mean Platelet Volume 8.3; RBC 2.33 m/uL (4.30-5.90); WBC (Perox) 37.25
[2017-06-12] MEDS: IPRATROPIUM-ALBUTEROL 3 ML NEB INHALATION SCH ×3 (07:47→20:28)
[2017-06-12 07:51] LABS: INR 1.1 (<1.2); Prothrombin Time 10.5 sec (9.0-12.0)
[2017-06-12] MEDS: FUROSEMIDE 10 MG/ML 4 ML VIAL IV SCH (08:09)
[2017-06-12] MEDS: SODIUM BICARBONATE TAB 650 MG TAB PO SCH ×2 (08:09→21:16)
[2017-06-12] MEDS: PANTOPRAZOLE 40 MG TABLET PO SCH (08:09)
[2017-06-12] MEDS: AMIODARONE 200 MG TAB PO SCH ×2 (08:09→21:16)
[2017-06-12] MEDS: ALLOPURINOL 100 MG TAB PO SCH (08:10)
[2017-06-12] MEDS: METOCLOPRAMIDE 5 MG TAB PO SCH ×4 (08:10→21:17)
[2017-06-12] MEDS: CALCIUM ACETATE 667 MG CAP PO SCH ×3 (08:10→18:02)
[2017-06-12 08:16] LABS: Calcium 7.1 mg/dL (8.4-10.2); Magnesium 1.9 mg/dL (1.6-2.3); Phosphorus 5.6 mg/dL (2.5-4.5); Potassium 4.6 mmol/L (3.5-5.1)
[2017-06-12 08:54] LABS: Add Differential Manual Differential
[2017-06-12] MEDS: HYDROmorphone 4 MG/ML 1 ML SYRINGE IVP PRN ×3 (09:01→20:46)
[2017-06-12] MEDS: PIPERACILLIN-TAZOBACTAM 3.375 GM in DEXTROSE/WATER 1 50ML.BAG IVPB SCH ×2 (09:01→21:16)
[2017-06-12 09:02] LABS: Band Neutrophils % 2 %; Metamyelocytes % 1 %; Myelocytes % 2 %; Nucleated Red Blood Cells 1 /100 WBC (0-0); Total Cells Counted 200
[2017-06-12 09:03] LABS: Manual Review Performed; WBC 34.5 k/uL (3.8-10.6)
--- NOTE | 2017-06-12 11:35 | P.PN ---
Subjective Patient improved from yesterday.. Creatinine rising plan is for dialysis catheter placement. Patient continues with anorexia and nausea Objective - Vital Signs Vital signs: Vital Signs Temp 97.9 F 06/12/17 07:59 Pulse 105 H 06/12/17 08:00 Resp 18 06/12/17 08:00 BP 112/81 06/12/17 07:59 Pulse Ox 96 06/12/17 07:59 Intake & Output 06/11/17 06/12/17 06/12/17 18:59 06:59 18:59 Intake Total 90 296 Output Total 660 Balance -570 296 Intake: IV 90 Piperacillin-Tazobactam 3 50 .375 gm In Dextrose/Water 1 50ml.bag @ 12.5 mls/hr IVPB Q8HR PAULIE Rx#: [id number] Sodium Chloride 0.9% 500 40 ml @ 20 mls/hr IV .Q24H PAULIE Rx#:[id number] Blood Product 296 Platelet Pheresis Acda1 296 Unit [id number] Output: Urine 660 Other: Voiding Method Indwelling Catheter Indwelling Catheter Indwelling Catheter # Bowel Movements 1 - Constitutional General appearance: Present: mild distress - EENT Eyes: Present: PERRLA Ears: bilateral: normal - Neck Neck: Present: normal ROM - Respiratory Respiratory: bilateral: CTA - Cardiovascular Rhythm: irregularly irregular - Gastrointestinal General gastrointestinal: Present: soft - Integumentary Integumentary: Present: normal - Neurologic Neurologic: Present: CNII-XII intact - Musculoskeletal Musculoskeletal: Present: generalized weakness - Psychiatric Psychiatric: Present: A&O x's 3, appropriate affect, intact judgment & insight - Labs CBC & Chem 7: 06/12/17 07:06 06/12/17 07:06 Labs: Abnormal Lab Results - Last 24 Hours (Table) 06/08/17 06/12/17 06/12/17 Range/Units 13:16 07:06 07:06 WBC 34.5 H* (3.8-10.6) k/uL RBC 2.33 L (4.30-5.90) m/uL Hgb 7.3 L (13.0-17.5) gm/dL Hct 22.1 L (39.0-53.0) % RDW 17.0 H (11.5-15.5) % Plt Count 37 L* D (150-450) k/uL Lymphocytes # (Manual) 31.40 H (1.0-4.8) k/uL Metamyelocytes # (Man) 0.35 H (0) k/uL Myelocytes # (Manual) 0.69 H (0) k/uL Nucleated RBCs 1 H (0-0) /100 WBC BUN 50 H (9-20) mg/dL Creatinine 4.26 H (0.66-1.25) mg/dL Glucose 130 H (74-99) mg/dL Calcium 7.1 L (8.4-10.2) mg/dL Phosphorus 5.6 H (2.5-4.5) mg/dL Crossmatch See Detail Assessment and Plan Plan: Assessment Congestive heart failure acute exacerbation chronic systolic dysfunction ejection fraction 30-40% and fluid overload Cardiomyopathy 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 fib plan for insertion of dialysis catheter Continue consultation with pulmonology and oncology
[2017-06-12] MEDS: CYANOCOBALAMIN 500 MCG TAB PO SCH (13:00)
[2017-06-12] MEDS ORDERED: METOPROLOL TARTRATE 50 MG TAB PO ONE (13:45)
--- NOTE | 2017-06-12 14:01 | P.PN ---
Subjective Progress Note Date: 06/12/17 This is a 61-year-old gentleman who follows regularly with Dr. Boston in the office. He has known history of paroxysmal atrial fibrillation/flutter, nonischemic cardiomyopathy, history of bladder cancer, hypertension, multiple myeloma, nonsmoker, who has had several admissions to the hospital recently symptoms of weakness, as well as generally not feeling well. Admission patient presented with extreme weakness and fatigue. He denies any nausea or vomiting, no diarrhea, he just states he has no strength. Patient also denies any overt shortness of breath, no palpitations. EKG on presentation here showed atrial fibrillation with a rapid ventricular response. Chest x-ray revealed new pleural effusions as compared with prior exam. White blood cell count on admission 76.3, 52.8 this morning. Hemoglobin 7.9 on admission, 6.8 this morning, platelet count is 32 this morning. Sodium 138, potassium 4.6, BUN 34, creatinine 3.1, creatinine yesterday was 3.4. DNP level 36,400. Troponins 0.012, 0.013, 0.012. Patient was initiated on IV Cardizem in the emergency room , continues to be on IV Cardizem at this time. He was also given a one-time dose of IV Lasix in the emergency room. He does take Coumadin at home for anticoagulation, INR subtherapeutic at 1.3. At the time of my examination this morning, patient feels extremely weak and discouraged. As morning patient is in atrial fibrillation with a controlled ventricular response. 2016 Patient seen and examined this morning, continues to feel weak. In normal sinus rhythm this morning. We will continue amiodarone 400 mg one tablet by mouth twice a day for one week and we will decrease to 200 mg daily. 06/12/2017 We have been asked to see Mr. Madden again during this hospitalization for conversion back into atrial fibrillation with variable ventricular response. His heart rate is fluctuating between 126 and 100. He is currently maintained on amiodarone 400 mg BID scheduled to transition to 200 mg daily tomorrow. He is also on lasix 40 mg IV daily for exacerbation of heart failure and metoprolol 50 mg HS. He is not on anticoagulation secondary to bicytopenia per oncology team anticoagulation can be considered once platelets are above 50, 000. He was taking coumadin at home. He denies chest pain, palpitations or dizziness but continues to complain of generalized weakness. He was up to the bathroom with staff assist without dizziness. Laboratory data reviewed, WBC 34.5 , Hgb 7.3, plt 37, potassium 4.6, magnesium 1.9, BUN/Cr 50/4.26. Plans are to start dialysis per nephrology. Blood noted in clancy catheter bag. Objective - Vital Signs Vital signs: Vital Signs Temp 97.9 F 06/12/17 07:59 Pulse 105 H 06/12/17 08:00 Resp 18 06/12/17 08:00 BP 112/81 06/12/17 07:59 Pulse Ox 96 06/12/17 07:59 Intake & Output 06/11/17 06/12/17 06/12/17 18:59 06:59 18:59 Intake Total 90 296 Output Total 660 Balance -570 296 Intake: IV 90 Piperacillin-Tazobactam 3 50 .375 gm In Dextrose/Water 1 50ml.bag @ 12.5 mls/hr IVPB Q8HR PAULIE Rx#: [id number] Sodium Chloride 0.9% 500 40 ml @ 20 mls/hr IV .Q24H PAULIE Rx#:[id number] Blood Product 296 Platelet Pheresis Acda1 296 Unit [id number] Output: Urine 660 Other: Voiding Method Indwelling Catheter Indwelling Catheter Indwelling Catheter # Bowel Movements 1 - Exam GENERAL: In no acute distress NECK: Supple without JVD or thyromegaly. LUNGS: Breath sounds clear to auscultation bilaterally. Respiration equal and unlabored. No wheezes, rales or rhonchi. Diminished b/l. HEART:Irregular rate and rhythm without murmurs, rubs or gallops. S1 and S2 heard. EXTREMITIES: Normal range of motion, trace lower extremity non-pitting edema. No clubbing or cyanosis. Peripheral pulses intact and strong. - Labs CBC & Chem 7: 06/12/17 07:06 06/12/17 07:06 Labs: Abnormal Lab Results - Last 24 Hours (Table) 06/08/17 06/12/17 06/12/17 Range/Units 13:16 07:06 07:06 WBC 34.5 H* (3.8-10.6) k/uL RBC 2.33 L (4.30-5.90) m/uL Hgb 7.3 L (13.0-17.5) gm/dL Hct 22.1 L (39.0-53.0) % RDW 17.0 H (11.5-15.5) % Plt Count 37 L* D (150-450) k/uL Lymphocytes # (Manual) 31.40 H (1.0-4.8) k/uL Metamyelocytes # (Man) 0.35 H (0) k/uL Myelocytes # (Manual) 0.69 H (0) k/uL Nucleated RBCs 1 H (0-0) /100 WBC BUN 50 H (9-20) mg/dL Creatinine 4.26 H (0.66-1.25) mg/dL Glucose 130 H (74-99) mg/dL Calcium 7.1 L (8.4-10.2) mg/dL Phosphorus 5.6 H (2.5-4.5) mg/dL Crossmatch See Detail Assessment and Plan Assessment: ASSESSMENT 1. Paroxysmal atrial fibrillation with uncontrolled ventricular response 2. Non-ischemic cardiomyopathy, most recent echocardiogram reveals EF 35-40%, severely dilated LA. 3. Multiple myeloma 4. History of hypertension with hypotension during admission 5. Anemia 6. Bicytopenia 7. Leukocytosis 8. Acute on chronic renal failure 9. Systolic heart failure, acute on chronic PLAN Give additional dose of lopressor 50 mg now. Continue to taper amiodarone with 200 mg PO TID tomorrow. Continue with telemetry monitoring. Further recommendations will be based on clinical course. Nurse Practitioner note has been reviewed, I agree with a documented findings and plan of care. Patient was seen and examined.
--- NOTE | 2017-06-12 14:19 | P.PN ---
Subjective Progress Note Date: 06/12/17 Principal diagnosis: Acute pulmonary edema, atrial fibrillation, sepsis syndrome Progress note dated 06/11/2017 This is a 61-year-old male who was admitted with a diagnosis of acute pulmonary edema secondary to chronic systolic dysfunction, atrial fibrillation, sepsis syndrome, tumor lysis syndrome characterized by hyperuricemia hypocalcemia hyperkalemia renal fire and hyperphosphatemia, acute kidney injury, bicytopenia , multiple myeloma, and bladder cancer. The patient is a full code. When he be transferred to the oncology floor. The patient's doing relatively well. His struggling with this pain medication which causes and be sleepy and having bad dreams versus having excessive pain if he does not take the pain medications. We'll see if we can Come to some sort of balance. Other than that he had an uneventful night. Resting comfortably. When he for bed on oncology as I mentioned above. Progress note dated 06/12/2017 61-year-old male with a history of acute pulmonary edema secondary to chronic systolic dysfunction, atrial fibrillation, sepsis, tumor lysis syndrome. The patient is doing better. Was finally transferred out of the ICU to the fifth floor. In addition, he has a history of acute kidney injury bicytopenia multiple myeloma and bladder cancer. The patient is a full code. He feels better. Not using his oxygen all the time. Denies any difficulty breathing. No coughing no wheezing. No fever no chills. No nausea vomiting or diarrhea. He's had a pretty uneventful day. Objective - Vital Signs Vital signs: Vital Signs Temp 97.9 F 06/12/17 07:59 Pulse 102 H 06/12/17 14:03 Resp 18 06/12/17 08:00 BP 112/81 06/12/17 07:59 Pulse Ox 96 06/12/17 07:59 Intake & Output 06/11/17 06/12/17 06/12/17 18:59 06:59 18:59 Intake Total 90 296 Output Total 660 Balance -570 296 Intake: IV 90 Piperacillin-Tazobactam 3 50 .375 gm In Dextrose/Water 1 50ml.bag @ 12.5 mls/hr IVPB Q8HR PAULIE Rx#: [id number] Sodium Chloride 0.9% 500 40 ml @ 20 mls/hr IV .Q24H PAULIE Rx#:[id number] Blood Product 296 Platelet Pheresis Acda1 296 Unit [id number] Output: Urine 660 Other: Voiding Method Indwelling Catheter Indwelling Catheter Indwelling Catheter # Bowel Movements 1 - Exam No acute distress, oriented 3. HEENT examination is grossly unremarkable. Mucous membranes are moist. No oral lesions. Neck supple. Full range of motion. No adenopathy thyromegaly or neck vein distention. Cardiovascular examination reveals a regular rhythm rate. Heart rate about 120. S1-S2 normal. No S3-S4. No distinct murmur. Lungs reveal diminished breath sounds. Breath sounds are equal. There is diffuse rhonchi and crackles. The patient does not take deep breaths. No wheezes. Abdomen soft bowel sounds are heard. No masses or tenderness. Extremities are intact. No cyanosis clubbing or edema. Skin is without rash or lesion. Neurologic examination is brief but nonfocal. - Labs CBC & Chem 7: 06/12/17 07:06 06/12/17 07:06 Labs: Abnormal Lab Results - Last 24 Hours (Table) 06/08/17 06/12/17 06/12/17 Range/Units 13:16 07:06 07:06 WBC 34.5 H* (3.8-10.6) k/uL RBC 2.33 L (4.30-5.90) m/uL Hgb 7.3 L (13.0-17.5) gm/dL Hct 22.1 L (39.0-53.0) % RDW 17.0 H (11.5-15.5) % Plt Count 37 L* D (150-450) k/uL Lymphocytes # (Manual) 31.40 H (1.0-4.8) k/uL Metamyelocytes # (Man) 0.35 H (0) k/uL Myelocytes # (Manual) 0.69 H (0) k/uL Nucleated RBCs 1 H (0-0) /100 WBC BUN 50 H (9-20) mg/dL Creatinine 4.26 H (0.66-1.25) mg/dL Glucose 130 H (74-99) mg/dL Calcium 7.1 L (8.4-10.2) mg/dL Phosphorus 5.6 H (2.5-4.5) mg/dL Crossmatch See Detail Assessment and Plan (1) Bladder cancer Current Visit: Yes Status: Acute Code(s): C67.9 - MALIGNANT NEOPLASM OF BLADDER, UNSPECIFIED SNOMED Code(s): 542735081 (2) Acute kidney injury Current Visit: Yes Status: Acute Code(s): N17.9 - ACUTE KIDNEY FAILURE, UNSPECIFIED SNOMED Code(s): 06072809 (3) Bicytopenia Current Visit: Yes Status: Acute Priority: High Code(s): D75.89 - OTHER SPECIFIED DISEASES OF BLOOD AND BLOOD-FORMING ORGANS SNOMED Code(s): 023246471 (4) Lactic acidosis Current Visit: Yes Status: Acute Code(s): E87.2 - ACIDOSIS SNOMED Code(s) : 35938863 (5) Myeloma Current Visit: Yes Status: Acute Priority: High Code(s): C90.00 - MULTIPLE MYELOMA NOT HAVING ACHIEVED REMISSION SNOMED Code(s): 941147085 (6) Renal failure Current Visit: Yes Status: Acute Priority: High Code(s): N19 - UNSPECIFIED KIDNEY FAILURE SNOMED Code(s): 91281292 (7) Spontaneous tumor lysis syndrome Current Visit: Yes Status: Acute Priority: High Code(s): E88.3 - TUMOR LYSIS SYNDROME SNOMED Code(s): 554684952 (8) Atrial fibrillation with RVR Current Visit: Yes Status: Chronic Code(s): I48.91 - UNSPECIFIED ATRIAL FIBRILLATION SNOMED Code(s): 401070604528863 (9) Plasma cell leukemia Current Visit: Yes Status: Chronic Code(s): C90.10 - PLASMA CELL LEUKEMIA NOT HAVING ACHIEVED REMISSION SNOMED Code(s): 20858428 (10) Acute metabolic encephalopathy Current Visit: Yes Status: Suspected Code(s): G93.41 - METABOLIC ENCEPHALOPATHY SNOMED Code(s): 01897509 (11) Altered mental status Current Visit: Yes Status: Resolved Code(s): R41.82 - ALTERED MENTAL STATUS , UNSPECIFIED SNOMED Code(s): 779281547 (12) Dehydration Current Visit: Yes Status: Resolved Priority: High Code(s): E86.0 - DEHYDRATION SNOMED Code(s): 36416979 (13) Atrial fibrillation Current Visit: No Status: Acute Code(s): I48.91 - UNSPECIFIED ATRIAL FIBRILLATION SNOMED Code(s): 34062307 (14) Cardiomyopathy Current Visit: No Status: Acute Code(s): I42.9 - CARDIOMYOPATHY, UNSPECIFIED SNOMED Code(s): 52274097 (15) Hypertension Current Visit: No Status: Acute Code(s): I10 - ESSENTIAL (PRIMARY) HYPERTENSION SNOMED Code(s): 86474689 (16) Thrombocytopenia Current Visit: No Status: Acute Code(s): D69.6 - THROMBOCYTOPENIA, UNSPECIFIED SNOMED Code(s): 810841525 Plan: Plan dated 06/11/2017 The patient seemed be doing a bit better. Chest x-rays about the same. It shows diffuse bilateral infiltrates and cardiomegaly. Consistent with heart failure. The patient is a full code. The patient will likely be transferred over to oncology. Labs medications and x-rays are all reviewed. Nephrology is has adjusted his fluids. Additional recommendations suggestions are forthcoming. Microbiology will also be evaluated. Plan dated 06/12/2017 The patient seemed be doing a lot better. Much less short of breath. Chest x- ray shows improvement. Chest x-ray shows diffuse bilateral infiltrates consistent with load overload. The patient is a full code. Was transferred out to oncology. Medications labs and x-rays all reviewed. We'll continue to follow. Prognosis is guarded. Time with Patient: Less than 30
[2017-06-12] MEDS: SODIUM CHLORIDE 0.9% 500 ML IV SCH (15:53)
--- NOTE | 2017-06-12 18:38 | PN ---
PROGRESS NOTE Patient is seen for followup for acute kidney injury on top of chronic kidney disease. The patient had platelet transfusion yesterday. Platelet count is about 35,000. His creatinine went up to 4.2, and he will be having a dialysis catheter placed for starting dialysis. He appears slightly better than yesterday. However, he still does not have significant appetite. Family is present at bedside and the all questions regarding dialysis were answered and the procedure was explained to them. EXAMINATION: Blood pressure was 112/81, heart rate 104 per minute. Patient is afebrile. Heart rate is irregular. Examination of the heart S1, S2. Examination lungs bilateral breath sounds are heard. Abdomen is soft, nontender. Examination lower extremity shows trace edema bilaterally. FRAUD EXAMINER exam is grossly intact. LAB: Show sodium 138, potassium 4.6, BUN 50, serum creatinine 4.26, hemoglobin 7.3, white cell count 34.5, platelet count 37,000. ASSESSMENT: 1. Acute kidney injury secondary to tumor lysis syndrome with serum creatinine unchanged for the last 3-4 days. The patient remains with poor appetite and feeling of being generalized weakness and feeling unwell. He has been nauseated as well. He feels better after packed RBCs transfusion. He also has good urine output now. However, since there is no significant improvement in renal function I will proceed with renal replacement therapy. Hopefully, patient will need just a few treatments. We will place the dialysis catheter today and plan for 1st treatment today if the catheter is in early. The patient will need a platelet transfusion during the procedure. 2. Hyperphosphatemia secondary to renal failure and tumor lysis syndrome. 3. Multiple myeloma, maintained on chemotherapy. 4. Thrombocytopenia secondary to chemotherapy. PLAN: Proceed with dialysis catheter placement and hemodialysis. MMODL / IJN: [id number] /
[2017-06-12] MEDS ORDERED: DEXAMETHASONE 4 MG TAB PO ONE (20:00)
[2017-06-12] MEDS: ONDANSETRON 4 MG/2 ML VIAL IVP PRN (20:47)
[2017-06-12] MEDS: METOPROLOL TARTRATE 50 MG TAB PO SCH (21:16)
[2017-06-13] MEDS: HYDROmorphone 4 MG/ML 1 ML SYRINGE IVP PRN ×4 (00:18→20:56)
[2017-06-13] MEDS: SALT AND SODA MOUTHWASH 1,000 ML PO SCH ×6 (03:03→23:36)
[2017-06-13 07:19] LABS: INR 1.2 (<1.2); Prothrombin Time 11.2 sec (9.0-12.0)
[2017-06-13 07:24] LABS: Anisocytosis Slight; CH 28.9; CHCM 31.5; HCT 21.5 % (39.0-53.0); HDW 2.69; HGB 7.5 gm/dL (13.0-17.5); MCH 32.3 pg (25.0-35.0); MCHC 35.1 g/dL (31.0-37.0); MCV 92.3 fL (80.0-100.0); Mean Platelet Volume 8.4; RBC 2.33 m/uL (4.30-5.90); RDW 16.8 % (11.5-15.5); WBC (Perox) 44.38
[2017-06-13] MEDS ORDERED: IV FLUID CONTINUATION 1,000 ML IV ONE (07:25)
[2017-06-13 07:32] LABS: Calcium 7.5 mg/dL (8.4-10.2); Magnesium 2.1 mg/dL (1.6-2.3); Phosphorus 6.7 mg/dL (2.5-4.5); Potassium 4.7 mmol/L (3.5-5.1)
[2017-06-13] MEDS ORDERED: LIDOCAINE 2% INJ 20 MG/ML (20 ML MDV) ONE (07:35)
[2017-06-13] MEDS ORDERED: MIDAZOLAM 2 MG/2 ML VIAL ONE (07:39)
[2017-06-13] MEDS ORDERED: MIDAZOLAM 2 MG/2 ML VIAL IV ONE (07:45)
[2017-06-13] MEDS ORDERED: LIDOCAINE 2% INJ 20 MG/ML SQ ONE (07:46)
[2017-06-13 07:51] LABS: Add Differential Manual Differential
[2017-06-13] MEDS ORDERED: HEPARIN SODIUM 1,000 UN/ML (10ML VL) ONE (07:56)
--- NOTE | 2017-06-13 07:59 | CONS ---
CONSULTATION This is a 61-year-old gentleman I was consulted for placement of dialysis catheter. The patient has acute kidney injury. Patient's creatinine is high and I was called by Nephrology for placement of the catheter. Patient has history of multiple myeloma. Patient had chemotherapy in 2017. MEDICAL HISTORY: History of cancer, heart failure, hypertension and renal disease. The patient was seen in his room. Neck is supple. No bruit appreciated. Chest is clear. First and second sounds are normal. Abdomen is soft, nontender. VASCULAR EXAMINATION: Brachial, radial and femoral pulses are present. Patient has mild swelling of the foot. Patient has a low platelet count. We just gave platelets started prior to the procedure. PLAN: Placement of the dialysis catheter. Risks and complications of bleeding, infection, thrombosis has been discussed. MMODL / IJN: [id number] /
[2017-06-13 08:01] LABS: Metamyelocytes % 1 %; Myelocytes % 2 %; Nucleated Red Blood Cells 2 /100 WBC (0-0); Total Cells Counted 200
[2017-06-13 08:02] LABS: Manual Review Performed; WBC 42.8 k/uL (3.8-10.6)
[2017-06-13] MEDS: IPRATROPIUM-ALBUTEROL 3 ML NEB INHALATION SCH ×3 (08:20→20:13)
--- NOTE | 2017-06-13 08:49 | IR ---
EXAMINATION TYPE: IR cvc insert non tunneled DATE OF EXAM: 06/13/2017 CLINICAL HISTORY: Dialysis failure TECHNIQUE: Fluoroscopy. COMPARISON: None. FINDINGS: Fluoroscopic guidance was provided during right groin femoral catheter insertion procedure performed by Dr. Wills. A total of 0.2 minutes of fluoroscopic time was utilized during the proce dure and 70 spot cine images are acquired. Images acquired show metallic hardware from hip arthroplas ty and dual-lumen dialysis venous catheter projecting superiorly and centrally expected along course of external iliac vein. IMPRESSION: As Above.
[2017-06-13] MEDS ORDERED: AMIODARONE 200 MG TAB PO SCH (09:00)
[2017-06-13] MEDS: CALCIUM ACETATE 667 MG CAP PO SCH ×3 (09:27→17:33)
[2017-06-13] MEDS: METOCLOPRAMIDE 5 MG TAB PO SCH ×4 (09:27→21:15)
[2017-06-13] MEDS: PIPERACILLIN-TAZOBACTAM 3.375 GM in DEXTROSE/WATER 1 50ML.BAG IVPB SCH ×2 (09:28→21:15)
[2017-06-13] MEDS: FUROSEMIDE 10 MG/ML 4 ML VIAL IV SCH (09:29)
[2017-06-13] MEDS: SODIUM BICARBONATE TAB 650 MG TAB PO SCH ×2 (09:34→21:15)
[2017-06-13] MEDS: ALLOPURINOL 100 MG TAB PO SCH (09:35)
[2017-06-13] MEDS: AMIODARONE 200 MG TAB PO SCH ×3 (09:35→21:16)
[2017-06-13] MEDS: PANTOPRAZOLE 40 MG TABLET PO SCH (09:35)
--- NOTE | 2017-06-13 10:50 | P.PN ---
Subjective Patient is post insertion of dialysis catheter to right groin.. Mildly sedated from the procedure Objective - Vital Signs Vital signs: Vital Signs Temp 98.1 F 06/13/17 07:48 Pulse 58 L 06/13/17 08:44 Resp 16 06/13/17 08:33 BP 112/68 06/13/17 08:44 Pulse Ox 99 06/13/17 08:33 Intake & Output 06/12/17 06/13/17 06/13/17 18:59 06:59 18:59 Intake Total 406 Output Total 700 Balance -700 406 Weight 68.9 kg Intake: IV 117 Blood Product 289 Platelet Pheresis Acda2 289 Unit [id number] Output: Urine 700 Other: Voiding Method Indwelling Catheter Indwelling Catheter Indwelling Catheter # Bowel Movements 1 - Constitutional General appearance: Present: mild distress - EENT Eyes: Present: PERRLA Ears: bilateral: normal - Neck Neck: Present: normal ROM - Respiratory Respiratory: bilateral: CTA - Cardiovascular Rhythm: irregularly irregular - Gastrointestinal General gastrointestinal: Present: soft - Integumentary Integumentary: Present: normal - Neurologic Neurologic: Present: CNII-XII intact - Musculoskeletal Musculoskeletal: Present: generalized weakness - Psychiatric Psychiatric: Present: A&O x's 3, appropriate affect, intact judgment & insight - Labs CBC & Chem 7: 06/13/17 06:47 06/13/17 06:47 Labs: Abnormal Lab Results - Last 24 Hours (Table) 06/13/17 06/13/17 06/13/17 Range/Units 06:47 06:47 06:47 WBC 42.8 H* (3.8-10.6) k/uL RBC 2.33 L (4.30-5.90) m/uL Hgb 7.5 L (13.0-17.5) gm/dL Hct 21.5 L (39.0-53.0) % RDW 16.8 H (11.5-15.5) % Plt Count 38 L* (150-450) k/uL Lymphocytes # (Manual) 35.95 H (1.0-4.8) k/uL Metamyelocytes # (Man) 0.43 H (0) k/uL Myelocytes # (Manual) 0.86 H (0) k/uL Nucleated RBCs 2 H (0-0) /100 WBC INR 1.2 H (<1.2) Chloride 97 L (98-107) mmol/L BUN 56 H (9-20) mg/dL Creatinine 4.70 H (0.66-1.25) mg/dL Glucose 134 H (74-99) mg/dL Calcium 7.5 L (8.4-10.2) mg/dL Phosphorus 6.7 H (2.5-4.5) mg/dL Assessment and Plan Plan: Assessment Congestive heart failure acute on chronic exacerbation with chronic systolic dysfunction ejection fraction 30-40% with fluid overload on admission 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
[2017-06-13] MEDS: CYANOCOBALAMIN 500 MCG TAB PO SCH (13:07)
--- NOTE | 2017-06-13 13:54 | P.PN ---
Subjective Progress Note Date: 06/13/17 Principal diagnosis: Acute pulmonary edema, atrial fibrillation, sepsis syndrome Progress note dated 06/11/2017 This is a 61-year-old male who was admitted with a diagnosis of acute pulmonary edema secondary to chronic systolic dysfunction, atrial fibrillation, sepsis syndrome, tumor lysis syndrome characterized by hyperuricemia hypocalcemia hyperkalemia renal fire and hyperphosphatemia, acute kidney injury, bicytopenia , multiple myeloma, and bladder cancer. The patient is a full code. When he be transferred to the oncology floor. The patient's doing relatively well. His struggling with this pain medication which causes and be sleepy and having bad dreams versus having excessive pain if he does not take the pain medications. We'll see if we can Come to some sort of balance. Other than that he had an uneventful night. Resting comfortably. When he for bed on oncology as I mentioned above. Progress note dated 06/12/2017 61-year-old male with a history of acute pulmonary edema secondary to chronic systolic dysfunction, atrial fibrillation, sepsis, tumor lysis syndrome. The patient is doing better. Was finally transferred out of the ICU to the fifth floor. In addition, he has a history of acute kidney injury bicytopenia multiple myeloma and bladder cancer. The patient is a full code. He feels better. Not using his oxygen all the time. Denies any difficulty breathing. No coughing no wheezing. No fever no chills. No nausea vomiting or diarrhea. He's had a pretty uneventful day. Progress note dated 06/13/2017 61-year-old male with a history of acute pulmonary edema secondary to chronic systolic dysfunction history of atrial fibrillation, sepsis, tumor lysis syndrome and renal failure. The patient had dialysis catheter placed. He was transferred out of the ICU couple days back. He's done on the fifth floor. Doesn't really quite know what's going on. In addition to the renal failure/ acute kidney injury, he has a history of bicytopenia multiple myeloma and transitional cell cancer of the bladder. The patient is a full code. Chest x- ray showing diffuse bilateral infiltrates consistent with fluid overload. That' s improving clinically and radiographically. The patient remains on oxygen therapy. He is a full code. No difficulty breathing. The patient otherwise is reasonably stable. Objective - Vital Signs Vital signs: Vital Signs Temp 98.1 F 06/13/17 07:48 Pulse 58 L 12/07/17 08:44 Resp 16 06/13/17 08:33 BP 112/68 06/13/17 08:44 Pulse Ox 99 06/13/17 08:33 Intake & Output 06/12/17 06/13/17 06/13/17 18:59 06:59 18:59 Intake Total 406 Output Total 700 Balance -700 406 Weight 68.9 kg Intake: IV 117 Blood Product 289 Platelet Pheresis Acda2 289 Unit [id number] Output: Urine 700 Other: Voiding Method Indwelling Catheter Indwelling Catheter Indwelling Catheter # Bowel Movements 1 - Exam No acute distress, oriented 3. Nasal O2 in place. HEENT examination is grossly unremarkable. Mucous membranes are moist. No oral lesions. Neck supple. Full range of motion. No adenopathy thyromegaly or neck vein distention. Cardiovascular examination reveals a regular rhythm rate. Heart rate about 120. S1-S2 normal. No S3-S4. No distinct murmur. Lungs reveal diminished breath sounds. Breath sounds are equal. There is diffuse rhonchi and crackles. The patient does not take deep breaths. No wheezes. Abdomen soft bowel sounds are heard. No masses or tenderness. Extremities are intact. No cyanosis clubbing or edema. Skin is without rash or lesion. Neurologic examination is brief but nonfocal. - Labs CBC & Chem 7: 06/13/17 06:47 06/13/17 06:47 Labs: Abnormal Lab Results - Last 24 Hours (Table) 06/13/17 06/13/17 06/13/17 Range/Units 06:47 06:47 06:47 WBC 42.8 H* (3.8-10.6) k/uL RBC 2.33 L (4.30-5.90) m/uL Hgb 7.5 L (13.0-17.5) gm/dL Hct 21.5 L (39.0-53.0) % RDW 16.8 H (11.5-15.5) % Plt Count 38 L* (150-450) k/uL Lymphocytes # (Manual) 35.95 H (1.0-4.8) k/uL Metamyelocytes # (Man) 0.43 H (0) k/uL Myelocytes # (Manual) 0.86 H (0) k/uL Nucleated RBCs 2 H (0-0) /100 WBC INR 1.2 H (<1.2) Chloride 97 L (98-107) mmol/L BUN 56 H (9-20) mg/dL Creatinine 4.70 H (0.66-1.25) mg/dL Glucose 134 H (74-99) mg/dL Calcium 7.5 L (8.4-10.2) mg/dL Phosphorus 6.7 H (2.5-4.5) mg/dL Assessment and Plan (1) Bladder cancer Current Visit: Yes Status: Acute Code(s): C67.9 - MALIGNANT NEOPLASM OF BLADDER, UNSPECIFIED SNOMED Code(s): 577501957 (2) Acute kidney injury Current Visit: Yes Status: Acute Code(s): N17.9 - ACUTE KIDNEY FAILURE, UNSPECIFIED SNOMED Code(s): 59751266 (3) Bicytopenia Current Visit: Yes Status: Acute Priority: High Code(s): D75.89 - OTHER SPECIFIED DISEASES OF BLOOD AND BLOOD-FORMING ORGANS SNOMED Code(s): 934141830 (4) Lactic acidosis Current Visit: Yes Status: Acute Code(s): E87.2 - ACIDOSIS SNOMED Code(s) : 38140842 (5) Myeloma Current Visit: Yes Status: Acute Priority: High Code(s): C90.00 - MULTIPLE MYELOMA NOT HAVING ACHIEVED REMISSION SNOMED Code(s): 779211168 (6) Renal failure Current Visit: Yes Status: Acute Priority: High Code(s): N19 - UNSPECIFIED KIDNEY FAILURE SNOMED Code(s): 15414614 (7) Spontaneous tumor lysis syndrome Current Visit: Yes Status: Acute Priority: High Code(s): E88.3 - TUMOR LYSIS SYNDROME SNOMED Code(s): 539492818 (8) Atrial fibrillation with RVR Current Visit: Yes Status: Chronic Code(s): I48.91 - UNSPECIFIED ATRIAL FIBRILLATION SNOMED Code(s): 512274865231062 (9) Plasma cell leukemia Current Visit: Yes Status: Chronic Code(s): C90.10 - PLASMA CELL LEUKEMIA NOT HAVING ACHIEVED REMISSION SNOMED Code(s): 83076575 (10) Acute metabolic encephalopathy Current Visit: Yes Status: Suspected Code(s): G93.41 - METABOLIC ENCEPHALOPATHY SNOMED Code(s): 55149033 (11) Altered mental status Current Visit: Yes Status: Resolved Code(s): R41.82 - ALTERED MENTAL STATUS , UNSPECIFIED SNOMED Code(s): 628457051 (12) Dehydration Current Visit: Yes Status: Resolved Priority: High Code(s): E86.0 - DEHYDRATION SNOMED Code(s): 52354406 (13) Atrial fibrillation Current Visit: No Status: Acute Code(s): I48.91 - UNSPECIFIED ATRIAL FIBRILLATION SNOMED Code(s): 40024616 (14) Cardiomyopathy Current Visit: No Status: Acute Code(s): I42.9 - CARDIOMYOPATHY, UNSPECIFIED SNOMED Code(s): 25464975 (15) Hypertension Current Visit: No Status: Acute Code(s): I10 - ESSENTIAL (PRIMARY) HYPERTENSION SNOMED Code(s): 60395866 (16) Thrombocytopenia Current Visit: No Status: Acute Code(s): D69.6 - THROMBOCYTOPENIA, UNSPECIFIED SNOMED Code(s): 248342666 Plan: Plan dated 06/11/2017 The patient seemed be doing a bit better. Chest x-rays about the same. It shows diffuse bilateral infiltrates and cardiomegaly. Consistent with heart failure. The patient is a full code. The patient will likely be transferred over to oncology. Labs medications and x-rays are all reviewed. Nephrology is has adjusted his fluids. Additional recommendations suggestions are forthcoming. Microbiology will also be evaluated. Plan dated 06/12/2017 The patient seemed be doing a lot better. Much less short of breath. Chest x- ray shows improvement. Chest x-ray shows diffuse bilateral infiltrates consistent with load overload. The patient is a full code. Was transferred out to oncology. Medications labs and x-rays all reviewed. We'll continue to follow. Prognosis is guarded. Plan dated 06/13/2017 The patient seemed be doing relatively well. A dialysis catheter was placed. It was placed in the right groin. The patient will likely undergo hemodialysis. Labs x-rays a medications are reviewed. Palmar status is stable. We did order a chest x-ray for him tomorrow. Additional recommendations and suggestions are forthcoming. Time with Patient: Less than 30
[2017-06-13] MEDS ORDERED: HEPARIN SODIUM,PORCINE 5,000 UNIT/ML 1 ML VIAL ONE (14:00)
[2017-06-13] MEDS: SODIUM CHLORIDE 0.9% 500 ML IV SCH (16:47)
--- NOTE | 2017-06-13 17:32 | PN ---
PROGRESS NOTE The patient is seen for followup for acute kidney injury secondary to tumor lysis syndrome. He had his femoral dialysis catheter placed this morning. The patient will be starting dialysis. Dialysis machine is present at bedside and he will be starting momentarily. The patient is awake and comfortable. He is not in any acute distress. The patient's is present at bedside. EXAMINATION: Blood pressure is 123/70, heart rate of 58 per minute. He is afebrile. Examination of the heart S1, S2. Examination lungs bilateral breath sounds are heard. Abdomen is soft, nontender. Examination lower extremities shows no significant edema. Femoral Camron catheter is in place. LABS: Sodium of 139, potassium 4.7, BUN 56, serum creatinine 4.7, hemoglobin 7.5 g/dL. ASSESSMENT: 1. Acute kidney injury on top of chronic kidney disease secondary to tumor lysis syndrome. Renal function continues to worsen and patient will start dialysis today. He had his right femoral Camron catheter placed this morning. 2. Multiple myeloma, maintained on chemotherapy. 3. Tumor lysis syndrome, status post respiratory case. 4. Hyperphosphatemia secondary to renal failure and tumor lysis syndrome, maintained on phosphate binders. 5. Nausea and loss of appetite, possibly with a component of uremia. Expect improvement with renal replacement therapy. 6. Thrombocytopenia status post platelet transfusion. 7. Anemia secondary to chemotherapy and multiple myeloma. PLAN: Hemodialysis today as well as in a.m. Check 25 hydroxy vitamin D levels. Continue with phosphate binders. Currently, patient has good urine output. Hopefully, his renal function will start to recover. MMODL / IJN: [id number] /
[2017-06-13] MEDS: METOPROLOL TARTRATE 50 MG TAB PO SCH (21:16)
[2017-06-14] MEDS: HYDROmorphone 4 MG/ML 1 ML SYRINGE IVP PRN ×5 (03:47→23:27)
[2017-06-14] MEDS: SALT AND SODA MOUTHWASH 1,000 ML PO SCH ×5 (04:19→19:50)
[2017-06-14] MEDS: SODIUM BICARBONATE TAB 650 MG TAB PO SCH ×2 (08:48→19:48)
[2017-06-14] MEDS: CALCIUM ACETATE 667 MG CAP PO SCH ×3 (08:48→17:46)
[2017-06-14] MEDS: FUROSEMIDE 10 MG/ML 4 ML VIAL IV SCH (08:48)
[2017-06-14] MEDS: METOCLOPRAMIDE 5 MG TAB PO SCH ×4 (08:49→19:48)
[2017-06-14] MEDS: ALLOPURINOL 100 MG TAB PO SCH (08:49)
[2017-06-14] MEDS: PANTOPRAZOLE 40 MG TABLET PO SCH (08:49)
[2017-06-14] MEDS: AMIODARONE 200 MG TAB PO SCH ×3 (08:49→21:47)
[2017-06-14] MEDS: IPRATROPIUM-ALBUTEROL 3 ML NEB INHALATION SCH ×3 (09:04→20:08)
[2017-06-14] MEDS: PIPERACILLIN-TAZOBACTAM 3.375 GM in DEXTROSE/WATER 1 50ML.BAG IVPB SCH ×2 (09:34→21:47)
--- NOTE | 2017-06-14 09:48 | XR ---
EXAMINATION TYPE: XR chest 2V DATE OF EXAM: 06/14/2017 COMPARISON: 06/11/2017 HISTORY: Pneumonia and history of congestive heart failure TECHNIQUE: Frontal and lateral views of the chest are obtained. FINDINGS: There is improved aeration of the lungs diffusely with mild interstitial pulmonary edema r emaining. Cardiomegaly persists and is stable from the prior. Multilevel moderate degenerative change s of the thoracic spine and acromioclavicular joints are seen. No new focal consolidation or pneumoth orax. Trace pleural effusions on the costophrenic angles and are seen best on the lateral image. IMPRESSION: Significantly improved aeration of the lungs with persistent mild interstitial pulmonary edema and trace pleural effusions.
[2017-06-14 12:35] LABS: Hepatitis B Surface Antibody Non-Reactive (Non-Reactive)
[2017-06-14] MEDS: CYANOCOBALAMIN 500 MCG TAB PO SCH (12:38)
--- NOTE | 2017-06-14 13:25 | P.PN ---
Subjective Progress Note Date: 06/14/17 Principal diagnosis: Acute pulmonary edema, atrial fibrillation, sepsis syndrome. Progress note dated 06/11/2017 This is a 61-year-old male who was admitted with a diagnosis of acute pulmonary edema secondary to chronic systolic dysfunction, atrial fibrillation, sepsis syndrome, tumor lysis syndrome characterized by hyperuricemia hypocalcemia hyperkalemia renal fire and hyperphosphatemia, acute kidney injury, bicytopenia , multiple myeloma, and bladder cancer. The patient is a full code. When he be transferred to the oncology floor. The patient's doing relatively well. His struggling with this pain medication which causes and be sleepy and having bad dreams versus having excessive pain if he does not take the pain medications. We'll see if we can Come to some sort of balance. Other than that he had an uneventful night. Resting comfortably. When he for bed on oncology as I mentioned above. Progress note dated 06/12/2017 61-year-old male with a history of acute pulmonary edema secondary to chronic systolic dysfunction, atrial fibrillation, sepsis, tumor lysis syndrome. The patient is doing better. Was finally transferred out of the ICU to the fifth floor. In addition, he has a history of acute kidney injury bicytopenia multiple myeloma and bladder cancer. The patient is a full code. He feels better. Not using his oxygen all the time. Denies any difficulty breathing. No coughing no wheezing. No fever no chills. No nausea vomiting or diarrhea. He's had a pretty uneventful day. Progress note dated 06/13/2017 61-year-old male with a history of acute pulmonary edema secondary to chronic systolic dysfunction history of atrial fibrillation, sepsis, tumor lysis syndrome and renal failure. The patient had dialysis catheter placed. He was transferred out of the ICU couple days back. He's done on the fifth floor. Doesn't really quite know what's going on. In addition to the renal failure/ acute kidney injury, he has a history of bicytopenia multiple myeloma and transitional cell cancer of the bladder. The patient is a full code. Chest x- ray showing diffuse bilateral infiltrates consistent with fluid overload. That' s improving clinically and radiographically. The patient remains on oxygen therapy. He is a full code. No difficulty breathing. The patient otherwise is reasonably stable. This note dated 06/14/2017 The patient is seen again today in follow-up on the oncology unit. He is awake and alert in no acute distress. He is getting dialysis again today. There was 500 mL fluid removed yesterday and the plan for 800 mL to be removed today. Creatinine 4.70. The patient denies any worsening shortness of breath, cough or congestion. No chills or night sweats. Today's chest x-ray reveals significant improvement in the interstitial edema. There is mild interstitial edema remaining along with trace pleural effusions. Blood and urine cultures reveal no growth. White count 42.8, hemoglobin 7.5, platelet count 38,000. He has a history of bicytopenia multiple myeloma and transitional cell cancer of the bladder. Objective - Vital Signs Vital signs: Vital Signs Temp 97.0 F L 06/14/17 07:00 Pulse 88 06/14/17 12:32 Resp 18 06/14/17 07:00 BP 118/70 06/14/17 07:00 Pulse Ox 96 06/14/17 07:00 Intake & Output 06/13/17 06/14/17 06/14/17 18:59 06:59 18:59 Intake Total 556 460 Output Total 700 Balance 556 -240 Weight 68.9 kg Intake: IV 217 160 Sodium Chloride 0.9% 500 100 160 ml @ 20 mls/hr IV .Q24H PAULIE Rx#:[id number] Intake, IV Titration 50 Amount Piperacillin-Tazobactam 3 50 .375 gm In Dextrose/Water 1 50ml.bag @ 12.5 mls/hr IVPB Q12HR PAULIE Rx#: [id number] Oral 300 Blood Product 289 Platelet Pheresis Acda2 289 Unit [id number] Output: Urine 700 Uretheral (Hazel) 700 Other: Voiding Method Indwelling Catheter Indwelling Catheter Indwelling Catheter - Exam No acute distress, oriented 3. Nasal O2 in place. HEENT examination is grossly unremarkable. Mucous membranes are moist. No oral lesions. Neck supple. Full range of motion. No adenopathy thyromegaly or neck vein distention. Cardiovascular examination reveals a regular rhythm rate. Heart rate about 120. S1-S2 normal. No S3-S4. No distinct murmur. Lungs reveal diminished breath sounds. Breath sounds are equal. There is diffuse rhonchi and crackles. The patient does not take deep breaths. No wheezes. Abdomen soft bowel sounds are heard. No masses or tenderness. Extremities are intact. No cyanosis clubbing or edema. Skin is without rash or lesion. Neurologic examination is brief but nonfocal. - Labs CBC & Chem 7: 06/13/17 06:47 06/13/17 06:47 Labs: Abnormal Lab Results - Last 24 Hours (Table) 06/14/17 Range/Units 06:53 Vitamin D 25-Hydroxy 6.9 L (30.0-100.0) ng/mL Assessment and Plan Assessment: (1) Bladder cancer Current Visit: Yes Status: Acute Code(s): C67.9 - MALIGNANT NEOPLASM OF BLADDER, UNSPECIFIED SNOMED Code(s): 102596380 (2) Acute kidney injury Current Visit: Yes Status: Acute Code(s): N17.9 - ACUTE KIDNEY FAILURE, UNSPECIFIED SNOMED Code(s): 55851285 (3) Bicytopenia Current Visit: Yes Status: Acute Priority: High Code(s): D75.89 - OTHER SPECIFIED DISEASES OF BLOOD AND BLOOD-FORMING ORGANS SNOMED Code(s): 480214646 (4) Lactic acidosis Current Visit: Yes Status: Acute Code(s): E87.2 - ACIDOSIS SNOMED Code(s) : 76594882 (5) Myeloma Current Visit: Yes Status: Acute Priority: High Code(s): C90.00 - MULTIPLE MYELOMA NOT HAVING ACHIEVED REMISSION SNOMED Code(s): 179205384 (6) Renal failure Current Visit: Yes Status: Acute Priority: High Code(s): N19 - UNSPECIFIED KIDNEY FAILURE SNOMED Code(s): 23975278 (7) Spontaneous tumor lysis syndrome Current Visit: Yes Status: Acute Priority: High Code(s): E88.3 - TUMOR LYSIS SYNDROME SNOMED Code(s): 033121829 (8) Atrial fibrillation with RVR Current Visit: Yes Status: Chronic Code(s): I48.91 - UNSPECIFIED ATRIAL FIBRILLATION SNOMED Code(s): 723830201976431 (9) Plasma cell leukemia Current Visit: Yes Status: Chronic Code(s): C90.10 - PLASMA CELL LEUKEMIA NOT HAVING ACHIEVED REMISSION SNOMED Code(s): 24783545 (10) Acute metabolic encephalopathy Current Visit: Yes Status: Suspected Code(s): G93.41 - METABOLIC ENCEPHALOPATHY SNOMED Code(s): 73573043 (11) Altered mental status Current Visit: Yes Status: Resolved Code(s): R41.82 - ALTERED MENTAL STATUS , UNSPECIFIED SNOMED Code(s): 444622553 (12) Dehydration Current Visit: Yes Status: Resolved Priority: High Code(s): E86.0 - DEHYDRATION SNOMED Code(s): 06551986 (13) Atrial fibrillation Current Visit: No Status: Acute Code(s): I48.91 - UNSPECIFIED ATRIAL FIBRILLATION SNOMED Code(s): 65007384 (14) Cardiomyopathy Current Visit: No Status: Acute Code(s): I42.9 - CARDIOMYOPATHY, UNSPECIFIED SNOMED Code(s): 69689288 (15) Hypertension Current Visit: No Status: Acute Code(s): I10 - ESSENTIAL (PRIMARY) HYPERTENSION SNOMED Code(s): 18351323 (16) Thrombocytopenia Current Visit: No Status: Acute Code(s): D69.6 - THROMBOCYTOPENIA, UNSPECIFIED SNOMED Code(s): 363368476 Plan: The patient was seen by Dr. Bethea. His chest x-ray and labs were reviewed. The patient continues to improve clinically. He denies any worsening shortness of breath at this time. Repeat dialysis today in progress. We'll continue with his current medications. We'll continue to follow. I, the cosigning physician, have performed a history and physical examination on the patient. Lung sounds with crackles in the bilateral posterior bases. Diminished.. Maintaining good O2 saturations in the 90s on 4 L/m per nasal cannula. I have discussed the assessment and plan of care with my nurse practitioner, Courtney Leslie. I attest the above documented note as dictated by her.
[2017-06-14] MEDS ORDERED: HEPARIN SODIUM,PORCINE 5,000 UNIT/ML 1 ML VIAL ONE (13:30)
[2017-06-14 15:55] LABS: Total Bilirubin 0.6 mg/dL (0.2-1.3); Total Protein 5.4 g/dL (6.3-8.2)
[2017-06-14 16:16] LABS: Aty Lym Flag Marked; CH 29.7; CHCM 30.2; HCT 22.2 % (39.0-53.0); HDW 2.79; Hypochromasia Marked; MCH 30.4 pg (25.0-35.0); MCHC 30.6 g/dL (31.0-37.0); Macrocytosis Slight; Mean Platelet Volume 10.2; RBC 2.24 m/uL (4.30-5.90); RDW 15.7 % (11.5-15.5); WBC (Perox) 49.09
[2017-06-14 16:28] LABS: HGB 6.8 gm/dL (13.0-17.5)
[2017-06-14 16:29] LABS: MCV 99.1 fL (80.0-100.0)
--- NOTE | 2017-06-14 16:38 | P.PN ---
Subjective Progress Note Date: 06/14/17 The patient started hemodialysis yesterday after catheter placement. He tolerated treatment yesterday, as well as today well subjectively. He is having some mild oozing at the site of the catheter. This was discussed with vascular surgery who did not note this to be concerning at this time. Objective - Vital Signs Vital signs: Vital Signs Temp 96.8 F L 06/14/17 15:00 Pulse 108 H 06/14/17 15:00 Resp 18 06/14/17 15:00 BP 126/72 06/14/17 15:00 Pulse Ox 99 06/14/17 15:00 Intake & Output 06/13/17 06/14/17 06/14/17 18:59 06:59 18:59 Intake Total 556 460 160 Output Total 700 Balance 556 -240 160 Weight 68.9 kg Intake: IV 217 160 160 Sodium Chloride 0.9% 500 100 160 160 ml @ 20 mls/hr IV .Q24H [facility] Rx#:[id number] Intake, IV Titration 50 Amount Piperacillin-Tazobactam 3 50 .375 gm In Dextrose/Water 1 50ml.bag @ 12.5 mls/hr IVPB Q12HR [facility] Rx#: [id number] Oral 300 Blood Product 289 Platelet Pheresis Acda2 289 Unit [id number] Output: Urine 700 Uretheral (Hazel) 700 Other: Voiding Method Indwelling Catheter Indwelling Catheter Indwelling Catheter - Constitutional General appearance: Present: no acute distress - EENT Eyes: Present: EOMI, PERRLA ENT: Present: hearing grossly normal, normal oropharynx - Respiratory Respiratory: bilateral: CTA - Cardiovascular Rhythm: irregularly irregular Heart sounds: normal: S1, S2 - Integumentary Integumentary: Present: normal - Neurologic Neurologic: Present: CNII-XII intact - Musculoskeletal Musculoskeletal: Present: generalized weakness, strength equal bilaterally - Psychiatric Psychiatric: Present: A&O x's 3, appropriate affect - Labs CBC & Chem 7: 06/14/17 06:53 06/14/17 06:53 Labs: Abnormal Lab Results - Last 24 Hours (Table) 06/14/17 06/14/17 06/14/17 Range/Units 06:53 06:53 06:53 WBC 52.9 H* (3.8-10.6) k/uL RBC 2.24 L (4.30-5.90) m/uL Hgb 6.8 L* (13.0-17.5) gm/dL Hct 22.2 L (39.0-53.0) % MCHC 30.6 L (31.0-37.0) g/dL RDW 15.7 H (11.5-15.5) % Plt Count 45 L* (150-450) k/uL BUN 40 H (9-20) mg/dL Creatinine 3.53 H (0.66-1.25) mg/dL Calcium 8.0 L (8.4-10.2) mg/dL AST 69 H (17-59) U/L Total Protein 5.4 L (6.3-8.2) g/dL Albumin 3.0 L (3.5-5.0) g/dL Vitamin D 25-Hydroxy 6.9 L (30.0-100.0) ng/mL Assessment and Plan (1) Plasma cell leukemia Narrative/Plan: The patient continues on salvage treatment with the CyBOR-D regimen. Overall W BC count has diminished with some fluctuation. After completion of cycle 1, restaging protein electrophoresis studies will be ordered. Continue to monitor with clinical exams and labs. Current Visit: Yes Status: Chronic Code(s): C90.10 - PLASMA CELL LEUKEMIA NOT HAVING ACHIEVED REMISSION SNOMED Code(s): 35170371 (2) Spontaneous tumor lysis syndrome Narrative/Plan: Aggressive treatment, the patient developed progressive renal insufficiency and signs of anemia. He has therefore been placed on hemodialysis. Continue dialysis per nephrology. It was discussed with the patient, that there is a possibility of recovery of renal function down the line, if he is able to achieve remission Current Visit: Yes Status: Acute Priority: High Code(s): E88.3 - TUMOR LYSIS SYNDROME SNOMED Code(s): 002305868 (3) Bicytopenia Narrative/Plan: Platelet counts are currently satisfactory at 45. He did receive platelet transfusions initially for hematuria, and then subsequently for his catheter placement. He is not having any significant bleeding at this time. If he does a lot of bowling around the catheter site or any other sites of bleeding, repeat platelet transfusion would be considered. Hemoglobin is less than 7 today. Therefore an additional 1 unit of PRBCs will be ordered. Current Visit: Yes Status: Acute Priority: High Code(s): D75.89 - OTHER SPECIFIED DISEASES OF BLOOD AND BLOOD-FORMING ORGANS SNOMED Code(s): 693074470 (4) Atrial fibrillation with RVR Current Visit: Yes Status: Chronic Code(s): I48.91 - UNSPECIFIED ATRIAL FIBRILLATION SNOMED Code(s): 415469082676279
[2017-06-14 17:01] LABS: Add Differential Manual Differential
[2017-06-14 17:10] LABS: Band Neutrophils % 3 %; Myelocytes % 6 %; Nucleated Red Blood Cells 5 /100 WBC (0-0); Total Cells Counted 100
[2017-06-14 17:11] LABS: Manual Review Performed; WBC 50.4 k/uL (3.8-10.6)
[2017-06-14 17:12] LABS: Ovalocytes Present
[2017-06-14] MEDS ORDERED: DEXAMETHASONE 4 MG TAB PO ONE (20:00)
[2017-06-14] MEDS ORDERED: ERGOCALCIFEROL 50,000 UNIT CAP PO SCH (21:00)
[2017-06-14] MEDS ORDERED: BORTEZOMIB 3.5 MG VIAL SQ ONE (21:00)
--- NOTE | 2017-06-14 21:02 | PN ---
PROGRESS NOTE Patient is seen for followup for acute kidney injury secondary to tumor lysis syndrome and multiple myeloma. He was started on dialysis 2 days ago. He tolerated his treatment very well for the last 2 days. He states he is feeling better. He continues to have good urine output. The patient's appetite has improved. EXAMINATION: Blood pressure is 126/72, heart rate 108 per minute. He is afebrile. HEART: S1, S2. LUNGS: Bilateral breath sounds are heard. ABDOMEN: Soft, nontender. Lower extremities showed no evidence of edema. Patient has a right femoral dialysis catheter. WEAVE DEFECT CHARTING CLERK: Grossly intact. LABS: Showsodium 139, potassium 5.0, serum creatinine 3.53, BUN of 40. Hemoglobin at 6.8 g/dL, platelet count 45,000, white cell count 50.4. ASSESSMENT: 1. Acute kidney injury secondary to tumor lysis syndrome and multiple myeloma, currently nonoliguric with good urine output. Patient was started on dialysis secondary to nausea and decreased appetite and overall feeling significantly unwell along with worsening renal failure. His appetite has improved. I will dialyze him again tomorrow and then we will hold off to assess for any signs of renal recovery. He has good urine output, which is promising. 2. Multiple myeloma status post chemotherapy/plasma cell leukemia. White count was decreasing. It is currently back up to 50.4. Hemoglobin has dropped today, but platelets are up to 45,000. 3. Hyperphosphatemia secondary to renal failure and previously also from tumor lysis syndrome. 4. Hypocalcemia associated with severe nutritional vitamin D deficiency. Will start supplementation. PLAN: Repeat hemodialysis tomorrow. Will most likely hold off on Saturday. Continue to monitor urine output. Start aggressive vitamin D supplementation and continue to avoid nephrotoxic agents. Avoid hypotension. MMODL / IJN: [id number] /
[2017-06-14] MEDS: METOPROLOL TARTRATE 50 MG TAB PO SCH (21:47)
[2017-06-14] MEDS: SODIUM CHLORIDE 0.9% 500 ML IV SCH (21:51)
[2017-06-15] MEDS: SALT AND SODA MOUTHWASH 1,000 ML PO SCH ×7 (03:04→22:53)
[2017-06-15] MEDS: HYDROmorphone 4 MG/ML 1 ML SYRINGE IVP PRN ×4 (04:38→20:04)
[2017-06-15] MEDS: IPRATROPIUM-ALBUTEROL 3 ML NEB INHALATION SCH ×3 (07:12→20:06)
[2017-06-15 07:46] LABS: Anisocytosis Slight; CH 28.6; CHCM 31.7; HCT 25.1 % (39.0-53.0); MCH 30.2 pg (25.0-35.0); MCHC 33.2 g/dL (31.0-37.0); Mean Platelet Volume 9.4; RBC 2.76 m/uL (4.30-5.90); RDW 17.3 % (11.5-15.5); WBC (Perox) 49.44
[2017-06-15 07:57] LABS: Calcium 8.4 mg/dL (8.4-10.2); Potassium 3.5 mmol/L (3.5-5.1)
[2017-06-15 08:06] LABS: HGB 8.3 gm/dL (13.0-17.5)
[2017-06-15] MEDS: PIPERACILLIN-TAZOBACTAM 3.375 GM in DEXTROSE/WATER 1 50ML.BAG IVPB SCH ×2 (08:32→20:52)
[2017-06-15] MEDS: METOCLOPRAMIDE 5 MG TAB PO SCH ×4 (08:35→20:07)
[2017-06-15] MEDS: SODIUM BICARBONATE TAB 650 MG TAB PO SCH ×2 (08:35→20:07)
[2017-06-15] MEDS: AMIODARONE 200 MG TAB PO SCH ×3 (08:35→20:52)
[2017-06-15] MEDS: PANTOPRAZOLE 40 MG TABLET PO SCH (08:35)
[2017-06-15] MEDS: CALCIUM ACETATE 667 MG CAP PO SCH ×3 (08:35→18:47)
[2017-06-15] MEDS: ALLOPURINOL 100 MG TAB PO SCH (08:36)
[2017-06-15 09:11] LABS: Add Differential Manual Differential
[2017-06-15 09:15] LABS: Band Neutrophils % 1 %; Metamyelocytes % 1 %; Nucleated Red Blood Cells 3 /100 WBC (0-0); Total Cells Counted 200
[2017-06-15 09:16] LABS: WBC 47.3 k/uL (3.8-10.6)
[2017-06-15 09:17] LABS: Manual Review Performed
--- NOTE | 2017-06-15 11:21 | P.PN ---
Subjective Progress Note Date: 06/15/17 The patient feels about the same clinically. He feels somewhat more tired today is slightly more nauseous. However he has not had any overt vomiting. He feels appetite is diminished today compared to yesterday. He has been confined to bed, because of the right groin dialysis catheter. No further bleeding noted in the Hazel. Objective - Vital Signs Vital signs: Vital Signs Temp 97.9 F 06/15/17 07:00 Pulse 78 06/15/17 08:00 Resp 20 06/15/17 08:00 BP 104/63 06/15/17 07:00 Pulse Ox 96 06/15/17 07:12 Intake & Output 06/14/17 06/15/17 06/15/17 18:59 06:59 18:59 Intake Total 160 670 Output Total 600 300 Balance -440 370 Intake: IV 160 240 Sodium Chloride 0.9% 500 160 240 ml @ 20 mls/hr IV .Q24H [facility] Rx#:[id number] Oral 120 Blood Product 310 Rc Irr As1 Unit 310 [id number] Output: Urine 600 300 Uretheral (Hazel) 300 Other: Voiding Method Indwelling Catheter Indwelling Catheter Indwelling Catheter - Constitutional General appearance: Present: no acute distress - EENT Eyes: Present: EOMI, PERRLA ENT: Present: hearing grossly normal, normal oropharynx - Respiratory Respiratory: bilateral: CTA - Cardiovascular Rhythm: regular Heart sounds: normal: S1, S2 - Gastrointestinal General gastrointestinal: Present: normal bowel sounds, soft - Integumentary Integumentary: Present: normal - Neurologic Neurologic: Present: CNII-XII intact - Musculoskeletal Musculoskeletal: Present: generalized weakness - Psychiatric Psychiatric: Present: A&O x's 3, appropriate affect - Labs CBC & Chem 7: 06/15/17 06:48 06/15/17 06:48 Labs: Abnormal Lab Results - Last 24 Hours (Table) 06/12/17 06/14/17 06/14/17 Range/Units 13:47 06:53 06:53 WBC 50.4 H* (3.8-10.6) k/uL RBC 2.24 L (4.30-5.90) m/uL Hgb 6.8 L* (13.0-17.5) gm/dL Hct 22.2 L (39.0-53.0) % MCHC 30.6 L (31.0-37.0) g/dL RDW 15.7 H (11.5-15.5) % Plt Count 45 L* (150-450) k/uL Lymphocytes # (Manual) 44.35 H (1.0-4.8) k/uL Metamyelocytes # (Man) (0) k/uL Myelocytes # (Manual) 3.02 H (0) k/uL Nucleated RBCs 5 H (0-0) /100 WBC BUN (9-20) mg/dL Creatinine (0.66-1.25) mg/dL Calcium (8.4-10.2) mg/dL AST (17-59) U/L Total Protein (6.3-8.2) g/dL Albumin (3.5-5.0) g/dL Vitamin D 25-Hydroxy 6.9 L (30.0-100.0) ng/mL Crossmatch See Detail 06/14/17 06/15/17 06/15/17 Range/Units 06:53 06:48 06:48 WBC 47.3 H* (3.8-10.6) k/uL RBC 2.76 L (4.30-5.90) m/uL Hgb 8.3 L D (13.0-17.5) gm/dL Hct 25.1 L (39.0-53.0) % MCHC (31.0-37.0) g/dL RDW 17.3 H (11.5-15.5) % Plt Count 33 L* (150-450) k/uL Lymphocytes # (Manual) (1.0-4.8) k/uL Metamyelocytes # (Man) 0.47 H (0) k/uL Myelocytes # (Manual) (0) k/uL Nucleated RBCs 3 H (0-0) /100 WBC BUN 40 H 31 H (9-20) mg/dL Creatinine 3.53 H 3.15 H (0.66-1.25) mg/dL Calcium 8.0 L (8.4-10.2) mg/dL AST 69 H (17-59) U/L Total Protein 5.4 L (6.3-8.2) g/dL Albumin 3.0 L (3.5-5.0) g/dL Vitamin D 25-Hydroxy (30.0-100.0) ng/mL Crossmatch Assessment and Plan (1) Plasma cell leukemia Narrative/Plan: The patient is continuing on cycle 1 of chemotherapy. Tolerated treatment itself subjectively well. Appears to be showing a response in terms of his white cells. Protein electrophoresis studies will be repeated next week. Current Visit: Yes Status: Chronic Code(s): C90.10 - PLASMA CELL LEUKEMIA NOT HAVING ACHIEVED REMISSION SNOMED Code(s): 71589709 (2) Spontaneous tumor lysis syndrome Narrative/Plan: The patient is currently on dialysis which he has tolerated well so far. Creatinine, potassium and folate was 7 improved. Current Visit: Yes Status: Acute Priority: High Code(s): E88.3 - TUMOR LYSIS SYNDROME SNOMED Code(s): 388758097 (3) Bicytopenia Narrative/Plan: Given and platelets are in a safe range. Continue to monitor transfusion as needed Current Visit: Yes Status: Acute Priority: High Code(s): D75.89 - OTHER SPECIFIED DISEASES OF BLOOD AND BLOOD-FORMING ORGANS SNOMED Code(s): 198561286 (4) Atrial fibrillation with RVR Current Visit: Yes Status: Chronic Code(s): I48.91 - UNSPECIFIED ATRIAL FIBRILLATION SNOMED Code(s): 721734349881764
--- NOTE | 2017-06-15 11:36 | P.PN ---
Subjective Patient is no overnight events is clinically fairly stable patient does have multiple myeloma multiple other medical issues at this time patient had atrial fibrillation rate controlled presently patient was initiated on hemodialysis fairly stable electrolytes patient is on full response and we'll cut down the oxygen will monitor him. Constitutional: Patient does have generalized fatigue no fever. Cardio vascular: denied any chest pain, palpitations Gastrointestinal denied any nausea vomiting Pulmonary: Denied any shortness of breath cough Neurologic denied any new focal deficits Objective - Vital Signs Vital signs: Vital Signs Temp 97.9 F 06/15/17 07:00 Pulse 78 06/15/17 08:00 Resp 20 06/15/17 08:00 BP 104/63 06/15/17 07:00 Pulse Ox 96 06/15/17 07:12 Intake & Output 06/14/17 06/15/17 06/15/17 18:59 06:59 18:59 Intake Total 160 670 Output Total 600 300 Balance -440 370 Intake: IV 160 240 Sodium Chloride 0.9% 500 160 240 ml @ 20 mls/hr IV .Q24H [facility] Rx#:[id number] Oral 120 Blood Product 310 Rc Irr As1 Unit 310 [id number] Output: Urine 600 300 Uretheral (Hazel) 300 Other: Voiding Method Indwelling Catheter Indwelling Catheter Indwelling Catheter - Exam PHYSICAL EXAMINATION: GENERAL: The patient is alert and oriented x3, not in any acute distress. Generalized weakness malnourished. HEENT: Pupils are round and equally reacting to light. EOMI. No scleral icterus. No conjunctival pallor. Normocephalic, atraumatic. No pharyngeal erythema. No thyromegaly. CARDIOVASCULAR: S1 and S2 present. No murmurs, rubs, or gallops. PULMONARY: Chest is clear to auscultation, no wheezing or crackles. ABDOMEN: Soft, nontender, nondistended, normoactive bowel sounds. No palpable organomegaly. MUSCULOSKELETAL: No joint swelling or deformity. EXTREMITIES: No cyanosis, clubbing, or pedal edema. NEUROLOGICAL: Gross neurological examination did not reveal any focal deficits. SKIN: No rashes. - Labs CBC & Chem 7: 06/15/17 06:48 06/15/17 06:48 Labs: Abnormal Lab Results - Last 24 Hours (Table) 06/12/17 06/14/17 06/14/17 Range/Units 13:47 06:53 06:53 WBC 50.4 H* (3.8-10.6) k/uL RBC 2.24 L (4.30-5.90) m/uL Hgb 6.8 L* (13.0-17.5) gm/dL Hct 22.2 L (39.0-53.0) % MCHC 30.6 L (31.0-37.0) g/dL RDW 15.7 H (11.5-15.5) % Plt Count 45 L* (150-450) k/uL Lymphocytes # (Manual) 44.35 H (1.0-4.8) k/uL Metamyelocytes # (Man) (0) k/uL Myelocytes # (Manual) 3.02 H (0) k/uL Nucleated RBCs 5 H (0-0) /100 WBC BUN (9-20) mg/dL Creatinine (0.66-1.25) mg/dL Calcium (8.4-10.2) mg/dL AST (17-59) U/L Total Protein (6.3-8.2) g/dL Albumin (3.5-5.0) g/dL Vitamin D 25-Hydroxy 6.9 L (30.0-100.0) ng/mL Crossmatch See Detail 06/14/17 06/15/17 06/15/17 Range/Units 06:53 06:48 06:48 WBC 47.3 H* (3.8-10.6) k/uL RBC 2.76 L (4.30-5.90) m/uL Hgb 8.3 L D (13.0-17.5) gm/dL Hct 25.1 L (39.0-53.0) % MCHC (31.0-37.0) g/dL RDW 17.3 H (11.5-15.5) % Plt Count 33 L* (150-450) k/uL Lymphocytes # (Manual) (1.0-4.8) k/uL Metamyelocytes # (Man) 0.47 H (0) k/uL Myelocytes # (Manual) (0) k/uL Nucleated RBCs 3 H (0-0) /100 WBC BUN 40 H 31 H (9-20) mg/dL Creatinine 3.53 H 3.15 H (0.66-1.25) mg/dL Calcium 8.0 L (8.4-10.2) mg/dL AST 69 H (17-59) U/L Total Protein 5.4 L (6.3-8.2) g/dL Albumin 3.0 L (3.5-5.0) g/dL Vitamin D 25-Hydroxy (30.0-100.0) ng/mL Crossmatch Assessment and Plan Plan: End-stage renal disease: Initiated on hemanalysis. #2 Plasma cell leukemia 3 atrial correlation presently rate controlled continue with present medications. 4 metabolic encephalopathy which resolved #5 can start failure chronic systolic dysfunction with acute exacerbation on admission fairly euvolemic now. Next Continue with present medications patient on antibiotics unsure why if not needed will discontinue those antibiotics patient is presently on Zosyn at this time.
--- NOTE | 2017-06-15 12:11 | P.PN ---
Subjective Progress Note Date: 06/15/17 Principal diagnosis: This 61-year-old male is followed up with tumor lysis syndrome, multiple myeloma with plasma cell leukemia. He was started on dialysis and has been dialyzed twice with the Camron in his right groin. Patient continues to have weakness tiredness and poor appetite with some nausea with minimal vomitus. No abdominal pain fever chills dizziness shortness of breath cough. His vital signs are significant for slightly low blood pressure 104/63. His 24- hour urine output is documented at 900 mL up from 700 mL. Objective - Vital Signs Vital signs: Vital Signs Temp 97.9 F 06/15/17 07:00 Pulse 78 06/15/17 08:00 Resp 20 06/15/17 08:00 BP 104/63 06/15/17 07:00 Pulse Ox 96 06/15/17 07:12 Intake & Output 06/14/17 06/15/17 06/15/17 18:59 06:59 18:59 Intake Total 160 670 Output Total 600 300 Balance -440 370 Intake: IV 160 240 Sodium Chloride 0.9% 500 160 240 ml @ 20 mls/hr IV .Q24H [facility] Rx#:[id number] Oral 120 Blood Product 310 Rc Irr As1 Unit 310 [id number] Output: Urine 600 300 Uretheral (Hazel) 300 Other: Voiding Method Indwelling Catheter Indwelling Catheter Indwelling Catheter On examination is awake alert oriented comfortable HEENT exam no JVP lymphadenopathy neck is supple no facial asymmetry Heart sounds are unremarkable for any murmur rub gallop Abdomen soft nontender no organomegaly status masses Lungs clear to auscultation percussion good air entry bilaterally Extremity exam was no edema Neurologically awake alert oriented. No focal motor Deficit - Labs CBC & Chem 7: 06/15/17 06:48 06/15/17 06:48 Labs: Abnormal Lab Results - Last 24 Hours (Table) 06/12/17 06/14/17 06/14/17 Range/Units 13:47 06:53 06:53 WBC 50.4 H* (3.8-10.6) k/uL RBC 2.24 L (4.30-5.90) m/uL Hgb 6.8 L* (13.0-17.5) gm/dL Hct 22.2 L (39.0-53.0) % MCHC 30.6 L (31.0-37.0) g/dL RDW 15.7 H (11.5-15.5) % Plt Count 45 L* (150-450) k/uL Lymphocytes # (Manual) 44.35 H (1.0-4.8) k/uL Metamyelocytes # (Man) (0) k/uL Myelocytes # (Manual) 3.02 H (0) k/uL Nucleated RBCs 5 H (0-0) /100 WBC BUN (9-20) mg/dL Creatinine (0.66-1.25) mg/dL Calcium (8.4-10.2) mg/dL AST (17-59) U/L Total Protein (6.3-8.2) g/dL Albumin (3.5-5.0) g/dL Vitamin D 25-Hydroxy 6.9 L (30.0-100.0) ng/mL Crossmatch See Detail 06/14/17 06/15/17 06/15/17 Range/Units 06:53 06:48 06:48 WBC 47.3 H* (3.8-10.6) k/uL RBC 2.76 L (4.30-5.90) m/uL Hgb 8.3 L D (13.0-17.5) gm/dL Hct 25.1 L (39.0-53.0) % MCHC (31.0-37.0) g/dL RDW 17.3 H (11.5-15.5) % Plt Count 33 L* (150-450) k/uL Lymphocytes # (Manual) (1.0-4.8) k/uL Metamyelocytes # (Man) 0.47 H (0) k/uL Myelocytes # (Manual) (0) k/uL Nucleated RBCs 3 H (0-0) /100 WBC BUN 40 H 31 H (9-20) mg/dL Creatinine 3.53 H 3.15 H (0.66-1.25) mg/dL Calcium 8.0 L (8.4-10.2) mg/dL AST 69 H (17-59) U/L Total Protein 5.4 L (6.3-8.2) g/dL Albumin 3.0 L (3.5-5.0) g/dL Vitamin D 25-Hydroxy (30.0-100.0) ng/mL Crossmatch Assessment and Plan Assessment: Impression 1. Acute kidney injury secondary to combination of ATN from hemodynamic instability as well as an additional factor of tumor lysis syndrome with high uric acid. Currently on dialysis has been dialyzed twice yesterday and day before yesterday and schedule for dialysis today. 2. Mildly low blood pressure. 3. Multiple myeloma with plasma cell leukemia. White count is 47,300 down from 50,400 yesterday. Platelet count is low at 33,000 and hemoglobin is 8.3 was 6.8 yesterday. Recommendation. 1. Discontinue the Hazel catheter. Maintain strict I's and O's. 2. Redo sodium bicarb from 1300 mg twice a day to 650 twice a day. 3. He was on metoprolol for his atrial fibrillation will watch his blood pressure.
--- NOTE | 2017-06-15 13:29 | P.PN ---
Subjective Progress Note Date: 06/14/17 Progress note being dictated for Dr. Campos. Interval history: This is 61-year-old gentleman with bicytopenia multiple myeloma, bladder cancer and multiple other medical issues admitted with acute pulmonary edema, end-stage renal disease, plasma cell leukemia, spontaneous tumor lysis syndrome. Temporary right groin hemodialysis catheter placed and patient received first hemodialysis treatment yesterday. During hemodialysis treatment developed proximal atrial fibrillation with RVR. Currently sinus rhythm. Receiving second hemodialysis treatment today. Nausea improving. Denies chest pain, palpitations or increasing shortness of breath. Afebrile, urine and blood cultures currently area and maintained on Zosyn. Chest x-ray reporting frequent significant improvement. Maintaining O2 sats in the high 90s on 4 L nasal cannula. Objective - Vital Signs Vital signs: Vital Signs Temp 97.6 F 06/14/17 21:41 Pulse 135 H 06/14/17 21:41 Resp 15 06/14/17 21:41 BP 110/77 06/14/17 21:41 Pulse Ox 99 06/14/17 21:41 Intake & Output 06/14/17 06/14/17 06/15/17 06:59 18:59 06:59 Intake Total 460 160 Output Total 700 600 Balance -240 -440 Intake: IV 160 160 Sodium Chloride 0.9% 500 160 160 ml @ 20 mls/hr IV .Q24H [facility] Rx#:[id number] Oral 300 Output: Urine 700 600 Uretheral (Hazel) 700 Other: Voiding Method Indwelling Catheter Indwelling Catheter - Exam GENERAL: The patient is alert and oriented x3, not in any acute distress. Generalized weakness malnourished. HEENT: Pupils are round and equally reacting to light. EOMI. No scleral icterus. No conjunctival pallor. Normocephalic, atraumatic. No pharyngeal erythema. No thyromegaly. CARDIOVASCULAR: S1 and S2 present. Tachycardic, No murmurs, rubs, or gallops. PULMONARY: occasional scattered rhonchi, Fine bibasilar crackles,no wheezing ABDOMEN: Soft, nontender, nondistended, normoactive bowel sounds. No palpable organomegaly. MUSCULOSKELETAL: No joint swelling or deformity. EXTREMITIES: No cyanosis, clubbing, or pedal edema. NEUROLOGICAL: Gross neurological examination did not reveal any focal deficits. SKIN: No rashes. - Labs CBC & Chem 7: 06/15/17 06:48 06/15/17 06:48 Labs: Abnormal Lab Results - Last 24 Hours (Table) 06/12/17 06/14/17 06/14/17 Range/Units 13:47 06:53 06:53 WBC 50.4 H* (3.8-10.6) k/uL RBC 2.24 L (4.30-5.90) m/uL Hgb 6.8 L* (13.0-17.5) gm/dL Hct 22.2 L (39.0-53.0) % MCHC 30.6 L (31.0-37.0) g/dL RDW 15.7 H (11.5-15.5) % Plt Count 45 L* (150-450) k/uL Lymphocytes # (Manual) 44.35 H (1.0-4.8) k/uL Myelocytes # (Manual) 3.02 H (0) k/uL Nucleated RBCs 5 H (0-0) /100 WBC BUN (9-20) mg/dL Creatinine (0.66-1.25) mg/dL Calcium (8.4-10.2) mg/dL AST (17-59) U/L Total Protein (6.3-8.2) g/dL Albumin (3.5-5.0) g/dL Vitamin D 25-Hydroxy 6.9 L (30.0-100.0) ng/mL Crossmatch See Detail 06/14/17 Range/Units 06:53 WBC (3.8-10.6) k/uL RBC (4.30-5.90) m/uL Hgb (13.0-17.5) gm/dL Hct (39.0-53.0) % MCHC (31.0-37.0) g/dL RDW (11.5-15.5) % Plt Count (150-450) k/uL Lymphocytes # (Manual) (1.0-4.8) k/uL Myelocytes # (Manual) (0) k/uL Nucleated RBCs (0-0) /100 WBC BUN 40 H (9-20) mg/dL Creatinine 3.53 H (0.66-1.25) mg/dL Calcium 8.0 L (8.4-10.2) mg/dL AST 69 H (17-59) U/L Total Protein 5.4 L (6.3-8.2) g/dL Albumin 3.0 L (3.5-5.0) g/dL Vitamin D 25-Hydroxy (30.0-100.0) ng/mL Crossmatch Assessment and Plan Assessment: #1 End-stage renal disease: Initiated on hemanalysis. #2 Plasma cell leukemia 3 atrial fibrillation, paroxysmal, currently sinus rhythm 4 metabolic encephalopathy which resolved #5 acute pulmonary edema secondary to chronic systolic dysfunction with acute exacerbation Plan: Continue on current medication regime ,monitoring. Hemodialysis as per nephrology. Currently difficult for patient to increase activity as he has a groin dialysis catheter. Aggressive pulmonary toileting. The impression and plan of care has been dictated as directed. : I performed a history and examination of this patient, discussed the same with the dictator. I agree with the dictator's note ,documented as a scribe. Any additional findings or plans will be noted.
[2017-06-15] MEDS: CYANOCOBALAMIN 500 MCG TAB PO SCH (16:11)
[2017-06-15] MEDS ORDERED: DEXAMETHASONE 4 MG TAB PO ONE (20:00)
[2017-06-15] MEDS: SODIUM CHLORIDE 0.9% 500 ML IV SCH (20:09)
[2017-06-15] MEDS: METOPROLOL TARTRATE 50 MG TAB PO SCH (20:52)
[2017-06-16] MEDS: SALT AND SODA MOUTHWASH 1,000 ML PO SCH ×5 (04:47→20:35)
[2017-06-16] MEDS: HYDROmorphone 4 MG/ML 1 ML SYRINGE IVP PRN ×5 (05:10→20:10)
[2017-06-16 06:13] LABS: Anisocytosis Slight; CH 29.5; CHCM 32.9; HCT 22.4 % (39.0-53.0); HDW 3.18; HGB 7.4 gm/dL (13.0-17.5); MCH 29.7 pg (25.0-35.0); MCHC 32.9 g/dL (31.0-37.0); MCV 90.3 fL (80.0-100.0); Mean Platelet Volume 9.1; RBC 2.48 m/uL (4.30-5.90); RDW 16.3 % (11.5-15.5); WBC (Perox) 46.44
[2017-06-16 06:14] LABS: Calcium 8.1 mg/dL (8.4-10.2); Potassium 3.7 mmol/L (3.5-5.1)
[2017-06-16 07:00] LABS: Add Differential Manual Differential
[2017-06-16 07:06] LABS: Band Neutrophils % 1 %; Myelocytes % 1 %; Nucleated Red Blood Cells 2 /100 WBC (0-0); Total Cells Counted 200
[2017-06-16 07:07] LABS: Manual Review Performed; WBC 46.5 k/uL (3.8-10.6)
[2017-06-16] MEDS: PANTOPRAZOLE 40 MG TABLET PO SCH (08:01)
[2017-06-16] MEDS: CALCIUM ACETATE 667 MG CAP PO SCH ×3 (08:01→18:05)
[2017-06-16] MEDS: PIPERACILLIN-TAZOBACTAM 3.375 GM in DEXTROSE/WATER 1 50ML.BAG IVPB SCH (08:01)
[2017-06-16] MEDS: AMIODARONE 200 MG TAB PO SCH ×3 (08:01→21:35)
[2017-06-16] MEDS: IPRATROPIUM-ALBUTEROL 3 ML NEB INHALATION SCH ×3 (08:17→21:10)
--- NOTE | 2017-06-16 11:05 | P.PN ---
Subjective Progress Note Date: 06/16/17 Principal diagnosis: This 61-year-old male is followed up with tumor lysis syndrome, multiple myeloma with plasma cell leukemia. He was started on dialysis and has been dialyzed thrice with the Camron in his right groin. Yesterday his dialysis a 500 mL ultrafiltration was targeted without any complication but patient did feel tired during dialysis. Just before dialysis his heart rate went up and he was in atrial fibrillation. This is borne out by the monitor rhythm strips in the chart. This morning is back in normal sinus rhythm clinically. Patient continues to have weakness tiredness and poor appetite with some nausea with minimal vomitus. He is also coughing up some bloody sputum. His platelet count is very low. No abdominal pain fever chills dizziness. His vital signs are significant for slightly low blood pressure 112/57. His 24- hour urine output is documented at 900 mL yesterday and 7 and 75 mL today. Objective - Vital Signs Vital signs: Vital Signs Temp 99.2 F 06/15/17 23:00 Pulse 100 06/16/17 08:28 Resp 18 06/16/17 07:00 BP 112/57 06/16/17 07:00 Pulse Ox 98 06/16/17 07:00 Intake & Output 06/15/17 06/16/17 06/16/17 18:59 06:59 18:59 Intake Total 140 120 Output Total 775 Balance -635 120 Intake: IV 140 120 Sodium Chloride 0.9% 500 140 40 ml @ 20 mls/hr IV .Q24H [facility] Rx#:[id number] ns@10cc 80 Output: Urine 775 Uretheral (Hazel) 775 Other: Voiding Method Indwelling Catheter On examination is awake alert oriented comfortable on nasal cannula. HEENT exam no JVP neck is supple no facial asymmetry Lungs are clear to auscultation with good air entry bilaterally Heart sounds are unremarkable for any murmur rub gallop currently in normal sinus rhythm. Abdomen is soft nontender no masses felt Extremity exam reveals no edema The right groin where his Camron catheter has a dressing with some dried up blood. Is clearly awake alert oriented but generalized weakness. - Labs CBC & Chem 7: 06/16/17 05:35 06/16/17 05:35 Labs: Abnormal Lab Results - Last 24 Hours (Table) 12/10/17 12/10/17 Range/Units 05:35 05:35 WBC 46.5 H* (3.8-10.6) k/uL RBC 2.48 L (4.30-5.90) m/uL Hgb 7.4 L (13.0-17.5) gm/dL Hct 22.4 L (39.0-53.0) % RDW 16.3 H (11.5-15.5) % Plt Count 21 L* (150-450) k/uL Lymphocytes # (Manual) 43.71 H (1.0-4.8) k/uL Myelocytes # (Manual) 0.47 H (0) k/uL Nucleated RBCs 2 H (0-0) /100 WBC Sodium 135 L (137-145) mmol/L BUN 23 H (9-20) mg/dL Creatinine 2.93 H (0.66-1.25) mg/dL Glucose 112 H (74-99) mg/dL Calcium 8.1 L (8.4-10.2) mg/dL Assessment and Plan Assessment: Impression 1. Acute kidney injury secondary to combination of ATN from hemodynamic instability as well as an additional factor of tumor lysis syndrome with high uric acid. Currently on dialysis has been dialyzed 3 days in a row on Saturday and Saturday yesterday. He is somewhat symptomatic on the dialysis although his vital signs were blood pressure was maintained in the 110 to 1:30 range and heart rate was in the 100 2 to 119 range. 2. Mildly low blood pressure. 3. Multiple myeloma with plasma cell leukemia. White count is slowly improving , today it is 46,500, down from 47,300 down from 50,400 daily for yesterday. Platelet count is low at 21,000 down from 33,000 and hemoglobin is 7.4 down from 8.3 was 6.8 day before yesterday. 4. Mild degree of metabolic acidosis improved. Bicarb is 27, on sodium bicarb on reduced dose 6 and 50 twice a day Recommendation. 1. Maintain strict I's and O's. 2. Maintain sodium bicarb f 650 twice a day. 3. He was on metoprolol for his atrial fibrillation will watch his blood pressure. 4. Will hold off his dialysis today and be considered dialysis tomorrow based on urine output and labs. 5. He is complaining of chest discomfort, his been seen by cardiology recently on this admission.
[2017-06-16] MEDS: METOCLOPRAMIDE 5 MG TAB PO SCH ×4 (12:05→20:34)
[2017-06-16] MEDS: CYANOCOBALAMIN 500 MCG TAB PO SCH (13:09)
[2017-06-16] MEDS: SODIUM BICARBONATE TAB 650 MG TAB PO SCH ×2 (13:09→20:34)
--- NOTE | 2017-06-16 13:35 | P.PN ---
Subjective Patient is no overnight events is clinically fairly stable patient does have multiple myeloma multiple other medical issues at this time patient had atrial fibrillation rate controlled presently patient was initiated on hemodialysis fairly stable electrolytes patient is on full response and we'll cut down the oxygen will monitor him. 06/16/2017 Remains quite weak no overnight events. Constitutional: Patient does have generalized fatigue no fever. Cardio vascular: denied any chest pain, palpitations Gastrointestinal denied any nausea vomiting Pulmonary: Denied any shortness of breath cough Neurologic denied any new focal deficits Objective - Vital Signs Vital signs: Vital Signs Temp 99.2 F 06/15/17 23:00 Pulse 76 06/16/17 13:00 Resp 18 06/16/17 07:00 BP 112/57 06/16/17 07:00 Pulse Ox 98 06/16/17 07:00 Intake & Output 06/15/17 06/16/17 06/16/17 18:59 06:59 18:59 Intake Total 140 120 Output Total 775 Balance -635 120 Intake: IV 140 120 Sodium Chloride 0.9% 500 140 40 ml @ 20 mls/hr IV .Q24H [facility] Rx#:[id number] ns@10cc 80 Output: Urine 775 Uretheral (Hazel) 775 Other: Voiding Method Indwelling Catheter - Exam PHYSICAL EXAMINATION: GENERAL: The patient is alert and oriented x3, not in any acute distress. Generalized weakness malnourished. HEENT: Pupils are round and equally reacting to light. EOMI. No scleral icterus. No conjunctival pallor. Normocephalic, atraumatic. No pharyngeal erythema. No thyromegaly. CARDIOVASCULAR: S1 and S2 present. No murmurs, rubs, or gallops. PULMONARY: Chest is clear to auscultation, no wheezing or crackles. ABDOMEN: Soft, nontender, nondistended, normoactive bowel sounds. No palpable organomegaly. MUSCULOSKELETAL: No joint swelling or deformity. EXTREMITIES: No cyanosis, clubbing, or pedal edema. NEUROLOGICAL: Gross neurological examination did not reveal any focal deficits. SKIN: No rashes. - Labs CBC & Chem 7: 06/16/17 05:35 06/16/17 05:35 Labs: Abnormal Lab Results - Last 24 Hours (Table) 06/16/17 06/16/17 Range/Units 05:35 05:35 WBC 46.5 H* (3.8-10.6) k/uL RBC 2.48 L (4.30-5.90) m/uL Hgb 7.4 L (13.0-17.5) gm/dL Hct 22.4 L (39.0-53.0) % RDW 16.3 H (11.5-15.5) % Plt Count 21 L* (150-450) k/uL Lymphocytes # (Manual) 43.71 H (1.0-4.8) k/uL Myelocytes # (Manual) 0.47 H (0) k/uL Nucleated RBCs 2 H (0-0) /100 WBC Sodium 135 L (137-145) mmol/L BUN 23 H (9-20) mg/dL Creatinine 2.93 H (0.66-1.25) mg/dL Glucose 112 H (74-99) mg/dL Calcium 8.1 L (8.4-10.2) mg/dL Assessment and Plan Plan: End-stage renal disease: Initiated on hemodialysis #2 Plasma cell leukemia 3 atrial correlation presently rate controlled continue with present medications. 4 metabolic encephalopathy which resolved #5 can start failure chronic systolic dysfunction with acute exacerbation on admission fairly euvolemic now. #6 severe thrombocytopenia and pancytopenia from cancer and chemotherapy, no acute bleed. Zosyn will be discontinued as I didn't see any infection at this time
[2017-06-16] MEDS: ALLOPURINOL 100 MG TAB PO SCH (14:49)
[2017-06-16] MEDS: METOPROLOL TARTRATE 50 MG TAB PO SCH (20:34)
[2017-06-16] MEDS: SODIUM CHLORIDE 0.9% 500 ML IV SCH (20:35)
[2017-06-17] MEDS: SALT AND SODA MOUTHWASH 1,000 ML PO SCH ×7 (00:21→22:49)
[2017-06-17] MEDS: HYDROmorphone 4 MG/ML 1 ML SYRINGE IVP PRN ×5 (01:10→21:06)
[2017-06-17] MEDS: METOCLOPRAMIDE 5 MG TAB PO SCH ×4 (07:49→21:08)
[2017-06-17] MEDS: CALCIUM ACETATE 667 MG CAP PO SCH ×3 (07:50→17:49)
[2017-06-17] MEDS: ALLOPURINOL 100 MG TAB PO SCH (07:50)
[2017-06-17] MEDS: AMIODARONE 200 MG TAB PO SCH ×3 (07:50→22:49)
[2017-06-17] MEDS: CYANOCOBALAMIN 500 MCG TAB PO SCH (07:50)
[2017-06-17] MEDS: PANTOPRAZOLE 40 MG TABLET PO SCH (07:51)
[2017-06-17] MEDS: SODIUM BICARBONATE TAB 650 MG TAB PO SCH ×2 (07:51→21:08)
[2017-06-17] MEDS: IPRATROPIUM-ALBUTEROL 3 ML NEB INHALATION SCH ×3 (08:37→19:24)
--- NOTE | 2017-06-17 13:38 | P.PN ---
Subjective Patient is no overnight events is clinically fairly stable patient does have multiple myeloma multiple other medical issues at this time patient had atrial fibrillation rate controlled presently patient was initiated on hemodialysis fairly stable electrolytes patient is on full response and we'll cut down the oxygen will monitor him. 06/16/2017 Remains quite weak no overnight events. 06/17/2017 Patient is quite weak will need to go to rehabilitation most probably tomorrow case reviewer is working on his disposition Constitutional: Patient does have generalized fatigue no fever. Cardio vascular: denied any chest pain, palpitations Gastrointestinal denied any nausea vomiting Pulmonary: Denied any shortness of breath cough Neurologic denied any new focal deficits Objective - Vital Signs Vital signs: Vital Signs Temp 96.9 F L 06/17/17 07:00 Pulse 76 06/17/17 13:30 Resp 18 06/17/17 07:58 BP 105/67 06/17/17 07:00 Pulse Ox 96 06/17/17 07:00 Intake & Output 06/16/17 06/17/17 06/17/17 18:59 06:59 18:59 Intake Total 50 150 100 Balance 50 150 100 Intake: IV 150 ns@10cc 150 Intake, IV Titration 50 Amount Piperacillin-Tazobactam 3 50 .375 gm In Dextrose/Water 1 50ml.bag @ 12.5 mls/hr IVPB Q12HR [facility] Rx#: [id number] Oral 100 Other: Voiding Method Urinal Urinal Urinal Incontinent - Exam PHYSICAL EXAMINATION: GENERAL: The patient is alert and oriented x3, not in any acute distress. Generalized weakness malnourished. HEENT: Pupils are round and equally reacting to light. EOMI. No scleral icterus. No conjunctival pallor. Normocephalic, atraumatic. No pharyngeal erythema. No thyromegaly. CARDIOVASCULAR: S1 and S2 present. No murmurs, rubs, or gallops. PULMONARY: Chest is clear to auscultation, no wheezing or crackles. ABDOMEN: Soft, nontender, nondistended, normoactive bowel sounds. No palpable organomegaly. MUSCULOSKELETAL: No joint swelling or deformity. EXTREMITIES: No cyanosis, clubbing, or pedal edema. NEUROLOGICAL: Gross neurological examination did not reveal any focal deficits. SKIN: No rashes. - Labs CBC & Chem 7: 06/16/17 05:35 06/16/17 05:35 Assessment and Plan Plan: End-stage renal disease: Initiated on hemodialysis #2 Plasma cell leukemia 3 atrial fibrillation presently rate controlled continue with present medications. 4 metabolic encephalopathy which resolved #5 can start failure chronic systolic dysfunction with acute exacerbation on admission fairly euvolemic now. #6 severe thrombocytopenia and pancytopenia from cancer and chemotherapy, no acute bleed.
--- NOTE | 2017-06-17 15:09 | PN ---
PROGRESS NOTE Patient is seen for followup for acute kidney injury. He was not dialyzed yesterday. Currently, patient is sitting up in bed. He is comfortable. He states he is feeling weak. He is not in any acute distress. Appetite is somewhat improved according to the patient. Blood pressure is 105/67, heart rate 76 per minute. He is afebrile. Examination of the heart S1, S2. Examination lungs bilateral breath sounds are heard. Abdomen is soft, nontender. Examination lower extremities shows no evidence of edema. LAB: 1. Show sodium 135, potassium 3.7, BUN 23, serum creatinine 2.93, hemoglobin 7.4, white cell count 46.5, platelet count 21,000. 2. ASSESSMENT: 1. Acute kidney injury secondary to multiple myeloma/plasma cell leukemia and tumor lysis syndrome. Currently is somewhat improved. The patient was not dialyzed yesterday. We do not have labs from today. However, his creatinine was about 2.9 mg/dL yesterday. He has had good urine output. I will hold off on dialysis today. 2. Plasma cell leukemia/multiple myeloma status post currently on chemotherapy. 3. Generalized debility and weakness. 4. Hyperphosphatemia, maintained on phosphate binders, somewhat improved. 5. Thrombocytopenia and anemia from chemo and plasma cell leukemia. 6. Multiple myeloma/plasma cell leukemia, currently on chemotherapy. PLAN: Hold hemodialysis today. Check labs and repeat labs in a.m.. MMMATHEUSL / YUEN: [id number] /
[2017-06-17 16:07] LABS: Calcium 8.8 mg/dL (8.4-10.2); Potassium 3.6 mmol/L (3.5-5.1)
[2017-06-17] MEDS: SODIUM CHLORIDE 0.9% 500 ML IV SCH (17:49)
[2017-06-17] MEDS: METOPROLOL TARTRATE 50 MG TAB PO SCH (21:08)
[2017-06-18] MEDS: HYDROmorphone 4 MG/ML 1 ML SYRINGE IVP PRN ×2 (01:58→19:43)
[2017-06-18] MEDS: SALT AND SODA MOUTHWASH 1,000 ML PO SCH ×6 (04:34→20:57)
[2017-06-18] MEDS: PANTOPRAZOLE 40 MG TABLET PO SCH (08:22)
[2017-06-18] MEDS: SODIUM BICARBONATE TAB 650 MG TAB PO SCH ×2 (08:22→20:57)
[2017-06-18] MEDS: METOCLOPRAMIDE 5 MG TAB PO SCH ×4 (08:22→20:57)
[2017-06-18] MEDS: CALCIUM ACETATE 667 MG CAP PO SCH ×3 (08:22→18:31)
[2017-06-18] MEDS: AMIODARONE 200 MG TAB PO SCH ×3 (08:22→20:57)
[2017-06-18] MEDS: ALLOPURINOL 100 MG TAB PO SCH (08:22)
[2017-06-18 09:25] LABS: Calcium 9.4 mg/dL (8.4-10.2); Potassium 4.1 mmol/L (3.5-5.1); Total Bilirubin 0.9 mg/dL (0.2-1.3); Total Protein 5.5 g/dL (6.3-8.2)
[2017-06-18] MEDS: IPRATROPIUM-ALBUTEROL 3 ML NEB INHALATION SCH ×3 (09:27→19:44)
[2017-06-18 09:28] LABS: Anisocytosis Slight; Aty Lym Flag Marked; CH 29.6; CHCM 32.8; HCT 21.4 % (39.0-53.0); HDW 3.27; MCH 29.7 pg (25.0-35.0); MCHC 32.8 g/dL (31.0-37.0); MCV 90.6 fL (80.0-100.0); Mean Platelet Volume 7.6; RBC 2.36 m/uL (4.30-5.90); RDW 16.4 % (11.5-15.5); WBC (Perox) 58.39
[2017-06-18 09:49] LABS: Add Differential Manual Differential
[2017-06-18 09:56] LABS: Band Neutrophils % 2 %; Nucleated Red Blood Cells 2 /100 WBC (0-0); Total Cells Counted 200
[2017-06-18 09:57] LABS: Manual Review Performed
--- NOTE | 2017-06-18 11:56 | P.PN ---
Subjective patient states he is tired and fatigued this morning. Has very depressed affect continues with thrombocytopenia platelets at anemia persists with a hemoglobin of 7. Creatinine is elevated to 5.4 Objective - Vital Signs Vital signs: Vital Signs Temp 97.5 F L 06/18/17 07:00 Pulse 70 06/18/17 09:35 Resp 16 06/18/17 09:35 BP 130/63 06/18/17 07:00 Pulse Ox 99 06/18/17 09:27 Intake & Output 06/17/17 06/18/17 06/18/17 18:59 06:59 18:59 Intake Total 180 700 Output Total 410 Balance 180 290 Weight 68.9 kg 65.5 kg Intake: IV 80 40 ns@10cc 80 40 Intake, IV Titration 80 Amount Sodium Chloride 0.9% 500 80 ml @ 20 mls/hr IV .Q24H [facility] Rx#:[id number] Oral 100 580 Output: Urine 410 Other: Voiding Method Urinal Urinal Incontinent Incontinent # Voids 200 - Constitutional General appearance: Present: mild distress - EENT Eyes: Present: PERRLA Ears: bilateral: normal - Neck Neck: Present: normal ROM - Respiratory Respiratory: bilateral: CTA - Cardiovascular Rhythm: irregularly irregular - Gastrointestinal General gastrointestinal: Present: soft - Integumentary Integumentary: Present: normal - Neurologic Neurologic: Present: CNII-XII intact - Musculoskeletal Musculoskeletal: Present: generalized weakness - Psychiatric Psychiatric Comment(s): depressed affect Psychiatric: Present: A&O x's 3, intact judgment & insight - Labs CBC & Chem 7: 06/18/17 08:38 06/18/17 08:38 Labs: Abnormal Lab Results - Last 24 Hours (Table) 06/17/17 06/18/17 06/18/17 Range/Units 15:23 08:38 08:38 WBC 60.0 H* (3.8-10.6) k/uL RBC 2.36 L (4.30-5.90) m/uL Hgb 7.0 L* (13.0-17.5) gm/dL Hct 21.4 L (39.0-53.0) % RDW 16.4 H (11.5-15.5) % Plt Count 9 L* D (150-450) k/uL Lymphocytes # (Manual) 54.00 H (1.0-4.8) k/uL Nucleated RBCs 2 H (0-0) /100 WBC Sodium 135 L 135 L (137-145) mmol/L BUN 42 H 52 H (9-20) mg/dL Creatinine 4.54 H 5.45 H* (0.66-1.25) mg/dL AST 94 H (17-59) U/L Alkaline Phosphatase 130 H (38-126) U/L Total Protein 5.5 L (6.3-8.2) g/dL Albumin 3.1 L (3.5-5.0) g/dL Assessment and Plan Plan: assessment Congestive heart failure acute exacerbation acute on chronic systolic dysfunction ejection fraction 30-40% with fluid overload on admission Atrial fibrillation with RVR Hematuria Altered mental status metabolic encephalopathy Dehydration Thrombocytopenia and anemia secondary to chemotherapy Plasma cell leukemia with acute tumor lysis syndrome Acute on chronic renal failure stage III chronic kidney disease Dialysis catheter Metabolic acidosis weakness Cardiomyopathy History of DVT Multiple myeloma history of bladder cancer History of ventricular tachycardia Hypertension Vitamin D deficiency Plan Platelets have been ordered for transfusion Continue consultation with nephrology cardiology pulmonology
--- NOTE | 2017-06-18 13:07 | XR ---
EXAMINATION TYPE: XR chest 1V portable DATE OF EXAM: 06/18/2017 CLINICAL HISTORY: Hemoptysis. TECHNIQUE: Single AP portable upright view of the chest is obtained. COMPARISON: Chest x-ray from 4 days earlier FINDINGS: Reticular interstitial prominence remains present. There is increasing opacity in both mati g bases. Small bilateral pleural effusions are likely present. No pneumothorax is seen. Cardiac silho uette size is mildly enlarged. Osseous structures are intact. IMPRESSION: Persistent interstitial edema with worsening lower lung infiltrates and/or edema felt pre sent. Probable underlying small bilateral pleural effusions and mild cardiomegaly noted.
[2017-06-18] MEDS: CYANOCOBALAMIN 500 MCG TAB PO SCH (13:35)
[2017-06-18] MEDS: SODIUM CHLORIDE 0.9% 500 ML IV SCH (16:55)
[2017-06-18] MEDS ORDERED: DESMOPRESSIN INJ 20 MCG in SODIUM CHLORIDE 0.9% 50 ML IV ONE (17:30)
--- NOTE | 2017-06-18 19:14 | P.PN ---
Subjective Progress Note Date: 06/17/17 The patient overall feels about the same. He has not had any fever, chills, or obvious bleeding. However he still feels weak, with poor appetite and intermittent nausea. Objective - Vital Signs Vital signs: Vital Signs Temp 97.5 F L 06/18/17 16:54 Pulse 105 H 06/18/17 16:54 Resp 16 06/18/17 14:47 BP 131/84 06/18/17 16:54 Pulse Ox 98 06/18/17 14:47 Intake & Output 06/18/17 06/18/17 06/19/17 06:59 18:59 06:59 Intake Total 700 310 Output Total 410 Balance 290 310 Weight 65.5 kg Intake: IV 40 ns@10cc 40 Intake, IV Titration 80 Amount Sodium Chloride 0.9% 500 80 ml @ 20 mls/hr IV .Q24H [facility] Rx#:[id number] Oral 580 Blood Product 310 Rc Irr As1 Unit 310 [id number] Output: Urine 410 Other: Voiding Method Urinal Urinal Incontinent Incontinent # Voids 200 0 - Constitutional General appearance: Present: no acute distress - EENT Eyes: Present: EOMI, PERRLA ENT: Present: hearing grossly normal, normal oropharynx - Respiratory Respiratory: bilateral: diminished - Cardiovascular Rhythm: irregularly irregular Heart sounds: normal: S1, S2 - Gastrointestinal General gastrointestinal: Present: decreased bowel sounds, soft - Integumentary Integumentary: Present: normal - Neurologic Neurologic: Present: CNII-XII intact - Musculoskeletal Musculoskeletal: Present: generalized weakness, strength equal bilaterally - Psychiatric Psychiatric: Present: A&O x's 3, appropriate affect - Labs CBC & Chem 7: 06/18/17 08:38 06/18/17 08:38 Labs: Abnormal Lab Results - Last 24 Hours (Table) 06/18/17 06/18/17 06/18/17 Range/Units 08:38 08:38 08:38 WBC 60.0 H* (3.8-10.6) k/uL RBC 2.36 L (4.30-5.90) m/uL Hgb 7.0 L* (13.0-17.5) gm/dL Hct 21.4 L (39.0-53.0) % RDW 16.4 H (11.5-15.5) % Plt Count 9 L* D (150-450) k/uL Lymphocytes # (Manual) 54.00 H (1.0-4.8) k/uL Nucleated RBCs 2 H (0-0) /100 WBC Sodium 135 L (137-145) mmol/L BUN 52 H (9-20) mg/dL Creatinine 5.45 H* (0.66-1.25) mg/dL AST 94 H (17-59) U/L Alkaline Phosphatase 130 H (38-126) U/L Total Protein 5.5 L (6.3-8.2) g/dL Albumin 3.1 L (3.5-5.0) g/dL Crossmatch See Detail Assessment and Plan (1) Plasma cell leukemia Narrative/Plan: The patient has completed cycle 1 of salvage chemotherapy with the CyBOR-D regimen. Tolerance of chemotherapy itself appears to have been reasonable. So Far he seems to have had a partial response with improvement in white blood cell count into the 40-50,000 range. Current Visit: Yes Status: Chronic Code(s): C90.10 - PLASMA CELL LEUKEMIA NOT HAVING ACHIEVED REMISSION SNOMED Code(s): 42598648 (2) Spontaneous tumor lysis syndrome Narrative/Plan: The patient's creatinine was improved on dialysis. Therefore dialysis is being held to assess how his renal function does off the same. Urine output still remains somewhat poor. Current Visit: Yes Status: Acute Priority: High Code(s): E88.3 - TUMOR LYSIS SYNDROME SNOMED Code(s): 545079073 (3) Bicytopenia Narrative/Plan: Platelets were 21, and hemoglobin 7.4. These are in a safe range. Continue to monitor and transfuse if needed Current Visit: Yes Status: Acute Priority: High Code(s): D75.89 - OTHER SPECIFIED DISEASES OF BLOOD AND BLOOD-FORMING ORGANS SNOMED Code(s): 237829828 (4) Atrial fibrillation with RVR Current Visit: Yes Status: Chronic Code(s): I48.91 - UNSPECIFIED ATRIAL FIBRILLATION SNOMED Code(s): 604233124229018
--- NOTE | 2017-06-18 19:33 | P.PN ---
Subjective Progress Note Date: 06/18/17 Through this afternoon, there has been a change in the patient's condition. This morning, hemoglobin was noted to be 7 with platelets of 9. Therefore blood and platelet transfusions were ordered. The patient didn't receive the blood transfusion. He subsequently started to have oozing from catheter site. While waiting on the platelets, it was recommended that he receive desmopressin , and be transferred to the ICU. At this point, the patient refused the above interventions. He stated that he did not want any further treatment or transferred to the ICU. The nursing staff did tried to persuade him, but the patient became progressively more aggressive. Between, he was also less responsive, refusing to answer questions or communicate. The patient's and son were also called in. They did not want him to stop treatment, but the patient categorically remained from on his decision. Most the nursing staff, and the family confirmed and the patient appeared to be well oriented and comprehending about the recommendations as well as the consequences of refusing further medical care (including ). Objective - Vital Signs Vital signs: Vital Signs Temp 97.5 F L 06/18/17 16:54 Pulse 105 H 06/18/17 16:54 Resp 16 06/18/17 14:47 BP 131/84 06/18/17 16:54 Pulse Ox 98 06/18/17 14:47 Intake & Output 06/18/17 06/18/17 06/19/17 06:59 18:59 06:59 Intake Total 700 310 Output Total 410 Balance 290 310 Weight 65.5 kg Intake: IV 40 ns@10cc 40 Intake, IV Titration 80 Amount Sodium Chloride 0.9% 500 80 ml @ 20 mls/hr IV .Q24H [facility] Rx#:[id number] Oral 580 Blood Product 310 Rc Irr As1 Unit 310 [id number] Output: Urine 410 Other: Voiding Method Urinal Urinal Incontinent Incontinent # Voids 200 0 - Constitutional General appearance: Present: no acute distress - EENT ENT: Present: hearing grossly normal - Respiratory Respiratory: bilateral: diminished - Cardiovascular Rhythm: irregularly irregular Heart sounds: normal: S1, S2 - Gastrointestinal General gastrointestinal: Present: normal bowel sounds, soft - Integumentary Integumentary: Present: normal - Neurologic Neurologic: Present: CNII-XII intact - Musculoskeletal Musculoskeletal: Present: generalized weakness - Psychiatric Psychiatric Comment(s): On my exam, the patient was mostly refusing to speak or respond. Did respond occasionally in monosyllables, and comprehension appeared to be normal. - Labs CBC & Chem 7: 06/18/17 08:38 06/18/17 08:38 Labs: Abnormal Lab Results - Last 24 Hours (Table) 06/18/17 06/18/17 06/18/17 Range/Units 08:38 08:38 08:38 WBC 60.0 H* (3.8-10.6) k/uL RBC 2.36 L (4.30-5.90) m/uL Hgb 7.0 L* (13.0-17.5) gm/dL Hct 21.4 L (39.0-53.0) % RDW 16.4 H (11.5-15.5) % Plt Count 9 L* D (150-450) k/uL Lymphocytes # (Manual) 54.00 H (1.0-4.8) k/uL Nucleated RBCs 2 H (0-0) /100 WBC Sodium 135 L (137-145) mmol/L BUN 52 H (9-20) mg/dL Creatinine 5.45 H* (0.66-1.25) mg/dL AST 94 H (17-59) U/L Alkaline Phosphatase 130 H (38-126) U/L Total Protein 5.5 L (6.3-8.2) g/dL Albumin 3.1 L (3.5-5.0) g/dL Crossmatch See Detail Assessment and Plan (1) Plasma cell leukemia Narrative/Plan: The patient's labs today show some increase in WBC to about 60,000. . Cycle 1 of salvage chemotherapy. The plan from our standpoint was to continue treatment per protocol. It had been discussed with the patient multiple times, that a partial response that we're observing at this time, is satisfactory. For more advanced response, we would need to continue treatment. With Continued treatment, there is a reasonable chance of the patient achieving remission again. He has been well aware of this fact. This was reiterated to him today. Although mostly nonverbal, he appeared to be again comprehending of this fact. Current Visit: Yes Status: Chronic Code(s): C90.10 - PLASMA CELL LEUKEMIA NOT HAVING ACHIEVED REMISSION SNOMED Code(s): 95581848 (2) Spontaneous tumor lysis syndrome Current Visit: Yes Status: Acute Priority: High Code(s): E88.3 - TUMOR LYSIS SYNDROME SNOMED Code(s): 049181782 (3) Bicytopenia Narrative/Plan: The patient did receive a unit of blood today. However he refused to have the platelet transfusion. He was having some signs of bleeding due to which desmopressin was also ordered. He additionally refused the same. Current Visit: Yes Status: Acute Priority: High Code(s): D75.89 - OTHER SPECIFIED DISEASES OF BLOOD AND BLOOD-FORMING ORGANS SNOMED Code(s): 461597004 (4) Atrial fibrillation with RVR Current Visit: Yes Status: Chronic Code(s): I48.91 - UNSPECIFIED ATRIAL FIBRILLATION SNOMED Code(s): 494078607390562 Plan: I had a prolonged visit with the patient at the bedside as well as his son and . As noted, the patient became quite upset when to report that he would need to be transferred to the ICU. At that point, he refused any further intervention including platelet transfusion, desmopressin, or hemodialysis. On attempted persuasion, he was actually intermittently quite aggressive verbally. He clearly stated that he just wanted to be left alone. I asked him if he just wanted to be kept comfortable, and he nodded "yes" to the same. I repeated to him, that there is a reasonable chance that with continued treatment, we can achieve remission. However that will need ongoing treatment over a period of time. If he were to refuse treatment, especially dialysis, his life expectancy would be very limited. The nursing staff, as well as the family confirmed that the patient appeared to be quite competent and aware when making the above decisions. The family do want him to continue treatment. His stated that he has always been very headstrong and has been his own decisions. He has expressed in the past that he especially did not want to be on prolonged dialysis. The family subsequently tried to talk to him again to change his decision. However by this time it was not clear if the patient was comprehending, as he was not opening his eyes and mostly moaning. Therefore, according to the family 's request, it was decided to try to reattempt the platelet transfusion and DDAVP injections. If he was cooperative with the same, then they will try to talk to him about possibly resuming dialysis. I again advised them clearly, that his life expectancy would be quite limited if he did not resume dialysis. They expressed clear understanding of the same. Therefore if the patient does deteriorate, they would be agreeable to comfort care.
--- NOTE | 2017-06-18 20:22 | PN ---
PROGRESS NOTE Patient is seen for followup for acute kidney injury. The patient has had 3 treatments of hemodialysis. Yesterday we held dialysis and this morning his creatinine is up to 5.4. The patient has not had much urine output. He states he feels very weak and is not able to eat. His platelet count was down to 9000. EXAMINATION: Blood pressure is 131/84, heart rate 105 per minute. He is afebrile. HEART: S1, S2. LUNGS: Bilateral breath sounds are heard. Decreased breath sounds at the bases. ABDOMEN: Soft, nontender. Lower extremities show no significant edema. [place] YARDER: Grossly intact. LABS SHOW: Sodium 135, potassium 4.1, chloride 98, BUN 52, serum creatinine 5.45. Hemoglobin was 7.0 g/dL and platelet count 9000, white cell count 60,000. ASSESSMENT: 1. Acute kidney injury secondary to tumor lysis syndrome/multiple myeloma, status post hemodialysis x3. The patient's renal function has worsened significantly without dialysis. I will schedule him for a treatment today. 2. Severe thrombocytopenia secondary to chemotherapy/multiple myeloma. 3. Anemia, multifactorial. 4. Plasma cell leukemia/multiple myeloma, maintained on chemotherapy. 5. Generalized debility. PLAN: Hemodialysis today as well as tomorrow. No ultrafiltration. The patient is encouraged to try and increase his oral intake. MMODL / IJN: [id number] /
[2017-06-18] MEDS: METOPROLOL TARTRATE 50 MG TAB PO SCH (20:57)
[2017-06-19] MEDS: SALT AND SODA MOUTHWASH 1,000 ML PO SCH ×4 (01:21→15:56)
[2017-06-19] MEDS: METOCLOPRAMIDE 5 MG TAB PO SCH ×3 (08:15→15:56)
[2017-06-19] MEDS: AMIODARONE 200 MG TAB PO SCH ×2 (08:15→15:56)
[2017-06-19] MEDS: CALCIUM ACETATE 667 MG CAP PO SCH ×3 (08:15→15:56)
[2017-06-19] MEDS: ALLOPURINOL 100 MG TAB PO SCH (08:15)
[2017-06-19] MEDS: PANTOPRAZOLE 40 MG TABLET PO SCH (08:19)
[2017-06-19] MEDS: SODIUM BICARBONATE TAB 650 MG TAB PO SCH (08:19)
[2017-06-19] MEDS: IPRATROPIUM-ALBUTEROL 3 ML NEB INHALATION SCH ×3 (08:32→20:27)
[2017-06-19] MEDS: HYDROmorphone 4 MG/ML 1 ML SYRINGE IVP PRN ×4 (11:12→21:28)
--- NOTE | 2017-06-19 11:38 | P.PN ---
Subjective Patient Is Nonresponsive to Painful Stimuli. Patient Had Declined on Any Further Transfusions or Dialysis Last Night. and Was in Agreement with That. In Dr. Thomas and Nephrology Are Aware That Decision. Patient Is Comfort Care Only at This Point Objective - Vital Signs Vital signs: Vital Signs Temp 97.5 F L 06/18/17 16:54 Pulse 105 H 06/18/17 16:54 Resp 16 06/18/17 14:47 BP 131/84 06/18/17 16:54 Pulse Ox 98 06/18/17 14:47 Intake & Output 06/18/17 06/19/17 06/19/17 18:59 06:59 18:59 Intake Total 310 120 Balance 310 120 Intake: IV 40 ns@10cc 40 Intake, IV Titration 80 Amount IV Fluid Continuation 1, 80 000 ml As IV [facility] Rx#:[id number] Blood Product 310 Rc Irr As1 Unit 310 [id number] Other: Voiding Method Urinal Incontinent Incontinent # Voids 0 1 - Constitutional General appearance: Present: average body habitus - EENT Ears: bilateral: normal - Respiratory Respiratory: left: CTA - Cardiovascular Rhythm: irregularly irregular - Gastrointestinal General gastrointestinal: Present: soft - Integumentary Integumentary: Present: normal - Psychiatric Psychiatric Comment(s): Patient is nonresponsive to him verbal or painful stimuli - Labs CBC & Chem 7: 06/18/17 08:38 06/18/17 08:38 Labs: Abnormal Lab Results - Last 24 Hours (Table) 06/18/17 Range/Units 08:38 Crossmatch See Detail Assessment and Plan Plan: Assessment Congestive heart failure acute exacerbation chronic systolic dysfunction with ejection fraction of 3040% fluid overload on admission Plasma cell leukemia had chemotherapy acute tumor lysis syndrome Metabolic acidosis weakness Acute on chronic renal failure with baseline stage III chronic kidney disease Cardiomyopathy history DVT Atrial fibrillation with RVR Anemia and thrombocytopenia secondary to chemotherapy and multiple myeloma History of multiple myeloma bladder cancer history of ventricular tachycardia hypertension Change in mental status metabolic encephalopathy Dialysis catheter Vitamin D deficiency Plan Comfort care
[2017-06-19] MEDS: CYANOCOBALAMIN 500 MCG TAB PO SCH (12:13)
[2017-06-19 13:56] VITALS: BMI 21.3
[2017-06-19] MEDS: SODIUM CHLORIDE 0.9% 500 ML IV SCH (15:55)
--- NOTE | 2017-06-19 19:00 | PN ---
PROGRESS NOTE Patient is seen today on the 5th floor. His condition is generally significantly worsened and family has decided to proceed with the hospice and comfort care measures. At this time, he is lying comfortably in bed. His vital signs appear fairly stable. We will hold off on any further dialysis. PHYSICAL EXAMINATION: On examination, patient is euvolemic. His labs were noted from yesterday. ASSESSMENT: 1. Acute kidney injury secondary to tumor lysis syndrome and multiple myeloma, maintained on dialysis which is now discontinued secondary to patient being changed to hospice care and comfort care measures. 2. Severe thrombocytopenia from chemotherapy and plasma cell leukemia. 3. Multiple myeloma/plasma cell leukemia. PLAN: I agree with decision regarding hospice/comfort care measures. Overall prognosis is poor. MMODL / IJN: [id number] /
[2017-06-20] MEDS: HYDROmorphone 4 MG/ML 1 ML SYRINGE IVP PRN ×5 (02:19→23:11)
[2017-06-20] MEDS: IPRATROPIUM-ALBUTEROL 3 ML NEB INHALATION SCH ×3 (07:38→20:36)
[2017-06-20] MEDS: ONDANSETRON 4 MG/2 ML VIAL IVP PRN ×2 (07:54→21:03)
[2017-06-20] MEDS ORDERED: AMIODARONE 200 MG TAB PO SCH (09:00)
[2017-06-20 12:24] LABS: Anisocytosis Slight; CH 29.1; CHCM 32.3; HCT 22.7 % (39.0-53.0); HDW 3.23; HGB 7.5 gm/dL (13.0-17.5); MCV 90.9 fL (80.0-100.0); Mean Platelet Volume 8.5; RDW 18.9 % (11.5-15.5); WBC (Perox) 65.65
[2017-06-20 12:35] LABS: WBC 61.6 k/uL (3.8-10.6)
[2017-06-20 12:49] LABS: Calcium 8.6 mg/dL (8.4-10.2); Potassium 4.2 mmol/L (3.5-5.1); Total Bilirubin 0.9 mg/dL (0.2-1.3); Total Protein 4.9 g/dL (6.3-8.2)
--- NOTE | 2017-06-20 12:57 | CDI ---
In responding to this query, please exercise your independent professional judgment. The [facility] Coding Staff and Clinical Documentation Specialists appreciate your assistance in clarifying documentation, maintaining compliance with coding guidelines, accurately documenting patients condition and capturing severity of illness. The fact that a question is asked does not imply that any particular answer is desired or expected. Communication forms are a method of clarifying documentation and are not made part of the Legal Health Record. Thank you in advance for your clarification. Last Revision, September 2015 Ilia Godfrey [address] [place] [address] Documentation Clarification Form Date: 06/20/2017 12:32:00 PM From: Dhara Bentley, CCS, CCDS Admit Date: 06/03/2017 8:56:00 PM Patient Name: Timothy Madden Visit Number: [id number] Discharge Date: Dr. Shashank Ramirez: The patient presented with generalized weakness and atrial flutter w/RVR. Patient has multiple myeloma currently on chemotherapy. Per the 06/10 nephrology note: "He was transferred to the ICU as he was in significant respiratory distress secondary to congestive heart failure. His respiratory status improved and this morning Lasix was decreased." History/Risk Factors: Multiple myeloma, History of bladder cancer, Hypertension & Chronic Renal Failure & CHF, Atrial Fibrillation. Current smoker. Clinical Indicators: Vital signs: P: 66 - 140 - 115; R: 20 - 11 - 8 - 16. BP 116/85 - 89/70 - 131/84 Lung/Breathing assessment: SOB, labored 06/08 Blood Gas: ABG/CBG: pH 7.40; pO2 68; pCO2 30; pHCO3 18 Treatment: To ICU as documented, Albuterol INH, IV fl 125, IV Lasix. O2 2-3Lnc In your professional opinion, can you please clarify if these findings signify one of the following conditions? Acuity: o Acute o Chronic o Acute on Chronic Respiratory Status: o Respiratory failure o Respiratory failure with hypercapnia o Respiratory failure with hypoxia o Acute Respiratory Distress o Other Diagnosis, please specify o Unable to determine Please document in your progress notes and discharge summary in order to capture severity of illness and risk of mortality. Include clinical findings that support your diagnosis. FYI: Press F11 to launch patient chart. MITA
[2017-06-20 13:17] LABS: Add Differential Manual Differential
[2017-06-20 13:19] LABS: Manual Review Performed; Myelocytes % 1 %; Nucleated Red Blood Cells 0 /100 WBC (0-0); Total Cells Counted 200
--- NOTE | 2017-06-20 13:45 | P.PN ---
Subjective Patient is seen in follow-up for acute kidney injury. Patient has history of multiple myeloma and was undergoing chemotherapy. He developed tumor lysis syndrome leading to acute kidney injury. He was hemodialysis dependent but had made the decision to proceed with comfort measures only. However this morning he changed his mind and he wants to try chemotherapy again and is agreeable to proceed with hemodialysis as well. He has not been voiding much. Oral intake remains poor. Does admit to dyspnea. No vomiting or diarrhea. Vital signs are stable. General: The patient appeared well nourished and normally developed. HEENT: Head exam is unremarkable. Neck is without jugular venous distension. LUNGS: Lungs are clear to auscultation and percussion. Breath sounds decreased. HEART: Rate and Rhythm are regular. First and second heart sounds normal. No murmurs, rubs or gallops. ABDOMEN: Abdominal exam reveals normal bowel sounds. Non-tender and non- distended. No evidence of peritonitis. EXTREMITITES: Trace edema. Objective - Vital Signs Vital signs: Vital Signs Temp 98.1 F 06/20/17 12:58 Pulse 90 06/20/17 13:28 Resp 16 06/20/17 12:58 BP 118/75 06/20/17 12:58 Pulse Ox 95 06/20/17 12:58 Intake & Output 06/19/17 06/20/17 06/20/17 18:59 06:59 18:59 Intake Total 120 Balance 120 Weight 65.5 kg Intake: IV 120 ns@10cc 120 Other: Voiding Method Incontinent Incontinent Incontinent # Voids 1 # Bowel Movements 1 1 - Labs CBC & Chem 7: 06/20/17 12:09 06/20/17 12:09 Labs: Abnormal Lab Results - Last 24 Hours (Table) 06/20/17 06/20/17 Range/Units 12: 12:09 WBC 61.6 H* (3.8-10.6) k/uL RBC 2.50 L (4.30-5.90) m/uL Hgb 7.5 L (13.0-17.5) gm/dL Hct 22.7 L (39.0-53.0) % RDW 18.9 H (11.5-15.5) % Plt Count 11 L* (150-450) k/uL Lymphocytes # (Manual) 57.90 H (1.0-4.8) k/uL Myelocytes # (Manual) 0.62 H (0) k/uL Sodium 136 L (137-145) mmol/L BUN 73 H (9-20) mg/dL AST 89 H (17-59) U/L Total Protein 4.9 L (6.3-8.2) g/dL Albumin 2.8 L (3.5-5.0) g/dL Assessment and Plan Plan: Assessment: #1. Acute kidney injury secondary to tumor lysis syndrome and multiple myeloma. Patient is hemodialysis dependent. #2. Multiple myeloma/plasma cell leukemia. Patient is agreeable to resume chemotherapy. #3. Bicytopenia related to multiple myeloma and chemotherapy. S/p platelet and blood transfusion. #4. Volume overload. Plan: Hemodialysis today with goal 2 liters ultrafiltration. Resume IV lasix. Depending on labs and volume status, he may require another treatment tomorrow. Continue to monitor renal function and urine output. Chemotherapy per oncology recommendations. If agrees to proceed with dialysis and chemotherapy, then will need IJ P-cath and removal of groin catheter.
--- NOTE | 2017-06-20 14:23 | P.PN ---
Progress Note - Text addendum respirtory failure acute on chronic secondary to fluid overload
[2017-06-20] MEDS: FUROSEMIDE 10 MG/ML 10 ML VIAL IV SCH ×2 (15:05→21:11)
[2017-06-20] MEDS: SODIUM CHLORIDE 0.9% 500 ML IV SCH (17:15)
--- NOTE | 2017-06-20 19:05 | PN ---
PROGRESS NOTE DATE OF SERVICE: 06/20/2017 I am covering for Dr. Shashank Ramirez. This 61-year-old gentleman with a past medical history of multiple medical problems, including plasma cell leukemia and multiple myeloma, was unresponsive yesterday. Apparently a discussion was held and Hospice was consulted, but today this morning the patient woke up and patient wanted everything to be done. The patient's dialysis is being resumed at this time. The patient is complaining of pain. Patient is on Dilaudid p.r.n. Patient NO CODE at this time. Past medical history reviewed. Past medical reviewed. REVIEW OF SYSTEMS: CARDIOVASCULAR SYSTEM: No angina, palpitations. RESPIRATORY SYSTEM: As mentioned earlier. GI: No nausea, vomiting. NERVOUS SYSTEM: No numbness, weakness.. CURRENT MEDICATIONS: Current medications are reviewed and include: 1. DuoNeb q.i.d. and p.r.n. 2. Lasix. 3. Dilaudid. 4. Narcan. 5. Zofran. PHYSICAL EXAMINATION: Patient is alert and oriented x3. Pulse is 102, blood pressure 101/60, respiration 16, temperature 97.6, pulse ox 94% on 2 L. HEENT: Conjunctivae normal. NECK: No jugular venous distention. CARDIOVASCULAR SYSTEM: S1, S2 muffled. RESPIRATORY SYSTEM: Breath sounds diminished at the bases. A few scattered rhonchi. ABDOMEN: Soft, non-tender. LEGS: No edema. No swelling. NERVOUS SYSTEM: No focal deficit. LABS: WBC 61.6, platelets 11. Creatinine is 7.01. ASSESSMENT: 1. Plasma cell leukemia, on chemotherapy; acute tumor lysis syndrome. 2. Congestive heart failure, acute exacerbation, with acute on chronic systolic dysfunction, ejection fraction 30% to 40% with fluid overload. 3. Change in mental status, metabolic encephalopathy. 4. Severe thrombocytopenia. 5. Acute on chronic renal failure at baseline, stage III, with chronic kidney disease and on hemodialysis. 6. Metabolic acidosis, weakness. 7. Cardiomyopathy with congestive heart failure with chronic systolic dysfunction, ejection fraction 30% to 40%. 8. History of deep venous thrombosis. 9. Atrial ablation with rapid ventricular rate. 10.Hypophosphatemia secondary to multiple myeloma. 11.History of multiple myeloma. 12.History of bladder cancer. 13.History of ventricular tachycardia. 14.History of hypertension. 15.NO CODE, NO CPR, NO VENT. RECOMMENDATION AND DISCUSSION: In this 61-year-old gentleman who presented with multiple complex medical issues, we will monitor the patient closely, continue the current medications, continue symptomatic treatment. Discussed with staff at length. Continue pain medication, comfort measures. Hospice has been consulted for informational purposes. We will continue to monitor along with Hematology/Oncology. Further recommendations to follow. MMBROCK / YUEN: [id number] /
[2017-06-21] MEDS: HYDROmorphone 4 MG/ML 1 ML SYRINGE IVP PRN ×4 (04:28→18:25)
[2017-06-21] MEDS: ONDANSETRON 4 MG/2 ML VIAL IVP PRN (04:35)
[2017-06-21 07:45] VITALS: RESP 16
[2017-06-21] MEDS: IPRATROPIUM-ALBUTEROL 3 ML NEB INHALATION SCH ×2 (07:53→14:13)
[2017-06-21] MEDS: FUROSEMIDE 10 MG/ML 10 ML VIAL IV SCH (09:14)
[2017-06-21 14:26] VITALS: BP 116/78; PULSE 101; TEMP 98.7
[2017-06-21] MEDS: SODIUM CHLORIDE 0.9% 500 ML IV SCH (14:26)
--- NOTE | 2017-06-21 17:25 | PN ---
PROGRESS NOTE DATE OF SERVICE: 06/21/2017 This 61-year-old gentleman admitted with plasma cell leukemia also had acute tumor lysis in a patient with CHF. The patient is being closely monitored. Patient is complaining of severe pain. Hospice has been consulted previously. Currently patient is NO CODE. No chest pain. No palpitation. No fever. PHYSICAL EXAMINATION: Alert and oriented x2. Pulse 101, blood pressure 116/78, respiration 16, temperature 98.7, pulse ox 95% on 3 L. HEENT: Conjunctivae normal. NECK: No jugular venous distention. CARDIOVASCULAR SYSTEM: S1, S2 muffled. RESPIRATORY SYSTEM: Breath sounds diminished at the bases. A few scattered rhonchi. No crackles. ABDOMEN: Soft. Non-tender. No mass palpable.. LEGS: No edema. No swelling. NERVOUS SYSTEM: No focal deficit. LABS: WBC 16.6, hemoglobin 7.5. ASSESSMENT: 1. Acute plasma cell leukemia, on chemotherapy, with acute tumor lysis syndrome. 2. Congestive heart failure, acute exacerbation, with acute on chronic systolic dysfunction, ejection fraction 30% to 40%, with fluid overload with acute hypoxic respiratory failure. 3. Change in mental status, metabolic encephalopathy. 4. Severe thrombocytopenia. 5. Acute on chronic renal failure at baseline, stage III, with chronic kidney disease, on hemodialysis. 6. Metabolic acidosis weakness. 7. Cardiomyopathy with congestive heart failure with chronic systolic dysfunction, ejection fraction 30% to 40%. 8. History of deep vein thrombosis. 9. Atrial fibrillation with rapid ventricular rate. 10.Hypophosphatemia secondary to multiple myeloma. 11.History of multiple myeloma. 12.History of bladder cancer. 13.History of ventricular tachycardia. 14.History of hypertension. 15.NO CODE, NO CPR, NO VENT. RECOMMENDATIONS AND DISCUSSION: I recommend to continue current medication, continue symptomatic treatment with pain medications. The CODE STATUS will be discussed by Dr. Thomas on hematology/oncology team. Further recommendations to follow. MMODL / IJN: [id number] /
--- NOTE | 2017-06-21 18:17 | P.PN ---
Subjective Progress Note Date: 06/21/17 he patient was switched back to aggressive medical management at his own request yesterday. He received platelets, and resume hemodialysis. However he remains very weak, and continues to have intermittent nausea with vomiting. Objective - Vital Signs Vital signs: Vital Signs Temp 98.7 F 06/21/17 14:25 Pulse 101 H 06/21/17 14:25 Resp 16 06/21/17 14:25 BP 116/78 06/21/17 14:25 Pulse Ox 95 06/21/17 14:25 Intake & Output 06/20/17 06/21/17 06/21/17 18:59 06:59 18:59 Intake Total 198 Output Total 200 50 Balance -200 198 -50 Intake: Blood Product 198 Platelet Irr Pheresis 2 198 Acda Unit [id number] Output: Urine 200 50 Other: Voiding Method Urinal Urinal Urinal Incontinent Incontinent Incontinent # Voids 1 2 # Bowel Movements 1 2 - Constitutional Constitutional Comment(s): very weak, with intermittent vomiting General appearance: Present: mild distress - EENT Eyes: Present: PERRLA ENT: Present: normal oropharynx - Respiratory Respiratory: bilateral: diminished - Cardiovascular Rhythm: irregularly irregular - Gastrointestinal General gastrointestinal: Present: decreased bowel sounds, soft - Integumentary Integumentary: Present: normal - Neurologic Neurologic: Present: CNII-XII intact - Musculoskeletal Musculoskeletal: Present: generalized weakness, strength equal bilaterally - Psychiatric Psychiatric: Present: A&O x's 3, appropriate affect - Labs CBC & Chem 7: 06/20/17 12:09 06/20/17 12:09 Assessment and Plan (1) Plasma cell leukemia Narrative/Plan: he patient specifically requested to speak to me today. I met with him in the presence of his . The patient was alert and oriented 3. He was appropriately responsive. He appeared to be in position of his faculties. He stated that he had changes mind yesterday and it started active treatment. However, today, he has decided for sure that he does not want to continue active treatment. he expressed understanding, that with continued treatment, his disease may be reversible. He states that he has had enough, however, and does not want to go on. He is quite aware, that by doing so, he may be foregoing a chance for improvement in the future. He stated clearly that he wants to stop active treatment at this wants to be kept comfortable. the above was discussed with his , and nursing. Hospice will be consulted again. His states that she does not believe that she can care for him at home. He will be switched back to comfort measures only. Current Visit: Yes Status: Chronic Code(s): C90.10 - PLASMA CELL LEUKEMIA NOT HAVING ACHIEVED REMISSION SNOMED Code(s): 68164194 (2) Spontaneous tumor lysis syndrome Current Visit: Yes Status: Acute Priority: High Code(s): E88.3 - TUMOR LYSIS SYNDROME SNOMED Code(s): 663594443 (3) Bicytopenia Current Visit: Yes Status: Acute Priority: High Code(s): D75.89 - OTHER SPECIFIED DISEASES OF BLOOD AND BLOOD-FORMING ORGANS SNOMED Code(s): 375438383 (4) Atrial fibrillation with RVR Current Visit: Yes Status: Chronic Code(s): I48.91 - UNSPECIFIED ATRIAL FIBRILLATION SNOMED Code(s): 722961876850238
--- NOTE | 2017-06-24 08:35 | CDI ---
Last Revision, June 2017 Documentation Clarification Form Date: 06/24/2017 8:20:00 AM From: Dhara NugentBentleyHARI rosales, CCDS Admit Date: 06/03/2017 8:56:00 PM Patient Name: Timothy Madden Visit Number: [id number] Discharge Date: 06/21/2017 ATTENTION: The Clinical Documentation Specialists (CDI) and [facility] Coding Staff appreciate your assistance in clarifying documentation. Please respond to the clarification below the line at the bottom and electronically sign. The CDI & [facility] Coding staff will review the response and follow-up if needed. Please note: Queries are made part of the Legal Health Record. If you have any questions, please contact the author of this message via ITS. Dr. Kahlil Orozco: History/Risk Factors: Multiple myeloma, Bladder CA, Previous radiation & chemotherapy, Chronic renal failure & chronic systolic CHF. Clinical Indicators: Admitted with plasma cell leukemia, also acute tumor lysis syndrome with CHF, complaining of severe pain. Diagnosed with CKD Stage III on admission. Per attending notes 06/15 - 06/17: End-stage renal disease documented. Admission BUN/CR/GFR: 38 / 3/40 / 19 Patients Baseline: CR 1.2 06/20: BUN/CR/GFR: 73 / 7. Treatment: IV fluids, Hemodialysis catheter placed & hemodialysis started on 06/13 (this admission). In order to capture the severity of condition, please clarify if the condition signifies: CKD Stage 1 (GFR > 90) CKD Stage 2 (GFR 60-89) CKD Stage 3 (GFR 30-59) CKD Stage 4 (GFR 15-29) CKD Stage 5 (GFR <15) ESRD Other, please specify Unable to determine Please continue to document in your progress notes and discharge summary in order to capture severity of illness and risk of mortality. Include clinical findings that support your diagnosis. ESTEFANY on CKD, dialysis dependent. MTDD
== END 2017-06-21 19:08 | disposition hospice, inpatient (51) | DRG 682 ==
LOC: EC 15:22 → 6SEL 20:56 → 5ONC 06-05 15:55 → 6ICU 06-08 14:31 → 5ONC 06-11 15:27
PROVIDERS: ADMIT Family Medicine; ATTEND Family Medicine
PROC: 06HM33Z Insertion of Infusion Device into Right Femoral Vein, Percutaneous Approach (ICD-10-PCS; principal; 2017-06-13 07:22)
PROC: 5A1D70Z Performance of Urinary Filtration, Intermittent, Less than 6 Hours Per Day (ICD-10-PCS; principal; 2017-06-13 07:22)
DX: E88.3 Tumor lysis syndrome (principal); I50.23 Acute on chronic systolic (congestive) heart failure; J96.01 Acute respiratory failure with hypoxia; I13.2 Hypertensive heart and chronic kidney disease with heart failure and with stage 5 chronic kidney disease, or end stage renal disease; G93.41 Metabolic encephalopathy; C90.10 Plasma cell leukemia not having achieved remission; C90.00 Multiple myeloma not having achieved remission; N18.6 End stage renal disease; D69.59 Other secondary thrombocytopenia; N18.3 Chronic kidney disease, stage 3 (moderate); E87.2 Acidosis; I42.9 Cardiomyopathy, unspecified; I48.92 Unspecified atrial flutter; K57.32 Diverticulitis of large intestine without perforation or abscess without bleeding; N17.0 Acute kidney failure with tubular necrosis; E86.0 Dehydration; I48.0 Paroxysmal atrial fibrillation; D64.81 Anemia due to antineoplastic chemotherapy; E83.39 Other disorders of phosphorus metabolism; D63.0 Anemia in neoplastic disease; E55.9 Vitamin D deficiency, unspecified; E83.51 Hypocalcemia; E87.5 Hyperkalemia; F12.90 Cannabis use, unspecified, uncomplicated; F17.200 Nicotine dependence, unspecified, uncomplicated; I48.2 Chronic atrial fibrillation; K29.60 Other gastritis without bleeding; K44.9 Diaphragmatic hernia without obstruction or gangrene; T45.1X5A Adverse effect of antineoplastic and immunosuppressive drugs, initial encounter; Z96.641 Presence of right artificial hip joint; Z51.5 Encounter for palliative care; Z74.01 Bed confinement status; Z79.01 Long term (current) use of anticoagulants; Z79.899 Other long term (current) drug therapy; Z85.51 Personal history of malignant neoplasm of bladder; Z86.718 Personal history of other venous thrombosis and embolism; Z86.79 Personal history of other diseases of the circulatory system; Z99.2 Dependence on renal dialysis; Z66 Do not resuscitate
CPT/HCPCS: 36415; 36556; 36600; 70450; 71010; 71020; 76937; 77001; 80048; 80053; 80074; 81001; 82306; 82550; 82553; 82805; 83605; 83735; 83880; 84100; 84484; 84550; 85025; 85610; 85730; 86038; 86160; 86162; 86704; 86706; 86850; 86900; 86901; 86920; 87040; 87086; 87324; 87340; 90935; 93005; 94640; 94760; 96365; 96366; 96375; 96376; 99285